=== PATIENT | male | born 1950 | race Caucasian/White ===

== ENCOUNTER 2022-11-29 20:35 | Emergency (ER) | payer MEDICARE, SELFPAY ==
[2022-11-29] VITALS (9 sets, daily range): BP systolic 151–175; BP diastolic 72–89; PULSE 63–88; RESP 13–27; TEMP 36.5; O2SAT 96–99
--- NOTE | ~2022-11-29 | XR_ITS ---
XR chest 2V DATE: 11/29/2022 21:15 INDICATION: Shortness of breath TECHNIQUE: PA and lateral views COMPARISON: 10/17/2010 PA and lateral chest FINDINGS: Left pacemaker device with right atrial, right ventricular and coronary sinus leads. Normal heart size. Aortic arch calcification. There is pulmonary vascular congestion and redistribution. There is pulmonary interstitial prominence including bilateral Herb B-lines. There are small pleural effusions. IMPRESSION: Pulmonary vascular congestion, pulmonary edema, small pleural effusions Reviewed, dictated and finalized at location A. IMPRESSION: Pulmonary vascular congestion, pulmonary edema, small pleural effus ions
--- NOTE | ~2022-11-29 | CT_ITS ---
EXAMINATION: CTA chest PE protocol DATE: 11/30/2022 01:10 INDICATION: Shortness of breath TECHNIQUE: Computed tomography angiography (CTA) of the chest was performed with 100 mL Omnipaque-350 intravenous contrast timed to evaluate the pulmonary arteries. Coronal maximum intensity projection 3D-reconstructions were created by the technologist. The dose-length product (DLP) was 392.62 mGy-cm. Automated exposure control and iterative reconstruction technique were employed. COMPARISON: None. FINDINGS: The pulmonary arteries are well-opacified. No pulmonary embolism is identified. There are e xtensive collateral vessels throughout the left thorax, likely related to left subclavian vein occlus ion. There are small to moderate-sized pleural effusions. Cardiomegaly is noted. There are patchy opa cities throughout all lung zones which may be partially due to expiratory phase examination. There is mild right hilar lymphadenopathy, likely reactive. There is mild thoracic spondylosis. IMPRESSION: 1. No pulmonary embolus identified. 2. Small to moderate-sized pleural effusions. 3. Cardiomegaly. 4. Patchy opacities throughout all lung zones which may relate to pulmonary edema as well as expirato ry phase imaging. 5. Extensive venous collaterals throughout the left hemithorax, likely related to left subclavian vei n occlusion. Reviewed, dictated and finalized at location A. IMPRESSION: 1. No pulmonary embolus identified. 2. Small to moderate-sized pleural effusions. 3. Cardiomegaly. 4. Patchy opacities throughout all lung zones which may relate to pulmonary dimitry ma as well as expiratory phase imaging. 5. 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
--- NOTE | 2022-11-29 20:36 | ECG_ITS ---
Measurements Intervals [place] Rate: 85 P: 66 OK: 176 QRS: 125 QRSD: 152 T: -7 QT: 398 QTc: 476 Interpretive Statements ELECTRONIC VENTRICULAR PACEMAKER WITH ATRIAL SENSING APPROPRIATE SENSING AND CAPTURE ARE DEMONSTRATED ABNORMAL RHYTHM ECG NO PREVIOUS ECG AVAILABLE FOR COMPARISON Electronically Signed On 11-30-2022 11:23:01 CDT by Panda Reis M.D.
[2022-11-29 22:41] LABS: Basophils Percent Auto 0.5 % (0.2-1.2); Eosinophils Absolute Auto 0.2 K/mm3 (0-0.3); Eosinophils Percent Auto 2.2 % (0-4.4); Hemoglobin 13.3 g/dL (14.0-18.0); Immature Granulocyte Absolute 0.03 K/mm3 (0.00-0.031); Immature Granulocyte Percent A 0.4 % (0-0.5); Lymphocytes Absolute Auto 1.26 K/mm3 (0.9-3.2); Lymphocytes Percent Auto 15.4 % (18.3-44.2); Mean Corpuscular HGB Conc 34.1 g/dl (32-36); Mean Corpuscular Hemoglobin 30.3 pg (26-34); Mean Corpuscular Volume 88.8 fl (80-100); Mean Platelet Volume 9.9 fl (7.4-10.4); Monocytes Absolute Auto 0.6 K/mm3 (0.1-0.6); Monocytes Percent Auto 7.4 % (2.6-8.5); Neutrophils Absolute Auto 6.1 K/mm3 (1.3-6.7); Neutrophils Percent Auto 74.1 % (45.5-73.1); Platelet Count Result 208 k/mm3 (150-375); Red Blood Count 4.39 M/mm3 (4.6-6.20); Red Cell Distribution Width 12.4 % (11.5-14.5); White Blood Count 8.2 K/mm3 (4.5-10.0)
[2022-11-29 23:11] LABS: Alanine Aminotransferase 28 U/L (6-50); Alkaline Phosphatase 92 U/L (38-126); Anion Gap 7 mmol/L (8-16); Aspartate Amino Transferase 29 U/L (17-59); Bilirubin,Total 1.3 mg/dL (0.2-1.3); Blood Urea Nitrogen 13 mg/dL (9-20); Calcium 8.8 mg/dL (8.4-10.2); Carbon Dioxide 23 mmol/L (22-30); Chloride 105 mmol/L (98-107); Estimated CRCL calculation 70 ml/min; Estimated Glomerular Filt Rate > 60; Glucose 263 mg/dL (65-110); Potassium 4.3 mmol/L (3.4-5.0); Sodium 135 mmol/L (137-145)
[2022-11-29 23:13] LABS: Magnesium 1.9 mg/dL (1.6-2.3)
[2022-11-29 23:23] LABS: NT Pro B Type Natriuretic Pept 879 pg/mL (19.9-100); Troponin I < 0.012 ng/mL (0.000-0.034)
[2022-11-30] VITALS: PULSE 70; RESP 15; O2SAT 99
[2022-11-30 00:01] VITALS: BP 165/80; PULSE 70; RESP 14; O2SAT 99
--- NOTE | 2022-11-30 00:29 | ED.GENADULT ---
HPI - General Adult General Chief complaint: Shortness of Breath/Dyspnea Stated complaint: SOB Time Seen by Provider: 11/29/22 22:02 History of Present Illness HPI narrative: Patient 72-year-old gentleman who presents the emergency department with chief complaint of shortness of breath. Patient reports that he does have prior history of congestive heart failure and has a biventricular pacemaker patient reports that he is currently not on any diuretics and reports that for the last several days he has been having increasing shortness of breath patient was seen at urgent care and given an inhaler the patient states he has been using the inhaler quite frequently and is noticed whenever he ambulates he gets short of breath. Patient reports no wheezing the patient states that he had no weight gain and reports that the symptoms are not improved by anything. Related Data Home Medications Medication Instructions Recorded Confirmed amlodipine 5 mg-atorvastatin 10 mg 1 tablet PO DAILY 10/31/19 tablet insulin glargine 100 unit/mL (3 15 unit subcut DAILY 10/31/19 mL) subcutaneous pen (Lantus Solostar U-100 Insulin) insulin lispro 100 unit/mL 10.5 unit subcut QACBREAK 10/31/19 subcutaneous half-unit pen (Humalog Steven KwikPen (U-100)) liraglutide 0.6 mg/0.1 mL (18 mg/3 0.6 mg subcut DAILY 10/31/19 mL) subcutaneous pen injector (Victoza 2-Naun) metformin 500 mg tablet 500 mg PO DAILY 10/31/19 omeprazole 20 mg capsule,delayed 20 mg PO DAILY 10/31/19 release pen needle, diabetic 32 gauge x #10 ea 10/31/19 (BD Ultra-Fine Gianna Pen Needle) tadalafil 5 mg tablet (Cialis) 5 mg PO DAILY 10/31/19 tamsulosin 0.4 mg capsule (Flomax) 0.4 mg PO DAILY 10/31/19 Allergies Allergy/AdvReac Type Severity Reaction Status Date / Time No Known Allergies Allergy Mild Verified 11/09/19 09:20 Review of Systems Review of Systems: A 10 system review of systems was completed on the patient and is negative except for what is stated in the HPI. Nursing and ancillary documentation was reviewed. FORMERLY [facility], [facility] Past Medical History Medical History CHF (congestive heart failure) Clavicle fracture Diabetes Heart disease High blood cholesterol HTN (hypertension) Surgical History Surgical History History of elbow surgery Knee arthropathy Pacemaker 2009 S/P tendon repair Family History Family History Father Cancer Grandparent Diabetes mellitus Social History Social History Smoking status: Never smoker Alcohol intake: current Substance use: never Living arrangements: alone Occupation/Education: retired Gender identity (if verbalized by the patient): Male Exam Narrative: GENERAL: Well-appearing, well-nourished, and in no acute distress. HEAD: Normocephalic, atraumatic. EYES: PERRLA and EOMI. ENT: Nares clear, no rhinorrhea or epistaxis. Mucous membranes moist. NECK: Supple. CHEST: Clear to auscultation. No respiratory distress. HEART: Regular rate and rhythm. No murmur heard. Normal peripheral pulses. ABDOMEN: Soft, nontender, nondistended, normal active bowel sounds. EXTREMITIES: Normal range of motion. No edema. SKIN: Warm, dry, no rash. NEURO: No focal deficits. Alert and oriented x3. PSYCH: Normal mood and affect. Course Vital Signs Vital signs: Vital Signs Temperature 36.5 C 11/29/22 20:41 Pulse Rate 88 11/29/22 20:41 Respiratory Rate 24 H 11/29/22 20:41 Blood Pressure 175/89 H 11/29/22 20:41 Pulse Oximetry 98 11/29/22 20:41 Oxygen Delivery Room Air 11/29/22 20:41 Temperature 36.5 C 11/29/22 20:41 Pulse Rate 71 11/30/22 02:18 Respiratory Rate 15 11/30/22 02:18 Blood Pressure 154/92 H 11/19
[2022-11-30 02:18] VITALS: BP 154/92; PULSE 71; RESP 15; O2SAT 97
[2022-11-30 02:49] LABS: Troponin I < 0.012 ng/mL (0.000-0.034)
[2022-11-30] MEDS: FUROSEMIDE INJ 40 MG/4 ML VIAL 20 MG IV PUSH (03:17)
[2022-11-30 03:29] VITALS: BP 154/92; PULSE 75; RESP 17; O2SAT 98
== END 2022-11-30 03:31 | disposition home or self-care (01) ==
PROVIDERS: Emergency Provider Emergency Medicine; PCP Family Medicine
DX: R06.00 Dyspnea, unspecified (principal); I50.9 Heart failure, unspecified; I11.0 Hypertensive heart disease with heart failure; E11.9 Type 2 diabetes mellitus without complications; E78.00 Pure hypercholesterolemia, unspecified; Z95.0 Presence of cardiac pacemaker; Z79.4 Long term (current) use of insulin; Z79.84 Long term (current) use of oral hypoglycemic drugs; J90 Pleural effusion, not elsewhere classified; R91.8 Other nonspecific abnormal finding of lung field
CPT/HCPCS: 36415; 71046; 71275; 80053; 83735; 83880; 84145; 84484; 85025; 93005; 96374; 99284; J1940; Q9967

== ENCOUNTER 2024-04-12 15:29 | Observation (INO) | payer MEDICARE, SELFPAY ==
[2024-04-12] VITALS (8 sets, daily range): BP systolic 146–169; BP diastolic 62–90; PULSE 61–98; RESP 15–20; TEMP 36.5–36.8; O2SAT 96–98; BMI 27.7
--- NOTE | ~2024-04-12 | XR_ITS ---
XR chest 2V 04/12/2024 15:53 Indication: Shortness of breath and chest pain. Low heart rate. Procedure: 2 view chest Comparison: 11/29/2022 Findings: Heart size normal. Pacemaker leads are stable. There is pulmonary edema. No significant ple ural effusion or pneumothorax. No acute osseous abnormality. Impression: 1: Moderate edema. Reviewed, dictated and finalized at location B. Impression: 1: Moderate edema.
--- NOTE | ~2024-04-12 | US_ITS ---
EXAMINATION: US pelvic limited DATE: 04/16/2024 11:47 INDICATION: Bladder spasms. Hematuria. TECHNIQUE: Multiple grayscale and Doppler ultrasound images of the pelvis were obtained. COMPARISON: CT abdomen and pelvis 09/29/2018 FINDINGS: The bladder is decompressed by a Rodriguez catheter. There is diffuse bladder wall thickening. IMPRESSION: 1. Diffuse bladder wall thickening, which may be seen with chronic outlet obstruction, neurogenic maria d dder, or cystitis. Reviewed, dictated and finalized at location A. IMPRESSION: 1. Diffuse bladder wall thickening, which may be seen with chronic outlet obstr uction, neurogenic bladder, or cystitis.
--- NOTE | ~2024-04-12 | CT_ITS ---
EXAMINATION: CTA chest PE protocol DATE: 04/12/2024 17:14 CDT INDICATION: Shortness of breath TECHNIQUE: Computed tomographic angiography (CTA) of the chest was performed with 100 mL Omnipaque-35 0 intravenous contrast. The dose-length product was 507.48 mGy-cm. Maximum intensity projection 3D-re constructions of the aorta and other arteries were constructed by the technologist on a separate work station. COMPARISON: 04/12/2024 FINDINGS: Near complete resolution of the bilateral pleural effusions, seen on previous examination dated 2022. No filling defects within the main or proximal pulmonary arteries. The main pulmonary artery is not enlarged. Heart is enlarged, without pericardial effusion. The great vessels are intact. AICD overlies the left anterior upper chest with leads extending into the right atrium, right ventric le and coronary sinus. Within the upper abdomen: Mild left-sided hydroureteronephrosis, incompletely evaluated on the curren t examination however, this is an interval change examination performed 11/30/2022. The bilateral adrenal glands are unremarkable. IMPRESSION: 1. No filling defects within the main or proximal ulnar arteries. Mild left-sided hydroureteronephrosis incompletely evaluated on the current examination for which non contrast enhanced CT examination of the abdomen and pelvis is recommended. Reviewed, dictated and finalized at location A. IMPRESSION: 1. No filling defects within the main or proximal ulnar arteries. Mild left-sided hydroureteronephrosis incompletely evaluated on the current exa mination for which noncontrast enhanced CT examination of the abdomen and pelvi s is recommended.
--- NOTE | ~2024-04-12 | US_ITS ---
EXAMINATION: US renal BI DATE: 04/13/2024 10:02 INDICATION: Hydronephrosis. TECHNIQUE: Multiple ultrasound grayscale images of the kidneys were obtained. COMPARISON: CT abdomen and pelvis 09/29/2018, chest CT 04/12/2024 FINDINGS: The right kidney measures 9.9 x 6.2 x 5.4 cm. The left kidney measures 11.5 x 5.8 x 5.2 cm. The kidne ys demonstrate normal parenchymal echogenicity. There is mild left hydronephrosis. The bladder demons trates diffuse wall thickening, likely secondary to chronic outlet obstruction. IMPRESSION: 1. Mild left hydronephrosis. Reviewed, dictated and finalized at location A.
--- NOTE | 2024-04-12 15:31 | ECG_ITS ---
Test Date: 2024-04-12 15:36:49 Measurements Intervals [place] Rate: 64 P: 75 SD: 165 QRS: 141 QRSD: 146 T: 26 QT: 440 QTc: 456 Interpretive Statements ELECTRONIC ATRIAL PACEMAKER ELECTRONIC VENTRICULAR PACEMAKER No previous ECG available for comparison Electronically Signed On 04-13-2024 09:38:10 CDT by Kevin Chirinos M.D.
[2024-04-12 15:52] LABS: Basophils Percent Auto 0.6 % (0.2-1.2); Eosinophils Absolute Auto 0.1 K/mm3 (0-0.3); Eosinophils Percent Auto 1.6 % (0-4.4); Hematocrit 38.6 % (42.0-52.0); Hemoglobin 12.7 g/dL (14.0-18.0); Immature Granulocyte Absolute 0.02 K/mm3 (0.00-0.031); Immature Granulocyte Percent A 0.3 % (0-0.5); Lymphocytes Absolute Auto 1.08 K/mm3 (0.9-3.2); Lymphocytes Percent Auto 15.4 % (18.3-44.2); Mean Corpuscular HGB Conc 32.9 g/dl (32-36); Mean Corpuscular Hemoglobin 30.1 pg (26-34); Mean Corpuscular Volume 91.5 fl (80-100); Monocytes Absolute Auto 0.5 K/mm3 (0.1-0.6); Monocytes Percent Auto 6.4 % (2.6-8.5); Neutrophils Absolute Auto 5.3 K/mm3 (1.3-6.7); Neutrophils Percent Auto 75.7 % (45.5-73.1); Platelet Count Result 200 k/mm3 (150-375); Red Blood Count 4.22 M/mm3 (4.6-6.20); Red Cell Distribution Width 12.9 % (11.5-14.5)
[2024-04-12 16:03] LABS: Prothrombin Time 13.7 Seconds (11.1-14.7)
[2024-04-12 16:04] LABS: Partial Thromboplastin Time 24.4 Seconds (22.3-36.8)
[2024-04-12 16:13] LABS: Alanine Aminotransferase 25 U/L (6-50); Albumin Level 4.2 g/dL (3.5-5.1); Alkaline Phosphatase 82 U/L (38-126); Anion Gap 10 mmol/L (4-12); Aspartate Amino Transferase 29 U/L (17-59); Bilirubin,Total 0.8 mg/dL (0.2-1.3); Blood Urea Nitrogen 21 mg/dL (9-20); Carbon Dioxide 21 mmol/L (22-30); Chloride 107 mmol/L (98-107); Estimated CRCL calculation 51 ml/min; Estimated Glomerular Filt Rate > 60; Glucose 175 mg/dL (65-110); Lipase 89 U/L (23-300); Sodium 138 mmol/L (137-145)
[2024-04-12 16:19] LABS: Troponin I < 0.012 ng/mL (0.000-0.034)
[2024-04-12] MEDS: ASPIRIN 81 MG CHEWABLE TABLET 324 MG PO (16:24)
--- NOTE | 2024-04-12 16:37 | ED_ITS ---
HPI - SOB/Dyspnea General Chief Complaint: Chest Pain Stated Complaint: sob,cp Time Seen by Provider: 04/12/24 16:27 History of Present Illness HPI Narrative: Pt presents with SOB for the last couple of weeks getting progressively worse especially with any type of exertion. Pt says his oxygen sats remain at 98% even with exertion but his HR drops into 40's despite his pacemaker. Pt saw Geno Kevin yesterday and had pacemaker interrogated. Pt has had some occasional mild CP but none now and not with exertion. Pt does have a histoy of chf but has no edema. Related Data Home Medications Medication Instructions Recorded Confirmed amlodipine 5 mg-atorvastatin 10 mg 1 tablet PO DAILY 10/31/19 tablet insulin glargine 100 unit/mL (3 15 unit subcut DAILY 10/31/19 mL) subcutaneous pen (Lantus Solostar U-100 Insulin) insulin lispro 100 unit/mL 10.5 unit subcut QACBREAK 10/31/19 subcutaneous half-unit pen (Humalog Steven KwikPen (U-100)) metformin 500 mg tablet 500 mg PO DAILY 10/31/19 omeprazole 20 mg capsule,delayed 20 mg PO DAILY 10/31/19 release pen needle, diabetic 32 gauge x #10 ea 10/31/19 (BD Ultra-Fine Gianna Pen Needle) tadalafil 5 mg tablet (Cialis) 5 mg PO DAILY 10/31/19 tamsulosin 0.4 mg capsule (Flomax) 0.4 mg PO DAILY 10/31/19 Allergies Allergy/AdvReac Type Severity Reaction Status Date / Time No Known Allergies Allergy Mild Verified 04/12/24 16:21 Review of Systems Review of Systems: All systems reviewed & are unremarkable except as noted in HPI and below [facility] Past Medical History Medical History (Updated 04/12/24 @ 21:39 by Arturo Grey III, DO) Benign prostatic hyperplasia Clavicle fracture Hypercholesterolemia Hypertension 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 Code status: Full code. Smoking status: Never smoker Alcohol intake: never Substance use: never Do You Feel Safe in your Home?: Yes Lack of Transportation: No Lack of Food: Never True Current Housing: I Have Housing Concerned About Future Housing: No Difficulty Paying Gas/Electric Bills: No Difficulty Paying for Meds: No Currently Unemployed: No Education: High School Diploma/GED Difficulty w/ Childcare or Family Care: No Living arrangements: alone Occupation/Education: retired Spiritual care concerns: No Exam Const: General: healthy appearing and no acute distress Nutritional Appearance: well nourished Orientation/consciousness: patient oriented x3 Limitations: no limitations Chest: Chest palpation & inspection: normal inspection of the chest Resp: Effort & Inspection: normal respiratory effort Auscultation: clear to auscultation bilaterally Cardio: Rate: regular rate Rhythm: regular rhythm GI: GI Palp: Yes Soft to palpation and No Tenderness to palpation present (GI) Auscultation: normal bowel sounds Skin: General skin exam: normal color Rashes: no rashes Neuro: General: patient oriented x3, moves all extremities, no meningeal signs, no focal motor deficits and CN's II-XI intact bilaterally Cranial nerves: Yes Nystagmus not present Speech: normal speech Extrem: General: normal to inspection and no clubbing, cyanosis or edema Psych: Mental Status: mental status grossly normal Affect: normal affect Attitude: cooperative Course Vital Signs Vital signs: Vital Signs Temperature 98.2 F 04/12/24 15:32 Pulse Rate 65 04/12/24 15:32 Respiratory Rate 18 04/12/24 15:32 Blood Pressure 146/62 H 04/12/24 15:32 Pulse Oximetry 98 04/12/24 15:32 Oxygen Delivery Room Air 04/12/24 15:32 Temperature 97.7 F 04/12/24 19:10 Pulse Rate 88 04/12/24 19:10 Respiratory Rate 16 04/12/24 19:10 Blood Pressure 159/85 H 04/12/24 19:10 Pulse Oximetry 98 04/12/24 19:10 Oxygen Delivery Room Air 04/12/24 16:06 MDM - SOB/Dyspnea MDM Narrative Medical decision making narrative: pt is sob for weeks with HR dropping despite pacer. Will do cardiac work up and labs with cxr and ekg and likely CTA chest. cta neg for PE, bnp 775 with cxr showing moderate edema. firt trop neg. gave dose of IV lasix. discussed with pt and would rather be admitted. discussed with Ericka Adam and agrees to admit IMU obs Differential Diagnosis Differential diagnosis: Likely congestive heart failure, community acquired pneumonia and pulmonary embolism Lab Data 04/12/24 15:40 04/12/24 15:40 Labs: Lab Results 04/12/24 Range/Units 15:40 WBC 7.0 (4.5-10.0) K/mm3 RBC 4.22 L (4.6-6.20) M/mm3 Hgb 12.7 L (14.0-18.0) g/dL Hct 38.6 L (42.0-52.0) % MCV 91.5 (80-100) fl MCH 30.1 (26-34) pg MCHC 32.9 (32-36) g/dl RDW 12.9 (11.5-14.5) % Plt Count 200 (150-375) k/mm3 MPV 10.0 (7.4-10.4) fl Immature Gran % (Auto) 0.3 (0-0.5) % Neut % (Auto) 75.7 H (45.5-73.1) % Lymph % (Auto) 15.4 L (18.3-44.2) % [place] % (Auto) 6.4 (2.6-8.5) % Eos % (Auto) 1.6 (0-4.4) % Baso % (Auto) 0.6 (0.2-1.2) % Lymph # (Auto) 1.08 (0.9-3.2) K/mm3 [place] # (Auto) 0.5 (0.1-0.6) K/mm3 Eos # (Auto) 0.1 (0-0.3) K/mm3 Baso # (Auto) 0.0 (0.0-0.1) K/mm3 Abs Immat Gran (auto) 0.02 (0.00-0.031) K/mm3 Absolute Neuts (auto) 5.3 (1.3-6.7) K/mm3 Absolute Nucleated RBC 0.000 (0.0-0.012) K/mm3 Nucleated RBC % 0.0 (0.0-0.2) % PT 13.7 (11.1-14.7) Seconds INR 1.0 APTT 24.4 (22.3-36.8) Seconds Sodium 138 (137-145) mmol/L Potassium 4.1 (3.4-5.0) mmol/L Chloride 107 (98-107) mmol/L Carbon Dioxide 21 L (22-30) mmol/L Anion Gap 10 (4-12) mmol/L BUN 21 H (9-20) mg/dL Creatinine 1.10 (0.7-1.3) mg/dL Estim Creat Clear Calc 51 ml/min Estimated GFR > 60 (59 - ) Glucose 175 H (65-110) mg/dL Hemoglobin A1c 8.4 H (<5.7) % Calcium 9.0 (8.4-10.2) mg/dL Total Bilirubin 0.8 (0.2-1.3) mg/dL AST 29 (17-59) U/L ALT 25 (6-50) U/L Alkaline Phosphatase 82 (38-126) U/L Troponin I < 0.012 (0.000-0.034) ng/mL NT-Pro-B Natriuret Pep 775 H (19.9-100) pg/mL Total Protein 8.0 (6.3-8.2) g/dL Albumin 4.2 (3.5-5.1) g/dL Lipase 89 (23-300) U/L Discharge Plan Discharge Clinical Impression: Dyspnea on exertion, CHF (congestive heart failure) Patient Disposition: Still a Patient Condition: Stable
[2024-04-12 16:48] LABS: Potassium 4.1 mmol/L (3.4-5.0)
[2024-04-12 17:09] LABS: NT Pro B Type Natriuretic Pept 775 pg/mL (19.9-100)
--- NOTE | 2024-04-12 18:16 | PC.NURSE ---
called dietary and ordered dinner tray for pt at this time
[2024-04-12] MEDS: FUROSEMIDE INJ 40 MG/4 ML VIAL IV PUSH (18:28)
[2024-04-12 18:56] LABS: Troponin I < 0.012 ng/mL (0.000-0.034)
--- NOTE | 2024-04-12 19:00 | PM.IMHP ---
H&P: HPI History of Present Illness Date/Time: 04/12/24 19:00 Chief Complaint: Chest pain and shortness of breath. Narrative: This is a pleasant 73-year-old male with history of nonischemic cardiomyopathy, combination pacemaker/defibrillator implantation, hypertension, insulin-dependent type 2 diabetes mellitus, benign prostatic hyperplasia, and gastroesophageal reflux disease who presented to the emergency department for evaluation of chest pain and shortness of breath. The patient provides the following history. He gives a several week history of intermittent chest heaviness and shortness of breath with exertion. 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 He has not had much urine output with that however he goes on to say that he frequently has difficulty starting his stream and feels like he does not completely empty his bladder. In any event, he saw his doctor today in follow-up and they did a walking oxygen study at which time he developed significant shortness of breath, nausea, mild sweats, and bradycardia with his heart rate dropping down to 43 beats per minute. He was then sent to the ED for further evaluation. He denies syncope, near syncope, fever, sinus congestion, sore throat, cough, abdominal pain, vomiting, orthopnea, calf pain, and edema. In the ED: He was afebrile on arrival. Blood pressures have been running in the upper 140s to 160s systolic. Labs are significant for a hemoglobin of 12.7, BUN 21, glucose 175, proBNP 775, troponin less than 0.012. Chest CTA showed no filling defects within the main or proximal pulmonary arteries, cardiomegaly, and mild left-sided hydroureteronephrosis which is incompletely evaluated. He is being admitted in this setting for further treatment, evaluation, and Cardiology consultation. Review of Systems Review of Systems: 12 systems were reviewed and are negative except for as per HPI. 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 Code status: Full code. Smoking status: Never smoker Alcohol intake: never Substance use: never Do You Feel Safe in your Home?: Yes Lack of Transportation: No Lack of Food: Never True Current Housing: I Have Housing Concerned About Future Housing: No Difficulty Paying Gas/Electric Bills: No Difficulty Paying for Meds: No Currently Unemployed: No Education: High School Diploma/GED Difficulty w/ Childcare or Family Care: No Living arrangements: alone Occupation/Education: retired Spiritual care concerns: No Meds Home Medications and Allergies Home Medications Medication Instructions Recorded Confirmed Type amlodipine 5 mg-atorvastatin 10 mg 1 tablet PO DAILY 10/31/19 History tablet insulin glargine 100 unit/mL (3 15 unit subcut DAILY 10/31/19 History mL) subcutaneous pen (Lantus Solostar U-100 Insulin) insulin lispro 100 unit/mL 10.5 unit subcut QACBREAK 10/31/19 History subcutaneous half-unit pen (Humalog Steven KwikPen (U-100)) metformin 500 mg tablet 500 mg PO DAILY 10/31/19 History omeprazole 20 mg capsule,delayed 20 mg PO DAILY 10/31/19 History release pen needle, diabetic 32 gauge x #10 ea 10/31/19 History (BD Ultra-Fine Gianna Pen Needle) tadalafil 5 mg tablet (Cialis) 5 mg PO DAILY 10/31/19 History tamsulosin 0.4 mg capsule (Flomax) 0.4 mg PO DAILY 10/31/19 History Allergies Allergy/AdvReac Type Severity Reaction Status Date / Time No Known Allergies Allergy Mild Verified 04/12/24 16:21 Vital Signs Vital Signs - 24 hr 04/12/24 15:32 04/12/24 16:02 04/12/24 16:03 Temperature 98.2 F Pulse Rate 65 90 98 Respiratory Rate 18 20 Blood Pressure 146/62 H 167/90 H Pulse Oximetry 98 97 Oxygen Delivery Room Air 04/12/24 16:06 04/12/24 18:26 Temperature Pulse Rate 61 Respiratory Rate 15 Blood Pressure 169/76 H Pulse Oximetry 96 98 Oxygen Delivery Room Air Exam Narrative: General: Well-developed male sitting at the side of the bed in no distress. Weight: 82.7 kg. BMI: 27.7. HEENT: Normocephalic, atraumatic. PERRL, EOMI. Sclera anicteric. Oral mucosa moist. Oropharynx clear. Neck: Supple. No significant JVD. Respiratory: Respirations are nonlabored and he is speaking in full sentences at rest. Crackles heard at the bases. Cardiovascular: Regular rate and rhythm with S1-S2. Gastrointestinal: Abdomen is soft, nontender, and nondistended with positive bowel sounds. Skin: Warm and dry. No rash or lesions on limited exam. Extremities: No cyanosis, clubbing, or edema. Radial and pedal pulses intact. Neurological: Alert. Cranial nerves 2-12 are grossly intact. No gross focal deficits to casual conversation. Psychiatric: Pleasant and cooperative with normal mood and affect. Judgment and insight intact. H&P: Results Labs Labs: Short CBC 04/12/24 Range/Units 15:40 WBC 7.0 (4.5-10.0) K/mm3 Hgb 12.7 L (14.0-18.0) g/dL Hct 38.6 L (42.0-52.0) % Plt Count 200 (150-375) k/mm3 BMP 04/12/24 15:40 Sodium 138 Potassium 4.1 Chloride 107 Carbon Dioxide 21 L BUN 21 H Creatinine 1.10 Glucose 175 H Calcium 9.0 Cardiac Enzymes 04/12/24 04/12/24 Range/Units 15:40 18:30 Troponin I < 0.012 < 0.012 (0.000-0.034) ng/mL Liver Function 04/12/24 Range/Units 15:40 Total Bilirubin 0.8 (0.2-1.3) mg/dL AST 29 (17-59) U/L ALT 25 (6-50) U/L Alkaline Phosphatase 82 (38-126) U/L Albumin 4.2 (3.5-5.1) g/dL Impressions Chest X-Ray 04/12/24 15:57 Impression: 1: Moderate edema. Chest CTA 04/12/24 17:13 IMPRESSION: 1. No filling defects within the main or proximal ulnar arteries. 2. Mild left-sided hydroureteronephrosis incompletely evaluated on the current examination for which noncontrast enhanced CT examination of the abdomen and pelvis is recommended. Assessment and Plan Assessment and plan (1) CHF exacerbation: Code(s): I50.9 - Heart failure, unspecified Status: Acute (2) Chest pain: Code(s): R07.9 - Chest pain, unspecified Status: Acute (3) Benign prostatic hyperplasia with urinary retention: Code(s): N40.1 - Benign prostatic hyperplasia with lower urinary tract symptoms; R33.8 - Other retention of urine Status: Acute (4) Hydroureteronephrosis: Code(s): N13.30 - Unspecified hydronephrosis Status: Acute (5) Nonischemic cardiomyopathy: Code(s): I42.8 - Other cardiomyopathies Status: Acute (6) Hypertension: Code(s): I10 - Essential (primary) hypertension Status: Acute (7) Insulin dependent type 2 diabetes mellitus: Code(s): E11.9 - Type 2 diabetes mellitus without complications; Z79.4 - snf (current) use of insulin Status: Acute Plan The patient presented to the emergency department for evaluation of chest pain and shortness of breath for couple weeks as detailed in HPI. Labs, imaging, EKG, and all reports were personally reviewed. Initial troponin was normal and his EKG atrial and ventricular paced rhythm. Moderate amount of pulmonary edema was noted on chest x-ray and he will be diuresed with close monitoring of volume status, renal function, and electrolytes. Echocardiogram ordered. Cardiology has been consulted for their recommendations. Chest CTA showed incompletely evaluated mild left hydroureteronephrosis and with further questioning the patient does report trouble starting his stream and feelings of incomplete evacuation of his bladder. This is likely the cause of the hydroureteronephrosis. Renal ultrasound ordered. Bladder scan showed that he was retaining greater than 500 mL of urine postvoid and a Rodriguez catheter has been placed. Continue tamsulosin and consider the addition of finasteride. Continue basal insulin and check hemoglobin A1c. Initiate sliding scale insulin, Accu-Cheks, and hypoglycemic protocol. Vital signs were reviewed and they are stable. His home medications will be reviewed and resumed as appropriate. Findings and treatment plan were discussed with the patient. Questions were solicited and answered to satisfaction. The patient's medical management will be taken over by the hospitalist team in a.m. Quality VTE Prophylaxis VTE prophylaxis: pharmacologic ordered The patient has been admitted under observation status. Hospitalist MIPS Advance Care Plan I have confirmed that the patient's Advanced Care Plan is present, code status is documented, or surrogate decision maker is listed in patient medical record.: Yes Medication Reconciliation I have utilized all available resources to obtain, update and review the patients current medications (includes all prescriptions, OTC, herbals, cannabis, and nutritional supplements).: Yes
--- NOTE | 2024-04-12 19:18 | ADMGEN ---
This patient, Alan Burgos, was admitted to IMU Room 206-02 at 1909. Patient/family oriented to hospital policies and general routines including ID bracelet, bed and alarms, visiting hours, pain management, procedures, bathroom and other care routines, personal items, smoking policy, room service/diet, and visiting hours. Information on how to activate the Rapid Response Team has been discussed. Patient/Family are encouraged to report perceived risks to care and to ask questions if they do not understand what they are told or what they should do.
[2024-04-12 19:55] LABS: Glucose Point of Care 256 mg/dl (65-105)
[2024-04-12] MEDS: INSULIN ASPART (*BKC) 100 UNITS/ML SUB-Q (21:00)
[2024-04-12 21:15] LABS: Hemoglobin A1C 8.4 % (<5.7)
[2024-04-12 22:05] LABS: Troponin I < 0.012 ng/mL (0.000-0.034)
[2024-04-13] VITALS (20 sets, daily range): BP systolic 113–175; BP diastolic 58–86; PULSE 64–92; RESP 16–20; TEMP 36.6–36.9; O2SAT 95–100
[2024-04-13 01:12] LABS: Anion Gap 9 mmol/L (4-12); Blood Urea Nitrogen 23 mg/dL (9-20); Calcium 9.6 mg/dL (8.4-10.2); Carbon Dioxide 25 mmol/L (22-30); Chloride 103 mmol/L (98-107); Estimated CRCL calculation 47 ml/min; Estimated Glomerular Filt Rate 59; Glucose 198 mg/dL (65-110); Magnesium 1.9 mg/dL (1.6-2.3); Potassium 3.9 mmol/L (3.4-5.0); Sodium 137 mmol/L (137-145)
[2024-04-13 01:16] LABS: Hematocrit 39.9 % (42.0-52.0); Hemoglobin 13.4 g/dL (14.0-18.0); Mean Corpuscular HGB Conc 33.6 g/dl (32-36); Mean Corpuscular Hemoglobin 30.2 pg (26-34); Mean Corpuscular Volume 90.1 fl (80-100); Mean Platelet Volume 10.4 fl (7.4-10.4); Platelet Count Result 222 k/mm3 (150-375); Red Blood Count 4.43 M/mm3 (4.6-6.20); Red Cell Distribution Width 13.1 % (11.5-14.5); White Blood Count 6.5 K/mm3 (4.5-10.0)
[2024-04-13 01:23] LABS: Troponin I < 0.012 ng/mL (0.000-0.034)
--- NOTE | 2024-04-13 06:00 | ECHO_ITS ---
Patient Info Name: Alan Burgos Age: 73 years : 1950 Gender: Male Ht: 62 in Wt: 182 lbs BSA: 1.94 m2 HR: 73 bpm BP: 175 / 86 mmHg Heart Rhythm: Sinus Rhythm Technical Quality: Good Exam Date: 04/13/2024 8:55 AM Exam Location: Echo Lab Patient Status: Outpatient Admit Date: 04/12/2024 Staff Ordering Physician: Arturo Grey DO Chief Telephone Operator: Janis Thomas RDCS Attending Provider: Yoni Walker MD Referring Physician: Matilda PEACOCK; Exam Type: CA echo doppler color flow Study Info Indications - chf Complete two-dimensional, color flow and Doppler transthoracic echocardiogram is performed. Summary 1. Left ventricular chamber dimension is moderately enlarged. 2. Left ventricular systolic function is moderately reduced, estimated at 30-35%. 3. There is mildly increased left ventricular wall thickness. 4. Right ventricular chamber dimension is normal. 5. Right ventricular systolic function is normal. 6. Left atrial chamber dimension is moderately enlarged. 7. Right atrial chamber dimension is mildly enlarged. 8. There is mild mitral valve regurgitation. 9. There is moderate tricuspid valve regurgitation. Left Ventricle Left ventricular chamber dimension is moderately enlarged. Left ventricular systolic function is moderately reduced, estimated at 30-35%. There is mildly increased left ventricular wall thickness. The left ventricular diastolic function is abnormal. Right Ventricle Linear artifact in right ventricle suggestive of catheter(s), pacemaker lead(s), or ICD lead(s). Right ventricular chamber dimension is normal. Right ventricular systolic function is normal. Left Atria Left atrial chamber dimension is moderately enlarged. Right Atria Linear artifact in the right atrium suggestive of catheter(s), pacemaker lead(s), or ICD lead(s). Right atrial chamber dimension is mildly enlarged. Atrial Septum Intact interatrial septum visualized by color flow imaging. Aortic Valve The aortic valve is probable trileaflet. There is no aortic valve stenosis. There is no aortic valve regurgitation. Pulmonic Valve The pulmonic valve is not well visualized. Mitral Valve There is mild mitral valve regurgitation. Tricuspid Valve There is moderate tricuspid valve regurgitation. Pericardium/Pleural The pericardium appears epicardial fat pad. There is no pericardial effusion. Inferior Vena Cava Normal inferior vena cava with >50% collapse upon inspiration consistent with normal right atrial pressure, 3 mmHg. Aorta The aortic root size at the sinus of Valsalva is normal. Left Ventricular Outflow Tract Name Value Normal LVOT 2D LVOT Diameter 1.8 cm LVOT Doppler LVOT Peak Gradient 3 mmHg LVOT Mean Gradient 1 mmHg LVOT VTI 17 cm LVOT VTI/AV VTI Ratio 0.7 LVOT Stroke Volume 45 ml LVOT CO 3.6 l/min LVOT CI 1.9 l/min/m2 Mitral Valve Name Value Normal MV Doppler MV Decel [place] 649 cm/s2 MV PHT 43 ms MV Area (PHT) 5.2 cm2 4.0-5.0 MV Regurgitation Doppler MR Peak Gradient 83 mmHg MV Diastolic Function MV E Peak Velocity 96 cm/s MV A Peak Velocity 39 cm/s MV E/A 2.4 MV Decel Time 147 ms MV Annular TDI MV E/e' (Septal) 27.0 <=8.0 MV E/e' (Lateral) 16.2 <=8.0 MV E/e' (Average) 21.6 Tricuspid Valve Name Value Normal TV Regurgitation Doppler TR Peak Velocity 342 cm/s TR Peak Gradient 42 mmHg Estimated PAP/RSVP RA Pressure 3 mmHg <=5 PA Systolic Pressure 50 mmHg <36 RV Systolic Pressure 50 mmHg <36 Aortic Valve Name Value Normal AV Doppler AV Peak Velocity 137 cm/s AV Peak Gradient 7 mmHg AV Mean Gradient 4 mmHg AV VTI 26 cm AV Area (Cont Eq VTI) 1.7 cm2 >=3.0 AV Area (Cont Eq Shar) 1.5 cm2 AV Regurgitation 2D LVOT Area 2.6 cm2 Ventricles Name Value Normal LV Dimensions 2D/MM IVS Diastolic Thickness (2D) 1.0 cm 0.6-1.0 LVID Diastole (2D) 6.0 cm 4.2-5.8 LVIW Diastolic Thickness (2D) 1.0 cm 0.6-1.0 LVID Systole (2D) 4.5 cm 2.5-4.0 LVOT Diameter 1.8 cm LV Mass (2D Cubed) 258.43 g 88.00-224.00 LV Mass Index (2D Cubed) 134 g/m2 49-115 Relative Wall Thickness (2D) 0.34 LV Fractional Shortening/Ejection Fraction 2D/MM LV Fractional Shortening (2D) 26 % 25-43 LV EF (2D Teicholz) 50 % 52-72 LV Diastolic Volume (4C MOD) 152 ml LV EF (4C MOD) 43 % LV Diastolic Volume (2C MOD) 141 ml LV EF (2C MOD) 58 % LV Diastolic Volume (BP MOD) 151 ml 62-150 LV Diastolic Volume Index (BP MOD) 78 ml/m2 34-74 LV Systolic Volume (BP MOD) 72 ml 21-61 LV Systolic Volume Index (BP MOD) 37 ml/m2 11-31 LV EF (BP MOD) 52 % 52-72 LV Diastolic Length (4C) 8.1 cm LV Systolic Length (4C) 7.3 cm LV Stroke Volume (4C MOD) 65 ml Atria Name Value Normal LA Dimensions LA Volume (4C A-L) 58 ml RA Dimensions RA Area (4C) 12.7 cm2 <=18.0 Report Signatures
[2024-04-13 06:40] LABS: Free T4 Free Thyroxine Reflex 1.27 ng/dL (0.78-2.19)
--- NOTE | 2024-04-13 07:49 | P.PNIM_ITS ---
Progress Note: A&P Assessment and Plan (1) CHF exacerbation: Code(s): I50.9 - Heart failure, unspecified Status: Acute (2) Chest pain: Code(s): R07.9 - Chest pain, unspecified Status: Acute (3) Benign prostatic hyperplasia with urinary retention: Code(s): N40.1 - Benign prostatic hyperplasia with lower urinary tract symptoms; R33.8 - Other retention of urine Status: Acute (4) Hydroureteronephrosis: Code(s): N13.30 - Unspecified hydronephrosis Status: Acute (5) Nonischemic cardiomyopathy: Code(s): I42.8 - Other cardiomyopathies Status: Acute (6) Hypertension: Code(s): I10 - Essential (primary) hypertension Status: Acute (7) Insulin dependent type 2 diabetes mellitus: Code(s): E11.9 - Type 2 diabetes mellitus without complications; Z79.4 - correction (current) use of insulin Status: Acute Plan #SOB 2/2 Prostatomegaly vs CHF exacerbation #Bradycardia s/p Pacemaker -ECHO : LV EF 30-35% -As per cardiology some PVCs could result in false bradycardia on pulse ox -Pacemaker/Defib interrogation 04/11 shows well functioning device -Troponin N - Chest CTA shows no filling defects within the main or proximal lobar artery. -Chest x-ray shows moderate edema - BNP 775 -TSH 7.4, Free T4 N: Subclinical Hypothyroidism #Urinary obstruction/BPH -Renal US: Mild Left Hydronephrosis -Placed Mclaughlin -PSA in 3-4 weeks -CT abdomen pelvis w/wo contrast -Add finasteride and cont Tamsulosin. -Following Urology recs #DM Type 2 -Home regimen Lispro 25 U TID -SS initiated Subjective Date/time seen: 04/13/24 07:49 Interval history: Patient admitted due to shortness of breath and bradycardia. Patient has combination pacemaker/defibrillator. He was seen by the corporate compliance director yesterday and evaluated for possible pacemaker interrogation.Patient TSH is high with Free T4 normal indicating subclinical hypothyroidism. Patient also has difficulty urination, so Mclaughlin is placed. Patient does have history of prostatomegaly and he was drained 3L after placing mclaughlin. Placed Urology consult and PSA is ordered. Chest CTA shows no filling defects within the main or proximal lobar artery. Chest x-ray shows moderate edema.Troponin is negative. Record review indicates no echocardiogram in file. ECHO pending. Possible SOB due to fluid retention from Prostatomegaly vs CHF exacerbation. Exam Narrative: General: Well-developed male sitting at the side of the bed in no distress. Weight: 82.7 kg. BMI: 27.7. HEENT: Normocephalic, atraumatic. PERRL, EOMI. Sclera anicteric. Oral mucosa moist. Oropharynx clear. Neck: Supple. No significant JVD. Respiratory: Respirations are nonlabored and he is speaking in full sentences at rest. Crackles heard at the bases. Cardiovascular: Regular rate and rhythm with S1-S2. Gastrointestinal: Abdomen is soft, nontender, and nondistended with positive bowel sounds. Skin: Warm and dry. No rash or lesions on limited exam. Extremities: No cyanosis, clubbing, or edema. Radial and pedal pulses intact. Neurological: Alert. Cranial nerves 2-12 are grossly intact. No gross focal deficits to casual conversation. Psychiatric: Pleasant and cooperative with normal mood and affect. Judgment and insight intact. Objective Data Vital Signs Vital Signs: Vital Signs - 24 hr 04/12/24 15:32 04/12/24 16:02 04/12/24 16:03 Temperature 98.2 F Pulse Rate 65 90 98 Respiratory Rate 18 20 Blood Pressure 146/62 H 167/90 H Pulse Oximetry 98 97 Oxygen Delivery Room Air 04/12/24 16:06 04/12/24 18:26 04/12/24 19:10 Temperature 97.7 F Pulse Rate 61 88 Respiratory Rate 15 16 Blood Pressure 169/76 H 159/85 H Pulse Oximetry 96 98 98 Oxygen Delivery Room Air 04/12/24 20:00 04/12/24 20:00 04/12/24 22:00 Temperature Pulse Rate 82 72 Respiratory Rate Blood Pressure Pulse Oximetry Oxygen Delivery Room Air 04/13/24 00:00 04/13/24 00:15 04/13/24 00:00 Temperature 98.4 F Pulse Rate 80 92 Respiratory Rate 16 Blood Pressure 141/64 H Pulse Oximetry 100 Oxygen Delivery Room Air 04/13/24 01:49 04/13/24 04:00 04/13/24 04:00 Temperature Pulse Rate 68 64 Respiratory Rate Blood Pressure Pulse Oximetry Oxygen Delivery Room Air 04/13/24 05:00 04/13/24 06:00 04/13/24 07:35 Temperature 97.9 F Pulse Rate 87 73 Respiratory Rate 16 Blood Pressure 175/86 H Pulse Oximetry 98 95 Oxygen Delivery Room Air Intake/Output Intake/Output: Intake & Output 04/10/24 04/11/24 04/12/24 04/13/24 23:59 23:59 23:59 23:59 Intake Total 240 Output Total 1400 2200 -1400 -1959 Meds/Results Medications: Active Medications Generic Name Dose Route Start Last Admin Trade Name Freq PRN Reason Stop Dose Admin Acetaminophen 650 mg 04/12/24 19:22 Acetaminophen 325 Mg Tablet PO Q6H PRN Mild Pain (1-3) or Fever Amlodipine Besylate 10 mg 04/13/24 09:00 Amlodipine Besylate 10 Mg Tablet PO 05/13/24 08:59 DAILY [facility] Dextrose 12.5 gm 04/12/24 19:22 Dextrose 50% 25 Gm/50 Ml Syringe IV PUSH PRN PRN Hypoglycemia Protocol Enoxaparin Sodium 40 mg 04/13/24 09:00 Enoxaparin 40 Mg/0.4 Ml Syringe SUB-Q DAILY [facility] Furosemide 40 mg 04/13/24 09:00 Furosemide Inj 40 Mg/4 Ml Vial IV PUSH BID [facility] Glucagon 1 mg 04/12/24 19:22 Glucagon For Inj 1 Mg Vial IM PRN PRN Hypoglycemia Protocol Glucose 15 gm 04/12/24 19:22 Glucose Oral Gel 15 Gm Of Glucse In 37.5 Gm Tube PO PRN PRN Hypoglycemia Protocol Dextrose 1,000 mls @ 100 mls/hr 04/12/24 19:22 Dextrose 5% 1,000 Ml IVPB PRN PRN Hypoglycemia Protocol Insulin Aspart 3 - 6 units 04/13/24 08:00 Insulin Aspart (*Bkc) 100 Units/Ml SUB-Q TIDWM [facility] Protocol Insulin Aspart 1 - 3 units 04/12/24 21:00 04/12/24 21:00 Insulin Aspart (*Bkc) 100 Units/Ml SUB-Q 2 units HS [facility] Administration Protocol Insulin Aspart 25 units 04/13/24 09:00 Insulin Aspart (*Bkc) 100 Units/Ml SUB-Q 05/13/24 08:59 TID [facility] Lisinopril 20 mg 04/13/24 09:00 Lisinopril 20 Mg Tablet PO 05/13/24 08:59 DAILY [facility] Perflutren Lipid Microsphere 0 ml 04/12/24 18:03 Perflutren Lipid Microspheres 1.5 Ml Vial Diluted To 10 Ml Total Volume IV PUSH 04/15/24 18:04 ONCE PRN adequate visualization Protocol Tamsulosin HCl 0.8 mg 04/13/24 09:00 Tamsulosin Hcl 0.4 Mg Capsule PO DAILY [facility] Radiology Results: ITS Impressions Chest X-Ray 04/12/24 15:57 Impression: 1: Moderate edema. Chest CTA 04/12/24 17:13 IMPRESSION: 1. No filling defects within the main or proximal ulnar arteries. Mild left-sided hydroureteronephrosis incompletely evaluated on the current examination for which noncontrast enhanced CT examination of the abdomen and pelvis is recommended. Labs Labs: Laboratory Results - last 24 hr 04/12/24 04/12/24 04/12/24 15:40 18:30 19:52 WBC 7.0 RBC 4.22 L Hgb 12.7 L Hct 38.6 L MCV 91.5 MCH 30.1 MCHC 32.9 RDW 12.9 Plt Count 200 MPV 10.0 Immature Gran % (Auto) 0.3 Neut % (Auto) 75.7 H Lymph % (Auto) 15.4 L [place] % (Auto) 6.4 Eos % (Auto) 1.6 Baso % (Auto) 0.6 Lymph # (Auto) 1.08 [place] # (Auto) 0.5 Eos # (Auto) 0.1 Baso # (Auto) 0.0 Abs Immat Gran (auto) 0.02 Absolute Neuts (auto) 5.3 Absolute Nucleated RBC 0.000 Nucleated RBC % 0.0 PT 13.7 INR 1.0 APTT 24.4 Sodium 138 Potassium 4.1 Chloride 107 Carbon Dioxide 21 L Anion Gap 10 BUN 21 H Creatinine 1.10 Estim Creat Clear Calc 51 Estimated GFR > 60 Glucose 175 H POC Capillary Glucose 256 H Hemoglobin A1c 8.4 H Calcium 9.0 Magnesium Total Bilirubin 0.8 AST 29 ALT 25 Alkaline Phosphatase 82 Troponin I < 0.012 < 0.012 NT-Pro-B Natriuret Pep 775 H Total Protein 8.0 Albumin 4.2 Lipase 89 TSH (Reflex) Free T4 04/12/24 04/13/24 04/13/24 21:37 00:25 00:25 WBC 6.5 RBC 4.43 L Hgb 13.4 L Hct 39.9 L MCV 90.1 MCH 30.2 MCHC 33.6 RDW 13.1 Plt Count 222 MPV 10.4 Immature Gran % (Auto) Neut % (Auto) Lymph % (Auto) [place] % (Auto) Eos % (Auto) Baso % (Auto) Lymph # (Auto) [place] # (Auto) Eos # (Auto) Baso # (Auto) Abs Immat Gran (auto) Absolute Neuts (auto) Absolute Nucleated RBC Nucleated RBC % PT INR APTT Sodium 137 Potassium 3.9 Chloride 103 Carbon Dioxide 25 Anion Gap 9 BUN 23 H Creatinine 1.20 Estim Creat Clear Calc 47 Estimated GFR 59 Glucose 198 H POC Capillary Glucose Hemoglobin A1c Calcium 9.6 Magnesium 1.9 Total Bilirubin AST ALT Alkaline Phosphatase Troponin I < 0.012 < 0.012 NT-Pro-B Natriuret Pep Total Protein Albumin Lipase TSH (Reflex) 7.480 H Free T4 Cancelled 1.27 Hospitalist MIPS Advance Care Plan I have confirmed that the patient's Advanced Care Plan is present, code status is documented, or surrogate decision maker is listed in patient medical record.: Yes Medication Reconciliation I have utilized all available resources to obtain, update and review the patients current medications (includes all prescriptions, OTC, herbals, cannabis, and nutritional supplements).: Yes
[2024-04-13 07:50] LABS: Glucose Point of Care 198 mg/dl (65-105)
[2024-04-13 09:04] LABS: Prostate Specific Antigen 10.2 ng/mL (< OR = 4.0)
[2024-04-13] MEDS: TAMSULOSIN HCL 0.4 MG CAPSULE 0.8 MG PO (09:58)
[2024-04-13] MEDS: amLODIPine BESYLATE 10 MG TABLET PO (09:58)
[2024-04-13] MEDS: lisinopriL 20 MG TABLET PO (09:58)
[2024-04-13] MEDS: ENOXAPARIN 40 MG/0.4 ML SYRINGE SUB-Q (09:58)
[2024-04-13] MEDS: FUROSEMIDE INJ 40 MG/4 ML VIAL IV PUSH ×2 (09:59→17:42)
[2024-04-13 10:08] LABS: Total Triiodothyronine (T3) 1.39 NG/ML (0.97-1.69)
[2024-04-13] MEDS: INSULIN ASPART (*BKC) 100 UNITS/ML 10 UNITS SUB-Q (10:08)
--- NOTE | 2024-04-13 10:19 | P.CONCA_ITS ---
Assessment and Plan Assessment and plan (1) Acute on chronic heart failure with mildly reduced ejection fraction (HFmrEF, 41-49%): Code(s): I50.23 - Acute on chronic systolic (congestive) heart failure Status: Acute Assessment and Plan: Last echo was in 2014, which showed LVEF of 45% at that time. He had refused repeat echocardiograms since then, but he is now agreeable. Echo ordered and pending. Continue IV Lasix for now, please monitor strict I/Os. On Benazpril at home (Lisinopril here at hospital), continue for now. Will add Toprol. Further optimization of heart failure regimen pending echo results. (2) Biventricular ICD (implantable cardioverter-defibrillator) in place: Code(s): Z95.810 - Presence of automatic (implantable) cardiac defibrillator Status: Acute Assessment and Plan: Device interrogation 04/11 shows well functioning device. Thought to be bradycardia at his doctor's office yesterday. He does have some PVCs which could result in a false bradycardia on pulse ox machines. His device is functioning well, and his lower rate limit is set at 60 beats per minute. (3) Hypertension: Code(s): I10 - Essential (primary) hypertension Status: Acute Assessment and Plan: Continue Benazepril-Amlodipine at home (Currently receiving Lisinopril here). Will start Toprol for CHF. (4) Insulin dependent type 2 diabetes mellitus: Code(s): E11.9 - Type 2 diabetes mellitus without complications; Z79.4 - detention (current) use of insulin Status: Acute Assessment and Plan: Uncontrolled. Management as per primary team. (5) Hydroureteronephrosis: Code(s): N13.30 - Unspecified hydronephrosis Status: Acute Assessment and Plan: Urology has been consulted. Plan Recommendations and plan discussed with Hospitalist. History of Present Illness History of Present Illness Consult date/time: 04/13/24 10:19 Requesting physician: Arturo Grey III, DO Consult reason: congestive heart failure Reason For Visit: WHITLOCK Narrative: We are consulted for CHF. This is a 73 year old male with chronic heart failure with improved LVEF up to 45% per echo 2014, s/p biventricular ICD, hypertension, hyperlipidemia, diabetes mellitus, anxiety, issues with noncompliance. He was a patient of Dr. Edge, but will be transitioning to Dr. Bond. Patient was recently seen in our office on 04/11 by Ines Bingham. He had a recent lung infection after cleaning out a house, had to take multiple courses of antibiotics, had cough that improved, but had shortness of breath. Gets short of breath easily with activity. No chest pain. Device interrogation 04/11 shows well functioning device. Patient was at his doctor's office yesterday and they did a walking oxygen study, during which he developed shortness of breath. His heart rate noted to be dropping down to the 40s. He was sent to the ED for further evaluation. Workup shows: Negative troponins x 3 NT pro BNP of 775 CXR with moderate edema Chest CTA: No PE. EKG with paced rhythm. 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 Code status: Full code. Smoking status: Never smoker Alcohol intake: never Substance use: never Do You Feel Safe in your Home?: Yes Lack of Transportation: No Lack of Food: Never True Current Housing: I Have Housing Concerned About Future Housing: No Difficulty Paying Gas/Electric Bills: No Difficulty Paying for Meds: No Currently Unemployed: No Education: High School Diploma/GED Difficulty w/ Childcare or Family Care: No Living arrangements: alone Occupation/Education: retired Spiritual care concerns: No Meds Home Medications and Allergies Home Medications Medication Instructions Recorded Confirmed Type metformin 500 mg tablet 500 mg PO BID 10/31/19 04/12/24 History pen needle, diabetic 32 gauge x #10 ea 10/31/19 04/12/24 History / (BD Ultra-Fine Gianna Pen Needle) tamsulosin 0.4 mg capsule (Flomax) 0.8 mg PO DAILY 10/31/19 04/12/24 History amlodipine 10 mg-benazepril 20 mg 1 cap PO DAILY 04/12/24 04/12/24 History capsule insulin lispro 100 unit/mL 25 unit subcut TID 04/12/24 04/12/24 History subcutaneous pen (Admelog SoloStar U-100 Insulin lispro) Allergies Allergy/AdvReac Type Severity Reaction Status Date / Time No Known Allergies Allergy Mild Verified 04/12/24 16:21 Vital Signs Vital Signs - 24 hr 04/12/24 15:32 04/12/24 16:02 04/12/24 16:03 Temperature 36.8 C Pulse Rate 65 90 98 Respiratory Rate 18 20 Blood Pressure 146/62 H 167/90 H Pulse Oximetry 98 97 Oxygen Delivery Room Air 04/12/24 16:06 04/12/24 18:26 04/12/24 19:10 Temperature 36.5 C Pulse Rate 61 88 Respiratory Rate 15 16 Blood Pressure 169/76 H 159/85 H Pulse Oximetry 96 98 98 Oxygen Delivery Room Air 04/12/24 20:00 04/12/24 20:00 04/12/24 22:00 Temperature Pulse Rate 82 72 Respiratory Rate Blood Pressure Pulse Oximetry Oxygen Delivery Room Air 04/13/24 00:00 04/13/24 00:15 04/13/24 00:00 Temperature 36.9 C Pulse Rate 80 92 Respiratory Rate 16 Blood Pressure 141/64 H Pulse Oximetry 100 Oxygen Delivery Room Air 04/13/24 01:49 04/13/24 04:00 04/13/24 04:00 Temperature Pulse Rate 68 64 Respiratory Rate Blood Pressure Pulse Oximetry Oxygen Delivery Room Air 04/13/24 05:00 04/13/24 06:00 04/13/24 07:35 Temperature 36.6 C Pulse Rate 87 73 Respiratory Rate 16 Blood Pressure 175/86 H Pulse Oximetry 98 95 Oxygen Delivery Room Air 04/13/24 08:00 Temperature 36.6 C Pulse Rate 75 Respiratory Rate 18 Blood Pressure 170/85 H Pulse Oximetry 98 Oxygen Delivery Exam Const: General: comfortable and no acute distress HENMT: Mouth: Yes moist mucous membranes Eyes: General: appearance normal, both eyes and all related structures Sclera: sclerae normal Neck: Neck: supple Resp: Effort & Inspection: normal respiratory effort Auscultation: dimi nished lung sounds Cardio: Rate: regular rate Rhythm: regular rhythm Heart sounds: no murmurs Skin: General skin exam: normal color Neuro: Speech: normal speech Psych: Mental Status: mental status grossly normal Affect: normal affect Results Labs and Meds 04/13/24 00:25 04/13/24 00:25 Lab results: Cardiac Enzymes 04/12/24 04/12/24 04/12/24 Range/Units 15:40 18:30 21:37 AST 29 (17-59) U/L Troponin I < 0.012 < 0.012 < 0.012 (0.000-0.034) ng/mL 04/13/24 Range/Units 00:25 AST (17-59) U/L Troponin I < 0.012 (0.000-0.034) ng/mL Coagulation 04/12/24 Range/Units 15:40 PT 13.7 (11.1-14.7) Seconds APTT 24.4 (22.3-36.8) Seconds CBC 04/12/24 04/13/24 Range/Units 15:40 00:25 WBC 7.0 6.5 (4.5-10.0) K/mm3 RBC 4.22 L 4.43 L (4.6-6.20) M/mm3 Hgb 12.7 L 13.4 L (14.0-18.0) g/dL Hct 38.6 L 39.9 L (42.0-52.0) % Plt Count 200 222 (150-375) k/mm3 Lymph # (Auto) 1.08 (0.9-3.2) K/mm3 Dickenson # (Auto) 0.5 (0.1-0.6) K/mm3 Eos # (Auto) 0.1 (0-0.3) K/mm3 Baso # (Auto) 0.0 (0.0-0.1) K/mm3 Comprehensive Metabolic Panel 04/12/24 04/13/24 Range/Units 15:40 00:25 Sodium 138 137 (137-145) mmol/L Potassium 4.1 3.9 (3.4-5.0) mmol/L Chloride 107 103 (98-107) mmol/L Carbon Dioxide 21 L 25 (22-30) mmol/L BUN 21 H 23 H (9-20) mg/dL Creatinine 1.10 1.20 (0.7-1.3) mg/dL Glucose 175 H 198 H (65-110) mg/dL Calcium 9.0 9.6 (8.4-10.2) mg/dL AST 29 (17-59) U/L ALT 25 (6-50) U/L Alkaline Phosphatase 82 (38-126) U/L Total Protein 8.0 (6.3-8.2) g/dL Albumin 4.2 (3.5-5.1) g/dL Intake and Output 04/12/24 04/13/24 04/13/24 23:59 07:59 15:59 Intake Total 240 240 Output Total 1400 2200 Balance -1399 -1959 240 Intake: Oral 240 240 Output: Catheter Urine 1400 2200 Urethral Catheter 1400 2200 Patient Weight 04/13/24 23:59 Weight 82.7 kg
[2024-04-13 10:43] LABS: Glucose Point of Care 400 mg/dl (65-105)
[2024-04-13 11:37] LABS: Glucose Point of Care 396 mg/dl (65-105)
[2024-04-13] MEDS: INSULIN ASPART (*BKC) 100 UNITS/ML 25 UNITS SUB-Q (11:44)
[2024-04-13] MEDS: METOPROLOL SUCCINATE EXT REL 25 MG TABCR PO (11:45)
--- NOTE | 2024-04-13 12:26 | P.CONUR_ITS ---
Assessment and Plan Assessment and plan (1) Hydroureteronephrosis: Code(s): N13.30 - Unspecified hydronephrosis Status: Acute (2) Benign prostatic hyperplasia with urinary retention: Code(s): N40.1 - Benign prostatic hyperplasia with lower urinary tract symptoms; R33.8 - Other retention of urine Status: Acute (3) Abnormal PSA: Code(s): R97.20 - Elevated prostate specific antigen [PSA] Status: Acute Assessment and Plan: * Mild left hydronephrosis identified on chest CT and renal ultrasonography. Patient is asymptomatic. The etiology for this hydronephrosis is unclear but may be related to bladder outlet obstruction with incomplete emptying. * Once he is medically improved will get a CT scan of the abdomen pelvis with and without contrast to further evaluate the cause for hydronephrosis. * For progressive prostatism I will add finasteride to tamsulosin * Elevated PSA is unreliable given the fact he had a recent Rodriguez catheter plac ed. Will need to repeat PSA in 3-4 weeks Urology Consult Note HPI Date Seen: 04/13/24 Requesting Physician: Arpit Walker MD Primary Care Provider: Smooth Cristina, MD Consult Narrative Narrative: Alan Burgos is a 73 year old male previously unknown to our practice but with a longstanding history of obstructive voiding symptoms secondary to BPH. For several years that had responded nicely to tamsulosin but he is now noticing intermittent hesitancy markedly diminished stream without sensation of incomplete emptying. He is admitted with congestive heart failure. On CT chest he was noted to have mild the left hydronephrosis that was confirmed by renal ultrasonography. He denies a history of upper tract obstruction, urolithiasis or hematuria. During the course of this admission a PSA was drawn which came back it slightly greater than 14. A Rodriguez catheter had recently been placed prior to that blood draw. 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 Code status: Full code. Smoking status: Never smoker Alcohol intake: never Substance use: never Do You Feel Safe in your Home?: Yes Lack of Transportation: No Lack of Food: Never True Current Housing: I Have Housing Concerned About Future Housing: No Difficulty Paying Gas/Electric Bills: No Difficulty Paying for Meds: No Currently Unemployed: No Education: High School Diploma/GED Difficulty w/ Childcare or Family Care: No Living arrangements: alone Occupation/Education: retired Spiritual care concerns: No Meds Home Medications and Allergies Home Medications Medication Instructions Recorded Confirmed Type metformin 500 mg tablet 500 mg PO BID 10/31/19 04/12/24 History pen needle, diabetic 32 gauge x #10 ea 10/31/19 04/12/24 History (BD Ultra-Fine Gianna Pen Needle) tamsulosin 0.4 mg capsule (Flomax) 0.8 mg PO DAILY 10/31/19 04/12/24 History amlodipine 10 mg-benazepril 20 mg 1 cap PO DAILY 04/12/24 04/12/24 History capsule insulin lispro 100 unit/mL 25 unit subcut TID 04/12/24 04/12/24 History subcutaneous pen (Admelog SoloStar U-100 Insulin lispro) Allergies Allergy/AdvReac Type Severity Reaction Status Date / Time No Known Allergies Allergy Mild Verified 04/12/24 16:21 Vital Signs Vital Signs - 24 hr 04/12/24 15:32 04/12/24 16:02 04/12/24 16:03 Temperature 98.2 F Pulse Rate 65 90 98 Respiratory Rate 18 20 Blood Pressure 146/62 H 167/90 H Pulse Oximetry 98 97 Oxygen Delivery Room Air 04/12/24 16:06 04/12/24 18:26 04/12/24 19:10 Temperature 97.7 F Pulse Rate 61 88 Respiratory Rate 15 16 Blood Pressure 169/76 H 159/85 H Pulse Oximetry 96 98 98 Oxygen Delivery Room Air 04/12/24 20:00 04/12/24 20:00 04/12/24 22:00 Temperature Pulse Rate 82 72 Respiratory Rate Blood Pressure Pulse Oximetry Oxygen Delivery Room Air 04/13/24 00:00 04/13/24 00:15 04/13/24 00:00 Temperature 98.4 F Pulse Rate 80 92 Respiratory Rate 16 Blood Pressure 141/64 H Pulse Oximetry 100 Oxygen Delivery Room Air 04/13/24 01:49 04/13/24 04:00 04/13/24 04:00 Temperature Pulse Rate 68 64 Respiratory Rate Blood Pressure Pulse Oximetry Oxygen Delivery Room Air 04/13/24 05:00 04/13/24 06:00 04/13/24 07:35 Temperature 97.9 F Pulse Rate 87 73 Respiratory Rate 16 Blood Pressure 175/86 H Pulse Oximetry 98 95 Oxygen Delivery Room Air 04/13/24 08:00 04/13/24 08:00 04/13/24 10:00 Temperature 97.8 F Pulse Rate 75 72 78 Respiratory Rate 18 Blood Pressure 170/85 H Pulse Oximetry 98 Oxygen Delivery 04/13/24 11:19 04/13/24 11:45 Temperature 98.2 F Pulse Rate 77 81 Respiratory Rate 18 Blood Pressure 155/78 H Pulse Oximetry 97 Oxygen Delivery Exam Const: General: no acute distress Resp: Effort & Inspection: normal respiratory effort GI: Inspection: non-distended GI Palp: No abdominal tenderness and No Guarding due to palpation present (GI) Auscultation: normal bowel sounds Results Labs 04/13/24 00:25 04/13/24 00:25 Labs: Short CBC 04/12/24 04/13/24 Range/Units 15:40 00:25 WBC 7.0 6.5 (4.5-10.0) K/mm3 Hgb 12.7 L 13.4 L (14.0-18.0) g/dL Hct 38.6 L 39.9 L (42.0-52.0) % Plt Count 200 222 (150-375) k/mm3 BMP 04/12/24 04/13/24 15:40 00:25 Sodium 138 137 Potassium 4.1 3.9 Chloride 107 103 Carbon Dioxide 21 L 25 BUN 21 H 23 H Creatinine 1.10 1.20 Glucose 175 H 198 H Calcium 9.0 9.6 Cardiac Enzymes 04/12/24 04/12/24 04/12/24 Range/Units 15:40 18:30 21:37 Troponin I < 0.012 < 0.012 < 0.012 (0.000-0.034) ng/mL 04/13/24 Range/Units 00:25 Troponin I < 0.012 (0.000-0.034) ng/mL Liver Function 04/12/24 Range/Units 15:40 Total Bilirubin 0.8 (0.2-1.3) mg/dL AST 29 (17-59) U/L ALT 25 (6-50) U/L Alkaline Phosphatase 82 (38-126) U/L Albumin 4.2 (3.5-5.1) g/dL
[2024-04-13] MEDS: EMPAGLIFLOZIN 10 MG TABLET PO (12:38)
[2024-04-13] MEDS: SPIRONOLACTONE 25 MG TABLET PO (12:38)
[2024-04-13 14:42] LABS: Glucose Point of Care 158 mg/dl (65-105)
[2024-04-13 16:29] LABS: Glucose Point of Care 109 mg/dl (65-105)
[2024-04-13 17:19] LABS: Glucose Point of Care 186 mg/dl (65-105)
[2024-04-13 18:44] LABS: Anion Gap 9 mmol/L (4-12); Blood Urea Nitrogen 25 mg/dL (9-20); Calcium 10.1 mg/dL (8.4-10.2); Carbon Dioxide 30 mmol/L (22-30); Chloride 96 mmol/L (98-107); Estimated CRCL calculation 41 ml/min; Estimated Glomerular Filt Rate 50; Glucose 176 mg/dL (65-110); Magnesium 1.8 mg/dL (1.6-2.3); Potassium 3.8 mmol/L (3.4-5.0); Sodium 135 mmol/L (137-145)
[2024-04-13 19:51] LABS: Glucose Point of Care 174 mg/dl (65-105)
[2024-04-14] VITALS (17 sets, daily range): BP systolic 108–144; BP diastolic 44–69; PULSE 70–91; RESP 16–20; TEMP 36.5–37; O2SAT 96–99; BMI 26.7
[2024-04-14 05:05] LABS: Hematocrit 39.2 % (42.0-52.0); Mean Corpuscular HGB Conc 33.2 g/dl (32-36); Mean Corpuscular Hemoglobin 29.8 pg (26-34); Mean Corpuscular Volume 89.9 fl (80-100); Mean Platelet Volume 9.7 fl (7.4-10.4); Platelet Count Result 233 k/mm3 (150-375); Red Blood Count 4.36 M/mm3 (4.6-6.20); Red Cell Distribution Width 12.5 % (11.5-14.5)
[2024-04-14 05:15] LABS: Alanine Aminotransferase 20 U/L (6-50); Albumin Level 4.3 g/dL (3.5-5.1); Alkaline Phosphatase 65 U/L (38-126); Anion Gap 10 mmol/L (4-12); Aspartate Amino Transferase 24 U/L (17-59); Bilirubin,Total 1.4 mg/dL (0.2-1.3); Blood Urea Nitrogen 28 mg/dL (9-20); Calcium 9.4 mg/dL (8.4-10.2); Carbon Dioxide 28 mmol/L (22-30); Chloride 95 mmol/L (98-107); Estimated CRCL calculation 36 ml/min; Estimated Glomerular Filt Rate 43; Glucose 206 mg/dL (65-110); Potassium 4.2 mmol/L (3.4-5.0); Sodium 133 mmol/L (137-145)
--- NOTE | 2024-04-14 06:21 | P.PNUR_ITS ---
Progress Note: A&P Assessment and Plan (1) Abnormal PSA: Code(s): R97.20 - Elevated prostate specific antigen [PSA] Status: Acute (2) Benign prostatic hyperplasia with urinary retention: Code(s): N40.1 - Benign prostatic hyperplasia with lower urinary tract symptoms; R33.8 - Other retention of urine Status: Acute (3) Hydroureteronephrosis: Code(s): N13.30 - Unspecified hydronephrosis Status: Acute Assessment and Plan: * Catheter can be removed anytime, from my standpoint. Plan to continue both Tamsulosin and Finasteride at discharge. * Will need CT abd/pelvis w/wo contrast to further evaluate mild left hydronpehorosis -> can be done either inpatient or outpatient. * Will need repeat PSA in 3-4 weeks. Subjective Subjective Date/Time Seen: 04/14/24 06:21 Interval history: Comfortable, tolerating catheter, urine pink Review of Systems Review of Systems: All systems reviewed & are unremarkable except as noted in HPI and below Exam Const: General: no acute distress Resp: Effort & Inspection: normal respiratory effort GI: Inspection: non-distended GI Palp: No abdominal tenderness and No Guarding due to palpation present (GI) Auscultation: normal bowel sounds Urinary Catheter: Urinary Catheter: patent and draining and urine pink Objective Data Vital Signs Vital Signs: Vital Signs - 24 hr 04/13/24 07:35 04/13/24 08:00 04/13/24 08:00 Temperature 97.8 F Pulse Rate 75 72 Respiratory Rate 18 Blood Pressure 170/85 H Pulse Oximetry 95 98 Oxygen Delivery Room Air 04/13/24 10:00 04/13/24 11:19 04/13/24 11:45 Temperature 98.2 F Pulse Rate 78 77 81 Respiratory Rate 18 Blood Pressure 155/78 H Pulse Oximetry 97 Oxygen Delivery 04/13/24 12:00 04/13/24 14:00 04/13/24 15:38 Temperature 98.3 F Pulse Rate 86 75 74 Respiratory Rate 20 Blood Pressure 135/61 Pulse Oximetry 97 Oxygen Delivery 04/13/24 16:00 04/13/24 18:00 04/13/24 19:33 Temperature 98.5 F Pulse Rate 75 84 81 Respiratory Rate 20 Blood Pressure 113/58 L Pulse Oximetry 97 Oxygen Delivery 04/13/24 20:00 04/13/24 20:00 04/13/24 21:50 Temperature Pulse Rate 82 78 Respiratory Rate Blood Pressure Pulse Oximetry Oxygen Delivery Room Air 04/14/24 00:07 04/13/24 21:04 04/14/24 00:00 Temperature 98.6 F Pulse Rate 91 Respiratory Rate 20 Blood Pressure 114/65 Pulse Oximetry 97 97 Oxygen Delivery Room Air Room Air 04/14/24 00:00 04/14/24 04:20 04/14/24 04:00 Temperature 97.8 F Pulse Rate 77 77 Respiratory Rate 20 Blood Pressure 144/49 H Pulse Oximetry 97 Oxygen Delivery Room Air 04/14/24 04:00 04/14/24 05:55 Temperature Pulse Rate 71 71 Respiratory Rate Blood Pressure Pulse Oximetry Oxygen Delivery Intake/Output Intake/Output: Intake & Output 04/11/24 04/12/24 04/13/24 04/14/24 23:59 23:59 23:59 23:59 Intake Total 1140 550 Output Total 0282 3164 1350 Balance -1400 -3213 -800 Meds/Results Medications: Active Medications Generic Name Dose Route Start Last Admin Trade Name Freq PRN Reason Stop Dose Admin Acetaminophen 650 mg 04/12/24 19:22 Acetaminophen 325 Mg Tablet PO Q6H PRN Mild Pain (1-3) or Fever Dextrose 12.5 gm 04/12/24 19:22 Dextrose 50% 25 Gm/50 Ml Syringe IV PUSH PRN PRN Hypoglycemia Protocol Empagliflozin 10 mg 04/13/24 12:00 04/13/24 12:38 Empagliflozin 10 Mg Tablet PO 10 mg DAILY TOOTIE Administration Enoxaparin Sodium 40 mg 04/13/24 09:00 04/13/24 09:58 Enoxaparin 40 Mg/0.4 Ml Syringe SUB-Q 40 mg DAILY TOOTIE Administration Furosemide 40 mg 04/13/24 09:00 04/13/24 17:42 Furosemide Inj 40 Mg/4 Ml Vial IV PUSH 40 mg BID TOOTIE Administration Glucagon 1 mg 04/12/24 19:22 Glucagon For Inj 1 Mg Vial IM PRN PRN Hypoglycemia Protocol Glucose 15 gm 04/12/24 19:22 Glucose Oral Gel 15 Gm Of Glucse In 37.5 Gm Tube PO PRN PRN Hypoglycemia Protocol Dextrose 1,000 mls @ 100 mls/hr 04/12/24 19:22 Dextrose 5% 1,000 Ml IVPB PRN PRN Hypoglycemia Protocol Insulin Aspart 3 - 6 units 04/13/24 08:00 04/13/24 17:10 Insulin Aspart (*Bkc) 100 Units/Ml SUB-Q Not Given TIDWM TOOTIE Protocol Insulin Aspart 1 - 3 units 04/12/24 21:00 04/13/24 21:44 Insulin Aspart (*Bkc) 100 Units/Ml SUB-Q Not Given HS TOOTIE Protocol Insulin Aspart 25 units 04/13/24 09:00 04/13/24 17:48 Insulin Aspart (*Bkc) 100 Units/Ml SUB-Q 05/13/24 08:59 Not Given TID TOOTIE Lisinopril 20 mg 04/13/24 09:00 04/13/24 09:58 Lisinopril 20 Mg Tablet PO 05/13/24 08:59 20 mg DAILY TOOTIE Administration Metoprolol Succinate 50 mg 04/14/24 09:00 Metoprolol Succinate Ext Rel 50 Mg Tabcr PO QAM TOOTIE Perflutren Lipid Microsphere 0 ml 04/12/24 18:03 Perflutren Lipid Microspheres 1.5 Ml Vial Diluted To 10 Ml Total Volume IV PUSH 04/15/24 18:04 ONCE PRN adequate visualization Protocol Spironolactone 25 mg 04/13/24 12:00 04/13/24 12:38 Spironolactone 25 Mg Tablet PO 25 mg QAM TOOTIE Administration Tamsulosin HCl 0.8 mg 04/13/24 09:00 04/13/24 09:58 Tamsulosin Hcl 0.4 Mg Capsule PO 0.8 mg DAILY TOOTIE Administration Radiology Results: ITS Impressions Chest X-Ray 04/12/24 15:57 Impression: 1: Moderate edema. Chest CTA 04/12/24 17:13 IMPRESSION: 1. No filling defects within the main or proximal ulnar arteries. Mild left-sided hydroureteronephrosis incompletely evaluated on the current examination for which noncontrast enhanced CT examination of the abdomen and pelvis is recommended. Renal Ultrasound 04/13/24 10:16 IMPRESSION: 1. Mild left hydronephrosis. Labs Labs: Laboratory Results - last 24 hr 04/13/24 04/13/24 04/13/24 00:25 07:44 08:15 WBC RBC Hgb Hct MCV MCH MCHC RDW Plt Count MPV Sodium Potassium Chloride Carbon Dioxide Anion Gap BUN Creatinine Estim Creat Clear Calc Estimated GFR Glucose POC Capillary Glucose 198 H Calcium Magnesium Total Bilirubin AST ALT Alkaline Phosphatase Total Protein Albumin Prostate Specific Ag 10.2 H Free T4 1.27 Total T3 1.39 04/13/24 04/13/24 04/13/24 09:50 11:01 14:38 WBC RBC Hgb Hct MCV MCH MCHC RDW Plt Count MPV Sodium Potassium Chloride Carbon Dioxide Anion Gap BUN Creatinine Estim Creat Clear Calc Estimated GFR Glucose POC Capillary Glucose 400 H 396 H 158 H Calcium Magnesium Total Bilirubin AST ALT Alkaline Phosphatase Total Protein Albumin Prostate Specific Ag Free T4 Total T3 04/13/24 04/13/24 04/13/24 15:44 17:16 18:10 WBC RBC Hgb Hct MCV MCH MCHC RDW Plt Count MPV Sodium 135 L Potassium 3.8 Chloride 96 L Carbon Dioxide 30 Anion Gap 9 BUN 25 H Creatinine 1.40 H Estim Creat Clear Calc 41 Estimated GFR 50 L Glucose 176 H POC Capillary Glucose 109 H 186 H Calcium 10.1 Magnesium 1.8 Total Bilirubin AST ALT Alkaline Phosphatase Total Protein Albumin Prostate Specific Ag Free T4 Total T3 04/13/24 04/14/24 19:40 04:35 WBC 10.0 RBC 4.36 L Hgb 13.0 L Hct 39.2 L MCV 89.9 MCH 29.8 MCHC 33.2 RDW 12.5 Plt Count 233 MPV 9.7 Sodium 133 L Potassium 4.2 Chloride 95 L Carbon Dioxide 28 Anion Gap 10 BUN 28 H Creatinine 1.60 H Estim Creat Clear Calc 36 Estimated GFR 43 L Glucose 206 H POC Capillary Glucose 174 H Calcium 9.4 Magnesium Total Bilirubin 1.4 H AST 24 ALT 20 Alkaline Phosphatase 65 Total Protein 8.0 Albumin 4.3 Prostate Specific Ag Free T4 Total T3
[2024-04-14 09:07] LABS: Glucose Point of Care 224 mg/dl (65-105)
[2024-04-14] MEDS: INSULIN ASPART (*BKC) 100 UNITS/ML SUB-Q ×3 (09:10→17:05)
[2024-04-14] MEDS: TAMSULOSIN HCL 0.4 MG CAPSULE 0.8 MG PO (09:12)
[2024-04-14] MEDS: FUROSEMIDE INJ 40 MG/4 ML VIAL IV PUSH (09:12)
[2024-04-14] MEDS: SPIRONOLACTONE 25 MG TABLET PO (09:13)
[2024-04-14] MEDS: EMPAGLIFLOZIN 10 MG TABLET PO (09:13)
[2024-04-14] MEDS: ENOXAPARIN 40 MG/0.4 ML SYRINGE SUB-Q (09:13)
[2024-04-14] MEDS: METOPROLOL SUCCINATE EXT REL 50 MG TABCR PO (09:13)
[2024-04-14] MEDS: lisinopriL 20 MG TABLET PO (10:23)
[2024-04-14] MEDS: INSULIN ASPART (*BKC) 100 UNITS/ML 15 UNITS SUB-Q (10:59)
[2024-04-14 11:28] LABS: Glucose Point of Care 429 mg/dl (65-105)
[2024-04-14 12:51] LABS: Glucose Point of Care 315 mg/dl (65-105)
--- NOTE | 2024-04-14 15:55 | PC.NURSE ---
This patient, Alan Burgos, was transferred to [facility] on 04/14/24 at 1601. Personal belongings sent with patient. Report given to MARIA EUGENIA Macias. Appropriate documentation sent with patient.
--- NOTE | 2024-04-14 16:19 | PM.PNCARD ---
Progress Note: A&P Assessment and Plan (1) Acute on chronic heart failure with reduced ejection fraction (HFrEF, <= 40%): Code(s): I50.23 - Acute on chronic systolic (congestive) heart failure Status: Acute Assessment and Plan: Echocardiogram shows LVEF 30-35%. Stop his home medication of Amlodipine-Benazepril completely, will do Lisinopril instead. Continue Lisinopril 20mg once daily, uptitrate as tolerated. Continue Toprol 50mg once daily, uptitrate as tolerated. Started Spironolactone 25mg once daily. Started Jardiance 10mg once daily. He has diuresed well on IV Lasix. Will start PO Lasix starting tomorrow. (2) Biventricular ICD (implantable cardioverter-defibrillator) in place: Code(s): Z95.810 - Presence of automatic (implantable) cardiac defibrillator Status: Acute Assessment and Plan: Device interrogation 04/11 shows well functioning device. Thought to be bradycardia at his doctor's office. He does have some PVCs which could result in a false bradycardia on pulse ox machines. His device is functioning well, and his lower rate limit is set at 60 beats per minute. Will obtain repeat device interrogation to make sure he did not have any significant bradyarrhythmias. (3) Hypertension: Code(s): I10 - Essential (primary) hypertension Status: Acute Assessment and Plan: Stable, continue Lisinopril, Toprol, Spironolactone. (4) Insulin dependent type 2 diabetes mellitus: Code(s): E11.9 - Type 2 diabetes mellitus without complications; Z79.4 - nursing home (current) use of insulin Status: Acute Assessment and Plan: Uncontrolled. Management as per primary team. (5) Hydroureteronephrosis: Code(s): N13.30 - Unspecified hydronephrosis Status: Acute Assessment and Plan: Urology has been consulted. Subjective Date/time seen: 04/14/24 16:19 Interval history: Reason for visit: Acute on chronic HFrEF HPI: We are consulted for CHF. This is a 73 year old male with chronic heart failure with improved LVEF up to 45% per echo 2014, s/p biventricular ICD, hypertension, hyperlipidemia, diabetes mellitus, anxiety, issues with noncompliance. He was a patient of Dr. Nice's, but will be transitioning to Dr. Bond. Patient was recently seen in our office on 04/11 by Ines Bingham. He had a recent lung infection after cleaning out a house, had to take multiple courses of antibiotics, had cough that improved, but had shortness of breath. Gets short of breath easily with activity. No chest pain. Device interrogation 04/11 shows well functioning device. Patient was at his doctor's office yesterday and they did a walking oxygen study, during which he developed shortness of breath. His heart rate noted to be dropping down to the 40s. He was sent to the ED for further evaluation. Workup shows: Negative troponins x 3 NT pro BNP of 775 CXR with moderate edema Chest CTA: No PE. EKG with paced rhythm. Date of service 04/14: Feeling better. Review of Systems Review of Systems: All systems reviewed & are unremarkable except as noted in HPI and below (HPI) Exam Const: General: comfortable and no acute distress HENMT: Mouth: Yes moist mucous membranes Eyes: General: appearance normal, both eyes and all related structures Sclera: sclerae normal Resp: Effort & Inspection: normal respiratory effort Cardio: Rate: regular rate Rhythm: regular rhythm Skin: General skin exam: normal color Neuro: Speech: normal speech Psych: Mental Status: mental status grossly normal Affect: normal affect Objective Data Vital Signs Vital Signs: Vital Signs - 24 hr 04/13/24 18:00 04/13/24 19:33 04/13/24 20:00 Temperature 36.9 C Pulse Rate 84 81 Respiratory Rate 20 Blood Pressure 113/58 L Pulse Oximetry 97 Oxygen Delivery Room Air 04/13/24 20:00 04/13/24 21:50 04/14/24 00:07 Temperature 37.0 C Pulse Rate 82 78 91 Respiratory Rate 20 Blood Pressure 114/65 Pulse Oximetry 97 Oxygen Delivery 04/13/24 21:04 04/14/24 00:00 04/14/24 00:00 Temperature Pulse Rate 77 Respiratory Rate Blood Pressure Pulse Oximetry 97 Oxygen Delivery Room Air Room Air 04/14/24 04:20 04/14/24 04:00 04/14/24 04:00 Temperature 36.6 C Pulse Rate 77 71 Respiratory Rate 20 Blood Pressure 144/49 H Pulse Oximetry 97 Oxygen Delivery Room Air 04/14/24 05:55 04/14/24 08:00 04/14/24 08:03 Temperature 36.8 C Pulse Rate 71 87 Respiratory Rate Blood Pressure 108/44 L 119/55 L Pulse Oximetry 96 Oxygen Delivery 04/14/24 08:00 04/14/24 09:13 04/14/24 08:00 Temperature Pulse Rate 87 89 Respiratory Rate Blood Pressure Pulse Oximetry Oxygen Delivery Room Air 04/14/24 10:22 04/14/24 10:00 04/14/24 11:57 Temperature 36.8 C Pulse Rate 70 76 Respiratory Rate 16 Blood Pressure 118/64 128/55 L Pulse Oximetry 97 Oxygen Delivery 04/14/24 12:00 04/14/24 14:00 Temperature Pulse Rate 73 80 Respiratory Rate Blood Pressure Pulse Oximetry Oxygen Delivery Intake/Output Intake/Output: Intake & Output 04/11/24 04/12/24 04/13/24 04/14/24 23:59 23:59 23:59 23:59 Intake Total 1140 910 Output Total 8737 9644 0052 Balance -6187 -4254 -1040 Meds/Results Medications: Active Medications Generic Name Dose Route Start Last Admin Trade Name Freq PRN Reason Stop Dose Admin Acetaminophen 650 mg 04/12/24 19:22 Acetaminophen 325 Mg Tablet PO Q6H PRN Mild Pain (1-3) or Fever Dextrose 12.5 gm 04/12/24 19:22 Dextrose 50% 25 Gm/50 Ml Syringe IV PUSH PRN PRN Hypoglycemia Protocol Empagliflozin 10 mg 04/13/24 12:00 04/14/24 09:13 Empagliflozin 10 Mg Tablet PO 10 mg DAILY TOOTIE Administration Enoxaparin Sodium 40 mg 04/13/24 09:00 04/14/24 09:13 Enoxaparin 40 Mg/0.4 Ml Syringe SUB-Q 40 mg DAILY TOOTIE Administration Furosemide 40 mg 04/15/24 09:00 Furosemide 40 Mg Tablet PO DAILY TOOTIE Glucagon 1 mg 04/12/24 19:22 Glucagon For Inj 1 Mg Vial IM PRN PRN Hypoglycemia Protocol Glucose 15 gm 04/12/24 19:22 Glucose Oral Gel 15 Gm Of Glucse In 37.5 Gm Tube PO PRN PRN Hypoglycemia Protocol Dextrose 1,000 mls @ 100 mls/hr 04/12/24 19:22 Dextrose 5% 1,000 Ml IVPB PRN PRN Hypoglycemia Protocol Insulin Aspart 3 - 6 units 04/13/24 08:00 04/14/24 12:16 Insulin Aspart (*Bkc) 100 Units/Ml SUB-Q 5 units TIDWM TOOTIE Administration Protocol Insulin Aspart 1 - 3 units 04/12/24 21:00 04/13/24 21:44 Insulin Aspart (*Bkc) 100 Units/Ml SUB-Q Not Given HS TOOTIE Protocol Insulin Aspart 25 units 04/13/24 09:00 04/14/24 09:14 Insulin Aspart (*Bkc) 100 Units/Ml SUB-Q 05/13/24 08:59 Not Given TID TOOTIE Lisinopril 20 mg 04/13/24 09:00 04/14/24 10:23 Lisinopril 20 Mg Tablet PO 05/13/24 08:59 20 mg DAILY TOOTIE Administration Metoprolol Succinate 50 mg 04/14/24 09:00 04/14/24 09:13 Metoprolol Succinate Ext Rel 50 Mg Tabcr PO 50 mg QAM TOOTIE Administration Perflutren Lipid Microsphere 0 ml 04/12/24 18:03 Perflutren Lipid Microspheres 1.5 Ml Vial Diluted To 10 Ml Total Volume IV PUSH 04/15/24 18:04 ONCE PRN adequate visualization Protocol Spironolactone 25 mg 04/13/24 12:00 04/14/24 09:13 Spironolactone 25 Mg Tablet PO 25 mg QAM TOOTIE Administration Tamsulosin HCl 0.8 mg 04/13/24 09:00 04/14/24 09:12 Tamsulosin Hcl 0.4 Mg Capsule PO 0.8 mg DAILY TOOTIE Administration Radiology Results: ITS Impressions Chest X-Ray 04/12/24 15:57 Impression: 1: Moderate edema. Chest CTA 04/12/24 17:13 IMPRESSION: 1. No filling defects within the main or proximal ulnar arteries. Mild left-sided hydroureteronephrosis incompletely evaluated on the current examination for which noncontrast enhanced CT examination of the abdomen and pelvis is recommended. Renal Ultrasound 04/13/24 10:16 IMPRESSION: 1. Mild left hydronephrosis. Labs Labs: Laboratory Results - last 24 hr 04/13/24 04/13/24 04/13/24 15:44 17:16 18:10 WBC RBC Hgb Hct MCV MCH MCHC RDW Plt Count MPV Sodium 135 L Potassium 3.8 Chloride 96 L Carbon Dioxide 30 Anion Gap 9 BUN 25 H Creatinine 1.40 H Estim Creat Clear Calc 41 Estimated GFR 50 L Glucose 176 H POC Capillary Glucose 109 H 186 H Calcium 10.1 Magnesium 1.8 Total Bilirubin AST ALT Alkaline Phosphatase Total Protein Albumin 04/13/24 04/14/24 04/14/24 19:40 04:35 07:28 WBC 10.0 RBC 4.36 L Hgb 13.0 L Hct 39.2 L MCV 89.9 MCH 29.8 MCHC 33.2 RDW 12.5 Plt Count 233 MPV 9.7 Sodium 133 L Potassium 4.2 Chloride 95 L Carbon Dioxide 28 Anion Gap 10 BUN 28 H Creatinine 1.60 H Estim Creat Clear Calc 36 Estimated GFR 43 L Glucose 206 H POC Capillary Glucose 174 H 224 H Calcium 9.4 Magnesium Total Bilirubin 1.4 H AST 24 ALT 20 Alkaline Phosphatase 65 Total Protein 8.0 Albumin 4.3 04/14/24 04/14/24 10:27 12:08 WBC RBC Hgb Hct MCV MCH MCHC RDW Plt Count MPV Sodium Potassium Chloride Carbon Dioxide Anion Gap BUN Creatinine Estim Creat Clear Calc Estimated GFR Glucose POC Capillary Glucose 429 H 315 H Calcium Magnesium Total Bilirubin AST ALT Alkaline Phosphatase Total Protein Albumin
[2024-04-14 16:54] LABS: Glucose Point of Care 218 mg/dl (65-105)
[2024-04-14] MEDS: INSULIN ASPART (*BKC) 100 UNITS/ML 6 UNITS SUB-Q (17:05)
--- NOTE | 2024-04-14 18:12 | P.PNIM_ITS ---
Progress Note: A&P Assessment and Plan (1) CHF exacerbation: Code(s): I50.9 - Heart failure, unspecified Status: Acute (2) Chest pain: Code(s): R07.9 - Chest pain, unspecified Status: Acute (3) Benign prostatic hyperplasia with urinary retention: Code(s): N40.1 - Benign prostatic hyperplasia with lower urinary tract symptoms; R33.8 - Other retention of urine Status: Acute (4) Hydroureteronephrosis: Code(s): N13.30 - Unspecified hydronephrosis Status: Acute (5) Nonischemic cardiomyopathy: Code(s): I42.8 - Other cardiomyopathies Status: Acute (6) Hypertension: Code(s): I10 - Essential (primary) hypertension Status: Acute (7) Insulin dependent type 2 diabetes mellitus: Code(s): E11.9 - Type 2 diabetes mellitus without complications; Z79.4 - retirement (current) use of insulin Status: Acute Plan #SOB 2/2 Prostatomegaly vs CHF exacerbation #Bradycardia s/p Pacemaker -ECHO : LV EF 30-35% -As per cardiology some PVCs could result in false bradycardia on pulse ox -Pacemaker/Defib interrogation 04/11 shows well functioning device -Troponin N - Chest CTA shows no filling defects within the main or proximal lobar artery. -Chest x-ray shows moderate edema - BNP 775 -TSH 7.4, Free T4 N: Subclinical Hypothyroidism #Urinary obstruction/BPH -Renal US: Mild Left Hydronephrosis -Placed Mclaughlin -PSA in 3-4 weeks -CT abdomen pelvis w/wo contrast -Add finasteride and cont Tamsulosin. -Following Urology recs #DM Type 2 -Home regimen Lispro 25 U TID -SS initiated Subjective Date/time seen: 04/14/24 18:12 Interval history: Patient admitted due to shortness of breath and bradycardia. Patient has combination pacemaker/defibrillator. He was seen by the coffee grinder yesterday and evaluated for possible pacemaker interrogation.Patient TSH is high with Free T4 normal indicating subclinical hypothyroidism. Patient also has difficulty urination, so Mclaughlin is placed. Patient does have history of prostatomegaly and he was drained 3L after placing mclaughlin. Placed Urology consult and PSA is ordered. Chest CTA shows no filling defects within the main or proximal lobar artery. Chest x-ray shows moderate edema.Troponin is negative. Record review indicates no echocardiogram in file. ECHO pending. Possible SOB due to fluid retention from Prostatomegaly vs CHF exacerbation. 04/14: No acute event overnight. Started p.o. Lasix from tomorrow by Cardiology. Patient was evaluated by Urology for urinary retention. Continue tamsulosin and finasteride. Review of Systems Review of Systems: 12 systems were reviewed and are negativ e except for as per HPI. Exam Narrative: General: Well-developed male sitting at the side of the bed in no distress. Weight: 82.7 kg. BMI: 27.7. HEENT: Normocephalic, atraumatic. PERRL, EOMI. Sclera anicteric. Oral mucosa moist. Oropharynx clear. Neck: Supple. No significant JVD. Respiratory: Respirations are nonlabored and he is speaking in full sentences at rest. Crackles heard at the bases. Cardiovascular: Regular rate and rhythm with S1-S2. Gastrointestinal: Abdomen is soft, nontender, and nondistended with positive bowel sounds. Skin: Warm and dry. No rash or lesions on limited exam. Extremities: No cyanosis, clubbing, or edema. Radial and pedal pulses intact. Neurological: Alert. Cranial nerves 2-12 are grossly intact. No gross focal deficits to casual conversation. Psychiatric: Pleasant and cooperative with normal mood and affect. Judgment and insight intact. Objective Data Vital Signs Vital Signs: Vital Signs - 24 hr 04/13/24 19:33 04/13/24 20:00 04/13/24 20:00 Temperature 98.5 F Pulse Rate 81 82 Respiratory Rate 20 Blood Pressure 113/58 L Pulse Oximetry 97 Oxygen Delivery Room Air 04/13/24 21:50 04/14/24 00:07 04/13/24 21:04 Temperature 98.6 F Pulse Rate 78 91 Respiratory Rate 20 Blood Pressure 114/65 Pulse Oximetry 97 97 Oxygen Delivery Room Air 04/14/24 00:00 04/14/24 00:00 04/14/24 04:20 Temperature 97.8 F Pulse Rate 77 77 Respiratory Rate 20 Blood Pressure 144/49 H Pulse Oximetry 97 Oxygen Delivery Room Air 04/14/24 04:00 04/14/24 04:00 04/14/24 05:55 Temperature Pulse Rate 71 71 Respiratory Rate Blood Pressure Pulse Oximetry Oxygen Delivery Room Air 04/14/24 08:00 04/14/24 08:03 04/14/24 08:00 Temperature 98.3 F Pulse Rate 87 87 Respiratory Rate Blood Pressure 108/44 L 119/55 L Pulse Oximetry 96 Oxygen Delivery 04/14/24 09:13 04/14/24 08:00 04/14/24 10:22 Temperature Pulse Rate 89 Respiratory Rate Blood Pressure 118/64 Pulse Oximetry Oxygen Delivery Room Air 04/14/24 10:00 04/14/24 11:57 04/14/24 12:00 Temperature 98.3 F Pulse Rate 70 76 73 Respiratory Rate 16 Blood Pressure 128/55 L Pulse Oximetry 97 Oxygen Delivery 04/14/24 14:00 04/14/24 16:25 04/14/24 16:27 Temperature 97.7 F Pulse Rate 80 81 79 Respiratory Rate 17 Blood Pressure 132/69 Pulse Oximetry 97 Oxygen Delivery 04/14/24 16:35 Temperature Pulse Rate Respiratory Rate Blood Pressure Pulse Oximetry Oxygen Delivery Room Air Intake/Output Intake/Output: Intake & Output 04/11/24 04/12/24 04/13/24 04/14/24 23:59 23:59 23:59 23:59 Intake Total 1140 1132 Output Total 5104 5991 2953 Balance -6254 -5533 -849 Meds/Results Medications: Active Medications Generic Name Dose Route Start Last Admin Trade Name Freq PRN Reason Stop Dose Admin Acetaminophen 650 mg 04/12/24 19:22 Acetaminophen 325 Mg Tablet PO Q6H PRN Mild Pain (1-3) or Fever Dextrose 12.5 gm 04/12/24 19:22 Dextrose 50% 25 Gm/50 Ml Syringe IV PUSH PRN PRN Hypoglycemia Protocol Empagliflozin 10 mg 04/13/24 12:00 04/14/24 09:13 Empagliflozin 10 Mg Tablet PO 10 mg DAILY TOOTIE Administration Enoxaparin Sodium 40 mg 04/13/24 09:00 04/14/24 09:13 Enoxaparin 40 Mg/0.4 Ml Syringe SUB-Q 40 mg DAILY TOOTIE Administration Furosemide 40 mg 04/15/24 09:00 Furosemide 40 Mg Tablet PO DAILY TOOTIE Glucagon 1 mg 04/12/24 19:22 Glucagon For Inj 1 Mg Vial IM PRN PRN Hypoglycemia Protocol Glucose 15 gm 04/12/24 19:22 Glucose Oral Gel 15 Gm Of Glucse In 37.5 Gm Tube PO PRN PRN Hypoglycemia Protocol Dextrose 1,000 mls @ 100 mls/hr 04/12/24 19:22 Dextrose 5% 1,000 Ml IVPB PRN PRN Hypoglycemia Protocol Insulin Aspart 3 - 6 units 04/13/24 08:00 04/14/24 17:05 Insulin Aspart (*Bkc) 100 Units/Ml SUB-Q 3 units TIDWM TOOTIE Administration Protocol Insulin Aspart 1 - 3 units 04/12/24 21:00 04/13/24 21:44 Insulin Aspart (*Bkc) 100 Units/Ml SUB-Q Not Given HS TOOTIE Protocol Insulin Aspart 6 units 04/14/24 17:00 04/14/24 17:05 Insulin Aspart (*Bkc) 100 Units/Ml SUB-Q 6 units TIDWM TOOTIE Administration Insulin Glargine 20 units 04/14/24 21:00 Insulin Glargine (*Bkc) 100 Units/Ml 0.25 units/kg (20 units) SUB-Q HS TOOTIE Lisinopril 20 mg 04/13/24 09:00 04/14/24 10:23 Lisinopril 20 Mg Tablet PO 05/13/24 08:59 20 mg DAILY TOOTIE Administration Metoprolol Succinate 50 mg 04/14/24 09:00 04/14/24 09:13 Metoprolol Succinate Ext Rel 50 Mg Tabcr PO 50 mg QAM TOOTIE Administration Perflutren Lipid Microsphere 0 ml 04/12/24 18:03 Perflutren Lipid Microspheres 1.5 Ml Vial Diluted To 10 Ml Total Volume IV PUSH 04/15/24 18:04 ONCE PRN adequate visualization Protocol Spironolactone 25 mg 04/13/24 12:00 04/14/24 09:13 Spironolactone 25 Mg Tablet PO 25 mg QAM TOOTIE Administration Tamsulosin HCl 0.8 mg 04/13/24 09:00 04/14/24 09:12 Tamsulosin Hcl 0.4 Mg Capsule PO 0.8 mg DAILY TOOTIE Administration Radiology Results: ITS Impressions Chest X-Ray 04/12/24 15:57 Impression: 1: Moderate edema. Chest CTA 04/12/24 17:13 IMPRESSION: 1. No filling defects within the main or proximal ulnar arteries. Mild left-sided hydroureteronephrosis incompletely evaluated on the current examination for which noncontrast enhanced CT examination of the abdomen and pelvis is recommended. Renal Ultrasound 04/13/24 10:16 IMPRESSION: 1. Mild left hydronephrosis. Labs Labs: Laboratory Results - last 24 hr 04/13/24 04/13/24 04/14/24 18:10 19:40 04:35 WBC 10.0 RBC 4.36 L Hgb 13.0 L Hct 39.2 L MCV 89.9 MCH 29.8 MCHC 33.2 RDW 12.5 Plt Count 233 MPV 9.7 Sodium 135 L 133 L Potassium 3.8 4.2 Chloride 96 L 95 L Carbon Dioxide 30 28 Anion Gap 9 10 BUN 25 H 28 H Creatinine 1.40 H 1.60 H Estim Creat Clear Calc 41 36 Estimated GFR 50 L 43 L Glucose 176 H 206 H POC Capillary Glucose 174 H Calcium 10.1 9.4 Magnesium 1.8 Total Bilirubin 1.4 H AST 24 ALT 20 Alkaline Phosphatase 65 Total Protein 8.0 Albumin 4.3 04/14/24 04/14/24 04/14/24 07:28 10:27 12:08 WBC RBC Hgb Hct MCV MCH MCHC RDW Plt Count MPV Sodium Potassium Chloride Carbon Dioxide Anion Gap BUN Creatinine Estim Creat Clear Calc Estimated GFR Glucose POC Capillary Glucose 224 H 429 H 315 H Calcium Magnesium Total Bilirubin AST ALT Alkaline Phosphatase Total Protein Albumin 04/14/24 16:51 WBC RBC Hgb Hct MCV MCH MCHC RDW Plt Count MPV Sodium Potassium Chloride Carbon Dioxide Anion Gap BUN Creatinine Estim Creat Clear Calc Estimated GFR Glucose POC Capillary Glucose 218 H Calcium Magnesium Total Bilirubin AST ALT Alkaline Phosphatase Total Protein Albumin Quality VTE Prophylaxis VTE prophylaxis: pharmacologic ordered Hospitalist [facility] Advance Care Plan I have confirmed that the patient's Advanced Care Plan is present, code status is documented, or surrogate decision maker is listed in patient medical record.: Yes Medication Reconciliation I have utilized all available resources to obtain, update and review the patients current medications (includes all prescriptions, OTC, herbals, cannabis, and nutritional supplements).: Yes
[2024-04-14 19:42] LABS: Glucose Point of Care 131 mg/dl (65-105)
[2024-04-14] MEDS: INSULIN GLARGINE (*BKC) 100 UNITS/ML 20 UNITS SUB-Q (20:51)
[2024-04-15] VITALS (12 sets, daily range): BP systolic 105–130; BP diastolic 47–68; PULSE 62–82; RESP 16–18; TEMP 36.7–37; O2SAT 96–99
[2024-04-15 05:30] LABS: Hematocrit 38.3 % (42.0-52.0); Hemoglobin 12.6 g/dL (14.0-18.0); Mean Corpuscular HGB Conc 32.9 g/dl (32-36); Mean Corpuscular Hemoglobin 29.6 pg (26-34); Mean Corpuscular Volume 89.9 fl (80-100); Mean Platelet Volume 10.1 fl (7.4-10.4); Platelet Count Result 234 k/mm3 (150-375); Red Blood Count 4.26 M/mm3 (4.6-6.20); Red Cell Distribution Width 12.6 % (11.5-14.5)
[2024-04-15 05:38] LABS: Alanine Aminotransferase 16 U/L (6-50); Albumin Level 4.2 g/dL (3.5-5.1); Alkaline Phosphatase 56 U/L (38-126); Anion Gap 12 mmol/L (4-12); Aspartate Amino Transferase 21 U/L (17-59); Blood Urea Nitrogen 40 mg/dL (9-20); Calcium 9.1 mg/dL (8.4-10.2); Carbon Dioxide 27 mmol/L (22-30); Chloride 96 mmol/L (98-107); Estimated CRCL calculation 36 ml/min; Estimated Glomerular Filt Rate 43; Glucose 166 mg/dL (65-110); Potassium 3.8 mmol/L (3.4-5.0); Sodium 135 mmol/L (137-145)
[2024-04-15 08:35] LABS: Glucose Point of Care 169 mg/dl (65-105)
[2024-04-15] MEDS: TAMSULOSIN HCL 0.4 MG CAPSULE 0.8 MG PO (09:17)
[2024-04-15] MEDS: ENOXAPARIN 40 MG/0.4 ML SYRINGE SUB-Q (09:17)
[2024-04-15] MEDS: SPIRONOLACTONE 25 MG TABLET PO (09:17)
[2024-04-15] MEDS: lisinopriL 20 MG TABLET PO (09:17)
[2024-04-15] MEDS: EMPAGLIFLOZIN 10 MG TABLET PO (09:17)
[2024-04-15] MEDS: METOPROLOL SUCCINATE EXT REL 50 MG TABCR PO (09:17)
[2024-04-15] MEDS: FUROSEMIDE 40 MG TABLET PO (09:17)
[2024-04-15] MEDS: INSULIN ASPART (*BKC) 100 UNITS/ML 6 UNITS SUB-Q ×3 (09:18→17:37)
--- NOTE | 2024-04-15 11:10 | PM.PNCARD ---
Progress Note: A&P Assessment and Plan (1) Acute on chronic heart failure with reduced ejection fraction (HFrEF, <= 40%): Code(s): I50.23 - Acute on chronic systolic (congestive) heart failure Status: Acute Assessment and Plan: Echocardiogram shows LVEF 30-35%. Continue Lisinopril 20mg once daily, uptitrate as tolerated. Could transition to Entresto as an outpatient. Continue Toprol 50mg once daily, uptitrate as tolerated. Continue Spironolactone 25mg once daily. Continue Jardiance 10mg once daily. P.o. Lasix started today. (2) Biventricular ICD (implantable cardioverter-defibrillator) in place: Code(s): Z95.810 - Presence of automatic (implantable) cardiac defibrillator Status: Acute Assessment and Plan: Device interrogation 04/11 shows well functioning device. Thought to be bradycardia at his doctor's office. He does have some PVCs which could result in a false bradycardia on pulse ox machines. His device is functioning well, and his lower rate limit is set at 60 beats per minute. (3) Hypertension: Code(s): I10 - Essential (primary) hypertension Status: Acute Assessment and Plan: Stable, continue Lisinopril, Toprol, Spironolactone. 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 Management as per primary team. (5) Hydroureteronephrosis: Code(s): N13.30 - Unspecified hydronephrosis Status: Acute Assessment and Plan: Urology has been consulted. Subjective Date/time seen: 04/15/24 11:10 Interval history: Reason for visit: Acute on chronic HFrEF HPI: We are consulted for CHF. This is a 73 year old male with chronic heart failure with improved LVEF up to 45% per echo 2015, s/p biventricular ICD, hypertension, hyperlipidemia, diabetes mellitus, anxiety, issues with noncompliance. He was a patient of Dr. Nice's, but will be transitioning to Dr. Bond. Patient was recently seen in our office on 04/11 by Ines Bingham. He had a recent lung infection after cleaning out a house, had to take multiple courses of antibiotics, had cough that improved, but had shortness of breath. Gets short of breath easily with activity. No chest pain. Device interrogation 04/11 shows well functioning device. Patient was at his doctor's office yesterday and they did a walking oxygen study, during which he developed shortness of breath. His heart rate noted to be dropping down to the 40s. He was sent to the ED for further evaluation. Workup shows: Negative troponins x 3 NT pro BNP of 775 CXR with moderate edema Chest CTA: No PE. EKG with paced rhythm. Date of service 04/14: Feeling better. Date of service 04/15/2024: Feeling better. No chest pain, shortness of breath. Device interrogation performed showing no alert and normal functioning device Review of Systems Review of Systems: All systems reviewed & are unremarkable except as noted in HPI and below Constitutional: Constitutional: Denies body ache(s) Eyes: Eyes: Denies blurry vision ENT: Denies Normal hearing present Cardiovascular: Cardiovascular: Denies diaphoresis Respiratory: Respiratory: Denies dyspnea Gastrointestinal: Gastrointestinal: Denies abdominal pain Genitourinary: Genitourinary: Denies hematuria Musculoskeletal: Musculoskeletal: Denies arthralgias Integumentary/Breasts: Skin/Breast: Denies erythema Neurologic: Denies Abnormal speech present Psychiatric: Psychiatric: Denies anxiety Endocrine: Endocrine: Denies change in body appearance Hematologic/Lymphatic: Hematologic/Lymphatic: Denies easy bleeding Allergic/Immunologic: Allergic/Immunologic: Denies GI upset with certain foods Exam Const: General: comfortable and no acute distress HENMT: Mouth: Yes moist mucous membranes Eyes: General: appearance normal, both eyes and all related structures Sclera: sclerae normal Neck: Neck: supple Resp: Effort & Inspection: normal respiratory effort Auscultation: diminished lung sounds Cardio: Rate: regular rate Rhythm: regular rhythm Heart sounds: no murmurs GI: Inspection: non-distended GI Palp: Yes Soft to palpation Skin: General skin exam: normal color Neuro: Speech: normal speech Extrem: General: normal to inspection Psych: Mental Status: mental status grossly normal Affect: normal affect Objective Data Vital Signs Vital Signs: Vital Signs - 24 hr 04/14/24 11:57 04/14/24 12:00 04/14/24 14:00 Temperature 36.8 C Pulse Rate 76 73 80 Respiratory Rate 16 Blood Pressure 128/55 L Pulse Oximetry 97 Oxygen Delivery 04/14/24 16:25 04/14/24 16:27 04/14/24 16:35 Temperature 36.5 C Pulse Rate 81 79 Respiratory Rate 17 Blood Pressure 132/69 Pulse Oximetry 97 Oxygen Delivery Room Air 04/14/24 21:20 04/15/24 00:00 04/14/24 20:40 Temperature 37.0 C 36.9 C Pulse Rate 74 70 Respiratory Rate 18 18 Blood Pressure 112/60 105/55 L Pulse Oximetry 99 99 Oxygen Delivery Room Air 04/14/24 20:00 04/15/24 00:00 04/15/24 04:00 Temperature Pulse Rate 82 68 62 Respiratory Rate Blood Pressure Pulse Oximetry Oxygen Delivery 04/15/24 06:04 04/15/24 06:06 04/15/24 09:16 Temperature 37.0 C 37.0 C Pulse Rate 74 74 82 Respiratory Rate 18 18 16 Blood Pressure 112/60 112/60 130/68 Pulse Oximetry 99 99 96 Oxygen Delivery 04/15/24 09:17 04/15/24 08:00 04/15/24 09:20 Temperature Pulse Rate 80 66 Respiratory Rate Blood Pressure Pulse Oximetry Oxygen Delivery Room Air Intake/Output Intake/Output: Intake & Output 04/12/24 04/13/24 04/14/24 04/15/24 23:59 23:59 23:59 23:59 Intake Total 1140 1132 300 Output Total 1400 6235 2050 750 Balance -1400 -3355 -918 -450 Meds/Results Medications: Active Medications Generic Name Dose Route Start Last Admin Trade Name Freq PRN Reason Stop Dose Admin Acetaminophen 650 mg 04/12/24 19:22 Acetaminophen 325 Mg Tablet PO Q6H PRN Mild Pain (1-3) or Fever Dextrose 12.5 gm 04/12/24 19:22 Dextrose 50% 25 Gm/50 Ml Syringe IV PUSH PRN PRN Hypoglycemia Protocol Empagliflozin 10 mg 04/13/24 12:00 04/15/24 09:17 Empagliflozin 10 Mg Tablet PO 10 mg DAILY TOOTIE Administration Enoxaparin Sodium 40 mg 04/13/24 09:00 04/15/24 09:17 Enoxaparin 40 Mg/0.4 Ml Syringe SUB-Q 40 mg DAILY TOOTIE Administration Furosemide 40 mg 04/15/24 09:00 04/15/24 09:17 Furosemide 40 Mg Tablet PO 40 mg DAILY TOOTIE Administration Glucagon 1 mg 04/12/24 19:22 Glucagon For Inj 1 Mg Vial IM PRN PRN Hypoglycemia Protocol Glucose 15 gm 04/12/24 19:22 Glucose Oral Gel 15 Gm Of Glucse In 37.5 Gm Tube PO PRN PRN Hypoglycemia Protocol Dextrose 1,000 mls @ 100 mls/hr 04/12/24 19:22 Dextrose 5% 1,000 Ml IVPB PRN PRN Hypoglycemia Protocol Insulin Aspart 3 - 6 units 04/13/24 08:00 04/15/24 09:03 Insulin Aspart (*Bkc) 100 Units/Ml SUB-Q Not Given TIDWM TOOTIE Protocol Insulin Aspart 1 - 3 units 04/12/24 21:00 04/14/24 20:37 Insulin Aspart (*Bkc) 100 Units/Ml SUB-Q Not Given HS TOOTIE Protocol Insulin Aspart 6 units 04/14/24 17:00 04/15/24 09:18 Insulin Aspart (*Bkc) 100 Units/Ml SUB-Q 6 units TIDWM TOOTIE Administration Insulin Glargine 20 units 04/14/24 21:00 04/14/24 20:51 Insulin Glargine (*Bkc) 100 Units/Ml 0.25 units/kg (20 units) 20 units SUB-Q Administration HS [facility] Lisinopril 20 mg 04/13/24 09:00 04/15/24 09:17 Lisinopril 20 Mg Tablet PO 05/13/24 08:59 20 mg DAILY TOOTIE Administration Metoprolol Succinate 50 mg 04/14/24 09:00 04/15/24 09:17 Metoprolol Succinate Ext Rel 50 Mg Tabcr PO 50 mg QAM TOOTIE Administration Perflutren Lipid Microsphere 0 ml 04/12/24 18:03 Perflutren Lipid Microspheres 1.5 Ml Vial Diluted To 10 Ml Total Volume IV PUSH 04/15/24 18:04 ONCE PRN adequate visualization Protocol Spironolactone 25 mg 04/13/24 12:00 04/15/24 09:17 Spironolactone 25 Mg Tablet PO 25 mg QAM TOOTIE Administration Tamsulosin HCl 0.8 mg 04/13/24 09:00 04/15/24 09:17 Tamsulosin Hcl 0.4 Mg Capsule PO 0.8 mg DAILY TOOTIE Administration Radiology Results: ITS Impressions Chest X-Ray 04/12/24 15:57 Impression: 1: Moderate edema. Chest CTA 04/12/24 17:13 IMPRESSION: 1. No filling defects within the main or proximal ulnar arteries. Mild left-sided hydroureteronephrosis incompletely evaluated on the current examination for which noncontrast enhanced CT examination of the abdomen and pelvis is recommended. Renal Ultrasound 04/13/24 10:16 IMPRESSION: 1. Mild left hydronephrosis. Labs Labs: Laboratory Results - last 24 hr 04/14/24 04/14/24 04/14/24 10:27 12:08 16:51 WBC RBC Hgb Hct MCV MCH MCHC RDW Plt Count MPV Sodium Potassium Chloride Carbon Dioxide Anion Gap BUN Creatinine Estim Creat Clear Calc Estimated GFR Glucose POC Capillary Glucose 429 H 315 H 218 H Calcium Total Bilirubin AST ALT Alkaline Phosphatase Total Protein Albumin 04/14/24 04/15/24 04/15/24 19:38 05:00 08:31 WBC 8.0 RBC 4.26 L Hgb 12.6 L Hct 38.3 L MCV 89.9 MCH 29.6 MCHC 32.9 RDW 12.6 Plt Count 234 MPV 10.1 Sodium 135 L Potassium 3.8 Chloride 96 L Carbon Dioxide 27 Anion Gap 12 BUN 40 H D Creatinine 1.60 H Estim Creat Clear Calc 36 Estimated GFR 43 L Glucose 166 H POC Capillary Glucose 131 H 169 H Calcium 9.1 Total Bilirubin 1.0 AST 21 ALT 16 Alkaline Phosphatase 56 Total Protein 8.0 Albumin 4.2
[2024-04-15 12:21] LABS: Glucose Point of Care 279 mg/dl (65-105)
[2024-04-15] MEDS: INSULIN ASPART (*BKC) 100 UNITS/ML SUB-Q ×2 (12:57→20:59)
--- NOTE | 2024-04-15 13:01 | PM.IMPN ---
Progress Note: A&P Assessment and Plan (1) CHF exacerbation: Code(s): I50.9 - Heart failure, unspecified Status: Acute Assessment and Plan: 04/15 I/O -6123 since admission Seems near baseline Home soon pending urology issues (2) Chest pain: Code(s): R07.9 - Chest pain, unspecified Status: Acute Assessment and Plan: Resolved (3) Benign prostatic hyperplasia with urinary retention: Code(s): N40.1 - Benign prostatic hyperplasia with lower urinary tract symptoms; R33.8 - Other retention of urine Status: Acute Assessment and Plan: 04/15 Continue finasteride and tamsulosin, not tolerating mclaughlin well, so voiding trial initiated (4) Hydroureteronephrosis: Code(s): N13.30 - Unspecified hydronephrosis Status: Acute Assessment and Plan: 04/15 Creatinine 1.6 stable (5) Nonischemic cardiomyopathy: Code(s): I42.8 - Other cardiomyopathies Status: Acute Assessment and Plan: Near baseline (6) Hypertension: Code(s): I10 - Essential (primary) hypertension Status: Acute Assessment and Plan: 04/15 controlled (7) Insulin dependent type 2 diabetes mellitus: Code(s): E11.9 - Type 2 diabetes mellitus without complications; 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 Constipation. Denied chest pain, abd pain, sob, other bleeding. No weakness. Wants to go home. Tolerating diet. Review of Systems Review of Systems: All systems reviewed & are unremarkable except as noted in HPI and below Exam Narrative: HEENT: EOMI, sclerae nonicteric, pharyngeal mucosa pink and intact NECK: No JVD CHEST: Clear to auscultation. Normal effort. HEART: NL S1/S2, regular, no murmur. ABDOMEN: BS+, soft, nontender, no mass, no bruits. EXTREMITIES: No cyanosis, edema, or clubbing. NEUROLOGIC: CN intact and symmetric to inspection. MUSCULOSKELETAL: Tone and strength symmetric. PSYCH: Alert. Oriented to person, place, and time. : Mclaughlin in place with pink urine in tubing. Objective Data Vital Signs Vital Signs: Vital Signs - 24 hr 04/14/24 14:00 04/14/24 16:25 04/14/24 16:27 Temperature 97.7 F Pulse Rate 80 81 79 Respiratory Rate 17 Blood Pressure 132/69 Pulse Oximetry 97 Oxygen Delivery 04/14/24 16:35 04/14/24 21:20 04/15/24 00:00 Temperature 98.6 F 98.4 F Pulse Rate 74 70 Respiratory Rate 18 18 Blood Pressure 112/60 105/55 L Pulse Oximetry 99 99 Oxygen Delivery Room Air 04/14/24 20:40 04/14/24 20:00 04/15/24 00:00 Temperature Pulse Rate 82 68 Respiratory Rate Blood Pressure Pulse Oximetry Oxygen Delivery Room Air 04/15/24 04:00 04/15/24 06:04 04/15/24 06:06 Temperature 98.6 F 98.6 F Pulse Rate 62 74 74 Respiratory Rate 18 18 Blood Pressure 112/60 112/60 Pulse Oximetry 99 99 Oxygen Delivery 04/15/24 09:16 04/15/24 09:17 04/15/24 08:00 Temperature Pulse Rate 82 80 66 Respiratory Rate 16 Blood Pressure 130/68 Pulse Oximetry 96 Oxygen Delivery 04/15/24 09:20 Temperature Pulse Rate Respiratory Rate Blood Pressure Pulse Oximetry Oxygen Delivery Room Air Intake/Output Intake/Output: Intake & Output 04/12/24 04/13/24 04/14/24 04/15/24 23:59 23:59 23:59 23:59 Intake Total 1140 1132 300 Output Total 1706 9355 2050 750 Balance -1400 -3355 -918 -450 Meds/Results Medications: Active Medications Generic Name Dose Route Start Last Admin Trade Name Freq PRN Reason Stop Dose Admin Acetaminophen 650 mg 04/12/24 19:22 Acetaminophen 325 Mg Tablet PO Q6H PRN Mild Pain (1-3) or Fever Dextrose 12.5 gm 04/12/24 19:22 Dextrose 50% 25 Gm/50 Ml Syringe IV PUSH PRN PRN Hypoglycemia Protocol Empagliflozin 10 mg 04/13/24 12:00 04/15/24 09:17 Empagliflozin 10 Mg Tablet PO 10 mg DAILY TOOTIE Administration Enoxaparin Sodium 40 mg 04/13/24 09:00 04/15/24 09:17 Enoxaparin 40 Mg/0.4 Ml Syringe SUB-Q 40 mg DAILY TOOTIE Administration Furosemide 40 mg 04/15/24 09:00 04/15/24 09:17 Furosemide 40 Mg Tablet PO 40 mg DAILY TOOTIE Administration Glucagon 1 mg 04/12/24 19:22 Glucagon For Inj 1 Mg Vial IM PRN PRN Hypoglycemia Protocol Glucose 15 gm 04/12/24 19:22 Glucose Oral Gel 15 Gm Of Glucse In 37.5 Gm Tube PO PRN PRN Hypoglycemia Protocol Dextrose 1,000 mls @ 100 mls/hr 04/12/24 19:22 Dextrose 5% 1,000 Ml IVPB PRN PRN Hypoglycemia Protocol Insulin Aspart 3 - 6 units 04/13/24 08:00 04/15/24 12:57 Insulin Aspart (*Bkc) 100 Units/Ml SUB-Q 4 units TIDWM TOOTIE Administration Protocol Insulin Aspart 1 - 3 units 04/12/24 21:00 04/14/24 20:37 Insulin Aspart (*Bkc) 100 Units/Ml SUB-Q Not Given HS TOOTIE Protocol Insulin Aspart 6 units 04/14/24 17:00 04/15/24 12:56 Insulin Aspart (*Bkc) 100 Units/Ml SUB-Q 6 units TIDWM TOOTIE Administration Insulin Glargine 20 units 04/14/24 21:00 04/14/24 20:51 Insulin Glargine (*Bkc) 100 Units/Ml 0.25 units/kg (20 units) 20 units SUB-Q Administration HS [facility] Lisinopril 20 mg 04/13/24 09:00 04/15/24 09:17 Lisinopril 20 Mg Tablet PO 05/13/24 08:59 20 mg DAILY TOOTIE Administration Metoprolol Succinate 50 mg 04/14/24 09:00 04/15/24 09:17 Metoprolol Succinate Ext Rel 50 Mg Tabcr PO 50 mg QAM TOOTIE Administration Perflutren Lipid Microsphere 0 ml 04/12/24 18:03 Perflutren Lipid Microspheres 1.5 Ml Vial Diluted To 10 Ml Total Volume IV PUSH 04/15/24 18:04 ONCE PRN adequate visualization Protocol Senna 8.6 mg 04/15/24 13:00 Sennosides 8.6 Mg Tablet PO DAILY TOOTIE Spironolactone 25 mg 04/13/24 12:00 04/15/24 09:17 Spironolactone 25 Mg Tablet PO 25 mg QAM TOOTIE Administration Tamsulosin HCl 0.8 mg 04/13/24 09:00 04/15/24 09:17 Tamsulosin Hcl 0.4 Mg Capsule PO 0.8 mg DAILY TOOTIE Administration Radiology Results: ITS Impressions Chest X-Ray 04/12/24 15:57 Impression: 1: Moderate edema. Chest CTA 04/12/24 17:13 IMPRESSION: 1. No filling defects within the main or proximal ulnar arteries. Mild left-sided hydroureteronephrosis incompletely evaluated on the current examination for which noncontrast enhanced CT examination of the abdomen and pelvis is recommended. Renal Ultrasound 04/13/24 10:16 IMPRESSION: 1. Mild left hydronephrosis. Labs Labs: Laboratory Results - last 24 hr 04/14/24 04/14/24 04/15/24 16:51 19:38 05:00 WBC 8.0 RBC 4.26 L Hgb 12.6 L Hct 38.3 L MCV 89.9 MCH 29.6 MCHC 32.9 RDW 12.6 Plt Count 234 MPV 10.1 Sodium 135 L Potassium 3.8 Chloride 96 L Carbon Dioxide 27 Anion Gap 12 BUN 40 H D Creatinine 1.60 H Estim Creat Clear Calc 36 Estimated GFR 43 L Glucose 166 H POC Capillary Glucose 218 H 131 H Calcium 9.1 Total Bilirubin 1.0 AST 21 ALT 16 Alkaline Phosphatase 56 Total Protein 8.0 Albumin 4.2 04/15/24 04/15/24 08:31 12:18 WBC RBC Hgb Hct MCV MCH MCHC RDW Plt Count MPV Sodium Potassium Chloride Carbon Dioxide Anion Gap BUN Creatinine Estim Creat Clear Calc Estimated GFR Glucose POC Capillary Glucose 169 H 279 H Calcium Total Bilirubin AST ALT Alkaline Phosphatase Total Protein Albumin
[2024-04-15] MEDS: SENNOSIDES 8.6 MG TABLET PO (13:38)
[2024-04-15 17:09] LABS: Glucose Point of Care 180 mg/dl (65-105)
[2024-04-15] MEDS: PHENAZOPYRIDINE HCL 100 MG TABLET PO (17:48)
[2024-04-15] MEDS: HYOSCYAMINE SULFATE 0.125 MG TABLET PO ×2 (17:48→21:03)
[2024-04-15 20:51] LABS: Glucose Point of Care 210 mg/dl (65-105)
[2024-04-15] MEDS: INSULIN GLARGINE (*BKC) 100 UNITS/ML 20 UNITS SUB-Q (20:57)
[2024-04-16] VITALS (8 sets, daily range): BP systolic 102–120; BP diastolic 52–80; PULSE 60–82; RESP 16; TEMP 36.4–36.6; O2SAT 96–98
[2024-04-16] MEDS: HYOSCYAMINE SULFATE 0.125 MG TABLET PO ×2 (04:39→09:20)
[2024-04-16] MEDS: PHENAZOPYRIDINE HCL 100 MG TABLET PO (04:39)
[2024-04-16 08:04] LABS: Anion Gap 11 mmol/L (4-12); Blood Urea Nitrogen 41 mg/dL (9-20); Calcium 9.5 mg/dL (8.4-10.2); Carbon Dioxide 29 mmol/L (22-30); Chloride 98 mmol/L (98-107); Estimated CRCL calculation 36 ml/min; Estimated Glomerular Filt Rate 43; Glucose 140 mg/dL (65-110); Potassium 3.8 mmol/L (3.4-5.0); Sodium 138 mmol/L (137-145)
[2024-04-16 08:21] LABS: Glucose Point of Care 166 mg/dl (65-105)
[2024-04-16] MEDS: EMPAGLIFLOZIN 10 MG TABLET PO (09:11)
[2024-04-16] MEDS: TAMSULOSIN HCL 0.4 MG CAPSULE 0.8 MG PO (09:11)
[2024-04-16] MEDS: oxyBUTYnin CHLORIDE 5 MG TABLET PO (09:11)
[2024-04-16] MEDS: INSULIN ASPART (*BKC) 100 UNITS/ML 6 UNITS SUB-Q ×2 (09:12→12:29)
[2024-04-16] MEDS: SENNOSIDES 8.6 MG TABLET PO (09:12)
[2024-04-16] MEDS: ENOXAPARIN 40 MG/0.4 ML SYRINGE SUB-Q (09:12)
[2024-04-16] MEDS: SPIRONOLACTONE 25 MG TABLET PO (09:20)
[2024-04-16] MEDS: FUROSEMIDE 40 MG TABLET PO (09:20)
[2024-04-16] MEDS: METOPROLOL SUCCINATE EXT REL 50 MG TABCR PO (09:20)
[2024-04-16] MEDS: lisinopriL 20 MG TABLET PO (09:20)
--- NOTE | 2024-04-16 09:37 | P.PNCA_ITS ---
Progress Note: A&P Assessment and Plan (1) Acute on chronic heart failure with reduced ejection fraction (HFrEF, <= 40%): Code(s): I50.23 - Acute on chronic systolic (congestive) heart failure Status: Acute Assessment and Plan: Echocardiogram shows LVEF 30-35%. Continue Lisinopril 20mg once daily, uptitrate as tolerated. Could transition to Entresto as an outpatient. Continue Toprol 50mg once daily, uptitrate as tolerated. Continue Spironolactone 25mg once daily. Continue Jardiance 10mg once daily. Continue p.o. Lasix. Creatinine stable 1.6. Potassium is modestly low at 3.8 today. Will replace with 20 mEq potassium chloride p.o. x1 (2) Biventricular ICD (implantable cardioverter-defibrillator) in place: Code(s): Z95.810 - Presence of automatic (implantable) cardiac defibrillator Status: Acute Assessment and Plan: Device interrogation 04/11 shows well functioning device. Thought to be bradycardia at his doctor's office. He does have some PVCs which could result in a false bradycardia on pulse ox machines. His device is functioning well, and his lower rate limit is set at 60 beats per minute. (3) Hypertension: Code(s): I10 - Essential (primary) hypertension Status: Acute Assessment and Plan: Stable, continue Lisinopril, Toprol, Spironolactone. (4) Insulin dependent type 2 diabetes mellitus: Code(s): E11.9 - Type 2 diabetes mellitus without complications; Z79.4 - [facility] (current) use of insulin Status: Acute Assessment and Plan: Uncontrolled. Management as per primary team. (5) Hydroureteronephrosis: Code(s): N13.30 - Unspecified hydronephrosis Status: Acute Assessment and Plan: Urology has been consulted. Subjective Date/time seen: 04/16/24 09:37 Interval history: Reason for visit: Acute on chronic HFrEF HPI: We are consulted for CHF. This is a 73 year old male with chronic heart failure with improved LVEF up to 45% per echo 2015, s/p biventricular ICD, hypertension, hyperlipidemia, diabetes mellitus, anxiety, issues with noncompliance. He was a patient of Dr. Nice's, but will be transitioning to Dr. Bond. Patient was recently seen in our office on 04/11 by Ines Bingham. He had a recent lung infection after cleaning out a house, had to take multiple courses of antibiotics, had cough that improved, but had shortness of breath. Gets short of breath easily with activity. No chest pain. Device interrogation 04/11 shows well functioning device. Patient was at his doctor's office yesterday and they did a walking oxygen study, during which he developed shortness of breath. His heart rate noted to be dropping down to the 40s. He was sent to the ED for further evaluation. Workup shows: Negative troponins x 3 NT pro BNP of 775 CXR with moderate edema Chest CTA: No PE. EKG with paced rhythm. Date of service 04/14: Feeling better. Date of service 04/15/2024: Feeling better. No chest pain, shortness of breath. Device interrogation performed showing no alert and normal functioning device Date of service 04/16/2024: He feels fine from a cardiac perspective. Active this morning walking around and not having any symptoms chest pain shortness of breath Review of Systems Review of Systems: All systems reviewed & are unremarkable except as noted in HPI and below Constitutional: Constitutional: Denies body ache(s) Eyes: Eyes: Denies blurry vision ENT: Denies Normal hearing present Cardiovascular: Cardiovascular: Denies diaphoresis and Denies dyspnea Respiratory: Respiratory: Denies dyspnea Gastrointestinal: Gastrointestinal: Denies abdominal pain Genitourinary: Genitourinary: Denies hematuria Musculoskeletal: Musculoskeletal: Denies arthralgias Integumentary/Breasts: Skin/Breast: Denies erythema Neurologic: Denies Normal hearing present and Denies Abnormal speech present Psychiatric: Psychiatric: Denies anxiety Endocrine: Endocrine: Denies change in body appearance Hematologic/Lymphatic: Hematologic/Lymphatic: Denies easy bleeding Allergic/Immunologic: Allergic/Immunologic: Denies GI upset with certain foods Exam Const: General: comfortable and no acute distress HENMT: Mouth: Yes moist mucous membranes Eyes: General: appearance normal, both eyes and all related structures Sclera: sclerae normal Neck: Neck: supple Resp: Effort & Inspection: normal respiratory effort Auscultation: diminished lung sounds Cardio: Rate: regular rate Rhythm: regular rhythm Heart sounds: no murmurs GI: Inspection: non-distended Skin: General skin exam: normal color Neuro: Cranial nerves: No Normal hearing present Speech: normal speech and No Abnormal speech present Extrem: General: normal to inspection Psych: Mental Status: mental status grossly normal Affect: normal affect Objective Data Vital Signs Vital Signs: Vital Signs - 24 hr 04/15/24 12:00 04/15/24 13:45 04/15/24 16:00 Temperature 36.7 C Pulse Rate 69 69 78 Respiratory Rate 16 Blood Pressure 109/47 L Pulse Oximetry 98 Oxygen Delivery 04/15/24 20:25 04/15/24 20:00 04/15/24 20:00 Temperature 36.8 C Pulse Rate 69 68 Respiratory Rate 16 Blood Pressure 114/66 Pulse Oximetry 99 Oxygen Delivery Room Air 04/16/24 00:00 04/16/24 04:00 04/16/24 05:09 Temperature 36.4 C L Pulse Rate 78 60 68 Respiratory Rate 16 Blood Pressure 120/70 Pulse Oximetry 98 Oxygen Delivery 04/16/24 09:15 04/16/24 09:20 Temperature Pulse Rate 74 74 Respiratory Rate 16 Blood Pressure 104/80 Pulse Oximetry 96 Oxygen Delivery Intake/Output Intake/Output: Intake & Output 04/13/24 04/14/24 04/15/24 04/16/24 23:59 23:59 23:59 23:59 Intake Total 1140 1132 1290 500 Output Total 4496 2054 1651 750 [id number] [phone] [phone] Meds/Results Medications: Active Medications Generic Name Dose Route Start Last Admin Trade Name Freq PRN Reason Stop Dose Admin Acetaminophen 650 mg 04/12/24 19:22 Acetaminophen 325 Mg Tablet PO Q6H PRN Mild Pain (1-3) or Fever Dextrose 12.5 gm 04/12/24 19:22 Dextrose 50% 25 Gm/50 Ml Syringe IV PUSH PRN PRN Hypoglycemia Protocol Empagliflozin 10 mg 04/13/24 12:00 04/16/24 09:11 Empagliflozin 10 Mg Tablet PO 10 mg DAILY TOOTIE Administration Enoxaparin Sodium 40 mg 04/13/24 09:00 04/16/24 09:12 Enoxaparin 40 Mg/0.4 Ml Syringe SUB-Q 40 mg DAILY TOOTIE Administration Furosemide 40 mg 04/15/24 09:00 04/16/24 09:20 Furosemide 40 Mg Tablet PO 40 mg DAILY TOOTIE Administration Glucagon 1 mg 04/12/24 19:22 Glucagon For Inj 1 Mg Vial IM PRN PRN Hypoglycemia Protocol Glucose 15 gm 04/12/24 19:22 Glucose Oral Gel 15 Gm Of Glucse In 37.5 Gm Tube PO PRN PRN Hypoglycemia Protocol Hyoscyamine 0.125 mg 04/15/24 17:13 04/16/24 09:20 Hyoscyamine Sulfate 0.125 Mg Tablet PO 0.125 mg Q4H PRN Administration discomfort from mclaughlin Dextrose 1,000 mls @ 100 mls/hr 04/12/24 19:22 Dextrose 5% 1,000 Ml IVPB PRN PRN Hypoglycemia Protocol Insulin Aspart 3 - 6 units 04/13/24 08:00 04/16/24 09:08 Insulin Aspart (*Bkc) 100 Units/Ml SUB-Q Not Given TIDWM [facility] Protocol Insulin Aspart 1 - 3 units 04/12/24 21:00 04/15/24 20:59 Insulin Aspart (*Bkc) 100 Units/Ml SUB-Q 1 units HS TOOTIE Administration Protocol Insulin Aspart 6 units 04/14/24 17:00 04/16/24 09:12 Insulin Aspart (*Bkc) 100 Units/Ml SUB-Q 6 units TIDWM [place] Administration Insulin Glargine 20 units 04/14/24 21:00 04/15/24 20:57 Insulin Glargine (*Bkc) 100 Units/Ml 0.25 units/kg (20 units) 20 units SUB-Q Administration [facility] Lisinopril 20 mg 04/13/24 09:00 04/16/24 09:20 Lisinopril 20 Mg Tablet PO 05/13/24 08:59 20 mg DAILY TOOTIE Administration Metoprolol Succinate 50 mg 04/14/24 09:00 04/16/24 09:20 Metoprolol Succinate Ext Rel 50 Mg Tabcr PO 50 mg QAM TOOTIE Administration Oxybutynin Chloride 5 mg 04/16/24 07:34 04/16/24 09:11 Oxybutynin Chloride 5 Mg Tablet PO 5 mg DAILY PRN Administration Bladder Spasm Phenazopyridine HCl 100 mg 04/15/24 17:12 04/16/24 04:39 Phenazopyridine Hcl 100 Mg Tablet PO 100 mg Q8HR PRN Administration Bladder Spasm Senna 8.6 mg 04/15/24 13:00 04/16/24 09:12 Sennosides 8.6 Mg Tablet PO 8.6 mg DAILY TOOTIE Administration Spironolactone 25 mg 04/13/24 12:00 04/16/24 09:20 Spironolactone 25 Mg Tablet PO 25 mg QAM TOOTIE Administration Tamsulosin HCl 0.8 mg 04/13/24 09:00 04/16/24 09:11 Tamsulosin Hcl 0.4 Mg Capsule PO 0.8 mg DAILY TOOTIE Administration Radiology Results: ITS Impressions Chest X-Ray 04/12/24 15:57 Impression: 1: Moderate edema. Chest CTA 04/12/24 17:13 IMPRESSION: 1. No filling defects within the main or proximal ulnar arteries. Mild left-sided hydroureteronephrosis incompletely evaluated on the current examination for which noncontrast enhanced CT examination of the abdomen and pelvis is recommended. Renal Ultrasound 04/13/24 10:16 IMPRESSION: 1. Mild left hydronephrosis. Labs Labs: Laboratory Results - last 24 hr 04/15/24 04/15/24 04/15/24 12:18 17:04 20:19 Sodium Potassium Chloride Carbon Dioxide Anion Gap BUN Creatinine Estim Creat Clear Calc Estimated GFR Glucose POC Capillary Glucose 279 H 180 H 210 H Calcium 04/16/24 04/16/24 07:41 08:18 Sodium 138 Potassium 3.8 Chloride 98 Carbon Dioxide 29 Anion Gap 11 BUN 41 H Creatinine 1.60 H Estim Creat Clear Calc 36 Estimated GFR 43 L Glucose 140 H POC Capillary Glucose 166 H Calcium 9.5
--- NOTE | 2024-04-16 11:03 | WPDUROPN2 ---
Progress Note: A&P Assessment and Plan (1) Abnormal PSA: Code(s): R97.20 - Elevated prostate specific antigen [PSA] Status: Acute (2) Benign prostatic hyperplasia with urinary retention: Code(s): N40.1 - Benign prostatic hyperplasia with lower urinary tract symptoms; R33.8 - Other retention of urine Status: Acute (3) Hydroureteronephrosis: Code(s): N13.30 - Unspecified hydronephrosis Status: Acute Assessment and Plan: Catheter irrigated at bedside with return of clear urine and a couple tiny old clots. No need for 3-way mclaughlin or continuous bladder irrigation. Will send for UA/UCx to rule out infection Maintain Mclaughlin in place given patient failed void trial over the weekend Continue both Tamsulosin and Finasteride at discharge. Will need CT abd/pelvis w/wo contrast to further evaluate mild left hydronephorosis -> can be done either inpatient or outpatient. Will need repeat PSA in 3-4 weeks. Subjective Subjective Date/Time Seen: 04/16/24 11:03 Interval history: Urology notified yesterday of patient having difficulty urinating with some small clots. Bladder scan showed >300 mL and Mclaughlin was replaced. Patient reports tolerating Mclaughlin overall fairly well with the occasional spasms which are improved with the addition of antispasmodics and pyridium. He reports a remote history of UTI but denies frequent or recurrent UTI. Review of Systems Review of Systems: All systems reviewed & are unremarkable except as noted in HPI and below Exam Const: Other: NAD HENMT: Other: Normocephalic, atraumatic Eyes: Other: EOMI Neck: Other: Supple Resp: Other: Symmetric chest rise with no signs of respiratory distress Cardio: Other: Adequate peripheral perfusion GI: Other: Soft, nontender, nondistended. Bladder nonpalpable : Other: 18-I[place]ic Mclaughlin in place draining clear yellow urine without clots. Urinary Catheter: Urinary Catheter: patent and draining and urine clear Neuro: Other: No focal deficits Extrem: Other: Moves all 4 Psych: Other: Answers questions appropriately Objective Data Vital Signs Vital Signs: Vital Signs - 24 hr 04/15/24 12:00 04/15/24 13:45 04/15/24 16:00 Temperature 36.7 C Pulse Rate 69 69 78 Respiratory Rate 16 Blood Pressure 109/47 L Pulse Oximetry 98 Oxygen Delivery 04/15/24 20:25 04/15/24 20:00 04/15/24 20:00 Temperature 36.8 C Pulse Rate 69 68 Respiratory Rate 16 Blood Pressure 114/66 Pulse Oximetry 99 Oxygen Delivery Room Air 04/16/24 00:00 04/16/24 04:00 04/16/24 05:09 Temperature 36.4 C L Pulse Rate 78 60 68 Respiratory Rate 16 Blood Pressure 120/70 Pulse Oximetry 98 Oxygen Delivery 04/16/24 09:15 04/16/24 09:20 Temperature Pulse Rate 74 74 Respiratory Rate 16 Blood Pressure 104/80 Pulse Oximetry 96 Oxygen Delivery Intake/Output Intake/Output: Intake & Output 04/13/24 04/14/24 04/15/24 04/16/24 23:59 23:59 23:59 23:59 Intake Total 1140 1132 1290 500 Output Total 4499 2050 1656 750 [facility] -[phone] -250 Meds/Results Medications: Active Medications Generic Name Dose Route Start Last Admin Trade Name Freq PRN Reason Stop Dose Admin Acetaminophen 650 mg 04/12/24 19:22 Acetaminophen 325 Mg Tablet PO Q6H PRN Mild Pain (1-3) or Fever Dextrose 12.5 gm 04/12/24 19:22 Dextrose 50% 25 Gm/50 Ml Syringe IV PUSH PRN PRN Hypoglycemia Protocol Empagliflozin 10 mg 04/13/24 12:00 04/16/24 09:11 Empagliflozin 10 Mg Tablet PO 10 mg DAILY TOOTIE Administration Enoxaparin Sodium 40 mg 04/13/24 09:00 04/16/24 09:12 Enoxaparin 40 Mg/0.4 Ml Syringe SUB-Q 40 mg DAILY TOOTIE Administration Furosemide 40 mg 04/15/24 09:00 04/16/24 09:20 Furosemide 40 Mg Tablet PO 40 mg DAILY TOOTIE Administration Glucagon 1 mg 04/12/24 19:22 Glucagon For Inj 1 Mg Vial IM PRN PRN Hypoglycemia Protocol Glucose 15 gm 04/12/24 19:22 Glucose Oral Gel 15 Gm Of Glucse In 37.5 Gm Tube PO PRN PRN Hypoglycemia Protocol Hyoscyamine 0.125 mg 04/15/24 17:13 04/16/24 09:20 Hyoscyamine Sulfate 0.125 Mg Tablet PO 0.125 mg Q4H PRN Administration discomfort from mclaughlin Dextrose 1,000 mls @ 100 mls/hr 04/12/24 19:22 Dextrose 5% 1,000 Ml IVPB PRN PRN Hypoglycemia Protocol Insulin Aspart 3 - 6 units 04/13/24 08:00 04/16/24 09:08 Insulin Aspart (*Bkc) 100 Units/Ml SUB-Q Not Given TIDWM [facility] Protocol Insulin Aspart 1 - 3 units 04/12/24 21:00 04/15/24 20:59 Insulin Aspart (*Bkc) 100 Units/Ml SUB-Q 1 units HS [facility] Administration Protocol Insulin Aspart 6 units 04/14/24 17:00 04/16/24 09:12 Insulin Aspart (*Bkc) 100 Units/Ml SUB-Q 6 units TIDWM [facility] Administration Insulin Glargine 20 units 04/14/24 21:00 04/15/24 20:57 Insulin Glargine (*Bkc) 100 Units/Ml 0.25 units/kg (20 units) 20 units SUB-Q Administration [facility] Lisinopril 20 mg 04/13/24 09:00 04/16/24 09:20 Lisinopril 20 Mg Tablet PO 05/13/24 08:59 20 mg DAILY [facility] Administration Metoprolol Succinate 50 mg 04/14/24 09:00 04/16/24 09:20 Metoprolol Succinate Ext Rel 50 Mg Tabcr PO 50 mg QAM [facility] Administration Oxybutynin Chloride 5 mg 04/16/24 07:34 04/16/24 09:11 Oxybutynin Chloride 5 Mg Tablet PO 5 mg DAILY PRN Administration Bladder Spasm Phenazopyridine HCl 100 mg 04/15/24 17:12 04/16/24 04:39 Phenazopyridine Hcl 100 Mg Tablet PO 100 mg Q8HR PRN Administration Bladder Spasm Senna 8.6 mg 04/15/24 13:00 04/16/24 09:12 Sennosides 8.6 Mg Tablet PO 8.6 mg DAILY [facility] Administration Spironolactone 25 mg 04/13/24 12:00 04/16/24 09:20 Spironolactone 25 Mg Tablet PO 25 mg QAM [facility] Administration Tamsulosin HCl 0.8 mg 04/13/24 09:00 04/16/24 09:11 Tamsulosin Hcl 0.4 Mg Capsule PO 0.8 mg DAILY TOOTIE Administration Radiology Results: ITS Impressions Chest X-Ray 04/12/24 15:57 Impression: 1: Moderate edema. Chest CTA 04/12/24 17:13 IMPRESSION: 1. No filling defects within the main or proximal ulnar arteries. Mild left-sided hydroureteronephrosis incompletely evaluated on the current examination for which noncontrast enhanced CT examination of the abdomen and pelvis is recommended. Renal Ultrasound 04/13/24 10:16 IMPRESSION: 1. Mild left hydronephrosis. Labs Labs: Laboratory Results - last 24 hr 04/15/24 04/15/24 04/15/24 12:18 17:04 20:19 Sodium Potassium Chloride Carbon Dioxide Anion Gap BUN Creatinine Estim Creat Clear Calc Estimated GFR Glucose POC Capillary Glucose 279 H 180 H 210 H Calcium 04/16/24 04/16/24 07:41 08:18 Sodium 138 Potassium 3.8 Chloride 98 Carbon Dioxide 29 Anion Gap 11 BUN 41 H Creatinine 1.60 H Estim Creat Clear Calc 36 Estimated GFR 43 L Glucose 140 H POC Capillary Glucose 166 H Calcium 9.5
[2024-04-16 12:03] LABS: Glucose Point of Care 175 mg/dl (65-105)
[2024-04-16] MEDS: POTASSIUM CHLORIDE 20 MEQ ER TABLET PO (12:29)
[2024-04-16 13:22] LABS: Add Urine Microscopic? YES; Appearance Urine Cloudy (Clear); Bacteria Urine None Seen /hpf; Bilirubin Urine 1+ (Negative); Blood Urine 3+ (Negative); Color Urine Dark Yellow (Yellow); Glucose Urine UA 3+ mg/dL (Negative); Ketones Urine Negative (Negative); Leukocyte Esterase Ur Trace LEU/UL (Negative); Need Manual Microscopic Reviewed; Nitrate Urine Positive (Negative); Protein Urine 3+ mg/dL (Negative); RBC Urine >100 /hpf (0-2); Specific Grav Ur 1.017 (1.001-1.035); Squamous Epithelial Cell Urine Occasional /hpf (Few); pH Urine 5.5 (5.0-9.0)
--- NOTE | 2024-04-16 14:33 | PM.DS ---
DS: Admitting Diagnosis Discharge Date 04/16/2024 Admitting Diagnosis Acute exacerbation of chronic systolic CHF DS: Discharge Diagnosis Discharge Diagnosis (1) CHF exacerbation: Code(s): I50.9 - Heart failure, unspecified Status: Acute Assessment and Plan: 04/15 I/O -6123 since admission Seems near baseline Home today with Mclaughlin (2) Chest pain: Code(s): R07.9 - Chest pain, unspecified Status: Acute Assessment and Plan: Resolved (3) Benign prostatic hyperplasia with urinary retention: Code(s): N40.1 - Benign prostatic hyperplasia with lower urinary tract symptoms; R33.8 - Other retention of urine Status: Acute Assessment and Plan: 04/15 Continue finasteride and tamsulosin, not tolerating mclaughlin well, so voiding trial initiated and did poorly 04/16 Continue finasteride and tamsulosin with added anticholinergic and pyridium (4) Hydroureteronephrosis: Code(s): N13.30 - Unspecified hydronephrosis Status: Acute Assessment and Plan: 04/15 Creatinine 1.6 stable, 04/16 1.6 (5) Nonischemic cardiomyopathy: Code(s): I42.8 - Other cardiomyopathies Status: Acute Assessment and Plan: Near baseline (6) Hypertension: Code(s): I10 - Essential (primary) hypertension Status: Acute Assessment and Plan: 04/16 controlled (7) Insulin dependent type 2 diabetes mellitus: Code(s): E11.9 - Type 2 diabetes mellitus without complications; Z79.4 - long-term (current) use of insulin Status: Acute Assessment and Plan: 04/16 FBS 140 Continue current regimen DS: Summary Hospital Course Hospital Course: Admitted April 12 due to chest pressure and shortness of breath. Was found to be and acute on chronic congestive heart failure. Responded well to furosemide IV. Creatinine was elevated at 1.4 and increased a tad to at 1.6 and remained stable throughout hospitalization. Echocardiogram showed ejection fraction of 30-35%. Cardiology consulted as well as Urology. His cardiac regimen was optimized and a diuretic was added. Basal insulin was added to his home regimen and metformin was discontinued due to chronic kidney disease. He failed a voiding trial and had bladder spasm walk Mclaughlin catheter was and therefore antispasmodics were added to his regimen and his finasteride and tamsulosin were continued. At discharge his hemoglobin was 12.6 creatinine 1.6 sodium 138 potassium 3.8 chloride 98 carbon dioxide 29 BUN 41 and fasting blood sugar 140. Of note EKG showed sinus rhythm without ischemic changes and troponins were unremarkable. Urinalysis revealed only blood with a few white cells in the Mclaughlin catheter without evidence for yeast or bacterial infection. At discharge he declined home health services due to having a friend who would provide that service. Time Spent with Patient Time attestation: Total time spent providing and/or coordinating discharge services: Exam Narrative: HEENT: EOMI, sclerae nonicteric, pharyngeal mucosa pink and intact NECK: No JVD CHEST: Clear to auscultation. Normal effort. HEART: NL S1/S2, regular, no murmur. ABDOMEN: BS+, soft, nontender, no mass, no bruits. EXTREMITIES: No cyanosis, edema, or clubbing. NEUROLOGIC: CN intact and symmetric to inspection. MUSCULOSKELETAL: Tone and strength symmetric. PSYCH: Alert. Oriented to person, place, and time. : Mclaughlin in place with orange urine in tubing. DS: Data Data Completed and Pending Labs on day of discharge: Labs from last 24 hours 04/16/24 04/16/24 04/16/24 12:42 11:53 08:18 Sodium Potassium Chloride Carbon Dioxide Anion Gap BUN Creatinine Estim Creat Clear Calc Estimated GFR Glucose POC Capillary Glucose 175 H 166 H Calcium Urine Color Dark yellow Urine Appearance Cloudy H Urine pH 5.[address] 1.017 Urine Protein 3+ H Urine Glucose (UA) 3+ H Urine Ketones Negative Ur Blood (Man) 3+ H Urine Nitrate Positive Urine Bilirubin 1+ H Urine Urobilinogen 1.0 Ur Leukocyte Esterase Trace H Add Ur Microanalysis Reviewed Urine RBC >100 H Urine WBC 11-20 H Ur Squamous Epith Cells Occasional Urine Bacteria None seen Urine Casts 3-5 04/16/24 04/15/24 04/15/24 07:41 20:19 17:04 Sodium 138 Potassium 3.8 Chloride 98 Carbon Dioxide 29 Anion Gap 11 BUN 41 H Creatinine 1.60 H Estim Creat Clear Calc 36 Estimated GFR 43 L Glucose 140 H POC Capillary Glucose 210 H 180 H Calcium 9.5 Urine Color Urine Appearance Urine pH Ur Specific [address] Urine Protein Urine Glucose (UA) Urine Ketones Ur Blood (Man) Urine Nitrate Urine Bilirubin Urine Urobilinogen Ur Leukocyte Esterase Add Ur Microanalysis Urine RBC Urine WBC Ur Squamous Epith Cells Urine Bacteria Urine Casts Discharge Plan Discharge Consulting providers: Michael Bond; Isaias Walker Discharging Clinician: Frantz Peralta Patient Disposition: Home, Self-Care Activity: no straining Diet: heart healthy and diabetic Discharge Instructions: Continue with Mclaughlin catheter until seen in office by urologist. Patient Instructions: Heart Failure (DC), Dyspnea (GEN) Stand Alone Forms: General Discharge Information Follow-up/Referrals: Michael Bond MD [Physician] - Call for Appointment Isaias Walker MD [Physician] - Call for Appointment Cristina,MD Somoth [Primary Care Provider] - Call for Appointment Discharge Medications: New metoprolol succinate 50 mg Tablet Extended Release 24 Hr 50 mg PO QAM Qty: 30 0RF phenazopyridine 100 mg Tablet 100 mg PO Q8HR Qty: 9 0RF insulin glargine [Lantus Solostar U-100 Insulin] 100 unit/mL (3 mL) insulin pen 20 unit subcut DAILY Qty: 15 0RF Jardiance 10 mg Tablet 10 mg PO DAILY Qty: 30 0RF spironolactone 25 mg Tablet 25 mg PO QAM Qty: 30 0RF furosemide 40 mg Tablet 40 mg PO DAILY Qty: 30 0RF sennosides [Senokot] 8.6 mg Tablet 17.2 mg PO DAILY Qty: 60 0RF hyoscyamine sulfate [Anaspaz] 0.125 mg Tablet,Disintegrating 0.125 mg PO Q4H PRN (Reason: discomfort from mclaughlin) Qty: 30 0RF oxybutynin chloride 10 mg tablet extended release 24hr 10 mg PO DAILY Qty: 10 0RF finasteride 5 mg tablet 5 mg PO DAILY Qty: 30 0RF Continued (DME) pen needle, diabetic [BD Ultra-Fine Gianna Pen Needle] 32 gauge x /32 needle See Rx Instructions .ROUTE .MEDSUPPLY Qty: 10 Rx Instructions: As directed amlodipine-benazepril 10-20 mg capsule 1 cap PO DAILY tamsulosin [Flomax] 0.4 mg capsule 0.8 mg PO DAILY Qty: 60 0RF Changed insulin lispro [Admelog SoloStar U-100 Insulin] 100 unit/mL insulin pen 6 unit SUBCUT TID Qty: 15 0RF Discontinued metformin 500 mg tablet 500 mg PO BID Date of admission: 04/12/24 18:03 Primary Care Provider: Jonnie,Smooth Admitting Provider: Yoni Walker Attending physician on admission: Yoni Walker Condition: Stable
== END 2024-04-16 16:45 | disposition home or self-care (01) ==
LOC: ANHED 18:03 → ANHIMU 22:36 → ANH2MED 04-14 16:05 → ANHIMU 04-17 09:38
PROVIDERS: Emergency Medicine; General Practice; Physician Assistant; Urology; Admitting Provider Internal Medicine; Emergency Provider Emergency Medicine; PCP Family Medicine; Visit Provider Internal Medicine
DX: I11.0 Hypertensive heart disease with heart failure (principal); I50.23 Acute on chronic systolic (congestive) heart failure; R07.9 Chest pain, unspecified; R06.09 Other forms of dyspnea; I42.8 Other cardiomyopathies; N40.1 Benign prostatic hyperplasia with lower urinary tract symptoms; R33.8 Other retention of urine; R97.20 Elevated prostate specific antigen [PSA]; N13.30 Unspecified hydronephrosis; E78.00 Pure hypercholesterolemia, unspecified; E11.9 Type 2 diabetes mellitus without complications; K21.9 Gastro-esophageal reflux disease without esophagitis; Z95.810 Presence of automatic (implantable) cardiac defibrillator; Z79.4 Long term (current) use of insulin; Z79.84 Long term (current) use of oral hypoglycemic drugs
CPT/HCPCS: 36415; 71046; 71275; 76775; 76857; 80048; 80053; 81001; 82948; 83036; 83690; 83735; 83880; 84153; 84439; 84443; 84480; 84484; 85025; 85027; 85610; 85730; 87086; 93005; 93306; 96372; 96374; 99285; A9270; G0378; J1650; J1815; J1940; Q9967

== ENCOUNTER 2024-05-21 09:29 | Emergency (ER) | payer MEDICARE, SELFPAY ==
--- NOTE | ~2024-05-21 | CT_ITS ---
EXAMINATION: CT abdomen pelvis wo con DATE: 05/21/2024 11:21 INDICATION: Hematuria. TECHNIQUE: Computed tomography (CT) of the abdomen and pelvis was performed without intravenous contr ast. Automated exposure control and iterative reconstruction technique were employed. The dose-length product was 271.18 mGy-cm. COMPARISON: CT abdomen and pelvis 09/29/2018 FINDINGS: The visualized portions of the lung bases are clear without pneumonia or pleural effusion. There is left atrial enlargement of the heart. There are pacer wires in right atrium, right ventricle , and coronary sinus. No pericardial effusion. The liver, gallbladder, spleen, pancreas, adrenal glan ds, and right kidney are normal. There is mild left hydronephrosis and hydroureter. There is no uroli thiasis. The bladder is distended. There is a bladder diverticulum on the left. The prostate is mildl y enlarged. There are no dilated loops of bowel. The appendix is normal. There are no pathologically enlarged lymph nodes. There is no free intraperitoneal fluid. There is severe lower lumbar spondylosi s. There are chronic bilateral L5 pars defects with 6 mm anterolisthesis of L5 on S1. IMPRESSION: 1. No urolithiasis. 2. Mild left hydronephrosis and hydroureter. Reviewed, dictated and finalized at location A. 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
[2024-05-21 09:29] VITALS: BP 154/69; PULSE 75; RESP 18; TEMP 36.3; O2SAT 100
[2024-05-21 10:09] LABS: Add Urine Microscopic? YES; Appearance Urine Clear (Clear); Bacteria Urine None Seen /hpf; Bilirubin Urine Negative (Negative); Blood Urine 3+ (Negative); Color Urine Yellow (Yellow); Glucose Urine UA 3+ mg/dL (Negative); Ketones Urine Negative (Negative); Leukocyte Esterase Ur Negative LEU/UL (Negative); Nitrate Urine Negative (Negative); Non Pathogenic Casts 0-2; Protein Urine Negative (Negative); RBC Urine >100 /hpf (0-2); Specific Grav Ur 1.013 (1.001-1.035); Squamous Epithelial Cell Urine None Seen /hpf (Few); Urobilinogen Urine 0.2 mg/dL (<2.0); WBC Urine 0-5 /hpf (0-3)
[2024-05-21 10:35] LABS: Basophils Percent Auto 0.5 % (0.2-1.2); Eosinophils Absolute Auto 0.1 K/mm3 (0-0.3); Eosinophils Percent Auto 2.1 % (0-4.4); Hematocrit 42.7 % (42.0-52.0); Hemoglobin 14.6 g/dL (14.0-18.0); Immature Granulocyte Absolute 0.01 K/mm3 (0.00-0.031); Immature Granulocyte Percent A 0.2 % (0-0.5); Lymphocytes Percent Auto 15.2 % (18.3-44.2); Mean Corpuscular HGB Conc 34.2 g/dl (32-36); Mean Corpuscular Hemoglobin 29.7 pg (26-34); Mean Platelet Volume 9.5 fl (7.4-10.4); Monocytes Absolute Auto 0.5 K/mm3 (0.1-0.6); Monocytes Percent Auto 7.3 % (2.6-8.5); Neutrophils Absolute Auto 4.9 K/mm3 (1.3-6.7); Neutrophils Percent Auto 74.7 % (45.5-73.1); Platelet Count Result 185 k/mm3 (150-375); Red Blood Count 4.91 M/mm3 (4.6-6.20); Red Cell Distribution Width 12.1 % (11.5-14.5); White Blood Count 6.6 K/mm3 (4.5-10.0)
[2024-05-21 10:48] LABS: Alanine Aminotransferase 18 U/L (6-50); Albumin Level 4.5 g/dL (3.5-5.1); Alkaline Phosphatase 82 U/L (38-126); Anion Gap 7 mmol/L (4-12); Aspartate Amino Transferase 25 U/L (17-59); Bilirubin,Total 0.6 mg/dL (0.2-1.3); Blood Urea Nitrogen 32 mg/dL (9-20); Calcium 9.4 mg/dL (8.4-10.2); Carbon Dioxide 19 mmol/L (22-30); Chloride 112 mmol/L (98-107); Estimated CRCL calculation 42 ml/min; Estimated Glomerular Filt Rate 50; Glucose 166 mg/dL (65-110); Potassium 4.5 mmol/L (3.4-5.0); Sodium 138 mmol/L (137-145)
--- NOTE | 2024-05-21 11:37 | ED.GENADULT ---
HPI - General Adult General Chief complaint: Urogenital-Male Stated complaint: hematuria Time Seen by Provider: 05/21/24 10:12 History of Present Illness HPI narrative: This is a 74-year-old male presenting with painless hematuria. Symptoms started 3 days ago. Patient had similar problems on his last admission and required a 3 way catheter. At this time the patient is not having any abdominal pain or difficulty with his stream. He does note slight pain on urination but no increased urgency or frequency. He has not been able to follow-up with urology due to appointment scheduled in November of next year. Patient had hydronephrosis of the left ureter kidney on his last admission and was evaluated by Urology. 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 Code status: Full code. Smoking status: Never smoker Alcohol intake: never Substance use: never Do You Feel Safe in your Home?: Yes Lack of Transportation: No Lack of Food: Never True Current Housing: I Have Housing Concerned About Future Housing: No Difficulty Paying Gas/Electric Bills: No Difficulty Paying for Meds: No Currently Unemployed: No Education: High School Diploma/GED Difficulty w/ Childcare or Family Care: No Living arrangements: alone Occupation/Education: retired Spiritual care concerns: No Exam Narrative: APPEARANCE: No apparent distress. Head: atraumatic. EYES: EOMI, NOSE: Atraumatic NECK: Trachea midline RESPIRATORY: No increased rate of breathing CTAB CARDIOVASCULAR: RRR, ABDOMINAL: Non-distended, no suprapubic mass or tenderness no CVA tenderness MUSCULOSKELETAl: No obvious deformities NEURO: Alert. Moving 4/4 extremities SKIN:: Warm, dry. Normal color PSYCHIATRIC: Normal affect Course Vital Signs Vital signs: Vital Signs Temperature 97.4 F L 05/21/24 09:29 Pulse Rate 75 05/21/24 09:29 Respiratory Rate 18 05/21/24 09:29 Blood Pressure 154/69 H 05/21/24 09:29 Pulse Oximetry 100 05/21/24 09:29 Oxygen Delivery Room Air 05/21/24 09:29 Temperature 97.4 F L 05/21/24 09:29 Pulse Rate 75 05/21/24 09:29 Respiratory Rate 18 05/21/24 09:29 Blood Pressure 154/69 H 05/21/24 09:29 Pulse Oximetry 100 05/21/24 09:29 Oxygen Delivery Room Air 05/21/24 09:29 Medical Decision Making MDM Narrative Medical decision making narrative: -Course: 74-year-old male presenting with painless hematuria. Urine with RBCs but no evidence of infection. CT redemonstrated left hydronephrosis and a bladder diverticulum but no other acute findings. Postvoid residual was 220. Discussed return precautions for urinary retention and infection. Patient will be discharged follow-up with urology. -DDX includes but is not limited to: Bladder cancer, urinary retention, UTI -Co-morbidities complicating care: CHF -External Chart Review: Review of urology notes from last admission -Independent interpretation of studies: Labs and imaging reviewed Urine not indicative of infection. -Shared decision making / Disposition:discharged. Vital Signs Vital Signs: Vital Signs Temperature 97.4 F L 05/21/24 09:29 Pulse Rate 75 05/21/24 09:29 Respiratory Rate 18 05/21/24 09:29 Blood Pressure 154/69 H 05/21/24 09:29 Pulse Oximetry 100 05/21/24 09:29 Oxygen Delivery Room Air 05/21/24 09:29 Temperature 97.4 F L 05/21/24 09:29 Pulse Rate 75 05/21/24 09:29 Respiratory Rate 18 05/21/24 09:29 Blood Pressure 154/69 H 05/21/24 09:29 Pulse Oximetry 100 05/21/24 09:29 Oxygen Delivery Room Air 05/21/24 09:29 Lab Data 05/21/24 10:30 05/21/24 10:30 Labs: Lab Results 05/21/24 05/21/24 Range/Units 09:53 10:30 WBC 6.6 (4.5-10.0) K/mm3 RBC 4.91 (4.6-6.20) M/mm3 Hgb 14.6 (14.0-18.0) g/dL Hct 42.7 (42.0-52.0) % MCV 87.0 (80-100) fl MCH 29.7 (26-34) pg MCHC 34.2 (32-36) g/dl RDW 12.1 (11.5-14.5) % Plt Count 185 (150-375) k/mm3 MPV 9.5 (7.4-10.4) fl Immature Gran % (Auto) 0.2 (0-0.5) % Neut % (Auto) 74.7 H (45.5-73.1) % Lymph % (Auto) 15.2 L (18.3-44.2) % [place] % (Auto) 7.3 (2.6-8.5) % Eos % (Auto) 2.1 (0-4.4) % Baso % (Auto) 0.5 (0.2-1.2) % Lymph # (Auto) 1.00 (0.9-3.2) K/mm3 [place] # (Auto) 0.5 (0.1-0.6) K/mm3 Eos # (Auto) 0.1 (0-0.3) K/mm3 Baso # (Auto) 0.0 (0.0-0.1) K/mm3 Abs Immat Gran (auto) 0.01 (0.00-0.031) K/mm3 Absolute Neuts (auto) 4.9 (1.3-6.7) K/mm3 Absolute Nucleated RBC 0.000 (0.0-0.012) K/mm3 Nucleated RBC % 0.0 (0.0-0.2) % Sodium 138 (137-145) mmol/L Potassium 4.5 (3.4-5.0) mmol/L Chloride 112 H (98-107) mmol/L Carbon Dioxide 19 L (22-30) mmol/L Anion Gap 7 (4-12) mmol/L BUN 32 H (9-20) mg/dL Creatinine 1.40 H (0.7-1.3) mg/dL Estim Creat Clear Calc 42 ml/min Estimated GFR 50 L (59 - ) Glucose 166 H (65-110) mg/dL Calcium 9.4 (8.4-10.2) mg/dL Total Bilirubin 0.6 (0.2-1.3) mg/dL AST 25 (17-59) U/L ALT 18 (6-50) U/L Alkaline Phosphatase 82 (38-126) U/L Total Protein 8.0 (6.3-8.2) g/dL Albumin 4.5 (3.5-5.1) g/dL Urine Color Yellow (Yellow) Urine Appearance Clear (Clear) Urine pH 5.0 (5.0-9.0) Ur Specific [place] 1.013 (1.001-1.035) Urine Protein Negative (Negative) mg/dL Urine Glucose (UA) 3+ H (Negative) mg/dL Urine Ketones Negative (Negative) mg/dL Ur Blood (Man) 3+ H (Negative) Urine Nitrate Negative (Negative) Urine Bilirubin Negative (Negative) Urine Urobilinogen 0.2 (<2.0) mg/dL Leukocyte Esterase Rfl Negative (Negative) ROSIE/UL Urine RBC >100 H (0-2) /hpf Urine WBC 0-5 (0-3) /hpf Ur Squamous Epith Cells None seen (Few) /hpf Urine Bacteria None seen /hpf Urine Casts 0-2 Discharge Plan Discharge Clinical Impression: Hematuria Patient Disposition: Home, Self-Care Condition: Stable Instructions: Antibiotic Form, Hematuria (ED) Additional Instructions: Please follow-up with the urologist listed below. If you develop severe abdominal pain inability to urinate or fevers please return emergency department for evaluation Prescriptions: No Action (DME) pen needle, diabetic [BD Ultra-Fine Gianna Pen Needle] 32 gauge x 5/32 needle See Rx Instructions .ROUTE .MEDSUPPLY Qty: 10 Rx Instructions: As directed amlodipine-benazepril 10-20 mg capsule 1 cap PO DAILY Jardiance 10 mg Tablet 10 mg PO DAILY Qty: 30 0RF furosemide 40 mg Tablet 40 mg PO DAILY Qty: 30 0RF hyoscyamine sulfate [Anaspaz] 0.125 mg Tablet,Disintegrating 0.125 mg PO Q4H PRN (Reason: discomfort from mclaughlin) Qty: 30 0RF metoprolol succinate 50 mg Tablet Extended Release 24 Hr 50 mg PO QAM Qty: 30 0RF phenazopyridine 100 mg Tablet 100 mg PO Q8HR Qty: 9 0RF sennosides [Senokot] 8.6 mg Tablet 17.2 mg PO DAILY Qty: 60 0RF spironolactone 25 mg Tablet 25 mg PO QAM Qty: 30 0RF insulin glargine [Lantus Solostar U-100 Insulin] 100 unit/mL (3 mL) insulin pen 20 unit subcut DAILY Qty: 15 0RF oxybutynin chloride 10 mg tablet extended release 24hr 10 mg PO DAILY Qty: 10 0RF tamsulosin [Flomax] 0.4 mg capsule 0.8 mg PO DAILY Qty: 60 0RF insulin lispro [Admelog SoloStar U-100 Insulin] 100 unit/mL insulin pen 6 unit SUBCUT TID Qty: 15 0RF finasteride 5 mg tablet 5 mg PO DAILY Qty: 30 0RF Follow-up/Referrals: Isaias Walker MD [Physician] - 1 Week (Hematuria) Jovi Valderrama MD [Physician] - 1 Week (Hematuria) Jonnie,MD Smooth [Primary Care Provider] -
== END 2024-05-21 12:02 | disposition home or self-care (01) ==
PROVIDERS: Student in an Organized Health Care Education/Training Program; Emergency Provider Emergency Medicine; PCP Family Medicine
DX: R31.9 Hematuria, unspecified (principal); E78.00 Pure hypercholesterolemia, unspecified; I10 Essential (primary) hypertension; E11.9 Type 2 diabetes mellitus without complications; Z79.4 Long term (current) use of insulin
CPT/HCPCS: 36415; 74176; 80053; 81001; 85025; 99284

== ENCOUNTER 2024-06-15 00:31 | Day surgery (SDC) | payer MEDICARE, SELFPAY ==
[2024-06-02 12:56] VITALS: BMI 26.4
--- NOTE | 2024-06-02 13:12 | PC.NURSE ---
Report to the Outpatient Waiting Room, entrance under the green pavilion located off [facility], at time ___06:00am____ on date __06/15/24 . Planned Procedure Time: _07:30am .? Time changes happen often and if your time is changed the preop area will call you the afternoon before. - You and your visitor will be asked to self-screen and do not enter if you have any COVID symptoms. Please call surgeon if you need to reschedule. - A mask is optional within the hospital at this time. Patients may have clear liquids (water, carbonated beverages, clear teas, apple juice) until 3 hours prior to surgery with a maximum of 20 ounces. - No food from midnight until time of surgery and no smoking. This includes no chewing gum, candy or mints. - Take only the following medications with a SIP of water on the morning of surgery: _Toprol DO NOT STOP ANY OF YOUR OTHER PRESCRIPTION MEDICATIONS PRIOR TO SURGERY EXCEPT THE FOLLOWING Medications to discontinue per physician None Date to take last dose None Please no make-up, nail argentine, hairspray, perfume, deodorant, or body powder the day of surgery.? No jewelry (including any body piercings) or valuables the day of surgery, leave them at home.? Please take a shower or bath the night before, or the morning of, surgery with an antibacterial soap.? Wear comfortable, loose fitting clothing.? - Jewelry must be removed prior to entering the operating room.? Rings and piercings that are not removed may be cut off. - The hospital will not accept responsibility for valuables.? - Please leave all valuables, including medications, at home the day of surgery. If you are going home after surgery, a licensed dumpster driver must drive you home.? - NO public transportation without another adult if you receive anesthesia. - We recommend that an adult stay with you for 24 hours following discharge. - We also recommend that you do not drive, make important decision, drink alcoholic beverages, or take any drugs that were not prescribed by your health care provider for at least 24 hours after your discharge time. Follow any additional instructions given to you from your surgeon. Telephone instructions given to ___Patient and asked if any additional questions and then verbalized understanding. Patient advised to call surgeon office or pre surgery nurse liaison [phone] if any additional questions.
[2024-06-15] VITALS (7 sets, daily range): BP systolic 130–144; BP diastolic 58–73; PULSE 60–68; RESP 12–18; TEMP 36.1–36.3; O2SAT 95–99
--- NOTE | ~2024-06-15 | XR_ITS ---
EXAMINATION: XR retrograde pyelogram BI DATE: 06/15/2024 08:22 INDICATION: Hematuria. TECHNIQUE: 179 intraoperative fluoroscopic views of the abdomen and pelvis were obtained. I was not p resent. Fluoroscopy exposure time was 147 seconds. COMPARISON: CT abdomen and pelvis 05/21/2024. FINDINGS: The right-sided retrograde pyelogram is unremarkable. The left-sided retrograde pyelogram d emonstrates moderate hydronephrosis and hydroureter. IMPRESSION: 1. Moderate left hydronephrosis and hydroureter. Reviewed, dictated and finalized at location A. TO GRADER
[2024-06-15 06:16] LABS: Glucose Point of Care 181 mg/dl (65-105)
[2024-06-15] MEDS: LACTATED RINGERS 1,000 ML 30 ML IV CONT (06:30)
--- NOTE | 2024-06-15 07:12 | P.PNAN_ITS ---
Anes - Initial Pre Proc Eval Procedure: Operation Date: 06/15/24 07:30 Proposed Procedures p Cystoscopy, Bilateral Retrograde Pyelography, Left Ureteroscopy - Isaias Walker MD Date/Time: 06/15/24 07:12 Surgeon: Isaias Walker MD Pre Op Diagnosis: hydronephrosis, BPH with obstruction Patient Data Age: 74 Gender: M Height: 1.75 m Weight: 81 kg Allergies Allergy/AdvReac Type Severity Reaction Status Date / Time No Known Allergies Allergy Mild Verified 06/15/24 06:18 Home Medications ?Medication ?Instructions ?Recorded ?Confirmed ?Type pen needle, diabetic 32 gauge x #10 ea 10/31/19 06/02/24 History (BD Ultra-Fine Gianna Pen Needle) empagliflozin 10 mg tablet 10 mg PO DAILY #30 tabs 04/16/24 06/02/24 Rx (Jardiance) metoprolol succinate 50 mg 50 mg PO QAM #30 tabs 04/16/24 06/02/24 Rx tablet,extended release 24 hr spironolactone 25 mg tablet 25 mg PO QAM #30 tabs 04/16/24 06/02/24 Rx albuterol sulfate 90 mcg/actuation 1 puff inhalation Q8H PRN 06/02/24 06/02/24 History aerosol inhaler shortness of breath or wheezing dutasteride 0.5 mg capsule 0.5 mg PO DAILY 06/02/24 06/02/24 History esomeprazole magnesium 20 mg 20 mg PO DAILY 06/02/24 06/02/24 History capsule,delayed release (Nexium) furosemide 40 mg tablet 20 mg PO DAILY 06/02/24 06/02/24 History insulin glargine 100 unit/mL (3 30 unit subcut DAILY 06/02/24 06/02/24 History mL) subcutaneous pen (Lantus Solostar U-100 Insulin) insulin lispro 100 unit/mL 30 unit subcut TID 06/02/24 06/02/24 History subcutaneous pen (Admelog SoloStar U-100 Insulin lispro) lisinopril 20 mg tablet 20 mg PO DAILY 06/02/24 06/02/24 History tamsulosin 0.4 mg capsule (Flomax) 0.4 mg PO DAILY 06/02/24 06/02/24 History Laboratory Tests 06/15/24 06:12 POC Capillary Glucose 181 H mg/dl (65-105) Patient hx anesthesia problems: none Family hx anesthesia problems: none Results Review: All pre-operative results and documents have been reviewed as part of the pre- operative evaluation. COUNTS INCLUDE 234 BEDS AT THE [facility] Past Medical History Medical History Benign prostatic hyperplasia Nonischemic cardiomyopathy viral cardiomyopathy per patient report Hypercholesterolemia Hypertension Insulin dependent type 2 diabetes mellitus Clavicle fracture Surgical History Surgical History History of arthroscopy of left knee Presence of combination internal cardiac defibrillator (ICD) and pacemaker (2001) History of elbow surgery Family History Family History Father Cancer Grandparent Diabetes mellitus Social History Social History Social History: Surrogate medical decision maker: Dudley Burgos, son. Code status: Full code. Smoking status: Never smoker Alcohol intake: never Substance use: never Do You Feel Safe in your Home?: Yes Lack of Transportation: No Lack of Food: Never True Current Housing: I Have Housing Concerned About Future Housing: No Difficulty Paying Gas/Electric Bills: No Difficulty Paying for Meds: No Currently Unemployed: No Education: High School Diploma/GED Difficulty w/ Childcare or Family Care: No Living arrangements: alone Occupation/Education: retired Spiritual care concerns: No Anes - Eval Final PreProcedure Day of Procedure 06/15/24 07:12 Patient weight: overweight Heart: regular rate and rhythm Lungs: clear to auscultation Airway: Mallampati scale class II Neurological: alert and oriented Last oral intake: >/= 8 hours ASA classification: IV Emergent: no Anesthetic plan: proceed Anesthesia type and monitoring: general LMA and standard monitoring Results Review: All pre-operative results and documents have been reviewed as part of the pre- operative evaluation. Informed Consent: The patient's anesthetic plan and its attendant risks and benefits were discussed with the patient/family/POA. Questions were solicited and answers provided to the satisfaction of the patient/family/POA.
--- NOTE | 2024-06-15 07:28 | WPDHPUPDATE1 ---
History and Physical Update Update Date/Time: 06/15/24 07:28 History and Physical has been reviewed, including an updated exam of the patient. There are NO changes in the patient's condition. Risks, benefits, and alternatives have been discussed and questions answered. Patient agrees to proceed with procedure.
[2024-06-15] MEDS: ceFAZolin 2 GM/D5W 50 ML 2 GM/50 ML BAG IVPB (07:30)
[2024-06-15] MEDS: LIDOCAINE 2% GEL UROJET 10 ML PKG MUCOUS MEM (07:42)
--- NOTE | 2024-06-15 08:14 | P.OP_ITS ---
Procedure Note - Detailed Date of Procedure 06/15/24 Pre-op Diagnosis Hydronephrosis, BPH with obstruction, Hematuria Post-op Diagnosis Same Procedure Performed cystoscopy, bilateral retrograde pyelography, left ureteroscopy, biopsy pros verdugo and biopsy of bladder Surgeon Isaias Walker MD Anesthesia General Findings 1. Discrete area of bleeding from mid-left lateral lobe prostate 2. Discrete area of hyperemia in left bladder trigone (not involving left ureteral oriface_ 3. Normal right RPG 4. Left ureter obstructed at UVJ / left ureteroscopy without apparent mucosal pathology Description of Procedure patient is brought to the operative suite was prepped draped in routine sterile fashion while in dorsal lithotomy position after the uneventful induction of a general LMA anesthetic. 2% xylocaine jelly was introduced intraurethrally systemic sedation is administered per the anesthesia department. Cystoscopy was undertaken with a 21 F rigid cystoscope. He has no urethral stricture. His bladder has a notable discrete area in the left mid lateral lobe that is oozing blood. The remainder of the prostate appears normal in this site is clearly a source for ongoing hematuria. Has no significant median lobe enlargement in his prostatic urethra is estimated at 2.5 cm. Inspection of the bladder also shows an unusual finding of velvety hyperemia in the left filiberto trigone that is not involving the left ureteral orifice. The remainder of the bladder mucosa is normal. This area probably measures 2 cm in diameter. Urine is collected for cytology. Right retrograde pyelography is unremarkable. Left retrograde pyelography shows obstruction at the intramural portion of the left ureter. I placed a 0.035 in glidewire in left renal pelvis and dilated the distal ureter with an 8 F 10 F dilator. Left ureteroscopy was undertaken with both a semi-rigid ureteral scope in the distal ureter and a digital flexible scope the collecting system and proximal ureter. Careful attention was paid to areas of apparent mucosal abnormality and there was absolutely known. There is no hyperemia or mallorie neoplasm. There were no stones. In light of the proximity of the left ureteral orifice I opted not to place a left ureteral stent. Using a loop electrode through a 24 F resectoscope I obtained biopsies of the abnormal area both in his prostate and left trigone. I was careful not to injure the left ureteral orifice. The base and periphery t he sites were cauterized both with a of loop and rollerball. Drains No Packing No Pathology Yes Complications No immediate complications Condition Stable Disposition PACU
[2024-06-15 08:23] LABS: Glucose Point of Care 179 mg/dl (65-105)
--- OUTSIDE RECORDS SUMMARY | 2024-06-22 00:34 | XMS_ITS | Clinical Summary ---
Author Organization [facility] Address [address] [place] [address]. [place], [place] [id number] [place] [id number] Care Team Providers Care Formulator Compounder Name Role Phone Smooth Cristina MD Primary Care Provider Allergies Active Allergy Reactions Criticality Noted Date Comments Iodine Unknown 10/05/2018 Medications HUMALOG KWIKPEN 100 UNIT/ML injection (PEN) Inject 20-25 Units into the skin see administration instructions. 9 Active metFORMIN 500 MG tablet Take 1 tablet (500 mg total) by mouth 2 (two) times daily with meals. 9 Active omeprazole 20 MG capsule Take 1 capsule (20 mg total) by mouth daily as needed. 6 Active tamsulosin 0.4 MG Cap Take 1 tablet by mouth daily. 4 Active LANTUS SOLOSTAR 100 UNIT/ML injection (PEN) Inject 45 Units into the skin nightly at bedtime. 4 Active Active Problems Problem Noted Date Diagnosed Date Quadriceps muscle rupture, right, subsequent enc ounter 12/06/2018 Family History Relation Status Comments Father Mother Social History Tobacco Use Types Packs/Day Years Used Date Smoking Tobacco: Never Smokeless Tobacco: Never Alcohol Use Standard Drinks/Week Comments No 0 (1 standard drink = 0.6 oz pur e alcohol) AUDIT-C Answer Date Recorded Frequency of Alcohol Consumption Never 12/06/2018 Average Number of Drinks Not on file 019 Frequency of Binge Drinking Not on file 11/19 Sex and Gender Information Value Date Recorded Sex Assigned at Not on file Legal Sex Male 7:08 PM CDT Gender Identity Not on file Sexual Orientation Not on file Last Filed Vital Signs Vital Sign Reading Time Taken Comments Blood Pressure 155/87 02/27/2024 11:20 AM CDT Pulse 68 02/27/2024 11:20 AM CDT Temperature 36.6 ??C (97.8 ??F) 02/27/2024 8:43 AM CD T Respiratory Rate 18 02/27/2024 11:20 AM CDT Oxygen Saturation 100% 02/27/2024 11:20 AM CDT Inhaled Oxygen Concentration - - Weight 83.9 kg (185 lb) 02/27/2024 8:43 AM CDT Height 172.7 cm (5' 8 ) 02/27/2024 8:43 AM CDT Body Mass Index 28.13 02/27/2024 8:43 AM CDT Plan of Treatment Health Maintenance Due Date Last Done Comments Colorectal Cancer Screening Colonoscopy (10 Years) 1950 Pneumococcal Vaccine: 65+ Ye ars (1 of 2 - PCV) 1956 Hepatitis C 1968 DTaP, Tdap and Td Vaccines ( 1 - Tdap) 1969 Zoster Vaccines (1 of 2) 2000 RSV Immunization or 60+ Years (1 - Risk 60-74 years 1-dose series) 2010 Annual Medicare Wellness Visit 2015 COVID-19 Vaccine ( - 2023-2 5 season) 2024 Influenza Adult (#1) 2024 Meningococcal Vaccine Aged Out No nereyda russell eligible based on patient's age to complete this topic RSV Immunizations Under 20 Months Aged Out No longer eligible based on patient's age to complete this topic Insurance MEDICARE [employer]ET[employer] Care Teams Formulator Compounder Relationship Specialty Start Date End Date Smooth Cristina MD [address] [place] [phone] PCP - General FAMILY PRACTICE 12/05/18
--- OUTSIDE RECORDS SUMMARY | 2024-06-22 00:34 | XMS_ITS | Encounter Summary ---
Author Organization [facility] Address [address] [place] [address]. [place], [place] [id number] [place] [id number] Care Team Providers Care Produce Inspector Name Role Phone Smooth Cristina MD Primary Care Provider [phone] Encounter Details Date Type Department Care Team (Latest Contact Info) Description 02/27/2024 Travel Social History Tobacco Use Types Packs/Day Years [...] on file Sexual Orientation Not on file documented as of this encounter Plan of Treatment Not on file documented as of this encounter Visit Diagnoses Not on filedocumented in this encounter Additional Health Concerns Infection Onset Date Last Indicated Resolved Time COVID-19 Rule Out 02/27/2024 02/27/2024 02/27/2024 10:24 AM CDT documented as of this encounter Care Teams Produce Inspector Relationship Specialty Start Date End Date Smooth Cristina MD [address] [place] [phone] PCP - General FAMILY PRACTICE 12/05/18 documented as of this encounter
--- OUTSIDE RECORDS SUMMARY | 2024-06-22 00:35 | XMS_ITS | Encounter Summary ---
Author Organization [facility] Address [address] [place] [address]. [place] [address] [place] [address] Care Team Providers Care Cosmetics And Toiletries Salesperson Name Role Phone Unavailable Primary Care Provider Unavailabl e Encounter Details Date Type Department Care Team (Late st Contact Info) Description 11/01/2012 Abstract [facility] [address] [place] [address] , Elliot Warner MD Social History Tobacco Use Types Packs/Day Years Used Date Smoking Tobacco: Never Sex and Gender Information Value Date Recorded Sex Assigned at Not on file Legal Sex Male 7:08 PM CDT Gender Identity Not on file Sexual Orientation Not on file documented as of this encounter Plan of Treatment Not on file documented as of this encounter Visit Diagnoses Not on filedocumented in this encounter
--- OUTSIDE RECORDS SUMMARY | 2024-06-22 00:35 | XMS_ITS | Encounter Summary ---
Author Organization [facility] Address [address] [place] [address]. [place] [address] [place] [address] Care Team Providers Care Computer Systems Engineer Name Role Phone Unavailable Primary Care Provider Unavailabl e Encounter Details Date Type Department Care Team (Late st Contact Info) Description 10/31/2012 Abstract [facility] [address] [place] [address] , Elliot Warner MD Social History Tobacco [...]
--- OUTSIDE RECORDS SUMMARY | 2024-06-22 00:35 | XMS_ITS | Encounter Summary ---
Author Organization [facility] Address [address] [place] [address]. [place], [place] [address] [place] [address] Care Team Providers Care Photo Lab Specialist Name Role Phone Unavailable Primary Care Provider Unavailabl e Encounter Details Date Type Department Care Team (Late st Contact Info) Description 09/09/2016 Abstract [facility] [address] [place], [place] [id number] Sarah Tanner, HOOF AND SHOE INSPECTOR- [address] [facility] [place] [address] Social History Tobacco Use Types Packs/Day Years Used Date Smoking Tobacco: Never Sex and Gender Information Value Date Recorded Sex Assigned at Not on file Legal Sex Male 7:08 PM CDT Gender Identity Not on file Sexual Orientation Not on file documented as of this encounter Plan of Treatment Not on file documented as of this encounter Visit Diagnoses Diagnosis Primary osteoarthritis of left knee Primary localized osteoarthrosis, lower leg documented in this encounter
--- OUTSIDE RECORDS SUMMARY | 2024-06-22 00:35 | XMS_ITS | Encounter Summary ---
Author Organization [facility] Address [address] [place] [address]. [place] [address] [place] [address] Care Team Providers Care Emts Name Role Phone Unavailable Primary Care Provider Unavailabl e Encounter Details Date Type Department Care Team (Late st Contact Info) Description 02/03/[address] [facility] [place] [address] Smooth Cristina MD [address] [place] [phone] Social History Tobacco Use Types Packs/Day Years Used Date Smoking Tobacco: Never Sex and Gender Information Value Date Recorded Sex Assigned at Not on file Legal Sex Male 7:08 PM CDT Gender Identity Not on file Sexual Orientation Not on file documented as of this encounter Plan of Treatment Not on file documented as of this encounter Visit Diagnoses Diagnosis Esophagitis Esophagitis, unspecified documented in this encounter
--- OUTSIDE RECORDS SUMMARY | 2024-06-22 00:35 | XMS_ITS | Encounter Summary ---
Author Organization [facility] Address [address] [place] [address]. [place], [place] [address] [place] [address] Care Team Providers Care Podiatric Medicine Doctor Name Role Phone Smooth Cristina MD Primary Care Provider Reason for Visit * Reason Comments Right Upper Quadrant Pain Encounter Details Date Type Department Care Team (Latest Contact Info) Description 12/06/2018 3:45 PM CDT Office Visit [facility] [place] [id number] Endy Livingston MD [address] [place] [phone] Right Upper Quadrant Pain Social History Tobacco Use Types Packs/Day Years [...] on file documented as of this encounter Progress Notes * Endy Livingston MD - 12/06/2018 3:45 PM CDT Post op Note Patient: Alan Burgos is a 68-year-old male Surgery date: 10/07/18 Procedure: Right Quadriceps repair HPI: Patient presented to the clinic today wearing a hinged brace. He states he has a burning sensation on his quad but not much pain. He denies numbness, tingling, and night pain. He is not taking anything for pain. PE: Clean, dry, and intact motion is 0 to 115 degrees. No erythema is appreciated. Typical quadriceps atrophy is present with mild swelling about the knee Assessment: Post-op, Patient is doing well Encounter Diagnose(s) ICD-10-CM ICD-9-CM SNOMED CT(R) 1. Quadriceps muscle rupture, right, subsequent encounter S76.111D V58.89 RUPTURE OF SKELETAL MUSCLE 844.8 Plan: Return to therapy for increased strengthening and he can wean himself out of his hinged knee brace. Follow-up in 4 weeks Orders: Continue with treatment plan Follow up: Return in about 4 weeks (around 01/03/2019). ENDY LIVINGSTON MD documented in this encounter Plan of Treatment Not on file documented as of this encounter Visit Diagnoses Diagnosis Quadriceps muscle rupture, right, subsequent encounter- Primary documented in this encounter Care Teams Podiatric Medicine Doctor Relationship Specialty Start Date End Date Smooth Cristina MD [address] [place] [phone] PCP - General FAMILY PRACTICE 12/05/18 documented as of this encounter
--- OUTSIDE RECORDS SUMMARY | 2024-06-22 00:35 | XMS_ITS | Encounter Summary ---
Author Organization [facility] Address [address] [place] [address]. [place] [address] [place] [address] Care Team Providers Care Print Controller Name Role Phone Unavailable Primary Care Provider Unavailabl e Encounter Details Date Type Department Care Team (Late st Contact Info) Description 10/06/[address] [facility] [place] [place] [address] Endy Livingston MD [address] [place] [address] Social History Tobacco Use Types Packs/Day Years Used Date Smoking Tobacco: Never Sex and Gender Information Value Date Recorded Sex Assigned at Not on file Legal Sex Male 7:08 PM CDT Gender Identity Not on file Sexual Orientation Not on file documented as of this encounter Plan of Treatment Not on file documented as of this encounter Procedures Procedure Name Priority Date/Time Associated Diagnosis Comments GLUCOSE BLOOD, QNT Routine 10/07/2018 3: 57 PM CDT documented in this encounter Results * (ABNORMAL) GLUCOSE BLOOD, QNT (10/07/2018 3:57 PM CDT) GLUCOSE POC 264(H) 70 - 140 MG/DL 10/07/2018 4:04 PM CDT [facility] INTERFACE 10/07/2018 3:57 PM CDT 10/07/2018 4:04 PM CDT us Generic Conversion Md [facility] Final R esult [facility] INTERFACE US documented in this encounter Visit Diagnoses Diagnosis Strain of right quadriceps muscle, fascia and tendon, initial encounter documented in this encounter
--- OUTSIDE RECORDS SUMMARY | 2024-06-22 00:35 | XMS_ITS | Encounter Summary ---
Author Organization [facility] Address [address] [place] [address]. [place] [address] [place] [address] Care Team Providers Care Telephone Maintainer Name Role Phone Unavailable Primary Care Provider Unavailabl e Encounter Details Date Type Department Care Team (Late st Contact Info) Description 12/30/1997 Abstract [facility] [address] [place] [address] , Generic Conversion, Social History Tobacco Use Types Packs/Day Years Used Date Smoking Tobacco: Never Assessed Sex and Gender Information Value Date Recorded Sex Assigned at Not on file Legal Sex Male 7:08 PM CDT Gender Identity Not on file Sexual Orientation Not on file documented as of this encounter Plan of Treatment Not on file documented as of this encounter Visit Diagnoses Not on filedocumented in this encounter
--- OUTSIDE RECORDS SUMMARY | 2024-06-22 00:35 | XMS_ITS | Encounter Summary ---
Author Organization [facility] Address [address] [place] [address]. [place], [place] [address] [place] [address] Care Team Providers Care Rail Bender Name Role Phone Unavailable Primary Care Provider Unavailabl e Encounter Details Date Type Department Care Team (Late st Contact Info) Description 10/24/2018 Abstract [facility] [address] [place] [address] Sarah Tanner, ASSISTANT PRINCIPAL- [address] [place] [place] [address] Social History Tobacco Use Types Packs/Day Years Used Date Smoking Tobacco: Never Sex and Gender Information Value Date Recorded Sex Assigned at Not on file Legal Sex Male 7:08 PM CDT Gender Identity Not on file Sexual Orientation Not on file documented as of this encounter Plan of Treatment Not on file documented as of this encounter Visit Diagnoses Diagnosis Encounter for other specified surgical aftercare Other specified soft tissue disorders documented in this encounter
--- OUTSIDE RECORDS SUMMARY | 2024-06-22 00:35 | XMS_ITS | Encounter Summary ---
Author Organization [facility] Address [address] [place] [address]. [place] [address] [place] [address] Care Team Providers Care Cook Syrup Maker Name Role Phone Smooth Cristina MD Primary Care Provider [phone] Reason for Visit * Reason Comments URI Encounter Details Date Type Department Care Team ([facility] st Contact Info) Description 02/27/2024 8:38 AM CDT - 02/27/2024 11:20 AM CDT [facility] [address] [facility] [place] [address] Haile Turcios, DO [address] [place], [place] [id number] URI Discharge Disposition: Home or Self Care (Routine Discharge) Social History Tobacco Use Types Packs/Day Years [...] on file documented as of this encounter Last Filed Vital Signs Vital Sign Reading [...] Mass Index 28.13 02/27/2024 8:43 AM CDT documented in this encounter Discharge Instructions * Discharge Instructions* Haile Turcios DO - 02/27/2024 11:05 AM CDT Take antibiotic as prescribed. Make sure that you are taking your lisinopril for your blood pressure and heart failure. Patients are usually recommended to take several medications to help strengthenthe heart and heart failure including spironolactone. You should discuss this with your material yard clerk. * Attachments The following attachments cannot be sent through Care Everywhere. * Medicines for heart failure with reduced ejection fraction (Palauan) * Strep Throat Discharge Instructions ([place]) documented in this encounter Medications at Time of Discharge HUMALOG KWIKPEN 100 UNIT/ML injection (PEN) Inject 20-25 Units into the skin see administration instructions. 09/14/2018 LANTUS SOLOSTAR 100 UNIT/ML injection (PEN) Inject 45 Units into the skin nightly at bedtime. 01/08/2024 metFORMIN 500 MG tablet Take 1 tablet (500 mg total) by mouth 2 (two) times daily with meals. 11/16/2018 omeprazole 20 MG capsule Take 1 capsule (20 mg total) by mouth daily as needed. 03/23/2016 tamsulosin 0.4 MG Cap Take 1 tablet by mouth daily. 07/03/2013 amoxicillin-cla vulanate (AUGMENTIN) 875-125 MG tablet Take 1 tablet (875 mg total) by mouth 2 (two) times daily for 10 days. 20 tablet 02/27/2024 documented as of this encounter ED Notes * Abraham Fry RN - 02/27/2024 8:42 AM CDT Arrives per pov with c/o cough and feels like lungs are filling up with fluid. States lasix helped with the fluid. States he has been feeling bad since Wednesday, after he cleaned out the house of a hoarder. * Haile Turcios, - 02/27/2024 8:28 AM CDT Chief Complaint Chief Complaint Patient presents with URI History of Present Illness 73-year-old male presents emergency department complaining of cough starting 4 days ago. Patient states that he was cleaning out a hoarder's house when symptoms developed. He also reports asore throat which she thinks is related to the cough. He reports some sinus congestion. He denies fever, nausea, diarrhea. He states that he gets short of breath in the evening when he lies down to sleep and feels gurgling in his chest, so he takes a as needed dose of furosemide at that time which seems to help. He does not take furosemide on a daily basis. He reports a history of congestive heart failure that he states is stable. He does not monitor his weight. He states that he has had posttussive emesis. 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 Authorizing Provider HUMALOG KWIKPEN 100 UNIT/ML injection (PEN) Inject 20-25 Units into the skin see administration instructions. 09/14/18 Yes Doc [facility] LANTUS SOLOSTAR 100 UNIT/ML injection (PEN) Inject 45 Units into the skin nightly at bedtime. 01/08/24 Yes Default History Genericprovider metFORMIN 500 MG tablet Take 1 tablet (500 mg total) by mouth 2 (two) times daily with meals. 11/16/18 Yes Doc [facility] omeprazole 20 MG capsule Take 1 capsule (20 mg total) by mouth daily as needed. 03/23/16 Yes Doc [facility] tamsulosin 0.4 MG Cap Take 1 tablet by mouth daily. 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 SOCIAL HISTORY: Social History Tobacco Use Smoking status: Never Smokeless tobacco: Never Vaping Use Vaping status: Never Used Substance Use Topics Alcohol use: No Drug use: No Review of Systems Review of Systems All other systems reviewed and are negative. Physical Exam Filed Vitals: 02/27/24 0843 02/27/24 1120 BP: (!) 163/84 (!) 155/87 Pulse: 83 68 Resp: 17 18 Temp: 97.8 ??F (36.6 ??C) TempSrc: Temporal SpO2: 100% 100% Weight: 83.9 kg (185 lb) Height: 1.727 m (5' 8 ) Physical Exam Vitals and nursing note reviewed. Constitutional: General: He is not in acute distress. Appearance: He is well-developed. He is not diaphoretic. HENT: Head: Normocephalic and atraumatic. Eyes: Conjunctiva/sclera: Conjunctivae normal. Cardiovascular: Rate and Rhythm: Normal rate and regular rhythm. Heart sounds: Normal heart sounds. No murmur heard. Pulmonary: Effort: Pulmonary effort is normal. No respiratory distress. Breath sounds: Normal breath sounds. No wheezing or rales. Abdominal: General: Bowel sounds are normal. There is no distension. Palpations: Abdomen is soft. Tenderness: There is no abdominal tenderness. Neurological: Mental Status: He is alert and oriented to person, place, and time. Psychiatric: Behavior: Behavior normal. Thought Content: Thought content normal. Judgment: Judgment normal. Diagnostic Studies / Procedures ELECTROCARDIOGRAMS: No results found for this visit on 02/27/24. LABORATORY STUDIES: Results for orders placed or performed during the hospital encounter of 02/27/24 CBC W/DIFF AUTOMATED Result Value Ref Range WBC 5.52 4.00 - 10.80 x10'3/uL RBC 4.16 (L) 4.50 - 6.10 x10'6/uL HGB 12.3 (L) 13.0 - 18.0 G/DL HCT 36.4 (L) 37.0 - 52.0 % MCV 87.5 78.0 - 100.0 FL MCH 29.6 27.0 - 31.0 PG MCHC 33.8 33.0 - 36.0 G/DL RDW 12.2 11.5 - 14.5 % PLT 204 150 - 350 x10'3/uL MPV 9.4 7.4 - 10.4 FL CBC COMMENT NORMAL REFERENCE RANGE NOT ESTABLISHED FOR THE PROPORTIONAL LEUKOCYTE DIFFERENTIAL. NEUTROPHILS % 73.6 % LYMPHOCYTES % 13.8 % MONOCYTES % 8.2 % EOSINOPHILS % 3.3 % BASOPHILS % 0.7 % IMMATURE GRANS % 0.4 % NRBC % 0.0 % ABS. NEUTROPHILS 4.07 1.60 - 8.30 x10'3/uL ABS. LYMPHOCYTES 0.76 (L) 0.80 - 4.70 x10'3/uL ABS. MONOCYTES 0.45 0.00 - 1.50 x10'3/uL ABS. EOSINOPHILS 0.18 0.00 - 0.40 x10'3/uL ABS. BASOPHILS 0.04 0.00 - 0.20 x10'3/uL ABS. IMMATURE GRANULOCYTES 0.02 0.00 - 0.03 x10'3/uL ABS. NUCLEATED RBC'S 0.00 0.00 - 0.01 x10'3/uL COMPREHENSIVE METABOLIC PANEL Result Value Ref Range SODIUM S/P/B 141 136 - 145 MMOL/L POTASSIUM S/P/B 3.5 3.5 - 5.1 MMOL/L CHLORIDE S/P/B 106 98 - 107 MMOL/L CO2 24.9 21.0 - 32.0 MMOL/L GLUCOSE 118 (H) 70 - 99 MG/DL BUN 15 6 - 24 MG/DL CREATININE S/P/B 1.30 0.70 - 1.30 MG/DL CALCIUM S/P/B 8.4 8.4 - 10.5 MG/DL BILIRUBIN TOTAL S/P/B 1.1 (H) 0.2 - 1.0 MG/DL ALKALINE PHOSPHATASE S/P/B 75 45 - 115 U/L AST 16 15 - 37 U/L ALT 20 16 - 63 U/L TOTAL PROTEIN S/P/B 7.2 6.4 - 8.2 G/DL ALBUMIN S/P/B 3.4 3.4 - 5.0 G/DL ANION GAP 10.1 5.0 - 15.0 MMOL/L OSMOLALITY (CALC) 294 MOSM/KG GFR ESTIMATE 58 (L) >89 ML/MIN/1.73 M2 GFR NOTES GFR REFERENCES: LACTIC ACID W REFLEX (SEPSIS) Result Value Ref Range LACTIC ACID VENOUS 1.1 0.4 - 2.0 MMOL/L PRO-BRAIN NATRIURETIC PEPTIDE Result Value Ref Range PRO-B TYPE NATRIURETIC PEPTIDE 870 (H) <125 PG/ML CORONAVIRUS (COVID-19) ANTIGEN Specimen: NASAL Result Value Ref Range CORONAVIRUS ANTIGEN IA NEGATIVE NEGATIVE Specimen Type NASAL RAPID STREP A Specimen: THROAT Result Value Ref Range SPECIMEN SOURCE THROAT RAPID STREP TEST POSITIVE (A) NEGATIVE IMAGING STUDIES XR CHEST PA+LAT Final Result by User, [email or web address] (02/26 1000) [place] [address] [place] [address] XR CHEST PA+LAT INDICATION: Cough TECHNIQUE: PA and lateral views of the chest. COMPARISON: Chest radiograph 11/01/2012. FINDINGS: Left subclavian approach AICD with lead tips project over the right atrium, right ventricle, coronary sinus, with additional set of retained leads. Cardiomediastinal silhouette is within normal limits. No focal pulmonary consolidation, pleural effusion, or pneumothorax. Nipple shadow projects over the bilateral lung bases. Thoracic spondylosis. IMPRESSION: No acute cardiopulmonary findings. Referred By: Interpreted By: Steven Wilcox MD, 02/27/2024 9:56 AM ED Course / Medical Decision Making Medical Decision Making Patient complains of cough. Laboratory evaluation shows positive strep test. Other workup at patient's baseline. Patient started on course of Augmentin. The importance of patient continuing his medications prescribed for heart failure reinforced. Patient will follow-up with primary care. Amount and/or Complexity of Data Reviewed Labs: ordered. Decision-making details documented in ED Course. Radiology: ordered and independent interpretation performed. Decision-making details documented in ED Course. Risk Prescription drug management. Diagnosis or treatment significantly limited by social determinants of health. Risk Details: _ Education and literacy: _ Employment and unemployment: _ Occupational exposures: _ Physical environment: _ Housing and economic circumstances: _ Social environment: _ Upbringing: _ Primary support group, including family circumstances: X psychosocial circumstances: Medication noncompliance ED Course as of 03/20/24 0621 Sun Feb 27, 2024 0910 HGB(!): 12.3 [JW] 0933 PRO-B TYPE NATRIURETIC PEPTIDE(!): 870 Review of medical record shows that patient's last echocardiogram showed an LVEF of 45% in 2014. Patient has refused follow-up echocardiograms. [JW] 0945 XR CHEST PA+LAT Independent interpretation of this 2 view chest x-ray is increased pulmonary vascular congestion, no pulmonary effusion, mild cardiomegaly, biventricular pacemaker, no large infiltrates or consolidations [JW] 1013 RAPID STREP TEST(!): POSITIVE [JW] ED Course User Index [JW] Haile Turcios DO Clinical Impression Chronic combined systolic and diastolic CHF (congestive heart failure) ([facility]) (Primary) Strep pharyngitis Disposition: Discharge I, Haile Turcios D.O., dictated portions of this note using [employer]ure speech recognition software. Occasional wrong word or sound-alike substitutions may have occurred due to the inherent limitationsof voice recognition software. Please read the chart carefully and recognize, using context, where s ubstitutions may have occurred. Haile Turcios DO 03/20/24 0622 documented in this encounter Plan of Treatment Not on file documented as of this encounter Procedures Procedure Name Priority Date/Time Associated Diagnosis Comments XR CHEST PA+LAT STAT 02/27/2024 9:42 AM CDT CORONAVIRUS (COVID-19) ANTIGEN STAT 02/27/2024 9:40 AM CDT RAPID STREP A STAT 02/27/2024 9:40 AM CDT LACTIC ACID W REFLEX (SEPSIS) STAT 02/27/2024 8:53 AM CDT PRO-BRAIN NATRIURETIC PEPTIDE STAT 02/27/2024 8:53 AM CDT COMPREHENSIVE METABOLIC PANEL STAT 02/27/2024 8:53 AM CDT CBC W/DIFF AUTOMATED STAT 02/27/2024 8:53 AM CDT documented in this encounter Results * XR CHEST PA+LAT (02/27/2024 9:42 AM CDT) Anatomical Region Laterality Modality Chest Radiographic Dinorah ging 02/27/2024 9:56 AM CDT Impressions 02/27/2024 9:59 AM CDT IMPRESSION: No acute cardiopulmonary findings. Referred By: ?? Interpreted By: Steven Wilcox MD, 02/27/2024 9:56 AM Narrative 02/27/2024 9:59 AM CDT [address] [place] [address] XR CHEST PA+LAT INDICATION: Cough TECHNIQUE: PA and lateral views of the chest. COMPARISON: Chest radiograph 11/01/2012. FINDINGS: Left subclavian approach AICD with lead tips project over the right atrium, right ventricle, coronary sinus, with additional set of retained leads. ??Cardiomediastinal silhouette is within normal limits. ??No focal pulmonary consolidation, pleural effusion, or pneumothorax. ??Nipple shadow projects over the bilateral lung bases. ??Thoracic spondylosis. Procedure Note Steven Wilcox MD - 02/27/[address] [place] [address] XR CHEST PA+LAT INDICATION: Cough TECHNIQUE: PA and lateral views of the chest. COMPARISON: Chest radiograph 11/01/2012. FINDINGS: Left subclavian approach AICD with lead tips project over the rightatrium, right ventricle, coronary sinus, with additional set of retainedleads. Cardiomediastinal silhouette is within normal limits. No focalpulmonary consolidation, pleural effusion, or pneumothorax. Nipple shadowprojects over the bilateral lung bases. Thoracic spondylosis. IMPRESSION: No acute cardiopulmonary findings. Referred By: Interpreted By: Steven Wilcox MD, 02/27/2024 9:56 AM Haile Turcios DO GENERAL IMAGING Final Result * (ABNORMAL) RAPID STREP A (02/27/2024 9:40 AM CDT) SPECIMEN SOURCE THROAT 02/27/2024 9:40 AM CDT [facility] RAPID STREP TEST POSITIVE(A) NEGATIVE 02/27/2024 10:10 AM CDT [facility] Comment: CALLED TO ABRAHAM FRY [facility] [phone] READ BACK AND VERIFIED STRUCTURE OF ANTERIOR PORTION OF NECK / Unknown 02/27/2024 9:40 AM CDT us Haile Turcios DO MICROBIOLOGY - GENERAL ORDERABLE S Final Result Performing Organization Address [facility]/ZIP Co de Phone Number [facility] [address] [place] [address], * CORONAVIRUS (COVID-19) ANTIGEN (02/27/2024 9:40 AM CDT) Pathologist [facility] CORONAVIRUS ANTIGEN IA NEGATIVE NEGATIVE 02/27/2024 10:23 AM CDT [facility] Comment: NEGATIVE RESULTS DO NOT RULE OUT SARS-COV-2 INFECTION AND SHOULD NOT BE USED THE SOLE BASIS FOR TREATMENT OR PATIENT MANAGEMENT DECISIONS, INCLUDING INFECTION CONTROL DECISIONS. NEGATIVE RESULTS SHOULD BE CONSIDERED IN THE CONTEXT OF A PATIENT'S RECENT EXPOSURES, HISTORY AND THE PRESENCE OF CLINICAL SIGNS AND SYMPTOMS CONSISTENT WITH COVID 19. THIS TEST HAS BEEN AUTHORIZED BY THE FDA UNDER AN EMERGENCY USE AUTHORIZATION (EUA) FOR USE BY AUTHORIZED LABORATORIES. SPECIMEN TYPE NASAL 02/27/2024 9:40 AM CDT [facility] NASAL NASAL STRUCTURE / Unknown 02/27/2024 9:40 AM CDT us Haile Turcios DO MICROBIOLOGY - GENERAL ORDERABLE S Final Result Performing Organization Address City/[facility]/ZIP Co de Phone Number [facility] [address] [place] [address], * (ABNORMAL) PRO-BRAIN NATRIURETIC PEPTIDE (02/27/2024 8:53 AM CDT) PRO-B TYPE NATRIURETIC PEPTIDE 870(H) <125 PG/ML 02/27/2024 9:24 AM CDT [facility] Comment: CUT POINTS ESTABLISHED BY INTERNATIONAL COLLABORATIVE ON NT PROBNP (ICON) STUDY (2006). AGE INDEPENDENT: <300 PG/ML HAS A 99% NEGATIVE PREDICTIVE VALUE FOR EXCLUDING ACUTE CHF <50 YEARS: >450 PG/ML IS CONSISTENT WITH ACUTE CHF 50-75 YEARS: >900 PG/ML IS CONSISTENT WITH ACUTE CHF >75 YEARS: >1800 PG/ML IS CONSISTENT WITH ACUTE CHF IN PATIENTS WITH RENAL INSUFFICIENCY (GFR <60), >1200 PG/ML YIELDS A DIAGNOSTIC SENSITIVITY AND SPECIFICITY OF 89% AND 72% FOR ACUTE CHF. 02/27/2024 8:53 AM CDT us Haile Turcios DO LABORATORY Final Result Performing Organization Address [facility] Co de Phone Number [facility] [address] [place] [address], * LACTIC ACID W REFLEX (SEPSIS) (02/27/2024 8:53 AM CDT) LACTIC ACID VENOUS 1.1 0.4 - 2.0 MMOL/L 02/27/2024 9:23 AM CDT [facility] 02/27/2024 8:53 AM CDT us Haile Turcios DO LABORATORY Final Result Performing Organization Address City/[facility]/ZIP Co de Phone Number [facility] [address] [place] [address], * (ABNORMAL) COMPREHENSIVE METABOLIC PANEL (02/27/2024 8:53 AM CDT) SODIUM S/P/B 141 136 - 145 MMOL/L 02/27/2024 9:24 AM CDT [facility] POTASSIUM S/P/B 3.5 3.5 - 5.1 MMOL/L 02/27/2024 9:24 AM CDT [facility] CHLORIDE S/P/B 106 98 - 107 MMOL/L 02/27/2024 9:24 AM CDT [facility] CO2 24.9 21.0 - 32.0 MMOL/L 02/27/2024 9:24 AM CDT [facility] GLUCOSE 118(H) 70 - 99 MG/DL 02/27/2024 9:24 AM T [facility] Comment: FASTING GLUCOSE 100 TO 125 MG/DL IS CONSISTENT WITH IMPAIRED FASTING GLUCOSE. FASTING GLUCOSE >125 MG/DL IS CONSISTENT WITH DIABETES. RANDOM GLUCOSE >200 MG/DL WITH HYPERGLYCEMIC SYMPTOMS IS CONSISTENT WITH DIABETES. PER ADA GUIDELINES BUN 15 6 - 24 MG/DL 02/27/2024 9:24 AM CDT [facility] CREATININE S/P/B 1.30 0.70 - 1.30 MG/DL 02/27/2024 9:24 AM CDT [facility] CALCIUM S/P/B 8.4 8.4 - 10.5 MG/DL 02/27/2024 9:24 AM CDT [facility] BILIRUBIN TOTAL S/P/B 1.1(H) 0.2 - 1.0 MG/DL 02/27/2024 9:24 AM CDT [facility] Comment: THIS ASSAY IS NOT RECOMMENDED FOR PATIENTS UNDERGOING TREATMENT WITH ELTROMBOPAG DUE TO THE POTENTIAL FOR FALSELY ELEVATED RESULTS. ALKALINE PHOSPHATASE S/P/B 75 45 - 115 U/L 02/27/2024 9:24 AM CDT [facility] AST 16 15 - 37 U/L 02/27/2024 9:24 AM CDT [facility] ALT 20 16 - 63 U/L 02/27/2024 9:24 AM CDT [facility] TOTAL PROTEIN S/P/B 7.2 6.4 - 8.2 G/DL 02/27/2024 9:24 AM CDT [facility] ALBUMIN S/P/B 3.4 3.4 - 5.0 G/DL 02/27/2024 9:24 AM CDT [facility] ANION GAP 10.1 5.0 - 15.0 MMOL/L 02/27/2024 9:24 AM CDT [facility] OSMOLALITY (CALC) 294 MOSM/KG 024 9:24 AM CDT [facility] Comment:REFERENCE RANGE NOT ESTABLISHED GFR ESTIMATE 58(L) >89 ML/MIN/1. 73 M2 02/27/2024 9:24 AM CDT [facility] GFR NOTES GFR REFERENCE S: 02/27/2024 9:24 AM CDT [facility] Comment: THE ESTIMATED GFR IS CALCULATED USING THE 2020 CKD-EPI EQUATION. THE FOLLOWING CATEGORIES FOR GRADING RENAL FUNCTION ARE RECOMMENDED BY THE INTERNATIONAL SOCIETY OF NEPHROLOGY (KDIGO 2012 CLINICAL PRACTICE GUIDELINE). G1,NORMAL OR HIGH: >89 ml/min/1.73 m2 G2,MILDLY DECREASED: 60-89 ml/min/1.73 m2 G3A,MILDLY TO MODERATELY DECREASED: 45-59 ml/min/1.73 m2 G3B,MODERATELY TO SEVERELY DECREASED: 30-44 ml/min/1.73 m2 G4,SEVERELY DECREASED: 15-29 ml/min/1.73 m2 G5,KIDNEY FAILURE: <15 ml/min/1.73 m2 02/27/2024 8:53 AM CDT us Haile Turcios DO LABORATORY Final Result [facility] [address] [place] [id number], * (ABNORMAL) CBC W/DIFF AUTOMATED (02/27/2024 8:53 AM CDT) WBC 5.52 4.00 - 10.80 x10'3/uL 02/27/2024 9:06 AM CDT [facility] RBC 4.16(L) 4.50 - 6.10 x10'6/uL 02/27/2024 9:06 AM CDT [facility] HGB 12.3(L) 13.0 - 18.0 G/DL 02/27/2024 9:06 AM CDT [facility] HCT 36.4(L) 37.0 - 52.0 % 02/27/2024 9:06 AM CDT [facility] MCV 87.5 78.0 - 100.0 FL 02/27/2024 9:06 AM CDT [facility] MCH 29.6 27.0 - 31.0 PG 02/27/2024 9:06 AM CDT [facility] MCHC 33.8 33.0 - 36.0 G/DL 02/27/2024 9:06 AM CDT [facility] RDW 12.2 11.5 - 14.5 % 02/27/2024 9:06 AM CDT [facility] PLT 204 150 - 350 x10'3/uL 02/27/2024 9:06 AM CDT [facility] MPV 9.4 7.4 - 10.4 FL 02/27/2024 9:06 AM CDT [facility] CBC COMMENT NORMAL REFERENCE RANGE NOT ESTABLISHED FOR THE PROPORTIONAL LEUKOCYTE DIFFERENTIAL. 02/27/2024 9:06 AM CDT [facility] NEUTROPHILS % 73.6 % 02/27/2024 9:06 AM CDT [facility] LYMPHOCYTES % 13.8 % 02/27/2024 9:06 AM CDT [facility] MONOCYTES % 8.2 % 02/27/2024 9:06 AM CDT [facility] EOSINOPHILS % 3.3 % 02/27/2024 9:06 AM CDT [facility] BASOPHILS % 0.7 % 02/27/2024 9:06 AM CDT [facility] IMMATURE GRANS % 0.4 % 02/27/20 9:06 AM CDT [facility] NRBC % 0.0 % 02/27/2024 9:06 AM CDT [facility] ABS. NEUTROPHILS 4.07 1.60 - 8.30 x10'3/uL 02/27/2024 9:06 AM CDT [facility] ABS. LYMPHOCYTES 0.76(L) 0.80 - 4.70 x10'3/uL 02/27/2024 9:06 AM CDT [facility] ABS. MONOCYTES 0.45 0.00 - 1.50 x10'3/uL 02/27/2024 9:06 AM CDT [facility] ABS. EOSINOPHILS 0.18 0.00 - 0.40 x10'3/uL 02/27/2024 9:06 AM CDT [facility] ABS. BASOPHILS 0.04 0.00 - 0.20 x10'3/uL 02/27/2024 9:06 AM CDT [facility] ABS. IMMATURE GRANULOCYTES 0.02 0.00 - 0.03 x10'3/uL 02/27/2024 9:06 AM CDT [facility] ABS. NUCLEATED RBC'S 0.00 0.00 - 0.01 x10'3/uL 02/27/2024 9:06 AM CDT [facility] 02/27/2024 8:53 AM CDT Haile Turcios DO LABORATORY Final Result [facility] [address] [place] [address], documented in this encounter Visit Diagnoses Diagnosis Chronic combined systolic and diastolic CHF (congestive heart failure) ([facility])- Primary Chronic combined systolic and diastolic heart failure Strep pharyngitis Streptococcal sore throat documented in this encounter Additional Health Concerns Infection Onset Date Last Indicated Resolved Time COVID-19 Rule Out 02/27/2024 02/27/2024 02/27/2024 10:24 AM CDT documented as of this encounter Care Teams Cook Syrup Maker Relationship Specialty Start Date End Date Smooth Cristina MD [address] [place] [phone] PCP - General FAMILY PRACTICE 12/05/18 documented as of this encounter
--- OUTSIDE RECORDS SUMMARY | 2024-06-22 00:35 | XMS_ITS | Encounter Summary ---
Author Organization [facility] Address [address] [place] [address]. [place], [place] [address] [place] [address] Care Team Providers Care Resident Care Technician Name Role Phone Unavailable Primary Care Provider Unavailabl e Encounter Details Date Type Department Care Team (Late st Contact Info) Description 04/09/2016 Abstract [facility] [address] [place] [address] Endy Livingston MD [address] [place] [phone] Social History Tobacco Use Types Packs/Day Years Used Date Smoking Tobacco: Never Sex and Gender Information Value Date Recorded Sex Assigned at Not on file Legal Sex Male 7:08 PM CDT Gender Identity Not on file Sexual Orientation Not on file documented as of this encounter Plan of Treatment Not on file documented as of this encounter Visit Diagnoses Diagnosis Primary osteoarthritis of both knees Primary localized osteoarthrosis, lower leg documented in this encounter
--- OUTSIDE RECORDS SUMMARY | 2024-06-22 00:35 | XMS_ITS | Encounter Summary ---
Author Organization [facility] Address [address] [place] [address]. [place] [address] [place] [address] Care Team Providers Care Railroad Maintenance Clerk Name Role Phone Unavailable Primary Care Provider Unavailabl e Encounter Details Date Type Department Care Team (Late st Contact Info) Description 05/04/2011 David [facility] [address] [place] [address] , Elliot Warner MD Social History Tobacco [...]
--- OUTSIDE RECORDS SUMMARY | 2024-06-22 00:35 | XMS_ITS | Encounter Summary ---
Author Organization [facility] Address [address] [place] [address]. [place], [place] [id number] [place] [address] Care Team Providers Care Ring Stamper Name Role Phone Unavailable Primary Care Provider Unavailabl e Encounter Details Date Type Department Care Team (Late st Contact Info) Description 07/22/2016 Abstract [facility] Diagnostic Imaging [address] [place] [address] Sarah Tanner, DIETETIC TECH- [address] [facility] [place] [address] Social History Tobacco Use Types [...]
--- OUTSIDE RECORDS SUMMARY | 2024-06-22 00:35 | XMS_ITS | Encounter Summary ---
Author Organization [facility] Address [address] [place] [address]. [place] [address] [place] [address] Care Team Providers Care Straightener And Aligner Name Role Phone Unavailable Primary Care Provider Unavailabl e Encounter Details Date Type Department Care Team (Late st Contact Info) Description 10/26/[address] [facility] [address] [place] [address] Ham Bland MD [address] [place] [address] Social History Tobacco Use Types Packs/Day Years Used Date Smoking Tobacco: Never Sex and Gender Information Value Date Recorded Sex Assigned at Not on file Legal Sex Male 7:08 PM CDT Gender Identity Not on file Sexual Orientation Not on file documented as of this encounter Plan of Treatment Not on file documented as of this encounter Visit Diagnoses Diagnosis Other specified pre-operative examination documented in this encounter
--- OUTSIDE RECORDS SUMMARY | 2024-06-22 00:35 | XMS_ITS | Encounter Summary ---
Author Organization [facility] Address [address] [place] [address]. [place], [place] [address] [place] [address] Care Team Providers Care Wreath Maker Name Role Phone Smooth Cristina MD Primary Care Provider [phone] Reason for Visit * Reason Comments Knee Pain Right Encounter Details Date Type Department Care Team (Late st Contact Info) Description 01/04/2019 4:00 PM CDT Office Visit [place] [phone] Endy Livingston MD [address] [place] [address] Knee Pain (Right) Social History Tobacco Use Types Packs/Day Years [...] Progress Notes * Endy Livingston MD - 01/04/2019 4:00 PM CDT Chief Complaint: Knee Pain (Right) History of Present Illness: Alan Burgos is a 68-year-old male who presents to the office for Knee Pain (Right) Patient is following up from a RIGHT quadriceps muscle rupture. He has some burning sensation wherethe quadricep was reattached anteriorly above the knee. Patient states he has a catching sensation on the upper lateral area of the knee when doing leg presses. Patient denies pain, but reports a dull ache with flexion of the knee. Patients concern is the lack of strength and inability to build muscle mass. He works out on [employer] every other day, he does home exercises and has almost completed the second prescription for 12 sessions of physical therapy. He has seen some improvement from the physical therapy as he states that he has full range of motion now. Patient also rides a bicycle daily. Patient would like to inquire about supplements to build the leg muscle, he states that he has had testosterone tested last year and had normal results. He has been riding a bicycle faithfully today ROS: See HPI for pertinent positives Problem List: Patient Active Problem List Diagnosis ??? Quadriceps muscle rupture, right, subsequent encounter History: Past Medical History: Diagnosis Date ??? Diabetes (CMS/HCC) ??? Hypertension ??? 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 No pertinent surgical history. No family history on file. No family status information on file. Social History Socioeconomic History ??? Marital status: Spouse name: Not on file ??? Number of children: Not on file ??? Years of education: Not on file ??? Highest education level: Not on file Occupational History ??? Not on file Social Needs ??? Financial resource strain: Not on file ??? Food insecurity: Worry: Not on file Inability: Not on file ??? Transportation needs: Medical: Not on file Non-medical: Not on file Tobacco Use ??? Smoking status: Never Smoker ??? Smokeless tobacco: Never Used Substance and Sexual Activity ??? Alcohol use: No Frequency: Never ??? Drug use: No ??? Sexual activity: Not on file Lifestyle ??? Physical activity: Days per week: Not on file Minutes per session: Not on file ??? Stress: Not on file Relationships ??? Social connections: Talks on phone: Not on file Gets together: Not on file Attends sabianist service: Not on file Active member of club or organization: Not on file Attends meetings of clubs or organizations: Not on file Relationship status: Not on file ??? Intimate partner violence: Fear of current or ex partner: Not on file Emotionally abused: Not on file Physically abused: Not on file Forced sexual activity: Not on file Other Topics Concern ??? Not on file Social History Narrative ??? Not on file Medications: Current Outpatient Medications: ??? amlodipine-benazepril 10-20 MG capsule, Take 1 tablet by mouth daily., Disp: , Rfl: ??? amlodipine-benazepril 10-20 MG capsule, , Disp: , Rfl: ??? BD PEN NEEDLE ISABELLE U/F 32G X 4 MM Misc, , Disp: , Rfl: ??? HUMALOG KWIKPEN 100 UNIT/ML injection (PEN), , Disp: , Rfl: ??? ibuprofen 200 MG tablet, 200 mg., Disp: , Rfl: ??? insulin degludec (TRESIBA FLEXTOUCH) 100 UNIT/ML Solution Pen-injector injection, , Disp: , Rfl: ??? Insulin Lispro (HUMALOG) 100 UNIT/ML Solution Cartridge, , Disp: , Rfl: ??? Insulin Pen Needle (BD PEN NEEDLE ISABELLE U/F) 32G X 4 MM Misc, , Disp: , Rfl: ??? metFORMIN 500 MG tablet, , Disp: , Rfl: ??? omeprazole 20 MG capsule, Take 1 capsule by mouth., Disp: , Rfl: ??? omeprazole 20 MG capsule, , Disp: , Rfl: ??? tamsulosin 0.4 MG Cap, Take 1 tablet by mouth daily., Disp: , Rfl: ??? tamsulosin 0.4 MG Cap, , Disp: , Rfl: ??? TRESIBA FLEXTOUCH 100 UNIT/ML Solution Pen-injector injection, , Disp: , Rfl: No Known Allergies Objective: There is no height or weight on file to calculate BMI. There were no vitals filed for this visit. Physical exam: Constitutional: Alert and in no acute distress. Neurological: The patient was oriented to person, place, and time. Eyes: The sclera and conjunctiva were normal ENT: Hearing was normal. Neck: The appearance of the neck was normal. Cardiovascular: Normal pulses. Pulmonary: No respiratory distress. Skin: No injuries or skin lesion. Musculoskeletal: Patient actually has pretty decent tone with mild atrophy of the right quad. Full range of motion is present he is nontender with palpation. His incision is well-healed Results: Assessment: Encounter Diagnose(s) ICD-10-CM ICD-9-CM SNOMED CT(R) 1. Quadriceps muscle rupture, right, subsequent encounter S76.111D V58.89 RUPTURE OF SKELETAL MUSCLE 844.8 Plan: Patient is doing very well in regard to recovery after right quad rupture and subsequent repair. I have reviewed for him again that it is a lengthy process to get strength back and he is having giving way symptoms. He is rather high demand as far as activity so he is going to be a little impatient.He is given a work faithfully on quad strengthening and I will see him back in 3 months for reevaluation. 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 Instructions: Continue with treatment plan Follow up: Return in about 3 months (around 04/06/2019). ENDY LIVINGSTON MD documented in this encounter Plan of Treatment Not on file documented as of this encounter Visit Diagnoses Diagnosis Quadriceps muscle rupture, right, subsequent encounter- Primary documented in this encounter Care Teams Wreath Maker Relationship Specialty Start Date End Date Smooth Cristina MD [address] [place] [phone] PCP - General FAMILY PRACTICE 12/05/18 documented as of this encounter
--- OUTSIDE RECORDS SUMMARY | 2024-06-22 00:35 | XMS_ITS | Encounter Summary ---
Author Organization [facility] Address [address] [place] [address]. [place], [place] [address] [place] [address] Care Team Providers Care Faith Healer Name Role Phone Unavailable Primary Care Provider Unavailabl e Encounter Details Date Type Department Care Team (Late st Contact Info) Description 04/09/2016 Abstract [facility] [address] [place] [phone] Endy Livingston MD [address] [place] [address] Social History Tobacco Use Types Packs/Day Years Used Date Smoking Tobacco: Never Assessed Sex and Gender Information Value Date Recorded Sex Assigned at Not on file Legal Sex Male 7:08 PM CDT Gender Identity Not on file Sexual Orientation Not on file documented as of this encounter Progress Notes * Endy Livingston MD - 04/09/2016 2:30 PM CDT Referred By / Reason Patient was referred by Primary Care Physician Name: Dr. Cristina Reason: Chief Complaint 1. Knee Pain Chief Complaint: The patient presents to the office today with BILATERAL knee pain. History of Present Illness HPI: Patient comes to clinic today with complaints of LEFT knee pain. He denies any injury. He has had previous injection in October that last about 5 - 6 months. He also uses ibuprofen for symptoms. He states he has pain with stairs and start up pain with getting out of a chair. He also has night painthat keeps him awake. He denies any tingling or numbness. He reports he has had pain for years but i t's worsening and causing a limp. Heis LEFT is worse than his RIGHT. Review of Systems See HPI for pertinent positives. Active Problems 1. Bilateral knee pain (719.46) (M25.561,M25.562) 2. Left knee pain (719.46) (M25.562) Past Medical History 1. History of Broken bones (829.0) (T14.8) 2. History of Heart problem (429.9) (I51.9) 3. History of arthritis (V13.4) (Z87.39) 4. History of diabetes mellitus (V12.29) (Z86.39) 5. History of hypertension (V12.59) (Z86.79) Surgical History 1. History of Cardiac Pacemaker Interrogation By Physician In Person 2. History of Elbow Surgery 3. History of Knee Surgery Family History Father 1. Family history of malignant neoplasm (V16.9) (Z80.9) Grandmother 2. Family history of diabetes mellitus (V18.0) (Z83.3) Grandfather 3. Family history of hypertension (V17.49) (Z82.49) Social History ?? No alcohol use ?? Non-smoker (V49.89) (Z78.9) ?? Primary language is Swedish ?? Retired Current Meds 1. Amlodipine Besy-Benazepril HCl - 10-20 MG Oral Capsule; Therapy: [id number] to Recorded 2. BD Pen Needle Gianna U/F 32G X 4 MM Miscellaneous; Therapy: 30Aug2015 to Recorded 3. Cialis 5 MG Oral Tablet; Therapy: 16Apr2015 to Recorded 4. Levemir FlexTouch 100 UNIT/ML Subcutaneous Solution Pen-injector; Therapy: 09May2015 to Recorded 5. MetFORMIN HCl - 500 MG Oral Tablet; Therapy: 12Sep2015 to Recorded 6. Omeprazole 20 MG Oral Capsule Delayed Release; Therapy: 23Mar2016 to Recorded 7. Tamsulosin HCl - 0.4 MG Oral Capsule; Therapy: [id number] to Recorded Allergies 1. No Known Allergies Physical Exam Constitutional: alert and in no acute distress. Neurological:. the patient was oriented to person, place, and time. mood and affect were appropriate. Eyes: pupils were equal in size, round, reactive to light, with normal accommodation. ENT: hearing was normal. Pulmonary: no respiratory distress. Skin: no injuries or skin lesions on the right lower extremity and no injuries or skin lesions on the left lower extremity. Right Knee: EXAM today reveals full range of motion, mild grind, no joint line tenderness, negativeMcMurrays Left Knee: EXAM today reveals 5 - full flexion, pain with deep flexion, positive Grind, no joint line tenderness, effusion moderate; No hip pain with rotation BILATERALLY Results/Data XR Knee 1 to 2 Views Bi 09Apr2016 02:40PM Endy Livingston Test Name Result Flag Reference XR Knee 1 to 2 Views Bi (Report) [address] Patient Name: ALAN VALENTIN Date of : 1950 Med Rec #: [id number] Age/Sex: 65/M Pt. Location: ORTHO Attending Provider: ENDY LIVINGSTON MD (TRACY) Ordering Provider: ENDY LIVINGSTON MD (TRACY) Study Date Order Number Procedure 04/09/16 [id number] XR Knee 1 to 2 Views Bi Signed 04/09/2016, 1428 hours. HISTORY: Chronic bilateral knee pain. EXAM: Standing lateral and patellar sunrise views both knees. Correlation to standing AP images same date. FINDINGS: No fracture or acute bony abnormality. Small dorsal spurring from the left patella. No remarkable dorsal spurring right patella. Small joint effusions both knees no calcified intra- articular bodies. No gross bone destruction. IMPRESSION: Small dorsal patellar spurring left patella. Small joint effusions both knees. Electronically Signed By: CJ MEAD MD 04/09/16 1443 Dictated On: 04/09/16 144 Interpreted By: CJ MEAD MD Transcribed On: 04/09/16 1440 - INFCE XR Knee Standing Bi 09Apr2016 02:39PM Endy Livingston Test Name Result Flag Reference XR Knee Standing Bi (Report) [address] Patient Name: ALAN VALENTIN Date of : 1950 Med Rec #: [id number] Age/Sex: 65/M Pt. Location: ORTHO Attending Provider: ENDY LIVINGSTON MD (TRACY) Ordering Provider: ENDY LIVINGSTON MD (TRACY) Study Date Order Number Procedure 04/09/16 [id number] XR Knee Standing Bi Signed 04/09/2016, 1422 hours. HISTORY: Chronic bilateral knee pain. EXAM: Standing AP view both knees. No comparison. FINDINGS: Narrowing of the lateral compartment left knee which suggest osteoarthritis. No narrowing of the medial compartment left knee or either compartment right knee. No fracture. No gross bone destruction. IMPRESSION: Narrowing lateral compartment left knee which may indicate osteoarthritis. Electronically Signed By: CJ MEAD MD 04/09/16 1441 Dictated On: 04/09/16 143 Interpreted By: CJ MEAD MD Transcribed On: 04/09/16 1439 - INFCE XRAYS Today of his BILATERAL knee reveals RIGHT mild degenerative changes with moderate patella femoral arthritis; LEFT mild lateral narrowing with lateral patella degeneration Findings: Procedure Procedure: a 22-gauge Injection of bilateral. Indication: Osteoarthritis and patella femoral. Were discussed with the patient. Verbal consent was obtained prior to the procedure. Alcohol and Betadine was used to prep the area. ethyl chloride spray was used as a topical anesthetic. Using sterile technique, the aspiration/injection needle was then directed from a lateral aspect. 40 mL of LEFT knee; No aspiration on RIGHT fluid was aspirated with 1.5 inch needle. A 22-gauge and 1.5 inch needle was used to inject 1 mL of 1% Lidocaine and 1 mL 80mg/mL methylprednisolone. A bandage was applied. Post-Procedure: the patient tolerated the procedure well. Complications: None. Assessment 1. Osteoarthritis of left knee (715.96) (M17.9) 2. Osteoarthritis of right knee (715.96) (M17.9) Plan Bilateral knee pain 1. XR Knee 1 to 2 Views Bi; Status:Complete; Done: 09Apr2016 02:40PM Left knee pain 2. XR Knee Standing Bi; Status:Complete; Done: 09Apr2016 02:39PM Osteoarthritis of right knee 3. Continue with our present treatment plan.; Status:Complete; Done: 09Apr2016 03:10PM 4. You may continue or resume your normal level of activity.; Status:Complete; Done: 09Apr2016 03:10PM 5. Your joint was injected today.; Status:Complete; Done: 09Apr2016 03:10PM He'll return PRN. Continue NSAIDS. Signatures Electronically signed by : Endy Livingston M.D.; Apr 09 2016 3:10PM SALES REPRESENTATIVE (Author) Electronically signed by : Sarah Tanenr APN [employer] PT-BC; Jul 22 2016 3:14PM SALES REPRESENTATIVE (Author) documented in this encounter Plan of Treatment Not on file documented as of this encounter Procedures Procedure Name Priority Date/Time Associated Diagnosis Comments IMAGE GENERIC Routine 04/09/2016 2:40 PM CDT XR KNEE STAND AP MAICOL ONLY Routine 04/09/2016 2:39 PM CDT documented in this encounter Results * IMAGE GENERIC (04/09/2016 2:40 PM CDT) Anatomical Region Laterality Modality Other 04/09/2016 2:40 PM CDT 04/09/2016 2:40 PM CDT Narrative 04/09/2016 2:44 PM CDT [facility] ?? [facility] ?? [place], [place] ? Patient Name: ALAN VALENTIN Date of : 1950 ?? Med Rec #: [id number] ??Age/Sex: 65/M ?Pt. Location: ORTHO ?? Attending Provider: ENDY LIVINGSTON MD (TRACY) ?? Ordering Provider: ENDY LIVINGSTON MD (TRACY) ? Study Date Order Number Procedure ?? 04/09/16 [id number] XR Knee 1 to 2 Views Bi ? Signed ? 04/09/2016, 1428 hours. ? HISTORY: Chronic bilateral knee pain. ? EXAM: Standing lateral and patellar sunrise views both knees. Correlation to standing AP images same date. ? FINDINGS: No fracture or acute bony abnormality. Small dorsal spurring from the left patella. No remarkable dorsal spurring right patella. Small joint effusions both knees no calcified intra- articular bodies. No gross bone destruction. ? IMPRESSION: ?? Small dorsal patellar spurring left patella. Small joint effusions both knees. ? Electronically Signed By: CJ MEAD MD 04/09/161442 ? Dictated On: 04/09/161439 ?? Interpreted By: CJ MEAD MD ?? Transcribed On: 04/09/161439 - INFCE ?? Procedure Note Elliot Becerra MD - 09/08/[address] Patient Name: ALAN VALENTIN Date of : 1950 Med Rec #: [id number] Age/Sex: 65/M Pt. Location: ORTHO Attending Provider: ENDY LIVINGSTON MD (TRACY) Ordering Provider: ENDY LIVINGSTON MD (TRACY) Study Date Order Number Procedure 04/09/16 [id number] XR Knee 1 to 2 Views Bi Signed 04/09/2016, 1428 hours. HISTORY: Chronic bilateral knee pain. EXAM: Standing lateral and patellar sunrise views both knees. Correlationto standing AP images same date. FINDINGS: No fracture or acute bony abnormality. Small dorsal spurringfrom the left patella. No remarkable dorsal spurring right patella. Small joint effusions both kneesno calcified intra- articular bodies. No gross bone destruction. IMPRESSION: Small dorsal patellar spurring left patella. Small joint effusions bothknees. Electronically Signed By: CJ MEAD MD 04/09/161442 Dictated On: 04/09/161439 Interpreted By: CJ MEAD MD Transcribed On: 04/09/161439 - INFCE us Endy Livingston MD SCANNING Final Result * XR KNEE STAND AP MAICOL ONLY (04/09/2016 2:39 PM CDT) Anatomical Region Laterality Modality Knee Radiographic Dinorah ging 04/09/2016 2:39 PM CDT 04/09/2016 2:39 PM CDT Narrative 04/09/2016 2:43 PM CDT [facility] ?? [address] [facility] ?? [place], [place] ? Patient Name: ALAN VALENTIN Date of : 1950 ?? Med Rec #: [id number] ??Age/Sex: 65/M ?Pt. Location: ORTHO ?? Attending Provider: ENDY LIVINGSTON MD (TRACY) ?? Ordering Provider: ENDY LIVINGSTON MD (TRACY) ? Study Date Order Number Procedure ?? 04/09/16 [id number] XR Knee Standing Bi ? Signed ? 04/09/2016, 1422 hours. ? HISTORY: Chronic bilateral knee pain. ? EXAM: Standing AP view both knees. No comparison. ? FINDINGS: Narrowing of the lateral compartment left knee which suggest osteoarthritis. No narrowing of the medial compartment left knee or either compartment right knee. No fracture. No gross bone destruction. ? IMPRESSION: ?? Narrowing lateral compartment left knee which may indicate osteoarthritis. ? Electronically Signed By: CJ MEAD MD 04/09/16 1441 ? Dictated On: 04/09/16 1439 ?? Interpreted By: CJ MEAD MD ?? Transcribed On: 04/09/16 1439 - INFCE ?? Procedure Note Elliot Becerra MD - 09/08/[address] [place] Patient Name: ALAN VALENTIN Date of : 1950 Med Rec #: [id number] Age/Sex: 65/M Pt. Location: ORTHO Attending Provider: ENDY LIVINGSTON MD (TRACY) Ordering Provider: ENDY LIVINGSTON MD (TRACY) Study Date Order Number Procedure 04/09/16 [id number] XR Knee Standing Bi Signed 04/09/2016, 1422 hours. HISTORY: Chronic bilateral knee pain. EXAM: Standing AP view both knees. No comparison. FINDINGS: Narrowing of the lateral compartment left knee which suggestosteoarthritis. No narrowing of the medial compartment left knee or either compartment rightknee. No fracture. No gross bone destruction. IMPRESSION: Narrowing lateral compartment left knee which may indicateosteoarthritis. Electronically Signed By: CJ MEAD MD 04/09/16 1441 Dictated On: 04/09/16 1439 Interpreted By: CJ MEAD MD Transcribed On: 04/09/16 1439 - INFCE us Endy Livingston MD GENERAL IMAGING Final Result documented in this encounter Visit Diagnoses Not on filedocumented in this encounter
--- OUTSIDE RECORDS SUMMARY | 2024-06-22 00:35 | XMS_ITS | Encounter Summary ---
Author Organization [facility] Address [address] [place] [address]. [place], [place] [address] [place] [address] Care Team Providers Care Director Of Restaurant Operations Name Role Phone Unavailable Primary Care Provider Unavailabl e Encounter Details Date Type Department Care Team (Late st Contact Info) Description 10/05/2018 Abstract [facility] Diagnostic Imaging [address] [place] [address] Sarah Tanner, LOADING DOCK HAND- [address] [place] [address] Social History Tobacco Use Types Packs/Day Years Used Date Smoking Tobacco: Never Sex and Gender Information Value Date Recorded Sex Assigned at Not on file Legal Sex Male 7:08 PM CDT Gender Identity Not on file Sexual Orientation Not on file documented as of this encounter Plan of Treatment Not on file documented as of this encounter Visit Diagnoses Diagnosis Pain in right knee Pain in joint, lower leg documented in this encounter
--- OUTSIDE RECORDS SUMMARY | 2024-06-22 00:35 | XMS_ITS | Encounter Summary ---
Author Organization [facility] Address [address] [place] [address]. [place], [place] [address] [place] [address] Care Team Providers Care Apparel Patternmaker Name Role Phone Unavailable Primary Care Provider Unavailabl e Encounter Details Date Type Department Care Team (Late st Contact Info) Description 11/22/2018 Abstract [facility] Imaging [address] [place] [address] Endy Livingston MD [address] [place] [id number] Social History Tobacco Use Types Packs/Day Years [...] Diagnosis Encounter for other specified surgical aftercare documented in this encounter
--- OUTSIDE RECORDS SUMMARY | 2024-06-22 00:35 | XMS_ITS | Encounter Summary ---
Author Organization [facility] Address [address] [place] [address]. [place], [place] [address] [place] [address] Care Team Providers Care Bottle Cleaner Name Role Phone Unavailable Primary Care Provider Unavailabl e Encounter Details Date Type Department Care Team (Late st Contact Info) Description 11/09/2018 Abstract [facility] [address] [phone] Endy Livingston MD [address] [place] [address] Social History Tobacco Use Types Packs/Day Years Used Date Smoking Tobacco: Never Sex and Gender Information Value Date Recorded Sex Assigned at Not on file Legal Sex Male 7:08 PM CDT Gender Identity Not on file Sexual Orientation Not on file documented as of this encounter Progress Notes * Edny Livingston MD - 11/09/2018 4:00 PM CDT Post-Op Alan Burgos is status post on 10/07/2018. Quadriceps repair RIGHT. HPI: Patient reports a dull ache to RIGHT leg. He is wearing immobilizer. He is not using pain medication. PE: EXAM today reveals no defect, incision healed, active extension present, no swelling, quad atrophic Assessment: Plan: I have placed him in a post op hinged knee brace. set at 0 - 30 and full extension. He'll work on gentle range of motion 0 - 30. She'll return in 2 weeks. Assessment 1. Aftercare following surgery (V58.89) (Z48.89) Signatures Electronically signed by : Endy Livingston M.D.; Nov 10 2018 11:19AM MEDIA RELATIONS MANAGER (Author) documented in this encounter Plan of Treatment Not on file documented as of this encounter Visit Diagnoses Not on filedocumented in this encounter
--- OUTSIDE RECORDS SUMMARY | 2024-06-22 00:35 | XMS_ITS | Encounter Summary ---
Author Organization [facility] Address [address] [place] [address]. [place] [address] [place] [address] Care Team Providers Care Nurse Consultant Name Role Phone Unavailable Primary Care Provider Unavailabl e Encounter Details Date Type Department Care Team (Late st Contact Info) Description 10/24/2018 Abstract [facility] [address] [place] [id number] Roberta Tanner FNP-BC [address] [place], [place] [id number] Social History Tobacco Use Types Packs/Day Years Used Date Smoking Tobacco: Never Sex and Gender Information Value Date Recorded Sex Assigned at Not on file Legal Sex Male 7:08 PM CDT Gender Identity Not on file Sexual Orientation Not on file documented as of this encounter Progress Notes * LALIT Ordaz - 10/24/2018 9:00 AM CDT Post-Op Aaln Valentin is status post quadriceps repair of the right knee on 10-07-18. HPI: The patient reports no excessive pain, no swelling, no calf swelling, no leg pain and no shortness of breath. The patient also reports weight-bearing as tolerated, but not using an assistive device for ambulation. Patient presented to the clinic today for his RIGHT knee. He is walking and in an immobilizer which he takes off to sleep. He states he is doing good and having no pain. He denies numbness, tingling, and night pain. He reports some stiffness. He is not taking anything for pain. PE: The surgical incision site was clean, dry and intact . incision healed.. (the incision site wasintact and had no drainage ). The surrounding skin findings included normal appearance and normal skin turgor.. The knee demonstrates no warmth, no erythema, no ecchymosis, no swelling and no tenderne ss . No defect appreciated, no warmth, no drainage, no effusion, NVI, mild weak quad.. Tests for DVT and compartment syndrome are both negative with soft, non tender calves and no palpable cords. Peripheral neurovascular exam reveals intact sensation to light touch and intact gross motor function. Assessment: Post-op, the patient is doing well, has excellent pain control and is showing no signs of infection. Plan: Activity Restrictions: none and advance as tolerated. Done this visit: xray . XRAY today reveals Post operative changes.. Follow up: 2 weeks, Patient asked about going into a hinged brace versus a knee immobilizer. We will continue knee immobilizer weight bearing as tolerated in knee immobilizer at all times when ambulating. Follow up in 2 weeks. Orders 1. Continue with our present treatment plan.; Status:Complete; Done: 24Oct2018 08:56PM 2. XR Knee 1 to 2 View Rt; Status:Resulted - Requires Verification; Done: 24Oct2018 11:19AM 3. XR Knee Standing Bi; Status:Active; Requested for:24Oct2018; Assessment 1. Aftercare following surgery (V58.89) (Z48.89) Results/Data XR Knee 1 to 2 View Rt XR Knee 1 to 2 View Rt: [address] Patient Name: ALAN VALENTIN Date of : 1950 Med Rec #: [id number] Age/Sex: 68/M Pt. Location: ORTHO Attending Provider: ROBERTA TANNER NP Ordering Provider: ROBERTA TANNER NP Study Date Order Number Procedure 10/24/18 [id number] XR Knee 1 to 2 Views Rt Signed 10/24/2018, 8:57 AM. HISTORY: Follow-up right quadriceps tendon repair. EXAM: AP and lateral views of the right knee. Correlation to prior imaging 10/05/2018. FINDINGS: No fracture or acute bony abnormality. No remarkable arthritic change. No gross bone destruction. Probable small joint effusion. No definite calcified intra- articular bodies. Minimal ossification in the quadriceps and patellar tendons attachment to the patella. Soft tissue swelling superficial to the patella, decreased in thickness since study 10/05/2018. IMPRESSION: Decreased thickness of the prepatellar soft tissue swelling since prior study. Possible tiny joint effusion. Electronically Signed By: CJ MEAD MD 10/24/18 1121 Dictated On: 10/24/18 1119 Interpreted By: CJ MEAD MD Transcribed On: 10/24/18 1119 - INFCE Signatures Electronically signed by : CRISELDA Alva; Oct 24 2018 8:57PM FLORAL ARTIST (Author) documented in this encounter Plan of Treatment Not on file documented as of this encounter Procedures Procedure Name Priority Date/Time Associated Diagnosis Comments SURG XR KNEE RT 1-2V Routine 10/24/2018 11:19 AM CDT documented in this encounter Results * SURG XR KNEE RT 1-2V (10/24/2018 11:19 AM CDT) Anatomical Region Laterality Modality Knee IMAGES ONLY 10/24/2018 11:1 9 AM CDT 10/24/2018 11:19 AM CDT Narrative 10/24/2018 11:23 AM CDT [facility] ?? [address] [place] [address] ?? [place], [place] ? Patient Name: ALAN VALENTIN Date of : 1950 ?? Med Rec #: [id number] ??Age/Sex: 68/M ?Pt. Location: ORTHO ?? Attending Provider: ROBERTA TANNER NP ?? Ordering Provider: ROBERTA TANNER NP ? Study Date Order Number Procedure ?? 10/24/18 [id number] XR Knee 1 to 2 Views Rt ? Signed ? 10/24/2018, 8:57 AM. ? HISTORY: Follow-up right quadriceps tendon repair. ? EXAM: AP and lateral views of the right knee. Correlation to prior imaging 10/05/2018. ? FINDINGS: No fracture or acute bony abnormality. No remarkable arthritic change. No gross bone destruction. Probable small joint effusion. No definite calcified intra- articular bodies. Minimal ossification in the quadriceps and patellar tendons attachment to the patella. Soft tissue swelling superficial to the patella, decreased in thickness since study 10/05/2018. ? IMPRESSION: ?? Decreased thickness of the prepatellar soft tissue swelling since prior study. Possible tiny joint effusion. ? Electronically Signed By: CJ MEAD MD 10/24/18 1121 ? Dictated On: 10/24/181118 ?? Interpreted By: CJ MEAD MD ?? Transcribed On: 10/24/18 1119 - INFCE ?? Procedure Note Elliot Becerra MD - 11/24/[address] Patient Name: ALAN VALENTIN Date of : 1950 Med Rec #: [id number] Age/Sex: 68/M Pt. Location: ORTHO Attending Provider: ROBERTA TANNER NP Ordering Provider: ROBERTA TANNER NP Study Date Order Number Procedure 10/24/18 [id number] XR Knee 1 to 2 Views Rt Signed 10/24/2018, 8:57 AM. HISTORY: Follow-up right quadriceps tendon repair. EXAM: AP and lateral views of the right knee. Correlation to priorimaging 10/05/2018. FINDINGS: No fracture or acute bony abnormality. No remarkable arthriticchange. No gross bone destruction. Probable small joint effusion. No definite calcifiedintra-articular bodies. Minimal ossification in the quadriceps and patellar tendons attachment to thepatella. Soft tissue swelling superficial to the patella, decreased in thickness since study 10/05/2018. IMPRESSION: Decreased thickness of the prepatellar soft tissue swelling since priorstudy. Possible tiny joint effusion. Electronically Signed By: CJ MEAD MD 10/24/18 1121 Dictated On: 10/24/18 1119 Interpreted By: CJ MEAD MD Transcribed On: 10/24/18 1119 - INFCE us Roberta Tanner [facility]C [employer] ARC-BC IMAGES ONLY Final Resu lt documented in this encounter Visit Diagnoses Not on filedocumented in this encounter
--- OUTSIDE RECORDS SUMMARY | 2024-06-22 00:35 | XMS_ITS | Encounter Summary ---
Author Organization [facility] Address [address] [place] [address]. [place] [address] [place] [address] Care Team Providers Care Dietitian Research Name Role Phone Smooth Cristina MD Primary Care Provider [phone] Encounter Details Date Type Department Care Team (Late st Contact Info) Description 11/26/2018 Abstract [facility] [address] [place] [address] , Generic Conversion, Social History Tobacco Use [...] documented as of this encounter Care Teams Dietitian Research Relationship Specialty Start Date End Date Smooth Cristina MD [address] [place] [address] PCP - General FAMILY PRACTICE 12/05/18 documented as of this encounter
--- OUTSIDE RECORDS SUMMARY | 2024-06-22 00:35 | XMS_ITS | Encounter Summary ---
Author Organization [facility] Address [address] [place] [address]. [place], [place] [address] [place] [address] Care Team Providers Care Last Dipper Name Role Phone Smooth Cristina MD Primary Care Provider [phone] Reason for Referral * Imaging (Routine) - Closed Specialty Diagnoses / Procedures Referred By Contac t Referred To Contact RADIOLOGY Diagnoses Neck mass Procedures CT CHEST WO CON CT CHEST W CON Smooth Cristina MD [address] [place] [phone] Phone: tel: fax: Referral ID Status Reason Start Date Expiration Date Visits Re quested Visits Authorized [id number] Closed 10/19/2019 11/17/2020 1 1 * Imaging (Routine) - Closed Specialty Diagnoses / Procedures Referred By Contac t Referred To Contact RADIOLOGY Diagnoses Neck mass Procedures CT SOFT TISSUE NECK WO CON CT SOFT TISSUE NECK W CON Smooth Cristina MD [address] [place] [phone] Phone: tel: fax: Referral ID Status Reason Start Date Expiration Date Visits Re quested Visits Authorized [id number] Closed 10/19/2019 11/17/2020 1 1 Reason for Visit * Imaging (Routine) - Closed Specialty Diagnoses / Procedures Referred By Contac t Referred To Contact RADIOLOGY Diagnoses Neck mass Procedures CT SOFT TISSUE NECK WO CON CT SOFT TISSUE NECK W CON Smooth Cristina MD [address] [place] [address] Phone: tel: fax: Referral ID Status Reason Start Date Expiration Date Visits Re quested Visits Authorized [id number] Closed 10/19/2019 11/17/2020 1 1 Encounter Details Date Type Department Care Team (Latest Contact Info) Description 10/20/2019 1:00 PM CDT - 10/20/2019 11:59 PM CDT Hospital Encounter [facility] [address] [facility] [place] [address] Smooth Cristina MD [address] [place] [address] Discharge Disposition: Home or Self Care (Routine [...] on file Sexual Orientation Not on file COVID-19 Exposure Response Date Recorded In the last month, have you been in contact with someone who was confirmed or suspected to have Coronavirus / COVID-19? No / Unsure 10/20/2019 1:03 PM CDT documented as of this encounter Medications at Time of Discharge HUMALOG KWIKPEN 100 UNIT/ML injection (PEN) Inject 20-25 Units into the skin see administration instructions. 09/14/2018 metFORMIN 500 MG tablet Take 1 tablet (500 mg total) by mouth 2 (two) times daily with meals. 11/16/2018 omeprazole 20 MG capsule Take 1 capsule (20 mg total) by mouth daily as needed. 03/23/2016 tamsulosin 0.4 MG Cap Take 1 tablet by mouth daily. 07/03/2013 amlodipine-eduardo zepril 10-20 MG capsule Take 1 tablet by mouth daily. 05/26/2015 4 insulin degludec (TRESIBA FLEXTOUCH) 100 UNIT/ML Solution Pen-injector injection Inject 45 Units into the skin nightly at bedtime. 02/27/20 2 4 documented as of this encounter Plan of Treatment Not on file documented as of this encounter Procedures Procedure Name Priority Date/Time Associated Diagnosis Comments CT CHEST WO CON Routine 10/20/2019 1:31 PM CDT Neck mass CT SOFT TISSUE NECK WO CON Routine 10/20/2019 1:31 PM CDT Neck mass documented in this encounter Results * CT CHEST WO CON (10/20/2019 1:31 PM CDT) Anatomical Region Laterality Modality Chest Computed Tomogra phy 10/20/2019 3:20 PM CDT Impressions 10/20/2019 3:43 PM CDT IMPRESSION: 1. ??Possible nonspecific inflammation within fat at the site of palpable concern. ??There is no discrete mass or fluid collection. ??Clinical correlation is required with further management as deemed appropriate. 2. ??Coronary artery disease. 3. ??Bilateral carotid atherosclerosis. 4. ??Minimal frontal sinusitis. Interpreted By: Robert Chawla MD, 10/20/2019 3:20 PM Narrative 10/20/2019 3:43 PM CDT Examination: CT of the neck and chest without contrast. Exam time: 1320 hours. Clinical history: Right-sided lump identified two days ago with tenderness to palpation. Comparison: None. Technique: Spiral scanning was performed through the neck and chest without contrast. ??Sagittal and coronal reconstructions were performed from the data sets. ??Intravenous contrast was not administered due to the stated allergy history. ??A dose lowering technique was used for this procedure, which may include, but is not limited to, dose reduction techniques, automated exposure control, the use of iterative reconstruction and ALARA/Image Gently techniques. Findings: CT NECK: The salivary glands and the thyroid gland appear unremarkable. ??There is no lymphadenopathy. ??A marker was placed at the indicated site of concern on the right lying near the lateral margin of the sternocleidomastoid at the C5 level. ??There is no discrete mass or fluid collection. ??There is some mild asymmetric stranding in the subjacent fat which may reflect nonspecific inflammation. ??Clinical correlation is required with further management as deemed appropriate. ??The visualized intracranial contents are unremarkable. ??The orbits and orbital contents appear unremarkable. ??The mastoid air cells and middle ear cavities are aerated. ??There is minimal mucosal thickening in the right frontal sinus. ??The paranasal sinuses are otherwise clear. ??There is streak artifact from dental amalgam. ??The structures of the nasopharynx, oropharynx, hypopharynx and larynx, as visualized, appear unremarkable. ??There is atherosclerotic calcification in the carotid distribution bilaterally. CT CHEST: There is calcific coronary artery disease. ??There is minimal atherosclerotic calcification of the aorta. ??Transvenous pacemaker is in place via a left subclavian approach with leads terminating in the right atrium, right ventricle and coronary sinus. ??The heart and great vessels are otherwise unremarkable for the noncontrast technique. ??No hilar or mediastinal adenopathy is identified. ??No endobronchial abnormality is identified. ??The lungs are clear. ??No pleural abnormalities are seen. ??The chest wall structures appear intact. ??The included sections through the upper abdomen are unremarkable. Procedure Note Robert Chawla MD - 10/20/2019 Examination: CT of the neck and chest without contrast. Exam time: 1320 hours. Clinical history: Right-sided lump identified two days ago with tendernessto palpation. Comparison: None. Technique: Spiral scanning was performed through the neck and chestwithout contrast. Sagittal and coronal reconstructions were performedfrom the data sets. Intravenous contrast was not administered due to thestated allergy history. A dose lowering technique was used for thisprocedure, which may include, but is not limited to, dose reductiontechniques, automated exposure control, the use of iterativereconstruction and ALARA/Image Gently techniques. Findings: CT NECK: The salivary glands and the thyroid gland appear unremarkable.There is no lymphadenopathy. A marker was placed at the indicated site ofconcern on the right lying near the lateral margin of thesternocleidomastoid at the C5 level. There is no discrete mass or fluidcollection. There is some mild asymmetric stranding in the subjacent fatwhich may reflect nonspecific inflammation. Clinical correlation isrequired with further management as deemed appropriate. The visualizedintracranial contents are unremarkable. The orbits and orbital contentsappear unremarkable. The mastoid air cells and middle ear cavities areaerated. There is minimal mucosal thickening in the right frontal sinus.The paranasal sinuses are otherwise clear. There is streak artifact fromdental amalgam. The structures of the nasopharynx, oropharynx,hypopharynx and larynx, as visualized, appear unremarkable. There isatherosclerotic calcification in the carotid distribution bilaterally. CT CHEST: There is calcific coronary artery disease. There is minimalatherosclerotic calcification of the aorta. Transvenous pacemaker is inplace via a left subclavian approach with leads terminating in the rightatrium, right ventricle and coronary sinus. The heart and great vesselsare otherwise unremarkable for the noncontrast technique. No hilar ormediastinal adenopathy is identified. No endobronchial abnormality isidentified. The lungs are clear. No pleural abnormalities are seen. Thechest wall structures appear intact. The included sections through theupper abdomen are unremarkable. IMPRESSION: 1. Possible nonspecific inflammation within fat at the site of palpableconcern. There is no discrete mass or fluid collection. Clinicalcorrelation is required with further management as deemed appropriate. 2. Coronary artery disease. 3. Bilateral carotid atherosclerosis. 4. Minimal frontal sinusitis. Interpreted By: Robert Chawla MD, 10/20/2019 3:20 PM Smooth Cristina MD CT Final Resul t * CT SOFT TISSUE NECK WO CON (10/20/2019 1:31 PM CDT) Anatomical Region Laterality Modality Neck Computed Tomogra phy 10/20/2019 3:20 PM CDT Impressions 10/20/2019 3:43 PM CDT IMPRESSION: 1. ??Possible nonspecific inflammation within fat at the site of palpable concern. ??There is no discrete mass or fluid collection. ??Clinical correlation is required with further management as deemed appropriate. 2. ??Coronary artery disease. 3. ??Bilateral carotid atherosclerosis. 4. ??Minimal frontal sinusitis. Interpreted By: Robert Chawla MD, 10/20/2019 3:20 PM Narrative 10/20/2019 3:43 PM CDT Examination: CT of the neck and chest without contrast. Exam time: 1320 hours. Clinical history: Right-sided lump identified two days ago with tenderness to palpation. Comparison: None. Technique: Spiral scanning was performed through the neck and chest without contrast. ??Sagittal and coronal reconstructions were performed from the data sets. ??Intravenous contrast was not administered due to the stated allergy history. ??A dose lowering technique was used for this procedure, which may include, but is not limited to, dose reduction techniques, automated exposure control, the use of iterative reconstruction and ALARA/Image Gently techniques. Findings: CT NECK: The salivary glands and the thyroid gland appear unremarkable. ??There is no lymphadenopathy. ??A marker was placed at the indicated site of concern on the right lying near the lateral margin of the sternocleidomastoid at the C5 level. ??There is no discrete mass or fluid collection. ??There is some mild asymmetric stranding in the subjacent fat which may reflect nonspecific inflammation. ??Clinical correlation is required with further management as deemed appropriate. ??The visualized intracranial contents are unremarkable. ??The orbits and orbital contents appear unremarkable. ??The mastoid air cells and middle ear cavities are aerated. ??There is minimal mucosal thickening in the right frontal sinus. ??The paranasal sinuses are otherwise clear. ??There is streak artifact from dental amalgam. ??The structures of the nasopharynx, oropharynx, hypopharynx and larynx, as visualized, appear unremarkable. ??There is atherosclerotic calcification in the carotid distribution bilaterally. CT CHEST: There is calcific coronary artery disease. ??There is minimal atherosclerotic calcification of the aorta. ??Transvenous pacemaker is in place via a left subclavian approach with leads terminating in the right atrium, right ventricle and coronary sinus. ??The heart and great vessels are otherwise unremarkable for the noncontrast technique. ??No hilar or mediastinal adenopathy is identified. ??No endobronchial abnormality is identified. ??The lungs are clear. ??No pleural abnormalities are seen. ??The chest wall structures appear intact. ??The included sections through the upper abdomen are unremarkable. Procedure Note Robert Chawla MD - 10/20/2019 Examination: CT of the neck and chest without contrast. Exam time: 1320 hours. Clinical history: Right-sided lump identified two days ago with tendernessto palpation. Comparison: None. Technique: Spiral scanning was performed through the neck and chestwithout contrast. Sagittal and coronal reconstructions were performedfrom the data sets. Intravenous contrast was not administered due to thestated allergy history. A dose lowering technique was used for thisprocedure, which may include, but is not limited to, dose reductiontechniques, automated exposure control, the use of iterativereconstruction and ALARA/Image Gently techniques. Findings: CT NECK: The salivary glands and the thyroid gland appear unremarkable.There is no lymphadenopathy. A marker was placed at the indicated site ofconcern on the right lying near the lateral margin of thesternocleidomastoid at the C5 level. There is no discrete mass or fluidcollection. There is some mild asymmetric stranding in the subjacent fatwhich may reflect nonspecific inflammation. Clinical correlation isrequired with further management as deemed appropriate. The visualizedintracranial contents are unremarkable. The orbits and orbital contentsappear unremarkable. The mastoid air cells and middle ear cavities areaerated. There is minimal mucosal thickening in the right frontal sinus.The paranasal sinuses are otherwise clear. There is streak artifact fromdental amalgam. The structures of the nasopharynx, oropharynx,hypopharynx and larynx, as visualized, appear unremarkable. There isatherosclerotic calcification in the carotid distribution bilaterally. CT CHEST: There is calcific coronary artery disease. There is minimalatherosclerotic calcification of the aorta. Transvenous pacemaker is inplace via a left subclavian approach with leads terminating in the rightatrium, right ventricle and coronary sinus. The heart and great vesselsare otherwise unremarkable for the noncontrast technique. No hilar ormediastinal adenopathy is identified. No endobronchial abnormality isidentified. The lungs are clear. No pleural abnormalities are seen. Thechest wall structures appear intact. The included sections through theupper abdomen are unremarkable. IMPRESSION: 1. Possible nonspecific inflammation within fat at the site of palpableconcern. There is no discrete mass or fluid collection. Clinicalcorrelation is required with further management as deemed appropriate. 2. Coronary artery disease. 3. Bilateral carotid atherosclerosis. 4. Minimal frontal sinusitis. Interpreted By: Robert Chawla MD, 10/20/2019 3:20 PM us Smooth Cristina MD CT Final Resul t documented in this encounter Visit Diagnoses Diagnosis Neck mass Swelling, mass, or lump in head and neck documented in this encounter Care Teams Last Dipper Relationship Specialty Start Date End Date Smooth Cristina MD [address] [place] [phone] PCP - General FAMILY PRACTICE 12/05/18 documented as of this encounter
--- OUTSIDE RECORDS SUMMARY | 2024-06-22 00:35 | XMS_ITS | Encounter Summary ---
Author Organization [facility] Address [address] [place] [address]. [place], [place] [address] [place] [address] Care Team Providers Care Animal Damage Control Agent Name Role Phone Unavailable Primary Care Provider Unavailabl e Encounter Details Date Type Department Care Team (Late st Contact Info) Description 10/31/2012 Abstract [facility] Corporate Travel Coordinator [address] [place], [place] [address] Ham Bland MD [address] [place] [address] Social History Tobacco Use Types Packs/Day Years Used Date Smoking Tobacco: Never Sex and Gender Information Value Date Recorded Sex Assigned at Not on file Legal Sex Male 7:08 PM CDT Gender Identity Not on file Sexual Orientation Not on file documented as of this encounter Plan of Treatment Not on file documented as of this encounter Visit Diagnoses Diagnosis 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
--- OUTSIDE RECORDS SUMMARY | 2024-06-22 00:35 | XMS_ITS | Encounter Summary ---
Author Organization [facility] Address [address] [place] [address]. [place] [address] [place] [address] Care Team Providers Care Computer Engineering Technician Name Role Phone Unavailable Primary Care Provider Unavailabl e Encounter Details Date Type Department Care Team (Late st Contact Info) Description 05/04/2011 Abstract [facility] [address] [place] [phone] , Elliot Warner MD Social History Tobacco [...] Procedure Name Priority Date/Time Associated Diagnosis Comments EXTERNAL EJECTION FRACTION Routine 05/04/2011 12:00 AM IMMIGRATION ATTORNEY documented in this encounter Results * EXTERNAL EJECTION FRACTION (05/04/2011 12:00 AM IMMIGRATION ATTORNEY) EJECTION FRACTION [facility] Comment: There is mild enlargement of left atrium.Normal left ventricular size with boderline LVH. ??Definity contrast agent used to visually enhance endocardial wallmotion and contractillity. ??Mild global left ventricular systolic dysfunction. ??Impaired diastolic relaxation Grade I. ??Ejection fractio is measured at 54%.Trace to mild mitral valve regurgitaiton and tricuspid regurgitation.Mild pulmonary hypertension. ??Estimated peak RVSP is 40 mmHg.Compared to 03/2009, the mitral and tricuspid regurgitation is new. ??The LV funciton is stable. Anatomical Region Laterality Modality Other 05/04/2011 05/04/2011 Narrative 05/04/2011 12:00 AM IMMIGRATION ATTORNEY transthoracic echo, Georgina Nice M.D. us Generic Conversion Md ERNANDEZ OTHER Final R esult documented in this encounter Visit Diagnoses Not on filedocumented in this encounter
--- OUTSIDE RECORDS SUMMARY | 2024-06-22 00:35 | XMS_ITS | Encounter Summary ---
Author Organization [facility] Address [address] [place] [address]. [place] [address] [place] [address] Care Team Providers Care Medical Officer Psychiatry Name Role Phone Unavailable Primary Care Provider Unavailabl e Encounter Details Date Type Department Care Team (Late st Contact Info) Description 02/09/1970 Abstract [facility] [address] [place] [address] , Generic Conversion, Social History Tobacco Use [...]
--- OUTSIDE RECORDS SUMMARY | 2024-06-22 00:35 | XMS_ITS | Encounter Summary ---
Author Organization [facility] Address [address] [place] [address]. [place], [place] [address] [place] [address] Care Team Providers Care Assistant Construction Superintendent Name Role Phone Unavailable Primary Care Provider Unavailabl e Encounter Details Date Type Department Care Team (Late st Contact Info) Description 11/09/2018 Abstract [facility] [address] [place] [address] Endy Livingston MD [address] [place] [id number] Social History Tobacco Use Types Packs/Day Years Used Date Smoking Tobacco: Never Sex and Gender Information Value Date Recorded Sex Assigned at Not on file Legal Sex Male 7:08 PM CDT Gender Identity Not on file Sexual Orientation Not on file documented as of this encounter Plan of Treatment Not on file documented as of this encounter Visit Diagnoses Diagnosis Strain of right quadriceps muscle, fascia and tendon, subsequent encounter documented in this encounter
--- OUTSIDE RECORDS SUMMARY | 2024-06-22 00:35 | XMS_ITS | Encounter Summary ---
Author Organization [facility] Address [address] [place] [address]. [place] [address] [place] [address] Care Team Providers Care Inbound Customer Service Agent Name Role Phone Unavailable Primary Care Provider Unavailabl e Encounter Details Date Type Department Care Team (Late st Contact Info) Description 10/31/2012 [facility] [place] [phone] , Elliot Warner MD Social History Tobacco [...]
--- OUTSIDE RECORDS SUMMARY | 2024-06-22 00:35 | XMS_ITS | Encounter Summary ---
Author Organization [facility] Address [address] [place] [address]. [place] [address] [place] [address] Care Team Providers Care Sales Representative Cash Registers Name Role Phone Unavailable Primary Care Provider Unavailabl e Encounter Details Date Type Department Care Team (Late st Contact Info) Description 04/20/[address] [place] [address] Smooth Cristina MD [address] [place] [phone] Social History Tobacco Use Types Packs/Day [...]
--- OUTSIDE RECORDS SUMMARY | 2024-06-22 00:35 | XMS_ITS | Encounter Summary ---
Author Organization [facility] Address [address] [place] [address]. [place], [place] [address] [place] [address] Care Team Providers Care Leather Grader Name Role Phone Unavailable Primary Care Provider Unavailabl e Encounter Details Date Type Department Care Team (Late st Contact Info) Description 10/07/2018 Abstract [facility] [address] [place] [phone] Endy Livingston MD [address] [place] [address] Social History Tobacco Use Types Packs/Day Years Used Date Smoking Tobacco: Never Sex and Gender Information Value Date Recorded Sex Assigned at Not on file Legal Sex Male 7:08 PM CDT Gender Identity Not on file Sexual Orientation Not on file documented as of this encounter Procedure Notes * Endy Livingston MD - 10/07/2018 10:30 AM CDT [address] [address] Patient: ALAN VALENTIN Med Rec#: [id number] Birthdate: 1950 Admit/Svce Date: 10/07/2018 Disch Date: Attending Md: ENDY LIVINGSTON MD (TRACY) OPERATIVE REPORT PATIENT: Alan Valentin : 1950 MR #: [id number] Surgery Date: 10/07/2018 Chart Document PREOPERATIVE DIAGNOSIS: Right quadriceps rupture. POSTOPERATIVE DIAGNOSIS: Right quadriceps rupture. PROCEDURE PERFORMED: Right quadriceps repair. SURGEON: Endy Livingston MD (Tracy). ANESTHESIA: General. INDICATIONS FOR PROCEDURE: Alan Valentin is a 68-year-old male who fell down a ladder causing a rupture of his right quad. He presents for the above procedure after reviewing risks and benefits. DESCRIPTION OF PROCEDURE: After positioning the patient in a supine fashion, general anesthesia was administered. Antibiotics were given intravenously and a tourniquet applied to the right proximal thigh. The right lower extremity was prepped and draped in the usual sterile fashion. An Esmarch wrap was used to exsanguinate the right lower extremity. Tourniquet inflated to 300 mmHg. A midline incision was made and we immediately dropped down into the quad defect. This was copiously irrigated. A 15 blade was used to freshen up the tendon edges with sharp debridement and it was noted to have tears extending down both in the medial and lateral retinacula. Rongeurs were used to create a bony trough in the patella and both the medial and lateral retinaculum was repaired using #2 FiberWire while Krackow stitch was used to stabilize the end of the quad tendon. Three drill holes were made in the patella from superior to distal and the sutures passed through the drill holes and then tied over the bone bridge. We then reinforced the repair using #2 FiberWire to oversew the repair. The tourniquet was released at 35 minutes and hemostasis was good. The wound was again irrigated and 2-0 Vicryl used to close the subcutaneous tissue while skin letitia completed the skin closure. Sterile dressings were applied and overwrapped with Webril. The drapes then withdrawn and an Chris wrap used to overwrap the dressings. General anesthesia was discontinued. The patient was transferred to a stretcher and then to the PACU in good condition. CP/nts [id number] CP/nts [id number] E-Signed By P Endy Livingston MD 10/20/2018 11:37 A P [id number] cc: MD Endy Joy MD Bruce F. Weber, MD documented in this encounter Plan of Treatment Not on file documented as of this encounter Visit Diagnoses Not on filedocumented in this encounter
--- OUTSIDE RECORDS SUMMARY | 2024-06-22 00:35 | XMS_ITS | Encounter Summary ---
Author Organization [facility] Address [address] [place] [address]. [place], [place] [address] [place] [address] Care Team Providers Care Procedure Tech Name Role Phone Smooth Cristina MD Primary Care Provider [phone] Encounter Details Date Type Department Care Team (Late st Contact Info) Description 11/22/[address] [phone] Endy Livingston MD [address] [place] [phone] Social History Tobacco Use Types Packs/Day Years Used Date Smoking Tobacco: Never AUDIT-C Answer Date Recorded Frequency of Alcohol [...] Progress Notes * Endy Livingston MD - 11/22/2018 4:00 PM CDT Post-Op Alan Burgos is status post on 10/07/2018 RIGHT quadriceps repair. HPI: Patient is doing well. He is wearing as hinged knee brace. He reports achy pain on occasion. He denies night pain. He is not taking any pain medication. PE: EXAM Today reveals 0 - 70, weak quad Assessment: Plan: I have provided him a script for PT. He'll wear his brace and I've set it on 0 - 70. He'll return in 2 weeks. Assessment 1. Aftercare following surgery (V58.89) (Z48.89) Signatures Electronically signed by : Endy Livingston M.D.; Nov 23 2018 9:23AM ELECTRONICS LEAD (Author) documented in this encounter Plan of Treatment Not on file documented as of this encounter Visit Diagnoses Not on filedocumented in this encounter Care Teams Procedure Tech Relationship Specialty Start Date End Date Smooth Cristina MD [address] [place] [phone] PCP - General FAMILY PRACTICE 12/05/18 documented as of this encounter
--- OUTSIDE RECORDS SUMMARY | 2024-06-22 00:35 | XMS_ITS | Encounter Summary ---
Author Organization [facility] Address [address] [place] [address]. [place] [address] [place] [address] Care Team Providers Care Assembler Wire Group Name Role Phone Unavailable Primary Care Provider Unavailabl e Encounter Details Date Type Department Care Team (Late st Contact Info) Description 10/05/2018 Abstract [facility] [place] [address] [place] [phone] Roberta Tanner FNP-ELIZABETH [address] [place] [address] Social History Tobacco Use Types Packs/Day Years Used Date Smoking Tobacco: Never Assessed Sex and Gender Information Value Date Recorded Sex Assigned at Not on file Legal Sex Male 7:08 PM CDT Gender Identity Not on file Sexual Orientation Not on file documented as of this encounter Progress Notes * LALIT Ordaz - 10/05/2018 3:00 PM CDT Chief Complaint Chief Complaint: The patient presents to the office today with RIGHT knee pain. History of Present Illness HPI: Patient presented to the clinic today for RIGHT knee pain. He reports an injury on 09/29/18 where he fell off of a ladder injuring his RIGHT knee. He was seen in [facility] on 09/29/18 where they put him in a knee immobilizer, using crutches, and referred to our office. He reports no pain unless he is bending his knee. He states that he is unable to lift his lower part of his knee and has toactively lift his leg up when moving around. He reports numbness and tingling and night pain. He isnot taking anything for pain. Review of Systems See HPI for pertinent positives. Active Problems 1. Bilateral knee pain (719.46) (M25.561,M25.562) 2. Effusion of left knee (719.06) (M25.462) 3. Left knee pain (719.46) (M25.562) 4. Osteoarthritis of left knee (715.96) (M17.12) 5. Osteoarthritis of right knee (715.96) (M17.11) 6. Right knee pain (719.46) (M25.561) Past Medical History 1. History of Broken bones (829.0) (T14.8XXA) 2. History of Heart problem (429.9) (I51.9) [...] Non-smoker (V49.89) (Z78.9) ?? Primary language is Polish ?? Retired Current Meds 1. amLODIPine Besy-Benazepril HCl - 10-20 MG Oral Capsule; TAKE 1 TABLET BY MOUTH DAILY; Therapy: [id number] to Recorded 2. metFORMIN HCl - 500 MG Oral Tablet; TAKE 1 TABLET DAILY; Therapy: 12Sep2015 to Recorded 3. Omeprazole 20 MG Oral Capsule Delayed Release; TAKE 1 CAPSULE DAILY EVERY MORNING BEFORE BREAKFAST; Therapy: 23Mar2016 to Recorded 4. Tamsulosin HCl - 0.4 MG Oral Capsule; TAKE 1 TABLET BY MOUTH DAILY; Therapy: [id number] to Recorded Allergies 1. iodine Physical Exam Constitutional: alert and in no acute distress. Neurological:. the patient was oriented to person, place, and time. . mood and affect were appropriate.. Eyes: pupils were equal in size, round, reactive to light, with normal accommodation. ENT: hearing was normal. Neck: the appearance of the neck was normal. Cardiovascular: heart rate and rhythm were normal, normal S1 and S2 and the arterial pulses were normal. Pulmonary: no respiratory distress, normal respiratory rhythm and effort and clear bilateral breathsounds. Abdomen: non-tender. Right Knee: EXAM today reveals tenderness with palpation over distal quadriceps with large palpable defect at the superior patella pole, severe pain with flexion, moderate effusion, mild ecchymosis, mild swelling, no groin pain with hip rotation, NVI Results/Data XR Knee Standing Bi [id number] 09:52PM Roberta Tanner Test Name Result Flag Reference XR Knee Standing Bi (Report) [address] Patient Name: ALAN VALENTIN Date of : 1950 Med Rec #: [id number] Age/Sex: 68/M Pt. Location: ORTHO Attending Provider: ROBERTA TANNER NP Ordering Provider: ROBERTA TANNER NP Study Date Order Number Procedure 10/05/18 [id number] XR Knee Standing Bi Signed Examination: XR Knee Standing Bi Exam time: 10/05/2018 12:00 AM Clinical history: Right knee pain. History of trauma. Comparison: Remote studies are from March 2016 Technique: Bilateral weightbearing radiographs. Findings: Degenerative changes are seen in the left knee which appear worse. Less pronounced degenerative changes in the right knee. No acute bony abnormalities. IMPRESSION: 1) No acute bony abnormalities. Bilateral degenerative changes worse in the left knee. Electronically Signed By: ZOE COLLIER MD 10/05/182152 Dictated On: 10/05/182151 Interpreted By: ZOE COLLIER MD Transcribed On: 10/05/182151 - INFCE XR Knee 1 to 2 View Rt [id number] 08:18PM Roberta Tanner Test Name Result Flag Reference XR Knee 1 to 2 View Rt (Report) [address] Patient Name: ALAN VALENTIN Date of : 1950 Med Rec #: [id number] Age/Sex: 68/M Pt. Location: ORTHO Attending Provider: ROBERTA TANNER NP Ordering Provider: ROBERTA TANNER NP Study Date Order Number Procedure 10/05/18 [id number] XR Knee 1 to 2 Views Rt Signed Examination: XR Knee 1 to 2 Views Rt Exam time: 10/05/2018 12:00 AM Clinical history: Trauma. Knee pain. Comparison: Comparison made to prior studies from March 2016 Technique: 2 views of the right knee and standing views of both knees. Findings: In the right knee there are no definite acute bony abnormalities. Mild degenerative changes. There is no malalignment. There is soft tissue swelling anterior to the patella and perhaps effusion in the joint. Mild irregularity and small calcifications medial to the right distal femur at the attachment of the medial collateral ligament. IMPRESSION: 1) No definite acute bony abnormalities or malalignment. 2. Soft tissue swelling anterior to the patella and around the patella with effusion suggested in the knee joint. Electronically Signed By: ZOE COLLIER MD 10/05/182019 Dictated On: 10/05/182017 Interpreted By: ZOE COLLIER MD Transcribed On: 10/05/182017 - INFCE Views: of the right knee. XRAY today reveals Mild degenerative, no acute bony injury, moderate effusion. Findings: Assessment 1. Traumatic rupture of quadriceps tendon, right, initial encounter (843.8) (S76.111A) Plan Bilateral knee pain 1. XR Knee Standing Bi; Status:Resulted - Requires Verification; Done: [id number] 09:52PM Right knee pain 2. XR Knee 1 to 2 View Rt; Status:Resulted - Requires Verification; Done: [id number] 08:18PM Traumatic rupture of quadriceps tendon, right, initial encounter 3. Continue with our present treatment plan.; Status:Complete; Done: [id number] With his history of a pacemaker and inability to have a MRI I have recommended proceeding with surgery for repair of his quadriceps tendon given his examination. He may weight bear as tolerated in the knee immobilizer and stressed the need to wear the immobilizer at all times but may remove to shower. Explained the need to refrain from flexion. He voiced understanding. He will follow up in 10-14 days post op. The planned procedure/s, the expected benefits,the associated risks,possible complications, and alternatives to the procedure/s have been discussed in detail with the patient or family. They state that they understand, have no further questions and agree to proceed with the procedure/s as outlined. Procedures/Surgery: 10-07-18 RIGHT Quadriceps repair Signatures Electronically signed by : CRISELDA Alva; Oct 06 2018 12:42PM COFFEE ATTENDANT (Author) documented in this encounter Plan of Treatment Not on file documented as of this encounter Procedures Procedure Name Priority Date/Time Associated Diagnosis Comments XR KNEE STAND AP MAICOL ONLY Routine 10/05/2018 9:52 PM CDT SURG XR KNEE RT 1-2V Routine 10/05/2018 8:18 PM CDT documented in this encounter Results * XR KNEE STAND AP MAICOL ONLY (10/05/2018 9:52 PM CDT) Anatomical Region Laterality Modality Knee Radiographic Dinorah ging 10/05/2018 9:52 PM CDT 10/05/2018 9:52 PM CDT Narrative 10/05/2018 9:55 PM CDT [facility] ?? [facility] ?? [place], [place] ? Patient Name: ALAN VALENTIN Date of : 1950 ?? Med Rec #: [id number] ??Age/Sex: 68/M ?Pt. Location: ORTHO ?? Attending Provider: ROBERTA TANNER INFORMATICS CONSULTANT ?? Ordering Provider: ROBERTA TANNER INFORMATICS CONSULTANT ? Study Date Order Number Procedure ?? 10/05/18 [id number] XR Knee Standing Bi ? Signed ? Examination: XR Knee Standing Bi ? Exam time: 10/05/2018 12:00 AM ? Clinical history: Right knee pain. History of trauma. ? Comparison: Remote studies are from March 2016 ? Technique: Bilateral weightbearing radiographs. ? Findings: Degenerative changes are seen in the left knee which appear worse. Less pronounced degenerative changes in the right knee. No acute bony abnormalities. ? IMPRESSION: ?? 1) No acute bony abnormalities. Bilateral degenerative changes worse in the left knee. ? Electronically Signed By: ZOE COLLIER MD 10/05/182152 ? Dictated On: 10/05/182151 ?? Interpreted By: ZOE COLLIER MD ?? Transcribed On: 10/05/182151 - INFCE ?? Procedure Note Elliot Becerra MD - 10/07/[address] Patient Name: ALAN VALENTIN Date of : 1950 Med Rec #: [id number] Age/Sex: 68/M Pt. Location: ORTHO Attending Provider: ROBERTA TANNER NP Ordering Provider: ROBERTA TANNER NP Study Date Order Number Procedure 10/05/18 [id number] XR Knee Standing Bi Signed Examination: XR Knee Standing Bi Exam time: 10/05/2018 12:00 AM Clinical history: Right knee pain. History of trauma. Comparison: Remote studies are from March 2016 Technique: Bilateral weightbearing radiographs. Findings: Degenerative changes are seen in the left knee which appearworse. Less pronounced degenerative changes in the right knee. No acute bony abnormalities. IMPRESSION: 1) No acute bony abnormalities. Bilateral degenerative changes worse inthe left knee. Electronically Signed By: ZOE COLLIER MD 10/05/182152 Dictated On: 10/05/182151 Interpreted By: ZOE COLLIER MD Transcribed On: 10/05/182151 - INFCE us Roberta Tanner SURVEILLANCE SYSTEM MONITOR-BC GENERAL IMAGING Final Resu lt * SURG XR KNEE RT 1-2V (10/05/2018 8:18 PM CDT) Anatomical Region Laterality Modality Knee IMAGES ONLY 10/05/2018 8:18 PM CDT 10/05/2018 8:18 PM CDT Narrative 10/05/2018 8:22 PM CDT [facility] ?? [address] [facility] ?? [place], [place] ? Patient Name: ALAN VALENTIN Date of : 1950 ?? Med Rec #: [id number] ??Age/Sex: 68/M ?Pt. Location: ORTHO ?? Attending Provider: ROBERTA TANNER NP ?? Ordering Provider: ROBERTA TANNER INFORMATICS CONSULTANT ? Study Date Order Number Procedure ?? 10/05/18 [id number] XR Knee 1 to 2 Views Rt ? Signed ? Examination: XR Knee 1 to 2 Views Rt ? Exam time: 10/05/2018 12:00 AM ? Clinical history: Trauma. Knee pain. ? Comparison: Comparison made to prior studies from March 2016 ? Technique: 2 views of the right knee and standing views of both knees. ? Findings: In the right knee there are no definite acute bony abnormalities. Mild degenerative changes. There is no malalignment. There is soft tissue swelling anterior to the patella and perhaps effusion in the joint. Mild irregularity and small calcifications medial to the right distal femur at the attachment of the medial collateral ligament. ? IMPRESSION: ?? 1) No definite acute bony abnormalities or malalignment. ?? 2. Soft tissue swelling anterior to the patella and around the patella with effusion suggested in the knee joint. ? Electronically Signed By: ZOE COLLIER MD 10/05/182019 ? Dictated On: 10/05/182017 ?? Interpreted By: ZOE COLLIER MD ?? Transcribed On: 10/05/182017 - INFCE ?? Procedure Note Elliot Becerra MD - 04/19/[address] Patient Name: ALAN VALENTIN Date of : 1950 Med Rec #: [id number] Age/Sex: 68/M Pt. Location: ORTHO Attending Provider: ROBERTA TANNER NP Ordering Provider: ROBERTA TANNER NP Study Date Order Number Procedure 10/05/18 [id number] XR Knee 1 to 2 Views Rt Signed Examination: XR Knee 1 to 2 Views Rt Exam time: 10/05/2018 12:00 AM Clinical history: Trauma. Knee pain. Comparison: Comparison made to prior studies from March 2016 Technique: 2 views of the right knee and standing views of both knees. Findings: In the right knee there are no definite acute bonyabnormalities. Mild degenerative changes. There is no malalignment. There is soft tissue swelling anteriorto the patella and perhaps effusion in the joint. Mild irregularity and small calcificationsmedial to the right distal femur at the attachment of the medial collateral ligament. IMPRESSION: 1) No definite acute bony abnormalities or malalignment. 2. Soft tissue swelling anterior to the patella and around the patellawith effusion suggested in the knee joint. Electronically Signed By: ZOE COLLIER MD 10/05/182019 Dictated On: 10/05/182017 Interpreted By: ZOE COLLIER MD Transcribed On: 10/05/182017 - INFCE us Roberta Tanner SURVEILLANCE SYSTEM MONITOR-BC IMAGES ONLY Final Resu lt documented in this encounter Visit Diagnoses Not on filedocumented in this encounter
--- OUTSIDE RECORDS SUMMARY | 2024-06-22 00:35 | XMS_ITS | Encounter Summary ---
Author Organization [facility] Address [address] [place] [address]. [place] [address] [place] [address] Care Team Providers Care Granulating Blender Name Role Phone Unavailable Primary Care Provider Unavailabl e Encounter Details Date Type Department Care Team (Late st Contact Info) Description 07/22/2016 Abstract [facility] [address] [place] [id number] Sarah Tanner FNP-BC [address] [place], [place] [id number] Social History Tobacco Use Types Packs/Day Years Used Date Smoking Tobacco: Never Assessed Sex and Gender Information Value Date Recorded Sex Assigned at Not on file Legal Sex Male 7:08 PM CDT Gender Identity Not on file Sexual Orientation Not on file documented as of this encounter Progress Notes * LALIT Ordaz - 07/22/2016 2:45 PM CST Chief Complaint Chief Complaint: The patient presents to the office today with LEFT knee pain. History of Present Illness HPI: Patient returns to clinic today with complaints of LEFT knee pain. He denies any injury. The previous injection provided good relief. HE reports the last injection lasted 10 weeks. He states hispain is returning. He has pain with ambulation. Review of Systems See HPI for pertinent positives. Active Problems 1. Bilateral knee pain (719.46) (M25.561,M25.562) 2. Left knee pain (719.46) (M25.562) 3. Osteoarthritis of left knee (715.96) (M17.12) 4. Osteoarthritis of right knee (715.96) (M17.11) Past Medical History 1. History of Broken [...] Non-smoker (V49.89) (Z78.9) ?? Primary language is Hong Konger ?? Retired Current Meds 1. Amlodipine Besy-Benazepril HCl - 10-20 MG Oral Capsule; Therapy: [id number] to Recorded 2. BD Pen Needle Gianna U/F 32G X 4 MM Miscellaneous; Therapy: 30Aug2015 to Recorded 3. Cialis 5 MG Oral Tablet; Therapy: 16Apr2015 to Recorded 4. Levemir FlexTouch 100 UNIT/ML Subcutaneous Solution Pen-injector; Therapy: [id number] to Recorded 5. MetFORMIN HCl - 500 MG Oral Tablet; Therapy: [id number] to Recorded 6. Omeprazole 20 MG Oral Capsule Delayed Release; Therapy: 23Mar2016 to Recorded 7. Tamsulosin HCl - 0.4 MG Oral Capsule; Therapy: [id number] to Recorded Allergies 1. No Known Allergies Physical Exam Constitutional: alert and in no acute distress. Neurological:. the patient was oriented to person, place, and time. mood and affect were appropriate. Eyes: pupils were equal in size, round, reactive to light, with normal accommodation. ENT: hearing was normal. Pulmonary: no respiratory distress. Skin: no injuries or skin lesions on the left lower extremity. Left Knee: EXAM today reveals NVI, lateral joint line tenderness, 5 - full range of motion, negative pain with rotation, fullness, minimal effusion Procedure Procedure: Injection of the left knee joint. Indication: Osteoarthritis. Were discussed with the patient. Verbal consent was obtained prior to the procedure. Alcohol and Betadine was used to prep the area. ethyl chloride spray was used as a topical anesthetic. Using sterile technique, the aspiration/injection needle was then directed from a lateral aspect. A 22-gauge and 1.5 inch needle was used to inject 8 mL of 1% Lidocaine and 1 mL 80mg/mL methylprednisolone. A bandage was applied. Post-Procedure: the patient tolerated the procedure well. Complications: None. Assessment 1. Osteoarthritis of left knee (715.96) (M17.12) Plan Osteoarthritis of left knee 1. Continue with our present treatment plan.; Status:Complete; Done: 22Jul2016 04:04PM 2. Your joint was injected today.; Status:Complete; Done: 22Jul2016 04:04PM AAT PRN Signatures Electronically signed by : CRISELDA Alva; Jul 22 2016 4:04PM NUCLEAR MEDICINE OFFICER (Author) documented in this encounter Plan of Treatment Not on file documented as of this encounter Visit Diagnoses Not on filedocumented in this encounter
--- OUTSIDE RECORDS SUMMARY | 2024-06-22 00:35 | XMS_ITS | Encounter Summary ---
Author Organization [facility] Address [address] [place] [address]. [place] [address] [place] [address] Care Team Providers Care Telephoto Installer Name Role Phone Unavailable Primary Care Provider Unavailabl e Encounter Details Date Type Department Care Team (Late st Contact Info) Description 10/25/2012 Abstract [facility] [address] [place] [address] , Elliot Warner MD Social History Tobacco [...]
--- OUTSIDE RECORDS SUMMARY | 2024-06-22 00:35 | XMS_ITS | Encounter Summary ---
Author Organization [facility] Address [address] [place] [address]. [place], [place] [address] [place] [address] Care Team Providers Care Warp Dresser Name Role Phone Unavailable Primary Care Provider Unavailabl e Encounter Details Date Type Department Care Team (Late st Contact Info) Description 01/06/2017 Abstract [facility] [address] [place] [address] Sarah Tanner, UNIVERSITY LIBRARIAN- [address] [place] [address] Social History Tobacco Use Types Packs/Day Years Used Date Smoking Tobacco: Never Sex and Gender Information Value Date Recorded Sex Assigned at Not on file Legal Sex Male 7:08 PM CDT Gender Identity Not on file Sexual Orientation Not on file documented as of this encounter Plan of Treatment Not on file documented as of this encounter Visit Diagnoses Diagnosis Procedure not carried out because of patient's decision documented in this encounter
--- OUTSIDE RECORDS SUMMARY | 2024-06-22 00:35 | XMS_ITS | Encounter Summary ---
Author Organization [facility] Address [address] [place] [address]. [place], [place] [address] [place] [address] Care Team Providers Care Nutritional Services Director Name Role Phone Smooth Cristina MD Primary Care Provider [phone] Encounter Details Date Type Department Care Team (Latest Contact Info) Description 10/20/2019 Travel Social History Tobacco Use Types Packs/Day [...] PM CDT documented as of this encounter Plan of Treatment Not on file documented as of this encounter Visit Diagnoses Not on filedocumented in this encounter Care Teams Nutritional Services Director Relationship Specialty Start Date End Date Smooth Cristina MD [address] [place] [phone] PCP - General FAMILY PRACTICE 12/05/18 documented as of this encounter
--- OUTSIDE RECORDS SUMMARY | 2024-06-22 00:35 | XMS_ITS | Encounter Summary ---
Author Organization [facility] Address [address] [place] [address]. [place], [place] [address] [place] [address] Care Team Providers Care Shift Supervisor Melting Name Role Phone Smooth Cristina MD Primary Care Provider [phone] Reason for Visit * Reason Comments Postop Followup Quadriceps muscle ru pture, right DOS: 10/07/18 Encounter Details Date Type Department Care Team (Latest Contact Info) Description 04/06/2019 4:00 PM CDT Office Visit [facility] [place] [address] Endy Livingston MD [address] [place] [address] Postop Followup (Quadriceps muscle rupture, right DOS: 10/07/18) Social History Tobacco Use Types Packs/Day Years [...] Progress Notes * Endy Livingston MD - 04/06/2019 4:00 PM CDT Chief Complaint: Postop Followup (Quadriceps muscle rupture, right DOS: 10/07/18) History of Present Illness: Alan Burgos is a 68-year-old male who presents to the office for Postop Followup (Quadriceps muscle rupture, right DOS: 10/07/18) Patient returns for 6 month follow up. He states that he is doing okay but he continues to have weakness to RIGHT quadriceps. Patient reports doing a home exercise program every other day with increased range of motion. He states it has been a slow process but he is getting better. ROS: See HPI for pertinent positives Problem List: Patient Active Problem List Diagnosis ??? Quadriceps muscle rupture, right, subsequent encounter History: Past Medical History: Diagnosis Date ??? Diabetes (CMS/HCC) ??? Hypertension ??? 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 Pacemaker Past Surgical History: Procedure Laterality Date ??? REPAIR QUADRICEPS / HAMSTRING MUSCLE 10/07/2018 No family history on file. Social History Tobacco Use ??? Smoking status: Never Smoker ??? Smokeless tobacco: Never Used Substance Use Topics ??? Alcohol use: No Frequency: Never ??? Drug use: No Medications: Current Outpatient Medications: ??? amlodipine-benazepril 10-20 MG capsule, Take 1 tablet by mouth daily., Disp: , Rfl: ??? HUMALOG KWIKPEN 100 UNIT/ML injection (PEN), Inject 20-25 Units into the skin see administration instructions. , Disp: , Rfl: ??? insulin degludec (TRESIBA FLEXTOUCH) 100 UNIT/ML Solution Pen-injector injection, Inject 45 Units into the skin nightly at bedtime. , Disp: , Rfl: ??? metFORMIN 500 MG tablet, Take 500 mg by mouth 2 (two) times daily with meals. , Disp: , Rfl: ??? omeprazole 20 MG capsule, Take 20 mg by mouth daily. , Disp: , Rfl: ??? tamsulosin 0.4 MG Cap, Take 1 tablet by mouth daily., Disp: , Rfl: Allergies Allergen Reactions ??? Iodine Unknown Objective: There were no vitals filed for this visit. There is no height or weight on file to calculate BMI. Physical Exam: Constitutional: Alert and in no acute distress. Neurological: The patient was oriented to person, place, and time. Eyes: The sclera and conjunctiva were normal ENT: Hearing was normal. Neck: The appearance of the neck was normal. Cardiovascular: Normal pulses. Pulmonary: No respiratory distress. Skin: No injuries or skin lesions. Musculoskeletal: Examination demonstrates no defect in the patellar tendon and he demonstrates excellent range of motion. His quad strength is reduced and he has mild atrophy. Mild gait disturbance is appreciated secondary to weakness and is otherwise neurovascularly intact Results: Assessment: Encounter Diagnose(s) ICD-10-CM ICD-9-CM SNOMED CT(R) 1. Quadriceps muscle rupture, right, subsequent encounter S76.111D V58.89 RUPTURE OF SKELETAL MUSCLE 844.8 Plan: Patient is doing very well status post right quad repair. He is going to continue working on home exercise on his own and I will have any activity restrictions. He will return as needed Follow up: Return if symptoms worsen or fail to improve. ENDY LIVINGSTON MD ITUTIONAL ASSET MANAGER documented in this encounter Plan of Treatment Not on file documented as of this encounter Visit Diagnoses Diagnosis Quadriceps muscle rupture, right, subsequent encounter- Primary documented in this encounter Care Teams Shift Supervisor Melting Relationship Specialty Start Date End Date Smooth Cristina MD [address] [place] [phone] PCP - General FAMILY PRACTICE 12/05/18 documented as of this encounter
--- OUTSIDE RECORDS SUMMARY | 2024-06-22 00:35 | XMS_ITS | Encounter Summary ---
Author Organization [facility] Address [address] [place] [address]. [place] [address] [place] [address] Care Team Providers Care Assistant Store Manager Trainee Name Role Phone Unavailable Primary Care Provider Unavailabl e Encounter Details Date Type Department Care Team (Late st Contact Info) Description 09/09/2016 Abstract [facility] [address] [phone] Endy Livingston MD [address] [place] [address] Social History Tobacco Use Types Packs/Day Years Used Date Smoking Tobacco: Never Assessed Sex and Gender Information Value Date Recorded Sex Assigned at Not on file Legal Sex Male 7:08 PM CDT Gender Identity Not on file Sexual Orientation Not on file documented as of this encounter Progress Notes * Endy Livingston MD - 09/09/2016 4:00 PM CDT Chief Complaint Chief Complaint: The patient presents to the office today with LEFT knee pain. History of Present Illness HPI: Patient returns to clinic today in follow up for her LEFT knee pain. He has pain lateral aspect of knee with swelling. He had previous injection that he states did not provide any longterm relief. He denies any new injury. PREVIOUS HISTORY 07-22-2016 Patient returns to clinic today with complaints of LEFT knee pain. He denies any injury. The previous injection provided good relief. HE reports the last injection lasted 10 weeks. He states his pain is returning. He has pain with ambulation. [...] Non-smoker (V49.89) (Z78.9) ?? Primary language is Venezuelan ?? Retired Current Meds 1. Amlodipine Besy-Benazepril HCl - 10-20 MG Oral Capsule; Therapy: [id number] to Recorded 2. BD Pen Needle Gianna U/F 32G X 4 MM Miscellaneous; Therapy: 30Aug2015 to Recorded 3. Cialis 5 MG Oral Tablet; Therapy: 16Apr2015 to Recorded 4. Levemir FlexTouch 100 UNIT/ML Subcutaneous Solution Pen-injector; Therapy: [id number] to Recorded 5. MetFORMIN HCl - 500 MG Oral Tablet; Therapy: [id number] to Recorded 6. Omeprazole 20 MG Oral Capsule Delayed Release; Therapy: 23Mar2016 to Recorded 7. Tamsulosin HCl - 0.4 MG Oral Capsule; Therapy: [id number] to Recorded Allergies 1. No Known Allergies [...] lower extremity. Left Knee: EXAM today reveals large effusion, lateral tenderness with palpation, negative McMurrays, very sensitive to palpation Results/Data XRAYS today of her LEFT knee reveals moderate lateral compartment narrowing. Findings: Procedure Procedure: a 22-gauge Aspiration and Injection of the left knee joint. Indication: Effusion and Osteoarthritis. Were discussed with the patient. Verbal consent was obtained prior to the procedure. Alcohol and Betadine was used to prep the area. ethyl chloride spray was used as a topical anesthetic. Using sterile technique, the aspiration/injection needle was then directed from a lateral aspect. 45 mL of straw colored fluid was aspirated with 1.5 inch needle. The syringe was changed and the same needle was left in place and was used to inject 8 mL of 1% Lidocaine and 1 mL 80mg/mL methylprednisolone. A bandage was applied. Post-Procedure: the patient tolerated the procedure well. Complications: None. Assessment 1. Osteoarthritis of left knee (715.96) (M17.12) 2. Effusion of left knee (719.06) (M25.462) Plan Effusion of left knee 1. Continue with our present treatment plan.; Status:Complete; Done: 10Sep2016 09:06AM 2. We have injected a steroid medicine into your knee to help reduce swelling.; Status:Complete; Done: 10Sep2016 09:06AM 3. You may continue or resume your normal level of activity.; Status:Complete; Done: 10Sep2016 09:06AM I infiltrated with lidocaine and then injected. He'll return depending on his symptoms. If this doesn't provide any oysterman relief we will discuss arthroscopy. AAT PRN Signatures Electronically signed by : Endy Livingston M.D.; Sep 10 2016 9:06AM OUTSOLE TACKER (Author) documented in this encounter Plan of Treatment Not on file documented as of this encounter Visit Diagnoses Not on filedocumented in this encounter
--- OUTSIDE RECORDS SUMMARY | 2024-06-22 00:35 | XMS_ITS | Encounter Summary ---
Author Organization [facility] Address [address] [place] [address]. [place], [place] [address] [place] [address] Care Team Providers Care Alcohol Law Enforcement Agent Name Role Phone Smooth Cristina MD Primary Care Provider [phone] Reason for Visit * Reason Onset Date Comments Referral 07/20/2023 Encounter Details Date Type Department Care Team (Late st Contact Info) Description 07/20/2023 Telephone [facility] DEFAULT None, Provider, MD Referral Social History Tobacco Use Types Packs/Day Years [...] as of this encounter Progress Notes * Fabienne Logan - 07/20/2023 9:59 AM CST Will watch for it to come through. INAL JUSTICE SOCIAL WORKER * Francoise Lee - 07/20/2023 9:51 AM CST Jesika with [facility] Checking to see if referral was received for patient Sent on 07/15 Verified fax number and she is sending again. INAL JUSTICE SOCIAL WORKER documented in this encounter Plan of Treatment Not on file documented as of this encounter Visit Diagnoses Not on filedocumented in this encounter Care Teams Alcohol Law Enforcement Agent Relationship Specialty Start Date End Date Smooth Cristina MD [address] [place] [phone] PCP - General FAMILY PRACTICE 12/05/18 documented as of this encounter
--- OUTSIDE RECORDS SUMMARY | 2024-06-22 00:35 | XMS_ITS | Encounter Summary ---
Author Organization [facility] Address [address] [place] [address]. [place], [place] [address] [place] [address] Care Team Providers Care Tanning Wheel Operator Name Role Phone Unavailable Primary Care Provider Unavailabl e Encounter Details Date Type Department Care Team (Latest Contact Info) Description 10/07/2018 Abstract [facility] Endy Livingston MD [address] [place] [address] Social History Tobacco Use Types [...] Priority Date/Time Associated Diagnosis Comments GLUCOSE BLOOD, MONITOR DEVICE Routine 10/07/2018 3:57 PM CDT documented in this encounter Results * (ABNORMAL) GLUCOSE BLOOD, MONITOR DEVICE (10/07/2018 3:57 PM CDT) GLUCOSE POC 264(H) 70 - 140 MG/DL TOUCHWORKS TO EPIC CONVERSION 10/07/2018 3:57 PM CDT 10/07/2018 3:57 PM CDT Narrative TOUCHWORKS TO EPIC CONVERSION - 10/07/2018 4:04 PM CDT Result Communication: No patient communication needed at this time us Endy Livingston MD LABORATORY Final Result TOUCHWORKS TO EPIC CONVERSION documented in this encounter Visit Diagnoses Not on filedocumented in this encounter
--- OUTSIDE RECORDS SUMMARY | 2024-06-22 00:35 | XMS_ITS | Encounter Summary ---
Author Organization [facility] Address [address] [place] [address]. [place] [address] [place] [address] Care Team Providers Care Tool Designer Name Role Phone Unavailable Primary Care Provider Unavailabl e Encounter Details Date Type Department Care Team (Late st Contact Info) Description 10/26/2012 Abstract [facility] [address] [place] [address] , Elliot Warner MD Social History Tobacco Use Types Packs/Day Years Used Date Smoking Tobacco: Never Sex and Gender Information Value Date Recorded Sex Assigned at Not on file Legal Sex Male 7:08 PM CDT Gender Identity Not on file Sexual Orientation Not on file documented as of this encounter Last Filed Vital Signs Vital Sign Reading Time Taken Comments Blood Pressure 120/72 10/26/2012 11:31 AM CDT Pulse 80 10/26/2012 11:31 AM CDT Temperature - - Respiratory Rate 16 10/26/2012 11:31 AM CDT Oxygen Saturation - - Inhaled Oxygen Concentration - - Weight 87.1 kg (192 lb) 10/26/2012 11:31 AM CDT Height 172.7 cm (5' 8 ) 10/26/2012 11:31 AM CDT Body Mass Index 29.19 10/26/2012 11:31 AM CDT documented in this encounter Plan of Treatment Not on file documented as of this encounter Procedures Procedure Name Priority Date/Time Associated Diagnosis Comments CBC,CONVERSION Routine 10/26/2012 12:50 PM CDT PARTIAL THROMBOPLASTIN TIME,PTT Routine 10/26/2012 12:50 PM CDT PROTIME / PROTHROMBIN TIME Routine 10/26/2012 12:50 PM CDT BASIC METABOLIC PANEL Routine 10/26/2012 12:50 PM CDT documented in this encounter Results * CBC,CONVERSION (10/26/2012 12:50 PM CDT) [facility] WBC 6.65 4.50 - 10.80 K/cumm MEDINFORMATIX TO EPIC CONVERSION RBC 4.86 4.50 - 6.10 M/cumm MEDINFORMATIX TO EPIC CONVERSION HGB 14.6 13.0 - 18.0 gm/dL MEDINFORMATIX TO EPIC CONVERSION HCT 41.4 37.0 - 52.0 % MEDINFORMATIX TO EPIC CONVERSION MCV 85.2 78.0 - 100.0 fL MEDINFORMATIX TO EPIC CONVERSION MCH 30.0 27.0 - 31.0 pg MEDINFORMATIX TO EPIC CONVERSION MCHC 35.3 33.0 - 36.0 gm/dL MEDINFORMATIX TO EPIC CONVERSION RDW 12.1 11.5 - 14.5 % MEDINFORMATIX TO EPIC CONVERSION PLATELET COUNT 198 150 - 350 K/cumm MEDINFORMATIX TO EPIC CONVERSION MPV 9.3 7.4 - 10.4 fL MEDINFORMATIX TO EPIC CONVERSION ABS. NEUTROPHILS 4.47 1.60 - 8.30 K/cumm MEDINFORMATIX TO EPIC CONVERSION ABS. LYMPHOCYTES 1.38 0.80 - 4.70 K/cumm MEDINFORMATIX TO EPIC CONVERSION ABS. MONOCYTES 0.60 0.00 - 1.50 K/cumm MEDINFORMATIX TO EPIC CONVERSION ABS. EOSINOPHILS 0.15 0.00 - 0.40 K/cumm MEDINFORMATIX TO EPIC CONVERSION ABS. BASOPHILS 0.05 0.00 - 0.20 K/cumm MEDINFORMATIX TO EPIC CONVERSION 10/26/2012 12:5 0 PM CDT 10/26/2012 12:50 PM CDT Narrative MEDINFORMATIX TO EPIC CONVERSION - 10/26/2012 1:11 PM CDT Reviewed by SALUD Fung ??8 2012 ??2:16:00:000PM us Generic Conversion Md [facility] Final R esult MEDINFORMATIX TO EPIC CONVERSION * (ABNORMAL) BASIC METABOLIC PANEL (10/26/2012 12:50 PM CDT) SODIUM S/P/B 137 135 - 147 mmol/L MEDINFORMATIX TO EPIC CONVERSION POTASSIUM S/P/B 3.9 3.5 - 5.0 mmol/L MEDINFORMATIX TO EPIC CONVERSION CHLORIDE S/P/B 104 98 - 107 mmol/L MEDINFORMATIX TO EPIC CONVERSION CO2 21(L) 22 - 29 mmol/L MEDINFORMATIX TO EPIC CONVERSION GLUCOSE 167(H) 70 - 109 mg/dL MEDINFORMATIX TO EPIC CONVERSION BUN 20 8.4 - 25.7 mg/dL MEDINFORMATIX TO EPIC CONVERSION CREATININE S/P/B 1.2 0.7 - 1.3 mg/dL MEDINFORMATIX TO EPIC CONVERSION CALCIUM S/P/B 9.5 8.8 - 10.0 mg/dL MEDINFORMATIX TO EPIC CONVERSION ANION GAP 12 MEDINFORMA TIX TO EPIC CONVERSION OSMOLALITY (S/P/B) 280 mOsm/kg MEDINFORMATIX T O EPIC CONVERSION EGFR NON-AFR. AMER. 61 >60 mL/min/1. 73sq.m MEDINFORMATIX TO EPIC CONVERSION EGFR AFR. AMER. 74 >60 mL/min/1. 73sq.m MEDINFORMATIX TO EPIC CONVERSION 10/26/2012 12:5 0 PM CDT 10/26/2012 12:50 PM CDT Narrative MEDINFORMATIX TO EPIC CONVERSION - 10/26/2012 1:34 PM CDT Reviewed by SALUD Fung ??8 2012 ??2:16:00:000PM us Generic Conversion Md [facility] Final R esult MEDINFORMATIX TO EPIC CONVERSION * PROTIME / PROTHROMBIN TIME (10/26/2012 12:50 PM CDT) PROTIME 13.0 11.6 - 14.3 sec MEDINFORMATIX TO EPIC CONVERSION INR 1.0 0.9 - 1.1 MEDINFORMA TIX TO EPIC CONVERSION 10/26/2012 12:5 0 PM CDT 10/26/2012 12:50 PM CDT Narrative MEDINFORMATIX TO EPIC CONVERSION - 10/26/2012 1:18 PM CDT Reviewed by SALUD Fung ??8 2012 ??2:16:00:000PM us Generic Conversion Md [facility] Final Sandip jaramillo MEDINFORMATIX TO EPIC CONVERSION * PARTIAL THROMBOPLASTIN TIME,PTT (10/26/2012 12:50 PM CDT) PTT 24 22 - 35 sec MEDINFOR MATIX TO EPIC CONVERSION 10/26/2012 12:5 0 PM CDT 10/26/2012 12:50 PM CDT Narrative MEDINFORMATIX TO EPIC CONVERSION - 10/26/2012 1:19 PM CDT Reviewed by SALUD Fung ??8 2012 ??2:16:00:000PM us Generic Conversion Md [facility] Remy jaramillo MEDINFORMATIX TO EPIC CONVERSION documented in this encounter Visit Diagnoses Not on filedocumented in this encounter
--- OUTSIDE RECORDS SUMMARY | 2024-06-22 00:50 | XMS_ITS | Encounter Summary ---
Author Organization [facility] Healthcare Address [address] [place] [address] Care Team Providers Care Record Label Intern Name Role Phone Smooth Cristina MD Primary Care Provider Reason for Visit * Reason Onset Date Comments Shortness of Breath 04/10/2024 Encounter Details Date Type Department Care Team (Late st Contact Info) Description 04/10/2024 Telephone [facility] Medical Group Cardiology [address] [place] [address] Michael Bond MD [facility] [address] Shortness of Breath Social History Tobacco Use Types Packs/Day Years Used Date Smoking Tobacco: Never Smokeless Tobacco: Never Alcohol Use Standard Drinks/Week Comments No 0 (1 standard drink = 0.6 oz pur e alcohol) Sex and Gender Information Value Date Recorded Sex Assigned at Not on file Legal Sex Male 7:08 PM SCIENTIFIC ARTIST Gender Identity Not on file Sexual Orientation Not on file documented as of this encounter Miscellaneous Notes * Telephone Encounter - Evelina Perez RN - 04/10/2024 1:04 PM CDT Noted. * Telephone Encounter - Evelina Perez RN - 04/10/2024 12:47 PM CDT Spoke with pt, pt reports WHITLOCK, feeling like he is suffocating with any activity, no chest pain, no swelling. Concerned it may be his heart. He thought it was his lungs because he was in contact with some mold and was treated with antibiotics. Pt reports symptoms are worse, and has sob even when getting out of his chair. Scheduled pt an appt with CT tomorrow morning, advised pt to go to ER for any new or worsening symptoms. Will forward to [place], could we do a remote download on pts device? Or see if we couldget him scheduled for a device check in office? * Telephone Encounter - Carole Betancourt - 04/10/2024 11:50 AM CDT Patient reports experiencing SOB on exertion and chest discomfort for the past month. States that about a month ago he was cleaning a home and was exposed to mold. States that he took 20 day antibiotics for that. States that he has been to the doctor and it not his lungs and believes it is his heart. Requesting a call back. Please advise. Thank you. Contact [phone] documented in this encounter Plan of Treatment Not on file documented as of this encounter Visit Diagnoses Not on filedocumented in this encounter Care Teams Record Label Intern Relationship Specialty Start Date End Date Smooth Cristina MD PCP - General 09/18/16 documented as of this encounter
--- OUTSIDE RECORDS SUMMARY | 2024-06-22 00:50 | XMS_ITS | Encounter Summary ---
Author Organization [facility] Healthcare Address [address] [place] [address] Care Team Providers Care Senior Applications Developer Name Role Phone Smooth Cristina MD Primary Care Provider Encounter Details Date Type Department Care Team (Late st Contact Info) Description 11/26/2023 Telephone [facility] Medical Group Cardiology [address] [address] Michael Bond MD [address] [place] [address] Social History Tobacco Use Types Packs/Day Years Used Date Smoking Tobacco: Never Smokeless Tobacco: Never Alcohol Use Standard Drinks/Week Comments No 0 (1 standard drink = 0.6 oz pur e alcohol) Sex and Gender Information Value Date Recorded Sex Assigned at Not on file 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 States he does not have a monitor at home that he turned it in and he does yearly in office checks only. I confirmed that he doesn't do in office checks at 3 or 6mos, he states no just yearly. Anna, I just wanted to confirm with pt * Telephone Encounter - Umm Sanchez MA - 11/26/2023 9:14 AM CDT Pt's monitor showing Dc'd. Called pt to inform and to confirm that he will be doing remote monitoring vs in office checks q 3 mos. Had to LMOR requesting a return call documented in this encounter Plan of Treatment Not on file documented as of this encounter Visit Diagnoses Not on filedocumented in this encounter Care Teams Senior Applications Developer Relationship Specialty Start Date End Date Smooth Cristina MD PCP - General 09/18/16 documented as of this encounter
--- OUTSIDE RECORDS SUMMARY | 2024-06-22 00:50 | XMS_ITS | Encounter Summary ---
Author Organization [facility] Medical [facility] Address [address] [place] [address] Care Team Providers Care Tie In Machine Operator Name Role Phone Smooth Cristina MD Primary Care Provider Encounter Details Date Type Department Care Team (Late st Contact Info) Description 12/24/2022 Telephone [facility] Medical Group Cardiology [address] [facility] [address] [place] [address] Georgina Nice MD [address] [facility] [address] [place] [address] Social History Tobacco Use Types Packs/Day Years Used Date Smoking Tobacco: Never Smokeless Tobacco: Never Alcohol Use Standard Drinks/Week Comments No 0 (1 standard drink = 0.6 oz pur e alcohol) Sex and Gender Information Value Date Recorded Sex Assigned at Not on file 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 [employer] for company rep to check the device. * Telephone Encounter - Andreina Asher RN - 12/24/2022 9:27 AM CDT Anna- can you please assist with devise check set up if appropriate? * Telephone Encounter - Nickie Estrella - 12/24/2022 8:56 AM CDT Pt calling in states that he is experiencing some sob and congestion. He went to [facility] yesterday and they stated that he had fluid. Pt wants to get this device checked the same day as hisf/u with CT. Requesting call back to discuss. Contact: documented in this encounter Plan of Treatment Not on file documented as of this encounter Visit Diagnoses Not on filedocumented in this encounter Care Teams Tie In Machine Operator Relationship Specialty Start Date End Date Smooth Cristina MD PCP - General 09/18/16 documented as of this encounter
--- OUTSIDE RECORDS SUMMARY | 2024-06-22 00:50 | XMS_ITS | Encounter Summary ---
Author Organization [facility] Healthcare Address [address] [place] [address] Care Team Providers Care Grinder And Plater Name Role Phone Smooth Cristina MD Primary Care Provider Encounter Details Date Type Department Care Team (Late st Contact Info) Description 04/18/2024 Orders Only [facility] Medical Group Cardiology [address] [place] [address] Kevin Chirinos MD [address] [address] Social History Tobacco Use Types Packs/Day Years Used Date Smoking Tobacco: Never Smokeless Tobacco: Never Alcohol Use Standard Drinks/Week Comments No 0 (1 standard drink = 0.6 oz pur e alcohol) Sex and Gender Information Value Date Recorded Sex Assigned at Not on file 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 Gender Identity Not on file Sexual Orientation Not on file documented as of this encounter Plan of Treatment Not on file documented as of this encounter Procedures Procedure Name Priority Date/Time Associated Diagnosis Comments CARDIOLOGY DOCUMENT SCAN Routine 04/16/2024 2:10 PM CDT CARDIOLOGY DOCUMENT SCAN Routine 04/15/2024 1:58 PM CDT CARDIOLOGY DOCUMENT SCAN Routine 04/14/2024 1:55 PM CDT CARDIOLOGY DOCUMENT SCAN Routine 04/13/2024 1:51 PM CDT documented in this encounter Results * Cardiology Document Scan (04/16/2024 2:10 PM CDT) Anatomical Region Laterality Modality Other us Michael Bond MD [facility] CARDIAC SERVICES PROCE DURES Final Result * Cardiology Document Scan (04/15/2024 1:58 PM CDT) Anatomical Region Laterality Modality Other us Michael Bond MD CV CARDIAC SERVICES PROCE DURES Final Result * Cardiology Document Scan (04/14/2024 1:55 PM CDT) Anatomical Region Laterality Modality Other us Kevin Chirinos MD [facility] CARDIAC SERVICES PRO CEDURES Final Result * Cardiology Document Scan (04/13/2024 1:51 PM CDT) Anatomical Region Laterality Modality Other us Kevin Chirinos MD [facility] CARDIAC SERVICES PRO CEDURES Final Result documented in this encounter Visit Diagnoses Not on filedocumented in this encounter Care Teams Grinder And Plater Relationship Specialty Start Date End Date Smooth Cristina MD PCP - General 09/18/16 documented as of this encounter
--- OUTSIDE RECORDS SUMMARY | 2024-06-22 00:50 | XMS_ITS | Encounter Summary ---
Author Organization [facility] Address [address] [place] [id number] Care Team Providers Care Director Surgical Name Role Phone Smooth Cristina MD Primary Care Provider [phone] Reason for Referral * Diagnostic Imaging (Routine) - Closed Specialty Diagnoses / Procedures Referred By Contac t Referred To Contact Diagnoses Dyspnea on exertion Chest tightness Procedures NM MPI SPECT (Rest and/or Stress) Multiple Studies WV TC99M SESTAMIBI WV REGADENOSON INJECTION WV THERAPEUTIC PROPHYLACTIC/DX INJECTION SUBQ/IM Ines Acharya NP [address] [place] [address] Phone: tel: fax: [facility] Referral ID Status Reason Start Date Expiration Date Visits Re quested Visits Authorized [id number] Closed 04/25/2024 10/22/2024 1 1 * Cardiology (Routine) - Closed Specialty Diagnoses / Procedures Referred By Contac t Referred To Contact Diagnoses Primary cardiomyopathy (HCC) Dyspnea on exertion Procedures Transthoracic Echo (TTE) Complete W Doppler/CF Ines Acharya NP [address] [address] Phone: tel: fax: [facility] Referral ID Status Reason Start Date Expiration Date Visits Re quested Visits Authorized [id number] Closed 04/11/2024 05/11/2025 1 1 Reason for Visit * Reason Comments Shortness of Breath Encounter Details Date Type Department Care Team (Late st Contact Info) Description 04/11/2024 9:30 AM CDT Office Visit [facility] Cardiology [address] [place] [phone] Ines Acharya NP [address] [place] [address] Primary cardiomyopathy (HCC); Dyspnea on exertion; Chest tightness; Essential hypertension; Lipid screening Social History Tobacco Use Types Packs/Day Years Used Date Smoking Tobacco: Never Smokeless Tobacco: Never Tobacco Cessation:Counseling Given: Not Answered Alcohol Use Standard Drinks/Week Comments No 0 (1 standard drink = 0.6 oz pur e alcohol) Sex and Gender Information Value Date Recorded Sex Assigned at Not on file 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 Gender Identity Not on file Sexual Orientation Not on file documented as of this encounter Last Filed Vital Signs Vital Sign Reading Time Taken Comments Blood Pressure 130/62 04/11/2024 9:28 AM CDT Pulse 84 04/11/2024 9:28 AM CDT Temperature - - Respiratory Rate - - Oxygen Saturation 98% 04/11/2024 9:28 AM CDT Inhaled Oxygen Concentration - - Weight 83.5 kg (184 lb) 04/11/2024 9:28 AM CDT Height 172.7 cm (5' 8 ) 04/11/2024 9:28 AM CDT Body Mass Index 27.98 04/11/2024 9:28 AM CDT documented in this encounter Ordered Prescriptions Prescription Sig Dispense Quantity Refills Last Filled Start Date End Date amLODIPine-benazep riL (LOTREL) 10-20 mg per capsuleIndications :Essential hypertension Take 1 capsule by mouth daily 90 capsule 3 04/11/2024 4 documented in this encounter Progress Notes * Ines Acharya NP - 04/11/2024 9:30 AM CDT Images from the original note were not included. [facility] Cardiology [address] [place] [address] Date of Visit: 04/11/2024 Patient ID: Alan Valentin 1950 Chief Complaint Patient presents with Shortness of Breath Alan Valentin is a 73 y.o. male who is an established patient of Dr. Nice with a history of cardiomyopathy coming to the office for complaint of dyspnea on exertion. History of Present Illness: Alan Valentin is a 73 y.o. male with NIDCM since 1987, with EF improved from 20% now up to 45% by echo 2014., BiV ICD in 2001, new pulse generator 2008 and again in 2012 (with lead revision), and in 02/2018. Has had some sustained V-tach treated with anti tachy pacing. Also HTN, HLD, DM, anxiety, noncompliance and chronic pain. Underlying second- degree AV block notedin July 2022.. October 2012: The patient had a right ventricular lead fracture and left ventricular insulation fracture. He underwent attempted but unsuccessful extraction of these 2 leads and an abandoned atrial lead by Dr. Cheek of [facility]. New LV and RV leads were placed as well as a new pulse generator.The patient reports this was difficult procedure, with a lot of pain and swelling afterwards. 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 Had his 4th generator change in February 2018. 02/2018: Fourth Generator change. Says a few days later had N&V and both hands went numb, 5th fingers still numb. Read on internet that it can be caused by antibiotic pouch. 08/12/2020 Office Visit: Doing OK from heart point of view. Heart rate tends to run high when she takes his insulin, sometimes 100 BPM at night in bed, says when he stops his insulin HR gets better. Cholesterol is better; says he's stuck inside 2nd COVID and can't eat a bunch of fast food. Trying to eat less red meat. Did not call to schedule echo as recommended. Got too close to an electric trolling motor (powerful magnet) and heard ICD ring, backed away and it stopped. No chest pain, WHITLOCK, dizziness, or edema. Occasionally a brief palpitations. BP usually 130/70 mmHg, A1C is terrible. Thinks A1c was between 9 and 10. Still resistant to statin tx. All joints hurt. Getting 2nd COVID shot tmr. Counseled or was a ???no-show?? for some ICD checks. Patient declined lab work and echo @ this time d/t COVID concerns 02/2020 ICD check: 1 VT/VF episode recorded, ATP x1 therapy delivered- unsuccessful termination, rhythm resumed for 14 beats then self terminated. See phone notes. 08/05/2021 Office Visit w/ Dr. Nice: Doing OK, no new problems. Fell and got a concussion, no LOC, in March, did not go to the hospital, had nausea, wobbly afterwards. Lives alone. No chest pain, WHITLOCK, dizziness, palpitations, or edema. DM is doing terrible. Almost uncontrollable imani in winter when he is less active. Declined POC lipids. Hasn't seen Dr. Cristina for a while. Declined blood tests. In patient declined labs, echo, etcetera. BiV ICD check today: nml fxn 2.5 year longevity. 07/29/[address] Nice: We have made several attempts to contact the patient as he is overdue for ICD follow-up, with no response. Did not arrive for his appointment in January. I'm OK. I think I'm doing pretty good for my age. Still has poor equilibrium since he suffered a concussion 03/2021, unable to ride his motorcycle, has had some falls but is resistant to using a cane. Thinks he's eating better. A1C running around 7. Lost about 25#; quit eating carbs. No heart problems, CP, WHITLOCK, edema. Some palps now and then, feels a skip. No syncope or presyncope. Can walk a ways on a level surface w/o problems except for balance. I don't have much confidence in those cholesterol numbers. I have encouraged the patient to pursue primary prevention, etcetera. I'm so tired of medicines. I don't want to take any more medications. If I tmr, I'd be OK.. I've lived longerthan any man in my family. CT scan 10/2019 showed calcific coronary disease. ICD check today: Nml fx, some nonsustained VT, longevity 2.1 years, BiV pacing 97%, underlying 2:1 AV block. No recent labs avail at [facility] But had labs done by Dr. Cristina recently. 12/31/2022 hospital follow-up with RN OCCUPATIONAL HEALTH: Outside records were not available to me at the time of the visit but the patient states over a month ago he started to develop shortness of breath and congestion in his chest he could hear himself gurgling. He went to urgent care and was given an antibiotic for pneumonia. However his shortness of breath continued to get worse so he went to the [place] ER (this was 2-3 weeks ago) and he was given IV diuretics and sent home with a short course of oral diuretics. About a week after his shortness of breath resolved. Today he reports that his breathing is back to normal and he is no longer hearing himself gurgling. He wanted to have his defibrillator checked because he was recently operating an electric drill, he lost control of it and the handles of the drill hit his chest. 09/01/[address] Nice: Good. Dizzy getting out of a chair. BP sometimes 90/50's, taking amlodipine/benazepril every other day, now SP 130/70's. Still feeling dizzy a couple of times a week, legs go numb, knees weak and needs to sit. Has no energy, doesn't feel good. No WHITLOCK. A1C was around 11 last check, doesn't check BS anymore. Eats whatever he wants. Lost a lot of friends, I'm ready to give up. I've done everything I've wanted to do. No fishing buddies left. I don't feel good anymore. Does see son and disabled grandson sometimes, but otherwise isolated. ICD check today: Bi V pacing 96%, 20 month longevity some mode switch is but none stored, possible atrial tachycardia versus oversensing, underlying complete heart block, normal function, 6 episodes of nonsustained V-tach 5 beats, no defibrillations. OptiVol showed a mild increase in November and July. Reviewed ER visit and labs from December, lipids 04/11/2024 office visit with RN OCCUPATIONAL HEALTH: Early last month he got a lung infection (mold?) after cleaning out a from home, had to take multiple courses of antibiotic and his cough greatly improved but he has remained profoundly short of breath. It reminds him of the shortness of breath he had when he 1st developed his cardiomyopathy. He cannot walk very far before he has to stop due to shortness of breath, lightheadedness, presyncope and feel like his legs will buckle. He recovers in a few minutes. His chest feels tight but not painful. But he gets pain on both sides of the neck below his ears. PCP gave him a course of Lasix which got rid of the gurgle in his throat and bloating in his belly. He also feels short of breath at rest. He wants to go back to previous dose amlodipine/benazepriland stop lisinopril because he said his blood pressure was better controlled on the combo. 12-lead ECG performed in the office today was independently interpreted by me and showed sinus rhythm, presence of BiV pacemaker, rate 72 bpm Social: , lives alone. Liked to go to [employer] [facility] [employer] every summer as well as [place]. Medical History: Past Medical History: Diagnosis Date HX OTHER MEDICAL Back Pain HX OTHER MEDICAL DJD Past Surgical History: Procedure Laterality Date LEG TENDON SURGERY Social History Tobacco Use Smoking Status Never Smokeless Tobacco Never Social History Tobacco Use Smoking status: Never Smokeless tobacco: Never Substance and Sexual Activity Drug use: No Sexual activity: None Alcohol Use: Not At Risk (12/06/2018) Received from [facility] - [facility] AUDIT-C Frequency of Alcohol Consumption: Never Average Number of Drinks: Not on file Frequency of Binge Drinking: Not on file No family history on file. Review of Systems Constitutional: Negative for malaise/fatigue, weight gain and weight loss. Cardiovascular: Positive for dyspnea on exertion and near-syncope. Negative for chest pain, claudication, leg swelling, orthopnea, palpitations, paroxysmal nocturnal dyspnea and syncope. Respiratory: Negative for cough and sleep disturbances due to breathing. Hematologic/Lymphatic: Negative for bleeding problem. Does not bruise/bleed easily. Neurological: Negative for dizziness and light-headedness. Vital Signs: BP 130/62 (BP Location: Left arm, Patient Position: Sitting) Pulse 84 Ht 172.7 cm (5' 8 ) Wt 83.5 kg (184 lb) SpO2 98% BMI 27.98 kg/m?? Physical Exam Constitutional: General: He is not in acute distress. Appearance: He is well-developed. HENT: Head: Normocephalic and atraumatic. Eyes: General: No scleral icterus. Conjunctiva/sclera: Conjunctivae normal. Neck: Vascular: No JVD. Trachea: No tracheal deviation. Cardiovascular: Rate and Rhythm: Normal rate and regular rhythm. Heart sounds: Normal heart sounds. No murmur heard. Comments: Left chest defibrillator generator site skin intact, no edema or erythema Pulmonary: Effort: Pulmonary effort is normal. No respiratory distress. Breath sounds: Normal breath sounds. Musculoskeletal: Right lower leg: No edema. Left lower leg: No edema. Skin: General: Skin is warm and dry. Neurological: Mental Status: He is alert and oriented to person, place, and time. Psychiatric: Mood and Affect: Mood normal. Behavior: Behavior normal. No Known Allergies Current Outpatient Medications: albuterol HFA (PROVENTIL HFA,VENTOLIN HFA,PROAIR HFA) 90 mcg/actuation inhaler, Inhale 2 puffs every 6 (six) hours as needed for wheezing, Disp: 1 each, Rfl: 0 ibuprofen (ibuprofen) 200 mg tab/cap, Take as directed (Patient taking differently: 1 tablet/capsule (200 mg total) as needed), Disp: 0, Rfl: 0 insulin lispro (HumaLOG, ADMELOG) 100 unit/mL pen for injection, Inject 20-25 Units under the skin,Disp: , Rfl: Lantus Solostar U-100 Insulin 100 unit/mL (3 mL) insulin pen, , Disp: , Rfl: metFORMIN (GLUCOPHAGE) 500 mg tablet, Take 1 tablet (500 mg total) by mouth 2 (two) times a day, Disp: , Rfl: omeprazole (PriLOSEC) 20 mg capsule, daily , Disp: , Rfl: tamsulosin (FLOMAX) 0.4 mg capsule,extended release 24hr, take 1 by Oral route every day, Disp: 0, Rfl: 0 amLODIPine-benazepriL (LOTREL) 10-20 mg per capsule, Take 1 capsule by mouth daily, Disp: 90 capsule, Rfl: 3 tadalafil (CIALIS) 5 mg tablet, take 1 tablet by oral route every day (Patient not taking: Reportedon 12/31/2022), Disp: , Rfl: 0 No results found for: POTASSIUM , BUNSER , CREATININE , CHOL , TRIG , LDL , LDLCALC , HDL No results found for: WBC , HGB , HCT , MCV , PLT No results found for this or any previous visit (from the past 4 hour(s)). Lab Results Component Value Date POCCHOL 145 04/11/2024 POCHDL 39 04/11/2024 POCTRIG 45 04/11/2024 POCLDL 93 04/11/2024 POCNONHDL 106 04/11/2024 POCCHLPL 145 04/11/2024 Assessment: Diagnoses and all orders for this visit: Primary cardiomyopathy (HCC) - Transthoracic Echo (TTE) Complete W Doppler/CF; Future Dyspnea on exertion - Transthoracic Echo (TTE) Complete W Doppler/CF; Future - NM MPI SPECT (Rest and/or Stress) Multiple Studies; Future Chest tightness - NM MPI SPECT (Rest and/or Stress) Multiple Studies; Future Essential hypertension - amLODIPine-benazepriL (LOTREL) 10-20 mg per capsule; Take 1 capsule by mouth daily Lipid screening - POCT lipid panel Plan/Recommendations: He recently had a respiratory infection which has now been treated but he has persistent significant limiting dyspnea on exertion which is accompanied by presyncope, lightheadedness, feeling like hislegs will buckle, chest tightness. His symptoms remind him of how he fell he was 1st diagnosed withsevere cardiomyopathy. Interrogation of his biventricular pacer today did not reveal any abnormalities to explain his symptomatology. Reassess LV function with a repeat echocardiogram. He also has multiple risk factors for coronary artery disease and coronary artery calcification hasbeen seen on prior imaging of his chest but patient had never wanted to pursue this further. I recommend an ischemic evaluation with stress test and the patient agrees. Due to his degree of dyspnea and exertional presyncope he would not be able to ambulate on the treadmill so we will perform a Lexiscan nuclear stress test. Since being switched to lisinopril he states his blood pressure has not been as well controlled andwishes to go back to the amlodipine/benazepril combination pill. I will send a new prescription forthis. He is scheduled to transition his care from Dr. Nice to Dr. Bond. I will assist with managinghis care in the interim as we get his test results. 04/11/2024 Rae- Nurse Practitioner with [facility] This note is dictated and transcribed using [employer] Direct Software. Research Food Technologist variancesmay occur. Despite proofreading, typographical errors may occur. documented in this encounter Miscellaneous Notes * Addendum Note - Elizabeth Joseph MA - 04/11/2024 9:30 AM CDTAddended by: ELIZABETH JOSEPH on: 04/12/2024 08:24 AM Modules accepted: Orders documented in this encounter Plan of Treatment Not on file documented as of this encounter Procedures Procedure Name Priority Date/Time Associated Diagnosis Comments POCT LIPID PANEL Routine 04/11/2024 9:44 AM CDT Lipid screening ECG 12-LEAD Routine 04/11/2024 Dyspnea on exertion Chest tightness documented in this encounter Results * TRANSTHORACIC ECHO (TTE) COMPLETE W DOPPLER/CF WO CONTRAST (04/27/2024 12:57 PM 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 [address] [address] [address] [facility] [address], [place] [address] P:[phone] P:[phone] Echocardiographic Report Patient Name: ALAN VALENTIN R : 1950 Study Date: 04/27/2024 11:59:09 AM Gender: M Tech: Location: [facility] Provider: INES ACHARYA ?Height(Cm): 173 BSA: 2 Weight(Kg): 83.5 Heart Rate: 70 BP: 125 / 62 Quality: Good Order Provider: INES ACHARYA PROCEDURES: Echocardiographic Report: Transthoracic echocardiogram with complete 2D, M-Mode, and color Doppler examination. With Strain Analysis. INDICATIONS: I42.9 Cardiomyopathy, unspecified, and R06.09 Other forms of dyspnea. Measurements: 2D/M Mode ?Doppler Measurement ?Value ?Normal Range ?Measurement ?Value ?Normal Range LVIDd 2D ? 4.73 ? [ 4.20 - 5.80 ] cm ?FRANKLIN Vmax ? 2.00 ? [ 2.00 - 4.00 ] cm2 LVIDs 2D ? 4.19 ? [ 2.50 - 4.00 ] cm ?AV Mean PG ? 5 ?mmHg LVPWd 2D ? 1.41 ? [ 0.60 - 1.00 ] cm ?AV Peak Shar ?1.52 ? [ 1.00 - 1.70 ] m/s IVSd 2D ?1.34 ? [ 0.60 - 1.00 ] cm ?AV Peak PG ? 9 ?mmHg LA Volume Index ?37 ? [ 16 - 34 ] cc/m2 ? AV VTI ? 32.08 ?cm LVOT Diam ?1.99 ?[ 1.70 - 2.10 ] cm LVOT Peak Shar ?0.97 ?[ 0.70 - 1.10 ] m/s LVOT VTI ? 19.18 ? cm MV E Peak Shar ?0.80 ?[ 0.60 - 1.30 ] m/s MV A Peak Shar ?0.36 ?[ 1.00 - 1.20 ] m/s MV Decel Time ?230 ? [ 104 - 258 ] msec Lateral E` ? 0.10 ?[ 0.10 - 0.15 ] m/s E` ? 0.05 ?m/s E/E` ? 8 Measurement ?Value ?Normal Range ?Measurement ?Value ?Normal Range 2D/M Mode ?Doppler - FINDINGS: Interpretation Site: Exam was interpreted at [facility]. Left Ventricle: Normal left ventricular size. Moderate concentric left ventricular hypertrophy. Moderate global left ventricular systolic dysfunction. Paradoxical septal motion consistent with RV pacemaker. Normal left ventricular diastolic function. Ejection fraction is visually estimated at 40 %. Ejection fraction is measured at 43 %. Global Longitudinal Strain is -12 %. GLS is abnormal. Right Ventricle: Normal right ventricular size. Normal right ventricular systolic function. Linear artifact in right ventricle suggestive of catheter(s), pacemaker lead(s), or ICD lead(s). Left Atrium: There is mild enlargement of left atrium. Right Atrium: The right atrium is normal in size. Linear artifact in right atrium suggestive of catheter(s), pacemaker lead(s), or ICD lead(s). Atrial Septum: Normal atrial septum. Mitral Valve: Mitral valve leaflets appear mildly thickened. Mild mitral valve regurgitation. There is no hemodynamically significant mitral stenosis by Doppler. Aortic Valve: No evidence of hemodynamically significant aortic stenosis by Doppler. Aortic cusps appear mildly sclerotic. Trileaflet aortic valve. Trace aortic valve regurgitation. Tricuspid Valve: Normal appearance of the tricuspid valve. Right ventricular systolic pressure could not be estimated due to inadequate visualization of the tricuspid regurgitation jet. Trivial regurgitation in the tricuspid valve. Pulmonic Valve: Normal appearance of the pulmonic valve. No pulmonic stenosis. Trivial regurgitation in the pulmonic valve. Pericardium: Normal pericardium with no significant pericardial effusion. Aorta: Mild aortic root calcification. IVC: Normal size and normal respiratory collapse consistent with normal right atrial pressure (<5 mmHg). CONCLUSIONS: Normal left ventricular size. Moderate concentric left ventricular hypertrophy. Moderate global left ventricular systolic dysfunction. Paradoxical septal motion consistent with RV pacemaker. Normal left ventricular diastolic function. Ejection fraction is visually estimated at 40 %. Ejection fraction is measured at 43 %. Global Longitudinal Strain is -12 %. GLS is abnormal. Normal right ventricular size. Normal right ventricular systolic function. Linear artifact in right ventricle suggestive of catheter(s), pacemaker lead(s), or ICD lead(s). There is mild enlargement of left atrium. Mitral valve leaflets appear mildly thickened. Mild mitral valve regurgitation. Sinus rhythm atrial tracking ventricular paced rhythm. Electronically Signed By: Michael Bond MD 2024-04-27 16:29:36 METAL WIRE COATING OPERATOR Procedure Note Michael Bond MD - 04/27/2024 [facility] Cardiology [address], [place] [address] [address] [facility] [id number], [place] [address] P:[phone] P:[phone] Echocardiographic Report Patient Name: ALAN VALENTIN R : 1950 Study Date: 04/27/2024 11:59:09 AM Gender: M Tech: Location: [place] Ref Provider: INES ACHARYA Height(Cm): 173 BSA: 2 Weight(Kg): 83.5 Heart Rate: 70 BP: 125 / 62 Quality: Good Order Provider: INES ACHARYA PROCEDURES: Echocardiographic Report: Transthoracic echocardiogram with complete 2D, M-Mode, and color Dopplerexamination. With Strain Analysis. INDICATIONS: I42.9 Cardiomyopathy, unspecified, and R06.09 Other forms of dyspnea. Measurements: 2D/M ModeDoppler Measurement Value Normal Range MeasurementValue Normal Range LVIDd 2D 4.73 [ 4.20 - 5.80 ] cm FRANKLIN Vmax2.00 [ 2.00 - 4.00 ] cm2 LVIDs 2D 4.19 [ 2.50 - 4.00 ] cm AV Mean PG5 mmHg LVPWd 2D 1.41 [ 0.60 - 1.00 ] cm AV Peak Vel1.52 [ 1.00 - 1.70 ] m/s IVSd 2D 1.34 [ 0.60 - 1.00 ] cm AV Peak PG9 mmHg LA Volume Index 37 [ 16 - 34 ] cc/m2 AV VTI32.08 cm LVOT Diam 1.99 [ 1.70 - 2.10 ] cm LVOT Peak Shar 0.97 [ 0.70 - 1.10 ] m/s LVOT VTI 19.18 cm MV E Peak Shar 0.80 [ 0.60 - 1.30 ] m/s MV A Peak Shar 0.36 [ 1.00 - 1.20 ] m/s MV Decel Time 230 [ 104 - 258 ] msec Lateral E` 0.10 [ 0.10 - 0.15 ] m/s E` 0.05 m/s E/E` 8 Measurement Value Normal Range MeasurementValue Normal Range 2D/M ModeDoppler - FINDINGS: Interpretation Site: Exam was interpreted at [facility]. Left Ventricle: Normal left ventricular size. Moderate concentric left ventricularhypertrophy. Moderate global left ventricular systolic dysfunction. Paradoxical septal motionconsistent with RV pacemaker. Normal left ventricular diastolic function. Ejectionfraction is visually estimated at 40 %. Ejection fraction is measured at 43 %. GlobalLongitudinal Strain is -12 %. GLS is abnormal. Right Ventricle: Normal right ventricular size. Normal right ventricular systolic function.Linear artifact in right ventricle suggestive of catheter(s), pacemaker lead(s),or ICD lead(s). Left Atrium: There is mild enlargement of left atrium. Right Atrium: The right atrium is normal in size. Linear artifact in right atriumsuggestive of catheter(s), pacemaker lead(s), or ICD lead(s). Atrial Septum: Normal atrial septum. Mitral Valve: Mitral valve leaflets appear mildly thickened. Mild mitral valveregurgitation. There is no hemodynamically significant mitral stenosis by Doppler. Aortic Valve: No evidence of hemodynamically significant aortic stenosis by Doppler.Aortic cusps appear mildly sclerotic. Trileaflet aortic valve. Trace aortic valveregurgitation. Tricuspid Valve: Normal appearance of the tricuspid valve. Right ventricular systolicpressure could not be estimated due to inadequate visualization of the tricuspidregurgitation jet. Trivial regurgitation in the tricuspid valve. Pulmonic Valve: Normal appearance of the pulmonic valve. No pulmonic stenosis. Trivialregurgitation in the pulmonic valve. Pericardium: Normal pericardium with no significant pericardial effusion. Aorta: Mild aortic root calcification. IVC: Normal size and normal respiratory collapse consistent with normal rightatrial pressure (<5 mmHg). CONCLUSIONS: Normal left ventricular size. Moderate concentric left ventricularhypertrophy. Moderate global left ventricular systolic dysfunction. Paradoxical septal motionconsistent with RV pacemaker. Normal left ventricular diastolic function. Ejectionfraction is visually estimated at 40 %. Ejection fraction is measured at 43 %. GlobalLongitudinal Strain is -12 %. GLS is abnormal. Normal right ventricular size. Normal right ventricular systolic function.Linear artifact in right ventricle suggestive of catheter(s), pacemaker lead(s),or ICD lead(s). There is mild enlargement of left atrium. Mitral valve leaflets appear mildly thickened. Mild mitral valveregurgitation. Sinus rhythm atrial tracking ventricular paced rhythm. Electronically Signed By: Michael Bond MD 2024-04-27 16:29:36 METAL WIRE COATING OPERATOR Ines Acharya RN OCCUPATIONAL HEALTH CV ECHO PROCEDURES Final Result * NM MPI SPECT (Rest and/or Stress) Multiple Studies (04/27/2024 9:55 AM METAL WIRE COATING OPERATOR) Anatomical Region Laterality Modality Body N/A Nuclear Medicine 04/27/2024 7:25 AM METAL WIRE COATING OPERATOR Narrative 04/27/2024 5:34 PM METAL WIRE COATING OPERATOR [facility] Medical Group Cardiology [address] [facility] [address], [place] [address] [address], [place] [address] P:[phone] P:[phone] MPI Imaging Report Patient Name: ALAN VALENTIN R : 1950 Study Date: 04/27/2024 7:25:29 AM Gender: M Tech: [facility] Location: [facility] Provider: INES ACHARYA ?Height(Cm): 172.7 BSA: ??Weight(Kg): 83.5 BMI: 28 ?Order Provider: INES ACHARYA - PHYSICIAN: Referring Physician: Dr. Cristina. HCG Physician: Gabriel Bond M.D. Interpreting Physician: Gbariel Bond M.D. Stress Supervision: Gabriel Bond M.D. PROCEDURES: Myocardial perfusion imaging with Tc99M Sestamibi SPECT at rest and stress post regadenoson (Lexiscan) infusion. INDICATIONS: Cardiomyopathy, Hypertension, Diabetes, High Cholesterol, R06.09 Other forms of dyspnea, and R07.89 Other chest pain. FINDINGS: Procedural Findings: One day rest/stress was used. Tc99m Sestamibi injected IV at rest was 8.6 millicuries. 24.8 millicuries of Tc99M Sestamibi injected IV during Lexiscan stress. Lexiscan 0.4mg administered IV over 10 seconds. Patient had no symptoms during stress test. Baseline heart rate was 61 BPM. Maximum Heart Rate Achieved was: 81 BPM. Baseline blood pressure was 134/70 mmHg. Post Stress Blood Pressure was 128/66 mmHg. Termination: Protocol complete. Resting ECG: Normal sinus rhythm with V pacing. Post ECG: No diagnostic ST changes. Specificity of the observed ST changes is reduced in light of the abnormal resting ECG. Arrhythmia: No arrhythmias seen. Perfusion Findings: Normal perfusion imaging. No definite fixed or reversible defects. Technical quality of study is excellent. Prone imaging was not performed. Left ventricle cavity size at rest is mildly enlarged. Left ventricle cavity size with stress is unchanged. A TID of 0.99 was automatically calculated. LV Function: Left ventricular ejection fraction is 38 %. There is moderate to severe LV dysfunction. CONCLUSIONS: No diagnostic ST changes. Specificity of the observed ST changes is reduced in light of the abnormal resting ECG. Left ventricular ejection fraction is 38 %. There is moderate to severe LV dysfunction. LV enlargemnt is seen at both stress and rest imaging. Myocardial perfusion imaging is normal. Electronically Signed By: Michael Bond MD 2024-04-27 17:33:03 METAL WIRE COATING OPERATOR Electronically Signed By: Michael Bond MD 2024-04-27 17:33:03 METAL WIRE COATING OPERATOR Procedure Note Michael Bond MD - 04/27/2024 [facility] Medical [facility] Cardiology [address] [facility] [address] [id number] [address] [facility] [address], [place] [address] P:[phone] P:[phone] MPI Imaging Report Patient Name: ALAN VALENTIN R : 1950 Study Date: 04/27/2024 7:25:29 AM Gender: M Tech: [facility] Location: [facility] Provider: INES ACHARYA Height(Cm): 172.7 BSA: Weight(Kg): 83.5 BMI: 28 Order Provider: IENS ACHARYA - PHYSICIAN: Referring Physician: Dr. Cristina. HCG Physician: Gabriel Bond M.D.Interpreting Physician: Gabriel Bond M.D. Stress Supervision: Gabriel Bond M.D. PROCEDURES: Myocardial perfusion imaging with Tc99M Sestamibi SPECT at rest and stresspost regadenoson (Lexiscan) infusion. INDICATIONS: Cardiomyopathy, Hypertension, Diabetes, High Cholesterol, R06.09 Otherforms of dyspnea, and R07.89 Other chest pain. FINDINGS: Procedural Findings: One day rest/stress was used. Tc99m Sestamibi injected IV at rest was 8.6millicuries. 24.8 millicuries of Tc99M Sestamibi injected IV during Lexiscan stress.Lexiscan 0.4mg administered IV over 10 seconds. Patient had no symptoms during stresstest. Baseline heart rate was 61 BPM. Maximum Heart Rate Achieved was: 81 BPM. Baselineblood pressure was 134/70 mmHg. Post Stress Blood Pressure was 128/66 mmHg. Termination: Protocol complete. Resting ECG: Normal sinus rhythm with V pacing. Post ECG: No diagnostic ST changes. Specificity of the observed ST changes isreduced in light of the abnormal resting ECG. Arrhythmia: No arrhythmias seen. Perfusion Findings: Normal perfusion imaging. No definite fixed or reversible defects.Technical quality of study is excellent. Prone imaging was not performed. Left ventricle cavitysize at rest is mildly enlarged. Left ventricle cavity size with stress is unchanged. ATID of 0.99 was automatically calculated. LV Function: Left ventricular ejection fraction is 38 %. There is moderate to severe LVdysfunction. CONCLUSIONS: No diagnostic ST changes. Specificity of the observed ST changes isreduced in light of the abnormal resting ECG. Left ventricular ejection fraction is 38 %. There is moderate to severe LVdysfunction. LV enlargemnt is seen at both stress and rest imaging. Myocardial perfusion imaging is normal. Electronically Signed By: Michael Bond MD 2024-04-27 17:33:03 METAL WIRE COATING OPERATOR Electronically Signed By: Michael Bond MD 2024-04-27 17:33:03 METAL WIRE COATING OPERATOR Ines Acharya NP IMG NM PROCEDURES Final R esult * POCT lipid panel (04/11/2024 9:44 AM CDT) Cholesterol, POC 145 mg/dL HDL, POC 39 mg/dL Triglycerides, POC 45 mg/dL LDL Cholesterol POC 93 mg/dL Chol/HDL Ratio, POC - Non-HDL Cholesterol, POC 106 mg/dL Cholesterol Total, POC 145 mg/dL Capillary blood 04/11/2024 9 :44 AM CDT Ines Acharya NP POINT OF CARE TEST ORDERA BLES Final Result * ECG 12 lead (04/11/2024) 04/11/2024 Ines Acharya RN OCCUPATIONAL HEALTH ECG ORDERABLES Final Res ult documented in this encounter Visit Diagnoses Diagnosis Primary cardiomyopathy (HCC) Other primary cardiomyopathies Dyspnea on exertion Other dyspnea and respiratory abnormality Chest tightness Other chest pain Essential hypertension Unspecified essential hypertension Lipid screening Screening for lipoid disorders Primary cardiomyopathy (HCC) Other primary cardiomyopathies Dyspnea on exertion Other dyspnea and respiratory abnormality Dyspnea on exertion Other dyspnea and respiratory abnormality Chest tightness Other chest pain documented in this encounter Discontinued Medications Medication Sig Discontinue Reason Start Date End Da te methylPREDNISolone (Medrol, Naun,) 4 mg DosepackIndications:Bact erial URI follow package directions Therapy completed 11/28/2022 04/11/2024 lisinopriL (PRINIVIL,ZESTRIL) 20 mg tabletIndications:Primar y cardiomyopathy (HCC) Take 1 tablet (20 mg total) by mouth daily Alternate therapy 09/01/2023 04/11/2024 documented as of this encounter Care Teams Director Surgical Relationship Specialty Start Date End Date Smooth Cristina MD PCP - General 09/18/16 documented as of this encounter
--- OUTSIDE RECORDS SUMMARY | 2024-06-22 00:50 | XMS_ITS | Encounter Summary ---
Author Organization [facility] Healthcare Address [address] [place] [address] Care Team Providers Care Termite Renewal Inspector Name Role Phone Smooth Cristina MD Primary Care Provider [phone] Reason for Visit * Cardiology (Routine) - Closed Specialty Diagnoses / Procedures Referred By Yonatan t Referred To Contact Diagnoses Primary cardiomyopathy (HCC) Dyspnea on exertion Procedures Transthoracic Echo (TTE) Complete W Doppler/CF Tsering Acharya NP [address] [address] Phone: tel: fax: [facility] Medical Group Referral ID Status Reason Start Date Expiration Date Visits Re quested Visits Authorized [id number] Closed 04/11/2024 05/11/2025 1 1 Encounter Details Date Type Department Care Team (Latest Contact Info) Description 04/27/2024 11:15 AM COMMUNITY AFFAIRS DIRECTOR Ancillary Procedure [facility] Medical Group Cardiology [address] [place] [phone] Primary cardiomyopathy (HCC); Dyspnea on exertion Social History Tobacco Use Types Packs/Day Years Used Date Smoking Tobacco: Never Smokeless Tobacco: Never Alcohol Use Standard Drinks/Week Comments No 0 (1 standard drink = 0.6 oz pur e alcohol) Sex and Gender Information Value Date Recorded Sex Assigned at Not on file Legal Sex Male 7:08 PM COMMUNITY AFFAIRS DIRECTOR Gender Identity Not on file Sexual Orientation Not on file documented as of this encounter Last Filed Vital Signs Vital Sign Reading Time Taken Comments Blood Pressure 125/62 04/27/2024 12:56 PM COMMUNITY AFFAIRS DIRECTOR Pulse - - Temperature - - Respiratory Rate - - Oxygen Saturation - - Inhaled Oxygen Concentration - - Weight - - Height - - Body Mass Index - - documented in this encounter Plan of Treatment Not on file documented as of this encounter Procedures Procedure Name Priority Date/Time Associated Diagnosis Comments TRANSTHORACIC ECHO (TTE) COMPLETE W DOPPLER/CF WO CONTRAST Routine 04/27/2024 12:57 PM COMMUNITY AFFAIRS DIRECTOR Primary cardiomyopathy (HCC) Dyspnea on exertion documented in this encounter Results * TRANSTHORACIC ECHO (TTE) COMPLETE W DOPPLER/CF WO CONTRAST (04/27/2024 12:57 PM COMMUNITY AFFAIRS DIRECTOR) Anatomical Region Laterality Modality Ultrasound 04/27/2024 11:5 9 AM COMMUNITY AFFAIRS DIRECTOR Narrative 04/27/2024 4:30 PM COMMUNITY AFFAIRS DIRECTOR [facility] Medical Group Cardiology [address] [facility] [address], [place] [address] [address] [facility] [address], [place] [address] P:[phone] P:[phone] Echocardiographic Report Patient Name: ALAN VALENTIN R : 1950 Study Date: 04/27/2024 11:59:09 AM Gender: M Tech: Location: [facility] Provider: TSERING ACHARYA ?Height(Cm): 173 BSA: 2 Weight(Kg): 83.5 Heart Rate: 70 BP: 125 / 62 Quality: Good Order Provider: TSERING ACHARYA PROCEDURES: Echocardiographic Report: Transthoracic echocardiogram with [...] FINDINGS: Interpretation Site: Exam was interpreted at [facility]. Left Ventricle: Normal left ventricular size. Moderate [...] Signed By: Michael Bond MD 2024-04-27 16:29:36 COMMUNITY AFFAIRS DIRECTOR Procedure Note Michael Bond MD - 04/27/2024 [facility] Medical [facility] Cardiology [address] [facility] [address], [place] [address] [address] [facility] [address], [place] [address] P:[phone] P:[phone] Echocardiographic Report Patient Name: ALAN VALENTIN R : 1950 Study Date: 04/27/2024 11:59:09 AM Gender: M Tech: ANITA Location: [place] Ref Provider: TSERING ACHARYA Height(Cm): 173 BSA: 2 Weight(Kg): 83.5 Heart Rate: 70 BP: 125 / 62 Quality: Good Order Provider: TSERING ACHARYA PROCEDURES: Echocardiographic Report: Transthoracic echocardiogram with [...] FINDINGS: Interpretation Site: Exam was interpreted at [facility]. Left Ventricle: Normal left ventricular size. Moderate [...] Signed By: Michael Bond MD 2024-04-27 16:29:36 COMMUNITY AFFAIRS DIRECTOR Tsering Acharya NP CV ECHO PROCEDURES Final Result documented in this encounter Visit Diagnoses Diagnosis Primary cardiomyopathy (HCC) Other primary cardiomyopathies Dyspnea on exertion Other dyspnea and respiratory abnormality documented in this encounter Care Teams Termite Renewal Inspector Relationship Specialty Start Date End Date Smooth Cristina MD PCP - General 09/18/16 documented as of this encounter
--- OUTSIDE RECORDS SUMMARY | 2024-06-22 00:50 | XMS_ITS | Encounter Summary ---
Author Organization [facility] Healthcare Address [address] [place] [address] Care Team Providers Care American History Teacher Name Role Phone Smooth Cristina MD Primary Care Provider Encounter Details Date Type Department Care Team (Late st Contact Info) Description 02/15/2024 Telephone [facility] Medical Group Cardiology [address] [place] [phone] Michael Bond MD [address] [place] [id number] Social History Tobacco Use Types Packs/Day Years Used Date Smoking Tobacco: Never Smokeless Tobacco: Never Alcohol Use Standard Drinks/Week Comments No 0 (1 standard drink = 0.6 oz pur e alcohol) Sex and Gender Information Value Date Recorded Sex Assigned at Not on file Legal Sex Male 7:08 PM BEATER OUT LEVELING MACHINE Gender Identity Not on file Sexual Orientation Not on file documented as of this encounter Miscellaneous Notes * Telephone Encounter - Anna Thomas RN - 02/15/2024 4:07 PM CDT Left message on VM informing patient he has been scheduled for an office Pacemaker/ICD check on 08/30/2024 @ 12:[address] Bond at 1:00. documented in this encounter Plan of Treatment Not on file documented as of this encounter Visit Diagnoses Not on filedocumented in this encounter Care Teams American History Teacher Relationship Specialty Start Date End Date Smooth Cristina MD PCP - General 09/18/16 documented as of this encounter
--- OUTSIDE RECORDS SUMMARY | 2024-06-22 00:50 | XMS_ITS | Encounter Summary ---
Author Organization [facility] Healthcare Address [address] [place] [id number] Care Team Providers Care Food Preparation Worker Name Role Phone Smooth Cristina MD Primary Care Provider Reason for Visit * Reason Comments Hospital Follow Up Encounter Details Date Type Department Care Team ([facility] st Contact Info) Description 05/22/2024 10:00 AM TRANSLITERATOR Office Visit [facility] Medical Group Cardiology [address] [place] [id number] Ines Bingham NP [address] [place] [address] Primary cardiomyopathy (HCC) (Primary Dx); Chronic combined systolic and diastolic heart failure (CMS/HCC) (HCC); Complete heart block (CMS/HCC) (HCC); Biventricular ICD (implantable cardioverter-defibrill ator) in place Social History Tobacco Use Types Packs/Day Years Used Date Smoking Tobacco: Never Smokeless Tobacco: Never Tobacco Cessation:Counseling Given: Not Answered Alcohol Use Standard Drinks/Week Comments No 0 (1 standard drink = 0.6 oz pur e alcohol) Sex and Gender Information Value Date Recorded Sex Assigned at Not on file Legal Sex Male 7:08 PM TRANSLITERATOR Gender Identity Not on file Sexual Orientation Not on file documented as of this encounter Last Filed Vital Signs Vital Sign Reading Time Taken Comments Blood Pressure 130/62 05/22/2024 9:59 AM TRANSLITERATOR Pulse 73 05/22/2024 9:59 AM TRANSLITERATOR Temperature - - Respiratory Rate - - Oxygen Saturation 98% 05/22/2024 9:59 AM TRANSLITERATOR Inhaled Oxygen Concentration - - Weight 85.7 kg (189 lb) 05/22/2024 9:59 AM TRANSLITERATOR Height 172.7 cm (5' 8 ) 05/22/2024 9:59 AM TRANSLITERATOR Body Mass Index 28.74 05/22/2024 9:59 AM TRANSLITERATOR documented in this encounter Patient Instructions * Patient Instructions* Ines Bingham NP - 05/22/2024 10:00 AM TRANSLITERATOR Cut the furosemide in half and take half tablet once daily (20 mg once daily). Weigh yourself every morning after you urinate. Record your weights. Call us with weight gain of 3 or more pounds in 1 day, and/or 5 or more pounds in 1 week. SLITERATOR documented in this encounter Progress Notes * Ines Bingham NP - 05/22/2024 10:00 AM CST Images from the original note were not included. [facility] Medical Group Cardiology [address] [place] [address] Date of Visit: 05/22/2024 Patient ID: Alan Burgos 1950 Chief Complaint Patient presents with Hospital Follow Up Alan Burgos is a 74 y.o. male who is a former patient of Dr. Nice with a history of cardiomyopathy coming to the office for hospital follow up after being treated for CHF. History of Present Illness: Alan Burgos is a 74 y.o. male with NIDCM since 1987, with [...] abandoned atrial lead by Dr. Cheek of [facility]. New LV and RV leads were [...] AV block. No recent labs avail at [facility] But had labs done by Dr. Cristina recently. 12/31/2022 hospital follow-up with CREDIT REPORTING CLERK: Outside records were not available to me [...] get worse so he went to the [facility] (this was 2-3 weeks ago) and [...] from December, lipids 04/11/2024 office visit with CREDIT REPORTING CLERK: Early last month he got a lung [...] better controlled on the combo. 12-lead ECG showed sinus rhythm, presence of BiV pacemaker, rate 72 bpm 05/22/2024 office visit with CREDIT REPORTING CLERK: The day after I saw him in the office in March he presented to hospital for his symptoms. Troponins were negative x3, proBNP 775, chest x-ray moderate edema. Echocardiogram performed there showed moderately enlarged LV chamber with EF estimated 30-35%, normal RV size and systolic function, moderate LAE, mild MR, moderate TR. Dr. Chirinos saw him in consultation andoptimized his medical therapy with lisinopril, Toprol-XL, spironolactone, Jardiance. Consider transitioning to [facility] as an outpatient. He returned to the office for the outpatient stress test and it showed normal myocardial perfusion images. He is here today for hospital follow-up appointment. His shortness of breath resolved. However he is now dealing with hematuria and hydronephrosis, waiting to get appointment with the urologist. Social: , lives alone. Liked to go to [place] every summer as well as [place]. Medical History: Past Medical History: Diagnosis Date HX OTHER MEDICAL Back Pain HX OTHER MEDICAL DJD Past Surgical History: Procedure Laterality Date LEG TENDON SURGERY Social History Tobacco Use Smoking Status Never Smokeless Tobacco Never Social History Tobacco Use Smoking status: Never Smokeless tobacco: Never Substance and Sexual Activity Drug use: No Sexual activity: None Alcohol Use: Not At Risk (12/06/2018) [facility] Frequency of Alcohol Consumption: Never Average Number of Drinks: Not on file Frequency of Binge Drinking: Not on file No family history on file. Review of Systems Constitutional: Negative for malaise/fatigue, weight gain and weight loss. Cardiovascular: Negative for chest pain, dyspnea on exertion, leg swelling, near-syncope, orthopnea, palpitations, paroxysmal nocturnal dyspnea and syncope. Respiratory: Negative for cough, shortness of breath and sleep disturbances due to breathing. Hematologic/Lymphatic: Negative for bleeding problem. Does not bruise/bleed easily. Genitourinary: Positive for hematuria. Vital Signs: BP 130/62 (BP Location: Left arm, Patient Position: Sitting) Pulse 73 Ht 172.7 cm (5' 8 ) Wt 85.7 kg (189 lb) SpO2 98% BMI 28.74 kg/m?? Physical Exam Constitutional: General: He is [...] normal. No Known Allergies Current Outpatient Medications: Feedlooks G7 Sensor device, USE 1 SENSOR DIRECTED PER INSTRUCTIONS IN PACK, Disp: , Rfl: dutasteride (AVODART) 0.5 mg capsule, Take 1 capsule (0.5 mg total) by mouth daily, Disp: , Rfl: furosemide (LASIX) 40 mg tablet, Take 0.5 tablets (20 mg total) by mouth daily, Disp: , Rfl: insulin lispro (HumaLOG, ADMELOG) 100 unit/mL pen for injection, Inject 20-25 Units under the skin,Disp: , Rfl: Jardiance 10 mg tablet, Take 1 tablet (10 mg total) by mouth daily, Disp: , Rfl: Lantus Solostar U-100 Insulin 100 unit/mL (3 mL) insulin pen, , Disp: , Rfl: lisinopriL (PRINIVIL,ZESTRIL) 20 mg tablet, Take 1 tablet (20 mg total) by mouth daily, Disp: , Rfl: metoprolol XL (TOPROL-XL) 50 mg extended release tablet, Take 1 tablet (50 mg total) by mouth daily, Disp: , Rfl: omeprazole (PriLOSEC) 20 mg capsule, daily , Disp: , Rfl: spironolactone (ALDACTONE) 25 mg tablet, , Disp: , Rfl: tamsulosin (FLOMAX) 0.4 mg capsule,extended release 24hr, take 1 by Oral route every day, Disp: 0, Rfl: 0 albuterol HFA (PROVENTIL HFA,VENTOLIN HFA,PROAIR HFA) 90 mcg/actuation inhaler, Inhale 2 puffs every 6 (six) hours as needed for wheezing (Patient not taking: Reported on 05/22/2024), Disp: 1 each, Rfl: 0 tadalafil (CIALIS) 5 mg tablet, take 1 tablet by oral route every day (Patient not taking: Reportedon 05/22/2024), Disp: , Rfl: 0 No results found for: POTASSIUM , BUNSER , CREATININE , CHOL , TRIG , LDL , LDLCALC , HDL No results found for: WBC , HGB , HCT , MCV , PLT No results found for this or any previous visit (from the past 4 hours). Lab Results Component Value Date POCCHOL 145 04/11/2024 POCHDL 39 04/11/2024 POCTRIG 45 04/11/2024 POCLDL 93 04/11/2024 POCNONHDL 106 04/11/2024 POCCHLPL 145 04/11/2024 Assessment: Diagnoses and all orders for this visit: Primary cardiomyopathy (HCC) (Primary) Chronic combined systolic and diastolic heart failure (CMS/HCC) (HCC) Complete heart block (CMS/HCC) (HCC) Biventricular ICD (implantable cardioverter-defibrillator) in place Plan/Recommendations: He was hospitalized in late March with exacerbation CHF that occurred after respiratory infection. On exam today he appears euvolemic. Reduce furosemide to 20 mg once daily and monitor daily weights. I gave him the parameters for when to call us for weight gain continue lisinopril, Jardiance, spironolactone and metoprolol. I went on transitioning to Entresto at this time because he is dealing with hydronephrosis. He also expresses a wish to not be aggressive with his medical treatment. He also has multiple risk factors for coronary artery disease and coronary artery calcification hasbeen seen on prior imaging of his chest. Stress test done last month showed normal myocardial perfusion images. Has a history of complete heart block with a Bi V ICD. He states when his generator needs changed he wants a pacemaker only device and not a defibrillator. Generator will likely need change sometime in 2024. He is scheduled to transition his care from Dr. iNce to Dr. Bond. This appointment is scheduled for August. 05/22/2024 Rae- Nurse Practitioner with [facility] [place] This note is dictated and transcribed using [employer] Direct Software. Clerk Typist variancesmay occur. Despite proofreading, typographical errors may occur. SLITERATOR documented in this encounter Plan of Treatment Not on file documented as of this encounter Visit Diagnoses Diagnosis Primary cardiomyopathy (HCC)- Primary Other primary cardiomyopathies Chronic combined systolic and diastolic heart failure (CMS/HCC) (HCC) Chronic combined systolic and diastolic heart failure Complete heart block (CMS/HCC) (HCC) Atrioventricular block, complete Biventricular ICD (implantable cardioverter-defibrillator) in place documented in this encounter Discontinued Medications Medication Sig Discontinue Reason Start Date End Da te amLODIPine-benazepriL (LOTREL) 10-20 mg per capsuleIndications:Essen tial hypertension Take 1 capsule by mouth daily Alternate therapy 04/11/2024 05/22/2024 ibuprofen (ibuprofen) 200 mg tab/cap Take as directed Therapy completed 08/09/2007 05/22/2024 metFORMIN (GLUCOPHAGE) 500 mg tablet Take 1 tablet (500 mg total) by mouth 2 (two) times a day Alternate therapy 05/22/2024 documented as of this encounter Historical Medications * This list may reflect changes made after this encounter. Feedlooks G7 Sensor device USE 1 SENSOR DIRECTED PER INSTRUCTIONS IN PACK 05/04/2024 metoprolol XL (TOPROL-XL) 50 mg extended release tablet Take 1 tablet (50 mg total) by mouth daily 05/02/2024 spironolactone (ALDACTONE) 25 mg tablet 04/17/2024 furosemide (LASIX) 40 mg tablet Take 0.5 tablets (20 mg total) by mouth daily 05/02/2024 Jardiance 10 mg tablet Take 1 tablet (10 mg total) by mouth daily 05/02/2024 dutasteride (AVODART) 0.5 mg capsule Take 1 capsule (0.5 mg total) by mouth daily 05/06/2024 lisinopriL (PRINIVIL,ZESTRI L) 20 mg tablet Take 1 tablet (20 mg total) by mouth daily 4 added in this encounter Care Teams Food Preparation Worker Relationship Specialty Start Date End Date Smooth Cristina MD PCP - General 09/18/16 documented as of this encounter
--- OUTSIDE RECORDS SUMMARY | 2024-06-22 00:50 | XMS_ITS | Encounter Summary ---
Author Organization [facility] Medical Group Address [address] [facility] [facility] [address] [place] [address] Care Team Providers Care Dye Blender Name Role Phone Smooth Cristina MD Primary Care Provider Reason for Visit * Reason Comments Follow-up 5 mo Encounter Details Date Type Department Care Team (Late st Contact Info) Description 12/31/2022 1:00 PM CDT Office Visit [facility] Medical Group Cardiology [address] [phone] Ines Bingham NP [address] [facility] [address] [place] [address] Primary cardiomyopathy (HCC); Biventricular ICD (implantable cardioverter-defibrill ator) in place; Lipid screening Social History Tobacco Use Types Packs/Day Years Used Date Smoking Tobacco: Never Smokeless Tobacco: Never Tobacco Cessation:Counseling Given: Not Answered Alcohol Use Standard Drinks/Week Comments No 0 (1 standard drink = 0.6 oz pur e alcohol) Sex and Gender Information Value Date Recorded Sex Assigned at Not on file 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 Gender Identity Not on file Sexual Orientation Not on file documented as of this encounter Last Filed Vital Signs Vital Sign Reading Time Taken Comments Blood Pressure 134/58 12/31/2022 1:01 PM CDT Pulse 87 12/31/2022 1:01 PM CDT Temperature - - Respiratory Rate - - Oxygen Saturation 95% 12/31/2022 1:01 PM CDT Inhaled Oxygen Concentration - - Weight 81.6 kg (180 lb) 12/31/2022 1:01 PM CDT Height 172.7 cm (5' 8 ) 12/31/2022 1:01 PM CDT Body Mass Index 27.37 12/31/2022 1:01 PM CDT documented in this encounter Ordered Prescriptions Prescription Sig Dispense Quantity Refills Last Filled Start Date End Date amLODIPine-benazepri L (LOTREL) 10-20 mg per capsuleIndications:P rimary cardiomyopathy (HCC) Take 1 capsule by mouth daily 90 capsule 3 12/31/2022 4 documented in this encounter Progress Notes * Ines Bingham, BUFFY - 12/31/2022 1:00 PM CDT Images from the original note were not included. [facility] Medical Group Cardiology [address] [place] [address] Date of Visit: 12/31/2022 Patient ID: Alan Burgos 1950 Chief Complaint Patient presents with Follow-up 5 mo Alan Burgos is a 72 y.o. male who is an established patient of Dr. Nice with a history of cardiomyopathy coming to the office for follow-up after he had an ER visit for shortness of breath. History of Present Illness: Alan Burgos is a 72 y.o. male with NIDCM since 1987, with [...] abandoned atrial lead by Dr. Cheek of [facility]. New LV and RV leads were [...] AV block. No recent labs avail at [facility] But had labs done by Dr. Cristina recently. 12/31/2022 hospital follow-up with RIVET STICKER: Outside records were not available to me [...] get worse so he went to the [place] ER (this was 2-3 weeks ago) and [...] handles of the drill hit his chest. Social: , lives alone. Liked to go to [place] for fishing every summer as well as [place]. Records that I personally reviewed on the day of this visit include: (the interpretation is outlined in the HPI above) 07/29/[address] Nice I have also reviewed: allergies, current medications, past family history, past medical history, past social history, past surgical history and problem list. Medical History: Past Medical History: Diagnosis Date HX OTHER MEDICAL Back Pain HX OTHER MEDICAL DJD Past Surgical History: Procedure Laterality Date LEG TENDON SURGERY Social History Tobacco Use Smoking Status Never Smokeless Tobacco Never Social History Tobacco Use Smoking status: Never Smokeless tobacco: Never Substance and Sexual Activity Drug use: No Sexual activity: None Alcohol Use: Not on file No family history on file. Review of Systems Constitutional: Negative for malaise/fatigue, weight gain and weight loss. Cardiovascular: Negative for chest pain, claudication, dyspnea on exertion, leg swelling, near-syncope, orthopnea, palpitations, paroxysmal nocturnal dyspnea and syncope. Respiratory: Negative for cough, shortness of breath and sleep disturbances due to breathing. Hematologic/Lymphatic: Negative for bleeding problem. Does not bruise/bleed easily. Neurological: Negative for dizziness and light-headedness. Vital Signs: BP 134/58 (BP Location: Left arm, Patient Position: Sitting) Pulse 87 Ht 172.7 cm (5' 8 ) Wt 81.6 kg (180 lb) SpO2 95% BMI 27.37 kg/m?? Physical Exam Constitutional: General: He is [...] normal. No Known Allergies Current Outpatient Medications: ibuprofen (ibuprofen) 200 mg tab/cap, Take as directed (Patient taking differently: 1 tablet/capsule (200 mg total) as needed), Disp: 0, Rfl: 0 Lantus Solostar U-100 Insulin 100 unit/mL (3 [...] for wheezing (Patient not taking: Reported on 12/31/2022), Disp: 1 each, Rfl: 0 amLODIPine-benazepriL (LOTREL) 10-20 mg per capsule, Take 1 capsule by mouth daily, Disp: 90 capsule, Rfl: 3 insulin lispro (HumaLOG, ADMELOG) 100 unit/mL pen for injection, Inject 20-25 Units under the skin (Patient not taking: Reported on 07/29/2022), Disp: , Rfl: methylPREDNISolone (Medrol, Naun,) 4 mg Dosepack, follow package directions (Patient not taking: Reported on 12/31/2022), Disp: 1 packet, Rfl: 0 tadalafil (CIALIS) 5 mg tablet, take 1 tablet by oral route every day (Patient not taking: Reportedon 12/31/2022), Disp: , Rfl: 0 No results found for: POTASSIUM, BUNSER, CREATININE, CHOL, TRIG, LDL, LDLCALC, HDL No results found for: WBC, HGB, HCT, MCV, PLT Recent Results (from the past 4 hour(s)) POCT lipid panel Collection Time: 12/31/22 1:05 PM Result Value Ref Range Cholesterol, POC 168 mg/dL HDL, POC 43 mg/dL Triglycerides, POC 98 mg/dL LDL, Direct, POC 105 mg/dL Chol/HDL Ratio, POC 2.4 Non-HDL Cholesterol, POC 125 mg/dL Cholesterol Total, POC 168 mg/dL Lab Results Component Value Date POCCHOL 168 12/31/2022 POCHDL 43 12/31/2022 POCTRIG 98 12/31/2022 POCLDL 105 12/31/2022 POCNONHDL 125 12/31/2022 POCCHLPL 168 12/31/2022 Assessment: Diagnoses and all orders for this visit: Primary cardiomyopathy (HCC) - amLODIPine-benazepriL (LOTREL) 10-20 mg per capsule; Take 1 capsule by mouth daily Biventricular ICD (implantable cardioverter-defibrillator) in place Lipid screening - POCT lipid panel Plan/Recommendations: He has an ICD for history of nonischemic cardiomyopathy. It sounds like he recently had some decompensated heart failure which improved after treatment in the ER with IV diuretic and a short course of oral diuretics afterwards. Today on exam he appears euvolemic. The patient is not interested in pursuing any further testing or medication treatment. He asked for refills of his amlodipine/benazepril. Our device nurse checked a [employer] express transmission from his defibrillator which shows that all lead measurements are stable and the device appears to be functioning appropriately. The OptiVol fluid index was negative for fluid accumulation. This was explained to the patient. He continues to decline home monitoring. Keep the previously scheduled routine visit with Dr. Nice next spring. Call us sooner with questions or concerns. 12/31/2022 Rae- Nurse Practitioner with [facility] [place] This note is dictated and transcribed using [employer] Software. Hand Coper variancesmay occur. Despite proofreading, typographical errors may occur. documented in this encounter Plan of Treatment Not on file documented as of this encounter Procedures Procedure Name Priority Date/Time Associated Diagnosis Comments POCT LIPID PANEL Routine 12/31/2022 1:05 PM CDT Lipid screening documented in this encounter Results * POCT lipid panel (12/31/2022 1:05 PM CDT) Cholesterol, POC 168 mg/dL HDL, POC 43 mg/dL Triglycerides, POC 98 mg/dL LDL Cholesterol POC 105 mg/dL Chol/HDL Ratio, POC 2.4 Non-HDL Cholesterol, POC 125 mg/dL Cholesterol Total, POC 168 mg/dL Capillary blood 12/31/2022 1 :05 PM CDT Ines Bingham RIVET STICKER POINT OF CARE TEST ORDERA PARAG Edited Result - Final documented in this encounter Visit Diagnoses Diagnosis Primary cardiomyopathy (HCC) Other primary cardiomyopathies Biventricular ICD (implantable cardioverter-defibrillator) in place Lipid screening Screening for lipoid disorders documented in this encounter Discontinued Medications Medication Sig Discontinue Reason Start Date End Da te amLODIPine-benazepriL (LOTREL) 10-20 mg per capsule TAKE ONE CAPSULE BY MOUTH DAILY Reorder 09/05/2021 12/31/2022 documented as of this encounter Care Teams Dye Blender Relationship Specialty Start Date End Date Smooth Cristina MD PCP - General 09/18/16 documented as of this encounter
--- OUTSIDE RECORDS SUMMARY | 2024-06-22 00:50 | XMS_ITS | Encounter Summary ---
Author Organization [facility] Healthcare Address [address] [place] [id number] Care Team Providers Care Steel Erector Apprentice Name Role Phone Smooth Cristina MD Primary Care Provider Reason for Visit * Reason Comments Follow-up 7 mo Encounter Details Date Type Department Care Team (Latest Contact Info) Description 09/01/2023 11:00 AM CDT Office Visit [facility] Cardiology [address] [place] [phone] Georgina Nice MD [address] [place] [address] Primary cardiomyopathy (HCC) (Primary Dx); Chronic combined systolic and diastolic heart failure (CMS/HCC) (HCC); Biventricular ICD (implantable cardioverter-defibrilla tor) in place; Complete heart block (CMS/HCC) (HCC); Hyperlipidemia associated with type 2 diabetes mellitus (HCC); Supraventricular tachycardia; Nonsustained ventricular tachycardia (HCC); Essential hypertension; Abnormal CT scan; Dizziness; Noncompliance with treatment; Reactive depression; Concern about end of life Social History Tobacco Use Types Packs/Day Years Used Date Smoking Tobacco: Never Smokeless Tobacco: Never Tobacco Cessation:Counseling Given: Not Answered Alcohol Use Standard Drinks/Week Comments No 0 (1 standard drink = 0.6 oz pur e alcohol) Sex and Gender Information Value Date Recorded Sex Assigned at Not on file 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 Gender Identity Not on file Sexual Orientation Not on file documented as of this encounter Last Filed Vital Signs Vital Sign Reading Time Taken Comments Blood Pressure 138/70 09/01/2023 11:30 AM CDT Pulse 81 09/01/2023 11:06 AM CDT Temperature - - Respiratory Rate - - Oxygen Saturation 97% 09/01/2023 11:06 AM CDT Inhaled Oxygen Concentration - - Weight 82.6 kg (182 lb) 09/01/2023 11:06 AM CDT Height 172.7 cm (5' 8 ) 09/01/2023 11:06 AM CDT Body Mass Index 27.67 09/01/2023 11:06 AM CDT documented in this encounter Patient Instructions * Patient Instructions* Georgina Nice MD - 09/01/2023 11:00 AM CDT STOP THE AMLODIPINE/BENAZEPRIL START LISINOPRIL 20 MG DAILY HOPEFULLY THIS WILL HELP WITH YOUR DIZZINESS documented in this encounter Ordered Prescriptions Prescription Sig Dispense Quantity Refills Last Filled Start Date End Date lisinopriL (PRINIVIL,ZESTRIL) 20 mg tabletIndications:Pr imary cardiomyopathy (HCC) Take 1 tablet (20 mg total) by mouth daily 90 tablet 3 09/01/2023 4 documented in this encounter Progress Notes * Georgina Nice MD - 09/01/2023 11:00 AM CDT [facility] DATE OF VISIT: .09/01/2023 DATE: 1950 CHIEF COMPLAINT Chief Complaint Patient presents with Follow-up 7 mo FU cardiomyopathy and ICD HPI Alan Burgos is a 73 y.o. male with NIDCM [...] abandoned atrial lead by Dr. Cheek of [facility]. New LV and RV leads were [...] CT scan 10/2019 showed calcific coronary disease. 11/30/2022 ER Visit [facility]: For CHF. SBP 150-175. ProBNP 900, hematocrit 40, potassium 4.3, glucose 263, creatinine 0.8, chest x-ray shows CHF with small pleural effusions, CT showed no PE but extensive venous collaterals probably secondary to an occluded left subclavian vein, xedjb-fn-dyrjvjay effusions, cardiomegaly and patchy opacities. I believe he was treated with IV Lasix and given a 7 day prescription for p.o. Lasix. 12/31/2022 hospital follow-up with [facility]: Outside records were not available to me [...] get worse so he went to the [place] [facility] (this was 2-3 weeks ago) and [...] handles of the drill hit his chest. Assessment was some transient CHF which had resolved and patient was euvolemic. ICD check showed normal function. Patient declined any further evaluation. 09/01/[address] Nice: Good. [...] Reviewed ER visit and labs from December, Social: , lives alone. Liked to go to [place] [employer] [employer] every summer as well as [place]. MEDICAL HISTORY Past Medical History: Diagnosis Date HX OTHER MEDICAL Back Pain HX OTHER MEDICAL DJD Social History Tobacco Use Smoking status: Never Smokeless tobacco: Never Substance and Sexual Activity Drug use: No Sexual activity: None Alcohol Use: Not At Risk (12/06/2018) Received from [facility] Frequency of Alcohol Consumption: Never Average Number of Drinks: Not on file Frequency of Binge Drinking: Not on file No family history on file. MEDICATIONS Current Outpatient Medications: ibuprofen (ibuprofen) 200 mg [...] on 12/31/2022), Disp: 1 each, Rfl: 0 lisinopriL (PRINIVIL,ZESTRIL) 20 mg tablet, Take 1 tablet (20 mg total) by mouth daily, Disp: 90 tablet, Rfl: 3 methylPREDNISolone (Medrol, Naun,) 4 mg Dosepack, follow package directions (Patient not taking: Reported on 12/31/2022), Disp: 1 packet, Rfl: 0 tadalafil (CIALIS) 5 mg tablet, take 1 tablet by oral route every day (Patient not taking: Reportedon 12/31/2022), Disp: , Rfl: 0 ALLERGIES No Known Allergies REVIEW OF SYSTEMS Review of Systems Constitutional: Positive for malaise/fatigue. Negative for weight gain. HENT: Negative for congestion. Eyes: Negative for visual disturbance. Cardiovascular: Negative for chest pain, dyspnea on exertion and syncope. Respiratory: Negative for shortness of breath. Hematologic/Lymphatic: Negative for bleeding problem. Musculoskeletal: Positive for arthritis, back pain, falls and myalgias. Gastrointestinal: Negative for abdominal pain, constipation and nausea. Genitourinary: Negative for hematuria. Neurological: Positive for loss of balance. Negative for dizziness. Psychiatric/Behavioral: Positive for depression. PHYSICAL EXAM Blood pressure 138/70, pulse 81, height 172.7 cm (5' 8 ), weight 82.6 kg (182 lb), SpO2 97%. Body mass index is 27.67 kg/m??. Physical Exam Constitutional: Appearance: Normal appearance. He is well-developed. Comments: ICD site well healed Sitting BP 142/70 standing BP 138/70 Neck: Thyroid: No thyromegaly. Cardiovascular: Rate and Rhythm: Normal rate and regular rhythm. Pulses: Carotid pulses are 2+ on the right side and 2+ on the left side. Heart sounds: Normal heart sounds. No murmur heard. Pulmonary: Effort: Pulmonary effort is normal. No respiratory distress. Breath sounds: Normal breath sounds. Abdominal: General: There is no distension. Palpations: Abdomen is soft. Skin: General: Skin is warm and dry. Findings: No erythema. Neurological: Mental Status: He is alert and oriented to person, place, and time. Psychiatric: Behavior: Behavior normal. LABS AND OTHER DIAGNOSTIC TESTS No results found for: WBC , HGB , HCT , MCV , PLT Chemistry No results found for: SODIUM , POTASSIUM , CHLORIDE , CO2 , BUNSER , CREATININE , GLUCOSE No results found for: CALCIUM , ALKPHOS , AST , ALT , BILITOT No results found for: CHOL No results found for: GLUCOSE , CALCIUM , SODIUM , POTASSIUM , CO2 , CHLORIDE , BUNSER , CREATININE No results found for: HDL No results found for: LDL ] No results found for: LDLCALC No results found for: TRIG No results found for: CHOLHDL No results found for: INR , PROTIME Labs: 01/29/15: Hemoglobin A1c 8.4, BUN 16, creatinine 1.0, potassium 4.5, liver enzymes normal, hematocrit 44 02/2018 creat 0.8, K+ 4.5, glu 209, Hct 41. 08/10/2019 POC lipids : Total cholesterol 197, HDL 47, TG 141, LDL 122, glucose 260 07/2020 total chol 167, HDL 34, TRG 108, LDL 111, glu 273. 08/12/2021 chol 167, HDL 34, TRG 108, LDL 111 12/2022 POC lipids: Cholesterol 168, TG 98, HDL 43, LDL 105 Echos: 2012: EF 50%, and in 2008 showed mild global hypokinesis, diastolic dysfunction. 2014: EF 45%, mild LVE, mild global hypo ASSESSMENT Diagnoses and all orders for this visit: Primary cardiomyopathy (HCC) (Primary) - lisinopriL (PRINIVIL,ZESTRIL) 20 mg tablet; Take 1 tablet (20 mg total) by mouth daily Chronic combined systolic and diastolic heart failure (CMS/HCC) (HCC) Biventricular ICD (implantable cardioverter-defibrillator) in place Complete heart block (CMS/HCC) (HCC) Hyperlipidemia associated with type 2 diabetes mellitus (HCC) Supraventricular tachycardia Nonsustained ventricular tachycardia (HCC) Essential hypertension Abnormal CT scan Dizziness Noncompliance with treatment Reactive depression Concern about end of life PLAN/RECOMMENDATIONS Dilated cardiomyopathy: Longstanding cardiomyopathy, EF improved up to 45% in 2014, mostly 2nd BiV pacing. Intolerant of carvedilol (disequilibrium) but stable on minimal tmedical therapy with benazepril. --Pt again declines an Echo --continue ROBYN-inhibitor BiV ICD: Had 4th generator placed in 02/2018. Checked today, normal function, BiV pacing 98%,some nonsustained VT. Has been noncompliant with follow-up and declines remote monitoring. Longevity 20 minutes. --Cont with device clinic VT: Has had some nonsustained VT, once had anti-tachy pacing for VT in 2014, had anti tachy pacing for V-tach and 02/2020 which was unsuccessful but VT self- terminated. No defibrillations. SVT: Occ brief SVT noted in past , with some episodes it may be atrial fibrillation. Some possible brief a fib (this interrogation noted some a fib but looks like lead noise). However these episodes are few and far between, so will continue to observe. HTN: BP reasonable.. --Cont ACEI Dizziness: Not orthostatic today but does describes in his blood pressure. -discontinue amlodipine/benazepril --certain lisinopril 20 mg daily --keep a touch about dizziness and blood pressures. Hypercholesterolemia: Patient has had statins recommended by several physicians and has refused. States his cholesterol was good recently. Was 105 in 12/2022. Noncompliant w/ DM diet. --Declines statin tx or any tx for hypercholesterolemia Abnormal CT scan: Presence of coronary artery calcifications and thus a degree of coronary atherosclerosis noted incidentally on CT scan was reviewed with the patient. Counseling regarding primary prevention was performed. Want to prevent symptomatic CAD, heart attacks, etcetera. --Has previously declined further medications or risk reduction. Second-degree AV block: H/O Noncompliance: Occ pt does not follow up well or take meds as recommended. Taking care declined anyother testing or procedures. Depression: The patient has lost several friends, and lives in isolated life. He sounds depressed. Encouraged contact people. Concern about end of life: Patient expressed he may just let his ICD pulse generator run out?? regarding generator change in 2 years. l Discussed with him, can consider turning off the defibrillator function but continuing the pacing function to prevent symptomatic heart failure. Will address again in the future. FU in 1 year, sooner if needed. Encouraged the patient Dr. Cristina. Georgina Nice MD, [facility] Office: [phone] or [phone] My total encounter time on 09/01/2023 was 42 minutes which was spent in the activities documented inthe note. This includes time spent prior to the visit and after the visit in direct care of the patient. This time does not include time spent in any separately reportable services. This note is dictated and transcribed by with assistance from [employer] Direct [employer]. Behavioral Health Specialist variances may occur. Despite proofreading, typographical errors may occur. documented in this encounter Plan of Treatment Not on file documented as of this encounter Visit Diagnoses Diagnosis Primary cardiomyopathy (HCC)- Primary Other primary cardiomyopathies Chronic combined systolic and diastolic heart failure (CMS/HCC) (HCC) Chronic combined systolic and diastolic heart failure Biventricular ICD (implantable cardioverter-defibrillator) in place Complete heart block (CMS/HCC) (HCC) Atrioventricular block, complete Hyperlipidemia associated with type 2 diabetes mellitus (HCC) Supraventricular tachycardia (HCC) Other specified cardiac dysrhythmias Nonsustained ventricular tachycardia (HCC) Essential hypertension Unspecified essential hypertension Abnormal CT scan Other nonspecific (abnormal) findings on radiological and other examinations of body structure Dizziness Dizziness and giddiness Noncompliance with treatment Personal history of noncompliance with medical treatment, presenting hazards to health Reactive depression Concern about end of life documented in this encounter Discontinued Medications Medication Sig Discontinue Reason Start Date End Da te amLODIPine-benazepriL (LOTREL) 10-20 mg per capsuleIndications:Primary cardiomyopathy (HCC) Take 1 capsule by mouth daily Alternate therapy 12/31/2022 09/01/2023 documented as of this encounter Care Teams Steel Erector Apprentice Relationship Specialty Start Date End Date Smooth Cristina MD PCP - General 09/18/16 documented as of this encounter
--- OUTSIDE RECORDS SUMMARY | 2024-06-22 00:50 | XMS_ITS | Encounter Summary ---
Author Organization [facility] Address [address] [place] [address] Care Team Providers Care Electrical Tech Name Role Phone Smooth Cristina MD Primary Care Provider Reason for Visit * Cardiology (Routine) - Closed Specialty Diagnoses / Procedures Referred By Yonatan t Referred To Contact Diagnoses NICM (nonischemic cardiomyopathy) (CMS/HCC) (HCC) Nonsustained ventricular tachycardia (HCC) Biventricular ICD (implantable cardioverter-defibrillator) in place Chronic diastolic heart failure (HCC) Procedures DEVICE CHECK - IN OFFICE Georgina Nice MD Phone: tel: fax: [facility] Referral ID Status Reason Start Date Expiration Date Visits Re quested Visits Authorized [id number] Closed 08/19/2022 04/11/2024 10 10 Encounter Details Date Type Department Care Team (Latest Contact Info) Description 09/01/2023 10:30 AM CDT Ancillary Procedure [facility] Cardiology [address] [place] [address] NICM (nonischemic cardiomyopathy) (CMS/HCC) (HCC); Nonsustained ventricular tachycardia (HCC); Biventricular ICD (implantable cardioverter-defibr illator) in place; Chronic diastolic heart failure (HCC) Social History Tobacco Use Types Packs/Day Years Used Date Smoking Tobacco: Never Smokeless Tobacco: Never Alcohol Use Standard Drinks/Week Comments No 0 (1 standard drink = 0.6 oz pur e alcohol) Sex and Gender Information Value Date Recorded Sex Assigned at Not on file 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 Gender Identity Not on file Sexual Orientation Not on file documented as of this encounter Plan of Treatment Not on file documented as of this encounter Procedures Procedure Name Priority Date/Time Associated Diagnosis Comments DEVICE CHECK - IN OFFICE Routine 09/01/2023 10:27 AM CDT NICM (nonischemic cardiomyopathy) (CMS/HCC) (HCC) Nonsustained ventricular tachycardia (HCC) Biventricular ICD (implantable cardioverter-defibri llator) in place Chronic diastolic heart failure (HCC) documented in this encounter Results * DEVICE CHECK - IN OFFICE (09/01/2023 10:27 AM CDT) Anatomical Region Laterality Modality Other Narrative 09/12/2023 12:48 PM CDT Medtronic Biventricular ICD Dx; NICM, CHF, NSVT. Gen change 03/02/2018, chronic leads; atrial lead 01/23/09 RV/LV leads 10/31/12. Patient declines remote monitoring-Office Device Checks Q3 mo. Office interrogation of BIV ICD demonstrated appropriate device function. Left pectoral incision well healed without signs of infection noted. ?? Battery function-2.86V, 20 months remaining battery life to RUDOLPH. Charge time 4.1 seconds. HV/SVC impedance 49/70 ohms. Appropriate lead measurements noted-see report for results. Presenting rhythm-Asensed BIVPaced. Underlying rhythm-CHB. AP-28%, BIVP-95.7%. OptiVol fluid index negative for fluid accumulation. 390 Atrial episodes recorded, iegm's Atach and over sensing noted. 6 Ventricular tachy arrhythmias recorded, iegm's NSVT, no therapies delivered. Medications; no AC or antiarrhythmics noted. VF and FVT Rx 5&6 pathways changed from AX>B to B>AX. See scanned report. Patient declines remote monitoring. I informed him he needs office device checks Q3 months for his implanted ICD however he declines and stated he will f/u in the office once per year. Anna Thomas RN us Georgina Nice MD [facility] PROCEDU RES Final Result documented in this encounter Visit Diagnoses Diagnosis NICM (nonischemic cardiomyopathy) (CMS/HCC) (HCC) Nonsustained ventricular tachycardia (HCC) Biventricular ICD (implantable cardioverter-defibrillator) in place Chronic diastolic heart failure (HCC) Chronic diastolic heart failure documented in this encounter Care Teams Electrical Tech Relationship Specialty Start Date End Date Smooth Cristina MD PCP - General 09/18/16 documented as of this encounter
--- OUTSIDE RECORDS SUMMARY | 2024-06-22 00:50 | XMS_ITS | Encounter Summary ---
Author Organization [facility] Address [address] [place] [address] Care Team Providers Care Flooring Machine Feeder Name Role Phone Smooth Cristina MD Primary Care Provider Encounter Details Date Type Department Care Team (Late st Contact Info) Description 12/31/2022 Telephone [facility] Medical [facility] Cardiology [address] [place] [phone] Georgina Nice MD [address] [address] Social History Tobacco Use Types Packs/Day Years Used Date Smoking Tobacco: Never Smokeless Tobacco: Never Alcohol Use Standard Drinks/Week Comments No 0 (1 standard drink = 0.6 oz pur e alcohol) Sex and Gender Information Value Date Recorded Sex Assigned at Not on file 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 * Telephone Encounter - Anna Thomas RN - 12/31/2022 12:58 PM CDT Medtronic Biventricular ICD Dx; NICM, CHF, NSVT. Gen change 03/02/2018, chronic leads; atrial lead 01/23/09 RV/LV leads 10/31/12. Patient declines remote monitoring-Office Device Checks Q6 mo. Carelink express transmission received. Presenting rhythm-- BIC Paced. AP-30%, BIV Paced-99.4%. Battery function--2.92V. 1.9 years remaining battery life to RUDOLPH. Charge time--4.2 seconds. 245-Atrial high rate episodes since 07/29/2022. IEGM's suggestive of oversensing and Atach, 8 minutes longest duration. 4-Ventricular tachy arrhythmias noted, iegm's NSVT, all self terminated. Episdes occurred on 12/13/22, 12/08/22, 09/30/22, 08/03/22. All lead measurements stable and appropriate function. OptiVol fluid index negative for accumulation of fluid. See scanned report. Office device f/u and ROV with Dr Nice scheduled 09/01/2023. Forwarded to Ryann Paula NP. documented in this encounter Plan of Treatment Not on file documented as of this encounter Visit Diagnoses Not on filedocumented in this encounter Care Teams Flooring Machine Feeder Relationship Specialty Start Date End Date Smooth Cristina MD PCP - General 09/18/16 documented as of this encounter
--- OUTSIDE RECORDS SUMMARY | 2024-06-22 00:50 | XMS_ITS | Clinical Summary ---
Author Organization [facility] [address] Address [address] [place] [address] Care Team Providers Care Bindery Machine Feeder Offbearer Name Role Phone Smooth Cristina MD Primary Care Provider Allergies No known active allergies Medications tamsulosin (FLOMAX) 0.4 mg capsule,extend ed release 24hr take 1 by Oral route every day 0 0 4 Active tadalafil (CIALIS) 5 mg tablet take 1 tablet by oral route every day 0 7 Active Additional Information Patient not taking.Reported on 05/22/2024 insulin lispro (HumaLOG, ADMELOG) 100 unit/mL pen for injection Inject 20-25 Units under the skin 9 Active Lantus Solostar U-100 Insulin 100 unit/mL (3 mL) insulin pen 0 Active omeprazole (PriLOSEC) 20 mg capsule daily 1 Active albuterol HFA (PROVENTIL HFA,VENTOLIN HFA,PROAIR HFA) 90 mcg/actuation inhalerIndicat ions:Bacterial URI Inhale 2 puffs every 6 (six) hours as needed for wheezing 1 each 3 Active Additional Information Patient not taking.Reported on 05/22/2024 dutasteride (AVODART) 0.5 mg capsule Take 1 capsule (0.5 mg total) by mouth daily 4 Active Jardiance 10 mg tablet Take 1 tablet (10 mg total) by mouth daily 4 Active furosemide (LASIX) 40 mg tablet Take 0.5 tablets (20 mg total) by mouth daily 4 Active spironolactone (ALDACTONE) 25 mg tablet 4 Active metoprolol XL (TOPROL-XL) 50 mg extended release tablet Take 1 tablet (50 mg total) by mouth daily 4 Active Dexcom G7 Sensor device USE 1 SENSOR DIRECTED PER INSTRUCTIONS IN PACK 4 Active lisinopriL (PRINIVIL,ZEST RIL) 20 mg tablet Take 1 tablet (20 mg total) by mouth daily 90 tablet 3 4 Active lisinopriL (PRINIVIL,ZEST RIL) 20 mg tablet Take 1 tablet (20 mg total) by mouth daily 024 Discontin ued(Reord er) Active Problems Problem Noted Date Diagnosed Date Reactive depression 09/02/2023 Concern about end of life 09/02/2023 Complete heart block (CMS/HCC) 09/01/2023 Dizziness 09/01/2023 Hyperlipidemia associated with type 2 diabetes rashid lin 07/29/[address] scan 07/29/2022 Second degree AV block 07/29/2022 Biventricular ICD (implantab le cardioverter-defibrillator) in place 08/05/2016 Overview (10/14/2021): Medtronic Biventricular ICD Dx; NICM, CHF, NSVT. Gen change 03/02/2018. Chronic atrial lead 01/23/2009, chronic RV/LV leads 10/21/2012. Patient declines remote monitoring-Office Device Checks Q6 mo-per patient d/t cost. Essential hypertension 08/05/2016 Overview (09/24/2016): Essential hypertension Controlled type 2 diabetes rashid lin without complication, with long-term current use of insulin (CMS/HCC) 08/05/2016 Overview (09/24/2016): Type 2 diabetes mellitus without complication, with long-term current use of insulin Noncompliance with treatment 08/05/2016 Overview (09/24/2016): Noncompliance Palpitations 08/05/2016 Overview (09/24/2016): Palpitations Supraventricular tachycardia 08/05/2016 Overview (09/24/2016): SVT (supraventricular tachycardia) Nonsustained ventricular tachycardia 03/05/2015 Overview (09/24/2016): Nonsustained supraventricular tachycardia Chronic combined systolic an d diastolic heart failure (CMS/HCC) 07/03/2013 Overview (09/25/2016): Chronic diastolic heart failure Adiposity 07/03/2013 Overview (09/26/2016): Obesity (BMI 30-39.9) 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 Overview (09/26/2016): IDIOPATHIC CARDIOMYOPATHY Resolved Problems Problem Noted Date Diagnosed Date Resolved Date Pure hypercholesterolemia 08/10/2019 Ventricular tachycardia 03/05/2015 02/0 09/2018 Overview (09/24/2016): Ventricular tachycardia Diabetes mellitus 07/03/2013 07/25/2018 Overview (09/25/2016): DM (diabetes mellitus) Hypertension 07/03/2013 07/18/2018 Overview (09/26/2016): HTN (hypertension) Encounters Date Type Department Care Team Description 06/20/2024 Telephone [facility] [address] [place] [phone] Michael Bond MD Med Refill 05/22/2024 10:00 AM CLOSER ON Office Visit [facility] Cardiology [address] [place] [address] Ines Acharya NP Primary cardiomyopathy (HCC) (Primary Dx); Chronic combined systolic and diastolic heart failure (CMS/HCC) (HCC); Complete heart block (CMS/HCC) (HCC); 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 04/27/2024 11:15 AM CLOSER ON Ancillary Procedure [place] [address] [place] [phone] Primary cardiomyopathy (HCC); Dyspnea on exertion 04/27/2024 8:15 AM CLOSER ON Ancillary Procedure [place] [address] [place] [phone] Dyspnea on exertion; Chest tightness 04/18/2024 Orders Only [place] [address] [place] [phone] Kevin Chirinos MD 04/11/2024 9:30 AM CDT Office Visit [place] [address] [place] [phone] Ines Acharya NP Primary cardiomyopathy (HCC); Dyspnea on exertion; Chest tightness; Essential hypertension; Lipid screening 04/11/2024 9:00 AM CDT Ancillary Procedure [place] [address] [place] [phone] NICM (nonischemic cardiomyopathy) (CMS/HCC) (HCC); Nonsustained ventricular tachycardia (HCC); 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; Chronic diastolic heart failure (HCC) 04/10/2024 Telephone [place] [address] [place] [phone] Michael Bond MD Shortness of Breath from Last 3 Months Surgical History Surgery Date Site/Laterality Comments LEG TENDON SURGERY Medical History Medical History Date Comments Hx Other Medical Back Pain Hx Other Medical DJD Social History Tobacco Use Types Packs/Day Years Used Date Smoking Tobacco: Never Smokeless Tobacco: Never Tobacco Cessation:Counseling Given: Not Answered Alcohol Use Standard Drinks/Week Comments No 0 (1 standard drink = 0.6 oz pur e alcohol) Sex and Gender Information Value Date Recorded Sex Assigned at Not on file 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 Gender Identity Not on file Sexual Orientation Not on file Obstetrics History Last Filed Vital Signs Vital Sign Reading Time Taken Comments Blood Pressure 130/62 05/22/2024 9:59 AM CLOSER ON Pulse 73 05/22/2024 9:59 AM CLOSER ON Temperature 36.6 ??C (97.9 ??F) 11/28/2022 2:45 PM CD T Respiratory Rate 18 11/28/2022 2:45 PM CDT Oxygen Saturation 98% 05/22/2024 9:59 AM CLOSER ON Inhaled Oxygen Concentration - - Weight 85.7 kg (189 lb) 05/22/2024 9:59 AM CLOSER ON Height 172.7 cm (5' 8 ) 05/22/2024 9:59 AM CLOSER ON Body Mass Index 28.74 05/22/2024 9:59 AM CLOSER ON Plan of Treatment Health Maintenance Due Date Last Done Comments Albumin Creatinine Ratio, Urine 1950 Colon Cancer Screening-Colonoscopy 1950 Depression Screening 1950 Fall Risk Assessment 1950 Hemoglobin A1C 1950 Hepatitis C Screening 1950 eGFR 1950 Dilated Eye Exam 1950 Foot Exam 1950 Pneumococcal vaccine 65+ (1 of 2 - PCV) 1956 DTaP/Tdap/Td Vaccine (1 - Tdap) 1961 Hepatitis B Screening 1968 Zoster Vaccine (1 of 2) 2000 Well Visit 65+ 2015 Influenza Vaccine (#1) 2024 04/04/2019, 2010 Lipid Panel 04/11/2025 04/11/2024, 12/19, 08/12/2020, Additional history exists Medical Devices Implanted Type Area Special Ed Assistant Device Identifier Shelf Expiration Date Model / Serial / Lot Icd-10/31/2012 Implanted:10/31 (Quantity not on file) Explanted:03/02 by Georgina Nice MD (Quantity not on file) ICD Chest Medtronic NICM, CHF, NSVT. 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 Chronic RV/LV leads 10/31/2012. Procedures Procedure Name Priority Date/Time Associated Diagnosis Comments TRANSTHORACIC ECHO (TTE) COMPLETE W DOPPLER/CF WO CONTRAST Routine 04/27/2024 12:57 PM CLOSER ON Primary cardiomyopathy (HCC) Dyspnea on exertion NM MPI SPECT (REST AND/OR STRESS) MULTIPLE STUDIES Schedule Routine, Read Routine (OP Routine) 04/27/2024 9:55 AM CLOSER ON Dyspnea on exertion Chest tightness CARDIOLOGY DOCUMENT SCAN Routine 04/16/2024 2:10 PM CDT CARDIOLOGY DOCUMENT SCAN Routine 04/15/2024 1:58 PM CDT CARDIOLOGY DOCUMENT SCAN Routine 04/14/2024 1:55 PM CDT CARDIOLOGY DOCUMENT SCAN Routine 04/13/2024 1:51 PM CDT POCT LIPID PANEL Routine 04/11/2024 9:44 AM CDT Lipid screening DEVICE CHECK - IN OFFICE Routine 04/11/2024 8:55 AM CDT NICM (nonischemic cardiomyopathy) (CMS/HCC) (HCC) Nonsustained ventricular tachycardia (HCC) Biventricular ICD (implantable cardioverter-defibri llator) in place Chronic diastolic heart failure (HCC) ECG 12-LEAD Routine 04/11/2024 Dyspnea on exertion Chest tightness from Last 3 Months Results * TRANSTHORACIC ECHO (TTE) COMPLETE W DOPPLER/CF WO CONTRAST (04/27/2024 12:57 PM CLOSER ON) Anatomical Region Laterality Modality Ultrasound 04/27/2024 11:5 9 AM CLOSER ON Narrative 04/27/2024 4:30 PM CLOSER ON [facility] [address] [facility] [address] [address] [address] [facility] [address] [address] P:[phone] P:[phone] Echocardiographic Report Patient Name: ALAN VALENTIN R : 1950 Study Date: 04/27/2024 11:59:09 AM Gender: M Tech: ANITA Location: [place] Ref Provider: INES ACHARYA ?Height(Cm): 173 BSA: 2 [...] FINDINGS: Interpretation Site: Exam was interpreted at [facility]. Left Ventricle: Normal left ventricular size. Moderate [...] Signed By: Michael Bond MD 2024-04-27 16:29:36 CLOSER ON Procedure Note Michael Bond MD - 04/27/2024 [facility] [address], [place] [address] [address] [facility] [address], [place] [address] P:[phone] P:[phone] Echocardiographic Report Patient Name: ALAN VALENTIN R : 1950 Study Date: 04/27/2024 11:59:09 AM Gender: M Tech: Location: [place] Ref Provider: INES ACHARYA Height(Cm): 173 BSA: [...] FINDINGS: Interpretation Site: Exam was interpreted at [facility]. Left Ventricle: Normal left ventricular size. Moderate [...] Signed By: Michael Bond MD 2024-04-27 16:29:36 CLOSER ON us Ines Acharya SLEEP MEDICINE PHYSICIAN CV ECHO PROCEDURES Final Result * NM MPI SPECT (Rest and/or Stress) Multiple Studies (04/27/2024 9:55 AM CLOSER ON) Anatomical Region Laterality Modality Body N/A Nuclear Medicine 04/27/2024 7:25 AM CLOSER ON Narrative 04/27/2024 5:34 PM CLOSER ON [facility] [address] [facility] [address] [address] [address] [facility] [address], [place] [address] P:[phone] P:[phone] MPI Imaging Report Patient Name: ALAN VALENTIN R : 1950 Study Date: 04/27/2024 7:25:29 AM Gender: M Tech: [facility] Location: [facility] Provider: INES ACHARYA ?Height(Cm): 172.7 BSA: ??Weight(Kg): 83.5 BMI: 28 ?Order Provider: INES ACHARYA - PHYSICIAN: Referring Physician: Dr. Cristina. HCG Physician: Gabriel Bond M.D. Interpreting Physician: aGbriel Bond M.D. Stress Supervision: Gabriel Bond M.D. [...] Signed By: Michael Bond MD 2024-04-27 17:33:03 CLOSER ON Electronically Signed By: Michael Bond MD 2024-04-27 17:33:03 CLOSER ON Procedure Note Michael Bond MD - 04/27/2024 [facility] [address] [facility] [address] [address] [address] [facility] [address], [place] [address] P:[phone] P:[phone] MPI Imaging Report Patient Name: ALAN VALENTIN R : 1950 Study Date: 04/27/2024 7:25:29 AM Gender: M Tech: [facility] Location: [facility] Provider: INES ACHARYA Height(Cm): 172.7 BSA: Weight(Kg): 83.5 BMI: 28 Order Provider: INES ACHARYA - PHYSICIAN: Referring Physician: Dr. Cristina. HCG Physician: Gabriel Bond M.D.Interpreting Physician: Gabriel Bond M.D. Stress Supervision: Gabrile Bond M.D. PROCEDURES: Myocardial perfusion imaging with [...] Signed By: Michael Bond MD 2024-04-27 17:33:03 CLOSER ON Electronically Signed By: Michael Bond MD 2024-04-27 17:33:03 CLOSER ON us Ines Acharya SLEEP MEDICINE PHYSICIAN IMG NM PROCEDURES Final R esult * Cardiology Document Scan (04/16/2024 2:10 PM CDT) Anatomical Region Laterality Modality Other us Michael Bond MD CARDIAC SERVICES PROCE DURES Final Result * Cardiology Document Scan (04/15/2024 1:58 PM CDT) Anatomical Region Laterality Modality Other us Michael Bond MD CV CARDIAC SERVICES PROCE DURES Final Result * Cardiology Document Scan (04/14/2024 1:55 PM CDT) Anatomical Region Laterality Modality Other Kevin Chirinos MD CV CARDIAC SERVICES PRO CEDURES Final Result * Cardiology Document Scan (04/13/2024 1:51 PM CDT) Anatomical Region Laterality Modality Other Kevin Chirinos MD CV CARDIAC SERVICES PRO CEDURES Final Result * POCT lipid panel (04/11/2024 9:44 AM CDT) Cholesterol, POC 145 mg/dL HDL, POC 39 mg/dL Triglycerides, POC 45 mg/dL LDL Cholesterol POC 93 mg/dL Chol/HDL Ratio, POC - Non-HDL Cholesterol, POC 106 mg/dL Cholesterol Total, POC 145 mg/dL Capillary blood 04/11/2024 9 :44 AM CDT us Ines Acharya NP POINT OF CARE TEST ORDERA BLES Final Result * DEVICE CHECK - IN OFFICE (04/11/2024 8:55 AM CDT) Anatomical Region Laterality Modality Other Narrative 04/11/2024 11:20 AM CDT Medtronic Biventricular ICD Dx; NICM, CHF, NSVT. Gen change 03/02/2018. Chronic atrial lead 01/23/2009, chronic RV/LV leads 10/21/2012. Patient declines remote monitoring-Office Device Checks Q6 mo-per patient d/t cost. Supervising MD: ??Smiley Office interrogation of DDD ICD demonstrated appropriate device function. Left pectoral incision well approximated without redness, drainage, or edema noted. Battery function: ??2.88 V, 1 year remaining battery life to RUDOLPH. Charge time: ??4.4 seconds Appropriate lead measurements noted-see report for results. Presenting rhythm- /BV Underlying rhythm- SB AP- 22 % BIVP- 94.8 % 334 Atrial high rate episodes recorded. IEGMs demonstrate oversensing, possible AT. ??AT/AF burden 0.3% 4 Ventricular tachy arrhythmias recorded. IEGMs demonstrate 2 episodes of SVT, and 2 episodes of NSVT. ??Longest episode was 4 seconds in duration Medications; no anticoagulation or antiarrhythmic medications No Programming changes made to device settings. See scanned report. Office device f/u scheduled 08/30/24. Patient declines remote monitoring Phillip Menjivar, MARIA EUGENIA us Georgina Nice MD CV CARDIAC SERVICES PROCEDU RES Final Result * ECG 12 lead (04/11/2024) 04/11/2024 Ines Acharya NP ECG ORDERABLES Final Res ult from Last 3 Months Insurance AET MEDICARE Care Teams Bindery Machine Feeder Offbearer Relationship Specialty Start Date End Date Smooth Cristina MD PCP - General 09/18/16
--- OUTSIDE RECORDS SUMMARY | 2024-06-22 00:50 | XMS_ITS | Referral Summary ---
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); Complete heart block (CMS/HCC) (HCC); 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 04/27/2024 8:15 AM SMALL ARMS REPAIRER Ancillary Procedure [facility] Cardiology [address] [place] [address] [address] [place] [phone] Dyspnea on exertion; Chest tightness 04/27/2024 11:15 AM SMALL ARMS REPAIRER Ancillary Procedure [address] [place] [phone] Primary cardiomyopathy (HCC); Dyspnea on exertion 04/18/2024 Orders Only [place] [address] [place] [phone] Kevin Chirinos MD 04/11/2024 9:00 AM CDT Ancillary Procedure [facility] Cardiology [address] [facility] [address] [place] [address] NICM (nonischemic cardiomyopathy) (CMS/HCC) (HCC); Nonsustained ventricular tachycardia (HCC); 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; Chronic diastolic heart failure (HCC) 04/11/2024 9:30 AM CDT Office Visit [facility] Cardiology [address] [place] [address] [address] [place] [address] Ines Acharya NP Primary cardiomyopathy (HCC); Dyspnea on exertion; Chest tightness; Essential hypertension; Lipid screening 04/10/2024 Telephone [facility] Cardiology [address] [place] [address] [address] [place] [phone] Michael Bond MD Shortness of Breath from Last 3 Months Allergies No known active allergies Medications tamsulosin [...] capsule (0.5 mg total) by mouth daily 11/16/202 4 Active Jardiance 10 mg tablet Take [...] Hypertension 07/03/2013 07/18/2018 Overview (09/26/2016): HTN (hypertension) Social History Tobacco Use Types Packs/Day Years Used Date Smoking Tobacco: Never Smokeless Tobacco: Never Tobacco Cessation:Counseling Given: Not Answered Alcohol Use Standard Drinks/Week Comments No 0 (1 standard drink = 0.6 oz pur e alcohol) Sex and Gender Information Value Date Recorded Sex Assigned at Not on file Legal Sex Male 7:08 PM SMALL ARMS REPAIRER Gender Identity Not on file Sexual Orientation Not on file Last Filed Vital Signs Vital Sign Reading Time Taken Comments Blood Pressure 130/62 05/22/2024 9:59 AM SMALL ARMS REPAIRER Pulse 73 05/22/2024 9:59 AM SMALL ARMS REPAIRER Temperature 36.6 ??C (97.9 ??F) 11/28/2022 2:45 PM CD T Respiratory Rate 18 11/28/2022 2:45 PM CDT Oxygen Saturation 98% 05/22/2024 9:59 AM SMALL ARMS REPAIRER Inhaled Oxygen Concentration - - Weight 85.7 kg (189 lb) 05/22/2024 9:59 AM SMALL ARMS REPAIRER Height 172.7 cm (5' 8 ) 05/22/2024 9:59 AM SMALL ARMS REPAIRER Body Mass Index 28.74 05/22/2024 9:59 AM SMALL ARMS REPAIRER Plan of Treatment Not on file Medical Devices Implanted Type Area Pickling Drum Operator Device Identifier Shelf Expiration Date Model / Serial / Lot Icd-10/31/2012 Implanted:10/31 (Quantity not on file) Explanted:03/02 by Georgina iNce MD (Quantity not on file) ICD Chest Medtronic NICM, CHF, NSVT. PROTECTA TESTER REGULATOR-D / [id number] / Description:Chronic atrial l ead 01/23/2009. Chronic RV/LV leads 10/31/2012. Procedures Procedure Name Priority Date/Time Associated Diagnosis Comments TRANSTHORACIC ECHO (TTE) COMPLETE W DOPPLER/CF WO CONTRAST Routine 04/27/2024 12:57 PM SMALL ARMS REPAIRER Primary cardiomyopathy (HCC) Dyspnea on exertion NM MPI SPECT (REST AND/OR STRESS) MULTIPLE STUDIES Schedule Routine, Read Routine (OP Routine) 04/27/2024 9:55 AM SMALL ARMS REPAIRER Dyspnea on exertion Chest tightness CARDIOLOGY DOCUMENT [...] W DOPPLER/CF WO CONTRAST (04/27/2024 12:57 PM SMALL ARMS REPAIRER) Anatomical Region Laterality Modality Ultrasound 04/27/2024 11:5 9 AM SMALL ARMS REPAIRER Narrative 04/27/2024 4:30 PM SMALL ARMS REPAIRER [facility] Cardiology [address] [facility] [address], [place] [address] [address], [place] [address] P:[phone] P:[phone] Echocardiographic Report Patient Name: ALAN VALENTIN R : 1950 Study Date: 04/27/2024 11:59:09 AM Gender: M Tech: Location: [facility] Provider: INES ACHARYA ?Height(Cm): 173 BSA: [...] FINDINGS: Interpretation Site: Exam was interpreted at [facility]. Left Ventricle: Normal left ventricular size. [...] Signed By: Michael Bond MD 2024-04-27 16:29:36 SMALL ARMS REPAIRER Procedure Note Michael Bond MD - 04/27/2024 [facility] Cardiology [address] [facility] [address], [place] [address] [address] [facility] [address], [place] [address] P:[phone] P:[phone] Echocardiographic Report Patient Name: ALAN VALENTIN R : 1950 Study Date: 04/27/2024 11:59:09 AM Gender: M Tech: Location: [place] Ref Provider: INES ACHARYA Height(Cm): 173 BSA: [...] FINDINGS: Interpretation Site: Exam was interpreted at [facility]. Left Ventricle: Normal left ventricular size. [...] Signed By: Michael Bond MD 2024-04-27 16:29:36 SMALL ARMS REPAIRER Ines Acharya NP CV ECHO PROCEDURES Final Result * NM MPI SPECT (Rest and/or Stress) Multiple Studies (04/27/2024 9:55 AM SMALL ARMS REPAIRER) Anatomical Region Laterality Modality Body N/A Nuclear Medicine 04/27/2024 7:25 AM SMALL ARMS REPAIRER Narrative 04/27/2024 5:34 PM SMALL ARMS REPAIRER [facility] Cardiology [address], [place] [address] [address], [place] [address] P:[phone] P:[phone] MPI Imaging Report Patient Name: ALAN VALENTIN R : 1950 Study Date: 04/27/2024 7:25:29 AM Gender: M Tech: [facility] Location: [facility] Provider: INES ACHARYA ?Height(Cm): 172.7 BSA: ??Weight(Kg): 83.5 BMI: 28 ?Order Provider: INES ACHARYA - PHYSICIAN: Referring Physician: Dr. Cristina. HCG Physician: Gabriel Bond M.D. Interpreting Physician: Gabriel Bond M.D. Stress Supervision: Gabriel [...] Signed By: Michael Bond MD 2024-04-27 17:33:03 SMALL ARMS REPAIRER Electronically Signed By: Michael Bond MD 2024-04-27 17:33:03 SMALL ARMS REPAIRER Procedure Note Michael Bond MD - 04/27/2024 [facility] Cardiology [address] [facility] [address], [place] [address] [address] [facility] [id number], [place] [address] P:[phone] P:[phone] MPI Imaging Report Patient Name: ALAN VALENTIN R : 1950 Study Date: 04/27/2024 7:25:29 AM Gender: M Tech: [facility] Location: [facility] Provider: INES ACHARYA Height(Cm): 172.7 BSA: Weight(Kg): [...] Signed By: Michael Bond MD 2024-04-27 17:33:03 SMALL ARMS REPAIRER Electronically Signed By: Michael Bond MD 2024-04-27 17:33:03 SMALL ARMS REPAIRER us Ines Acharya DONOR SERVICES MANAGER IMG NM PROCEDURES Final R esult * Cardiology Document Scan (04/16/2024 2:10 PM CDT) Anatomical Region Laterality Modality Other us Michael Bond MD CV CARDIAC SERVICES PROCE DURES Final Result * Cardiology Document Scan (04/15/2024 1:58 PM CDT) Anatomical Region Laterality Modality Other Michael Bond MD CV CARDIAC SERVICES PROCE DURES Final Result * Cardiology Document Scan (04/14/2024 1:55 PM CDT) Anatomical Region Laterality Modality Other us Kevni Chirinos MD CV CARDIAC SERVICES PRO CEDURES [...] scheduled 08/30/24. Patient declines remote monitoring Phillip Menjivar RN Georgina Nice MD CV CARDIAC SERVICES PROCEDU RES Final Result * ECG 12 lead (04/11/2024) 04/11/2024 Ines Acharya DONOR SERVICES MANAGER ECG ORDERABLES Final Res ult from Last 3 Months Insurance [employer] MEDICARE Care Teams Banking Services Officer Relationship Specialty Start Date End Date Smooth Cristina MD PCP - General 09/18/16
--- OUTSIDE RECORDS SUMMARY | 2024-06-22 00:50 | XMS_ITS | Encounter Summary ---
Author Organization [facility] Address [address] [place] [address] Care Team Providers Care Air Carrier Inspector Name Role Phone Smooth Cristina MD Primary Care Provider [phone] Reason for Visit * Diagnostic Imaging (Routine) - Closed Specialty Diagnoses / Procedures Referred By Yonatan min Referred To Contact Diagnoses Dyspnea on exertion Chest tightness Procedures NM MPI SPECT (Rest and/or Stress) Multiple Studies IN TC99M SESTAMIBI IN REGADENOSON INJECTION IN THERAPEUTIC PROPHYLACTIC/DX INJECTION SUBQ/IM Tsering Acharya NP [address] [facility] [address] [place] [address] Phone: tel: fax: [facility] Referral ID Status Reason Start Date Expiration Date Visits Re quested Visits Authorized [id number] Closed 04/25/2024 10/22/2024 1 1 Encounter Details Date Type Department Care Team (Latest Contact Info) Description 04/27/2024 8:15 AM TERRITORY SALES CONSULTANT Ancillary Procedure [facility] Cardiology [address] [place] [id number] Dyspnea on exertion; Chest tightness Social History Tobacco Use Types Packs/Day Years Used Date Smoking Tobacco: Never Smokeless Tobacco: Never Alcohol Use Standard Drinks/Week Comments No 0 (1 standard drink = 0.6 oz pur e alcohol) Sex and Gender Information Value Date Recorded Sex Assigned at Not on file Legal Sex Male 7:08 PM TERRITORY SALES CONSULTANT Gender Identity Not on file Sexual Orientation Not on file documented as of this encounter Plan of Treatment Not on file documented as of this encounter Procedures Procedure Name Priority Date/Time Associated Diagnosis Comments NM MPI SPECT (REST AND/OR STRESS) MULTIPLE STUDIES Schedule Routine, Read Routine (OP Routine) 04/27/2024 9:55 AM TERRITORY SALES CONSULTANT Dyspnea on exertion Chest tightness documented in this encounter Results * NM MPI SPECT (Rest and/or Stress) Multiple Studies (04/27/2024 9:55 AM TERRITORY SALES CONSULTANT) Anatomical Region Laterality Modality Body N/A Nuclear Medicine 04/27/2024 7:25 AM TERRITORY SALES CONSULTANT Narrative 04/27/2024 5:34 PM TERRITORY SALES CONSULTANT [facility] Cardiology [address] [facility] [address] [address] [address] [facility] [address], [place] [address] P:[phone] P:[phone] MPI Imaging Report Patient Name: ALAN VALENTIN R : 1950 Study Date: 04/27/2024 7:25:29 AM Gender: M Tech: [facility] Location: [facility] Provider: TSERING ACHARYA ?Height(Cm): 172.7 BSA: ??Weight(Kg): 83.5 BMI: 28 ?Order Provider: TSERING ACHARYA - PHYSICIAN: Referring Physician: Dr. Cristina. [...] Signed By: Michael Bond MD 2024-04-27 17:33:03 TERRITORY SALES CONSULTANT Electronically Signed By: Michael Bond MD 2024-04-27 17:33:03 TERRITORY SALES CONSULTANT Procedure Note Michael Bond MD - 04/27/2024 [facility] Cardiology [address] [facility] [address] [address] [address] [facility] [address], [place] [address] P:[phone] P:[phone] MPI Imaging Report Patient Name: ALAN VALENTIN R : 1950 Study Date: 04/27/2024 7:25:29 AM Gender: M Tech: [facility] Location: [facility] Provider: TSERING ACHARYA Height(Cm): 172.7 BSA: Weight(Kg): 83.5 BMI: 28 Order Provider: TSERING ACHARYA - PHYSICIAN: Referring Physician: Dr. Cristina. [...] Signed By: Michael Bond MD 2024-04-27 17:33:03 TERRITORY SALES CONSULTANT Electronically Signed By: Michael Bond MD 2024-04-27 17:33:03 TERRITORY SALES CONSULTANT Tsering Acharya BODY SPECIALIST IMG NM PROCEDURES Final R esult documented in this encounter Visit Diagnoses Diagnosis Dyspnea on exertion Other dyspnea and respiratory abnormality Chest tightness Other chest pain documented in this encounter Administered Medications Inactive Administered Medications - up to 3 most recent administrations Medication Order MAR Action Action Date Dose Rate Site regadenoson (LEXISCAN) 0.4 mg/5 mL injection 0.4 mg 0.4 mg, intravenous, Once, On Collette 04/27/24 at 1030, For 1 dose, Administer IV push over 10 seconds., Indications: Myocardial Perfusion Imaging AdjunctIndications:Myocard ial Perfusion Imaging Adjunct Given 04/27/2024 9:55 AM TERRITORY SALES CONSULTANT 0.4 mg tc-99m sestamibi unit dose injection 24.8 millicurie 24.8 millicurie, intravenous, Once in imaging, radiopharmaceutical, Starting on Collette 04/27/24 at 0955, For 1 dose, Indications: Diagnostic RadiographyIndications:Mariama gnostic Radiography Given 04/27/2024 9:56 AM TERRITORY SALES CONSULTANT 24.8 millicuries tc-99m sestamibi unit dose injection 8.6 millicurie 8.6 millicurie, intravenous, Once in imaging, radiopharmaceutical, Starting on Collette 04/27/24 at 0818, For 1 dose, Indications: Diagnostic RadiographyIndications:Mariama gnostic Radiography Given 04/27/2024 8:19 AM TERRITORY SALES CONSULTANT 8.6 millicuries documented in this encounter Care Teams Air Carrier Inspector Relationship Specialty Start Date End Date Smooth Cristina MD PCP - General 09/18/16 documented as of this encounter
--- OUTSIDE RECORDS SUMMARY | 2024-06-22 00:50 | XMS_ITS | Encounter Summary ---
Author Organization [facility] Address [address] [facility] [address] [place] [address] Care Team Providers Care Production Specialist Name Role Phone Smooth Cristina MD Primary Care Provider Reason for Visit * Cardiology (Routine) - Closed Specialty Diagnoses / Procedures Referred By Yonatan paula Referred To Contact Diagnoses NICM (nonischemic cardiomyopathy) (CMS/HCC) (HCC) Nonsustained ventricular tachycardia (HCC) Biventricular ICD (implantable cardioverter-defibrillator) in place Chronic diastolic heart failure (HCC) Procedures DEVICE CHECK - IN OFFICE Georgina Nice MD Phone: tel: fax: [facility] Referral ID Status Reason Start Date Expiration Date Visits Re quested Visits Authorized [id number] Closed 08/19/2022 04/11/2024 10 10 Encounter Details Date Type Department Care Team (Latest Contact Info) Description 12/31/2022 12:30 PM CDT Ancillary Procedure [facility] Medical [facility] Cardiology [address] [facility] [address] [place] [address] NICM (nonischemic cardiomyopathy) (CMS/HCC) (HCC); [...] on file Legal Sex Male 7:08 PM MICROSTRATEGY REPORTS DEVELOPER Gender Identity Not on file Sexual Orientation Not on file documented as of this encounter Plan of Treatment Not on file documented as of this encounter Procedures Procedure Name Priority Date/Time Associated Diagnosis Comments DEVICE CHECK - IN OFFICE Routine 12/31/2022 11:57 AM CDT NICM (nonischemic cardiomyopathy) (CMS/HCC) (HCC) Nonsustained ventricular tachycardia (HCC) Biventricular ICD (implantable cardioverter-defibri llator) in place Chronic diastolic heart failure (HCC) documented in this encounter Results * DEVICE CHECK - IN OFFICE (12/31/2022 11:57 AM CDT) Anatomical Region Laterality Modality Other Narrative 02/22/2023 4:46 PM CDT [employer] Biventricular ICD Dx; NICM, CHF, NSVT. Gen change 03/02/2018, chronic leads; atrial lead 01/23/09 RV/LV leads 10/31/12. Patient declines remote monitoring-Office Device Checks Q6 mo. [employer] express transmission received. Presenting rhythm-- BIV Paced. AP-30%, BIV Paced-99.4%. Battery function--2.92V. 1.9 [...] scheduled 09/01/2023. Forwarded to Ryann Paula NP. Georgina Nice MD [facility] C[facility] PROCEDU RES Final Result documented in this encounter Visit Diagnoses Diagnosis NICM (nonischemic cardiomyopathy) (CMS/HCC) (HCC) Nonsustained ventricular tachycardia (HCC) Biventricular ICD (implantable cardioverter-defibrillator) in place Chronic diastolic heart failure (HCC) Chronic diastolic heart failure documented in this encounter Care Teams Production Specialist Relationship Specialty Start Date End Date Smooth Cristina MD PCP - General 09/18/16 documented as of this encounter
--- OUTSIDE RECORDS SUMMARY | 2024-06-22 00:50 | XMS_ITS | Encounter Summary ---
Author Organization [facility] Address [address] [place] [address] Care Team Providers Care Extractor Operator Helper Name Role Phone Smooth Cristina MD Primary Care Provider Reason for Visit * Cardiology (Routine) - Closed Specialty Diagnoses / Procedures Referred By Yonatan t Referred To Contact Diagnoses NICM (nonischemic cardiomyopathy) (CMS/HCC) (HCC) Nonsustained ventricular tachycardia (HCC) Biventricular ICD (implantable cardioverter-defibrillator) in place Chronic diastolic heart failure (HCC) Procedures DEVICE CHECK - IN OFFICE Georgina Nice MD Phone: tel: fax: [facility] Medical [facility] Referral ID Status Reason Start Date Expiration Date Visits Re quested Visits Authorized [id number] Closed 08/19/2022 04/11/2024 10 10 Encounter Details Date Type Department Care Team (Latest Contact Info) Description 04/11/2024 9:00 AM CDT Ancillary Procedure [facility] Cardiology [address] [place] [address] NICM (nonischemic cardiomyopathy) (CMS/HCC) (HCC); [...] on file Legal Sex Male 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 PM 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 Gender Identity Not on file Sexual Orientation Not on file documented as of this encounter Plan of Treatment Not on file documented as of this encounter Procedures Procedure Name Priority Date/Time Associated Diagnosis Comments DEVICE CHECK - IN OFFICE Routine 04/11/2024 8:55 AM CDT NICM (nonischemic cardiomyopathy) (CMS/HCC) (HCC) Nonsustained ventricular tachycardia (HCC) Biventricular ICD (implantable cardioverter-defibri llator) in place Chronic diastolic heart failure (HCC) documented in this encounter Results * DEVICE CHECK - IN OFFICE (04/11/2024 [...] Patient declines remote monitoring Phillip Menjivar RN us Georgina Nice MD CV CARDIAC SERVICES PROCEDU RES Final Result documented in this encounter Visit Diagnoses Diagnosis NICM (nonischemic cardiomyopathy) (CMS/HCC) (HCC) Nonsustained ventricular tachycardia (HCC) Biventricular ICD (implantable cardioverter-defibrillator) in place Chronic diastolic heart failure (HCC) Chronic diastolic heart failure documented in this encounter Care Teams Extractor Operator Helper Relationship Specialty Start Date End Date Smooth Cristina MD PCP - General 09/18/16 documented as of this encounter
--- OUTSIDE RECORDS SUMMARY | 2024-06-22 00:51 | XMS_ITS | Encounter Summary ---
Author Organization [facility] Address [address] [facility] [address] [place] [address] Care Team Providers Care Die Holder Name Role Phone Smooth Cristina MD Primary Care Provider Reason for Visit * Reason Comments Annual Exam Encounter Details Date Type Department Care Team (Latest Contact Info) Description 07/29/2022 2:30 PM REFRIGERATION PLANT CORK INSULATOR Office Visit [facility] Cardiology [address] [address] Georgina Nice MD [address] [place] [address] Primary cardiomyopathy (HCC) (Primary Dx); Chronic diastolic heart failure (HCC); Biventricular ICD (implantable cardioverter-defibrilla tor) in place; Essential hypertension; Nonsustained ventricular tachycardia; Supraventricular tachycardia (CMS/HCC) (HCC); Hyperlipidemia associated with type 2 diabetes mellitus (HCC); Abnormal CT scan; Second degree AV block; Noncompliance with treatment Social History Tobacco Use Types Packs/Day Years Used Date Smoking Tobacco: Never Smokeless Tobacco: Never Tobacco Cessation:Counseling Given: Not Answered Alcohol Use Standard Drinks/Week Comments No 0 (1 standard drink = 0.6 oz pur e alcohol) Sex and Gender Information Value Date Recorded Sex Assigned at Not on file Legal Sex Male 7:08 PM REFRIGERATION PLANT CORK INSULATOR Gender Identity Not on file Sexual Orientation Not on file documented as of this encounter Last Filed Vital Signs Vital Sign Reading Time Taken Comments Blood Pressure 112/60 07/29/2022 2:51 PM REFRIGERATION PLANT CORK INSULATOR Pulse 83 07/29/2022 2:51 PM REFRIGERATION PLANT CORK INSULATOR Temperature - - Respiratory Rate - - Oxygen Saturation 99% 07/29/2022 2:51 PM REFRIGERATION PLANT CORK INSULATOR Inhaled Oxygen Concentration - - Weight 82.1 kg (181 lb) 07/29/2022 2:51 PM REFRIGERATION PLANT CORK INSULATOR Height 172.7 cm (5' 8 ) 07/29/2022 2:51 PM REFRIGERATION PLANT CORK INSULATOR Body Mass Index 27.52 07/29/2022 2:51 PM REFRIGERATION PLANT CORK INSULATOR documented in this encounter Progress Notes * Georgina Nice MD - 07/29/2022 2:30 PM [facility] DATE OF VISIT: .07/29/2022 DATE: 1950 CHIEF COMPLAINT Chief Complaint Patient presents with Annual Exam FU cardiomyopathy and ICD HPI Alan Burgos is a 72 y.o. male [...] abandoned atrial lead by Dr. Cheek of [facility]. New LV and RV leads were [...] AV block. No recent labs avail at [facility] But had labs done by Dr. Cristina recently. Social: , lives alone. Liked to go to [place] for [employer] every summer as well as [place]. MEDICAL HISTORY Past Medical History: Diagnosis Date HX OTHER MEDICAL Back Pain HX OTHER MEDICAL DJD Social History Tobacco Use Smoking status: Never Smokeless tobacco: Never Substance and Sexual Activity Drug use: No Sexual activity: None Alcohol Use: Not on file History reviewed. No pertinent family history. MEDICATIONS Current Outpatient Medications: amLODIPine-benazepriL (LOTREL) 10-20 mg per capsule, TAKE ONE CAPSULE BY MOUTH DAILY, Disp: 90 capsule, Rfl: 1 ibuprofen (ibuprofen) 200 mg tab/cap, Take as directed (Patient taking differently: 200 mg as needed), Disp: 0, Rfl: 0 Lantus Solostar U-100 Insulin 100 unit/mL (3 mL) insulin pen, , Disp: , Rfl: metFORMIN (GLUCOPHAGE) 500 mg tablet, Take 500 mg by mouth 2 (two) times a day , Disp: , Rfl: omeprazole (PriLOSEC) 20 mg capsule, daily , Disp: , Rfl: tadalafil (CIALIS) 5 mg tablet, take 1 tablet by oral route every day, Disp: , Rfl: 0 tamsulosin (FLOMAX) 0.4 mg capsule,extended release 24hr, take 1 by Oral route every day, Disp: 0, Rfl: 0 insulin lispro (HumaLOG, ADMELOG) 100 unit/mL pen for injection, Inject 20-25 Units under the skin (Patient not taking: Reported on 07/29/2022), Disp: , Rfl: ALLERGIES No Known Allergies REVIEW OF SYSTEMS Review of Systems Constitutional: Positive for weight gain. Negative for malaise/fatigue. HENT: Negative for congestion. Eyes: Negative for visual disturbance. Cardiovascular: Negative for chest pain, dyspnea on exertion and syncope. Respiratory: Negative for shortness of breath. Hematologic/Lymphatic: Negative for bleeding problem. Musculoskeletal: Positive for arthritis, back pain, falls and myalgias. Gastrointestinal: Negative for abdominal pain, constipation and nausea. Genitourinary: Negative for hematuria. Neurological: Positive for loss of balance. Negative for dizziness. Psychiatric/Behavioral: Negative for depression. PHYSICAL EXAM Blood pressure 112/60, pulse 83, height 172.7 cm (5' 8 ), weight 82.1 kg (181 lb), SpO2 99 %. Body mass index is 27.52 kg/m??. Physical Exam Constitutional: Appearance: He is well-developed. Neck: Thyroid: No thyromegaly. Cardiovascular: Rate and [...] Skin is warm and dry. Findings: No erythema (ICD site fine). Neurological: Mental Status: He is alert and oriented to person, place, and time. Psychiatric: Behavior: Behavior normal. LABS AND OTHER DIAGNOSTIC TESTS No results found for: WBC, HGB, HCT, MCV, PLT Chemistry No results found for: SODIUM, POTASSIUM, CHLORIDE, CO2, BUNSER, CREATININE, GLUCOSE No results found for: CALCIUM, ALKPHOS, AST, ALT, BILITOT No results found for: CHOL No results found for: GLUCOSE, CALCIUM, SODIUM, POTASSIUM, CO2, CHLORIDE, BUNSER, CREATININE No results found for: HDL No results found for: LDL] No results found for: LDLCALC No results found for: TRIG No results found for: CHOLHDL No results found for: INR, PROTIME Labs: 01/29/15: Hemoglobin A1c 8.4, BUN 16, creatinine 1.0, potassium 4.5, liver enzymes normal, hematocrit 44 02/2018 creat 0.8, K+ 4.5, glu 209, Hct 41. 08/10/2019 POC lipids : Total cholesterol 197, HDL 47, TG 141, LDL 122, glucose 260 07/2020 total chol 167, HDL 34, TRG 108, LDL 111, glu 273. 08/12/2021 chol 167, HDL 34, TRG 108, LDL 111 Echos: 2012: EF 50%, and in 2008 showed mild global hypokinesis, diastolic dysfunction. 2014: EF 45%, mild LVE, mild global hypo ASSESSMENT Diagnoses and all orders for this visit: Primary cardiomyopathy (HCC) (Primary) Chronic diastolic heart failure (HCC) Biventricular ICD (implantable cardioverter-defibrillator) in place Essential hypertension Nonsustained ventricular tachycardia Supraventricular tachycardia (CMS/HCC) (HCC) Hyperlipidemia associated with type 2 diabetes mellitus (HCC) Abnormal CT scan Second degree AV block Noncompliance with treatment PLAN/RECOMMENDATIONS Dilated cardiomyopathy: Longstanding cardiomyopathy, EF improved up to 45% in 2014, mostly 2nd BiV pacing. Intolerant of carvedilol (disequilibrium) but stable on minimal tmedical therapy with benazepril. However, I have not been able to have the patient get another echo since 2014. --Pt again declines an Echo BiV ICD: Had 4th generator placed in 02/2018. Checked today, normal function, BiV pacing 98%,some nonsustained VT. Has been noncompliant with follow-up and declines remote monitoring. --Cont with device clinic --Pt again declines remote monitoring --Pt declines q6 month check ups. VT/: Has had some nonsustained VT, once had anti-tachy pacing for VT in 2014, had anti tachy pacingfor V-tach and 02/2020 which was unsuccessful but VT self- terminated. No defibrillations. SVT: Occ brief SVT noted in past , with some episodes it may be atrial fibrillation. Some possible brief a fib (this interrogation noted some a fib but looks like lead noise). However these episodes are few and far between, so will continue to observe. HTN: BP reasonable.. --Cont amlodpine/benazepril Hypercholesterolemia: Patient has had statins recommended by several physicians and has refused. States his cholesterol was good recently. --Declines statin tx or any tx for hypercholesterolemia Abnormal CT scan: Presence of coronary artery calcifications and thus a degree of coronary atherosclerosis noted incidentally on CT scan was reviewed with the patient. Counseling regarding primary prevention was performed. Want to prevent symptomatic CAD, heart attacks, etcetera. --declines further medications or risk reduction. Second-degree AV block: To my knowledge this is the 1st time we have seen second-degree AV block inthis patient. Pacing appropriately. Noncompliance: Occ pt does not follow up well or take meds as recommended. Pt declines statin tx Patient declines echocardiogram Patient declines remote monitoring of ICD device Cont w/ Device Clinic Cont current med tx. Request recent labs from Dr. Jonnie JARVIS in 1 year, sooner if needed. Georgina Nice MD, [facility] Office: [phone] or [phone] This note is dictated and transcribed by with assistance from [employer]. Therapist Respiratory variances may occur. Despite proofreading, typographical errors may occur. IGERATION PLANT CORK INSULATOR documented in this encounter Plan of Treatment Not on file documented as of this encounter Visit Diagnoses Diagnosis Primary cardiomyopathy (HCC)- Primary Other primary cardiomyopathies Chronic diastolic heart failure (HCC) Chronic diastolic heart failure Biventricular ICD (implantable cardioverter-defibrillator) in place Essential hypertension Unspecified essential hypertension Nonsustained ventricular tachycardia (HCC) Supraventricular tachycardia (HCC) Other specified cardiac dysrhythmias Hyperlipidemia associated with type 2 diabetes mellitus (HCC) Abnormal CT scan Other nonspecific (abnormal) findings on radiological and other examinations of body structure Second degree AV block Other second degree atrioventricular block Noncompliance with treatment Personal history of noncompliance with medical treatment, presenting hazards to health documented in this encounter Care Teams Die Holder Relationship Specialty Start Date End Date Smooth Cristina MD PCP - General 09/18/16 documented as of this encounter
--- OUTSIDE RECORDS SUMMARY | 2024-06-22 00:51 | XMS_ITS | Encounter Summary ---
Author Organization [facility] Address [address] [place] [address] Care Team Providers Care Career Development Coordinator Name Role Phone Somoth Cristina MD Primary Care Provider [phone] Reason for Visit * (Routine) - Closed Specialty Diagnoses / Procedures Referred By Yonatan min Referred To Contact Diagnoses Primary cardiomyopathy (HCC) Procedures DEVICE CHECK - IN OFFICE Georgina Nice MD Phone: tel: fax: [facility] Referral ID Status Reason Start Date Expiration Date Visits Re quested Visits Authorized [id number] Closed 03/20/2020 04/19/2021 1 1 Encounter Details Date Type Department Care Team (Latest Contact Info) Description 08/12/2020 12:30 PM RIGGER UP Ancillary Procedure [facility] Medical [facility] Cardiology [address] [facility] [address] [place] [address] Primary cardiomyopathy (CMS/HCC); Biventricular ICD (implantable cardioverter-defibrill ator) in place; Nonsustained ventricular tachycardia (CMS/HCC); Congestive heart failure, unspecified HF chronicity, unspecified heart failure type (CMS/HCC) Social History Tobacco Use Types Packs/Day Years Used Date Smoking Tobacco: Never Smokeless Tobacco: Never Alcohol Use Standard Drinks/Week Comments No 0 (1 standard drink = 0.6 oz pur e alcohol) Sex and Gender Information Value Date Recorded Sex Assigned at Not on file Legal Sex Male 7:08 PM RIGGER UP Gender Identity Not on file Sexual Orientation Not on file documented as of this encounter Plan of Treatment Pending Results Name Type Priority Associated Diagnoses Date /Time DEVICE CHECK - IN OFFICE Cardiac Services Routine Primary cardiomyopathy (CMS/HCC) 08/12/2020 11:47 AM RIGGER UP documented as of this encounter Visit Diagnoses Diagnosis Primary cardiomyopathy (HCC) Other primary cardiomyopathies Biventricular ICD (implantable cardioverter-defibrillator) in place Nonsustained ventricular tachycardia (HCC) Congestive heart failure, unspecified HF chronicity, unspecified heart failure type (HCC) documented in this encounter Care Teams Career Development Coordinator Relationship Specialty Start Date End Date Smooth Cristina MD PCP - General 09/18/16 documented as of this encounter
--- OUTSIDE RECORDS SUMMARY | 2024-06-22 00:51 | XMS_ITS | Encounter Summary ---
Author Organization [facility] Address [address] [address] Care Team Providers Care Bread And Pastry Baker Name Role Phone Smooth Cristina MD Primary Care Provider [phone] Reason for Referral * Cardiology (Routine) - Closed Specialty Diagnoses / Procedures Referred By Yonatan paula Referred To Contact Diagnoses NICM (nonischemic cardiomyopathy) (CMS/HCC) (HCC) Nonsustained ventricular tachycardia (HCC) Biventricular ICD (implantable cardioverter-defibrillator) in place Chronic diastolic heart failure (HCC) Procedures DEVICE CHECK - IN OFFICE Georgina Nice MD Phone: tel: fax: [facility] Referral ID Status Reason Start Date Expiration Date Visits Re quested Visits Authorized [id number] Closed 08/19/2022 04/11/2024 10 10 Encounter Details Date Type Department Care Team (Late st Contact Info) Description 10/14/2021 Orders Only [facility] Medical [facility] Cardiology [address] [phone] Georgina Nice MD [address] [address] NICM (nonischemic cardiomyopathy) (CMS/HCC) (HCC) (Primary Dx); Nonsustained ventricular tachycardia (CMS/HCC) (HCC); Biventricular ICD (implantable cardioverter-defibrill ator) in place; Chronic diastolic heart failure (HCC) Social History Tobacco Use Types Packs/Day Years Used Date Smoking Tobacco: Never Smokeless Tobacco: Never Alcohol Use Standard Drinks/Week Comments No 0 (1 standard drink = 0.6 oz pur e alcohol) Sex and Gender Information Value Date Recorded Sex Assigned at Not on file 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 Gender Identity Not on file Sexual Orientation Not on file documented as of this encounter Plan of Treatment Scheduled Orders Name Type Priority Associated Diagnoses Orde r Schedule DEVICE CHECK - IN OFFICE Cardiac Services Routine NICM (nonischemic cardiomyopathy) (CMS/HCC) (HCC) Nonsustained ventricular tachycardia (CMS/HCC) (HCC) 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 Chronic diastolic heart failure (CMS/HCC) (HCC) 10 Occurrences starting 10/14/2021 until 06/20/2028, 3 completed documented as of this encounter Results * DEVICE CHECK - [...] CARDIAC SERVICES PROCEDU RES Final Result * DEVICE CHECK - IN OFFICE (09/01/2023 [...] office once per year. Anna Thomas RN Georgina Nice MD CV CARDIAC SERVICES PROCEDU RES Final Result * DEVICE CHECK - IN OFFICE (12/31/2022 11:57 AM CDT) Anatomical Region Laterality Modality Other Narrative 02/22/2023 4:46 PM CDT Medtronic Biventricular ICD Dx; NICM, CHF, NSVT. Gen change 03/02/2018, chronic leads; atrial lead 01/23/09 RV/LV leads 10/31/12. Patient declines remote monitoring-Office Device Checks Q6 mo. Carelink express transmission received. Presenting rhythm-- BIV Paced. [...] scheduled 09/01/2023. Forwarded to Ryann Paula NP. us Georgina Nice MD CV CARDIAC SERVICES PROCEDU RES Final Result documented in this encounter Visit Diagnoses Diagnosis NICM (nonischemic cardiomyopathy) (CMS/HCC) (HCC)- Primary Nonsustained ventricular tachycardia (HCC) Biventricular ICD (implantable cardioverter-defibrillator) in place Chronic diastolic heart failure (HCC) Chronic diastolic heart failure NICM (nonischemic cardiomyopathy) (CMS/HCC) (HCC) Nonsustained ventricular tachycardia (HCC) Biventricular ICD (implantable cardioverter-defibrillator) in place Chronic diastolic heart failure (HCC) Chronic diastolic heart failure NICM (nonischemic cardiomyopathy) (CMS/HCC) (HCC) Nonsustained ventricular tachycardia (HCC) Biventricular ICD (implantable cardioverter-defibrillator) in place Chronic diastolic heart failure (HCC) Chronic diastolic heart failure NICM (nonischemic cardiomyopathy) (CMS/HCC) (HCC) Nonsustained ventricular tachycardia (HCC) Biventricular ICD (implantable cardioverter-defibrillator) in place Chronic diastolic heart failure (HCC) Chronic diastolic heart failure documented in this encounter Care Teams Bread And Pastry Baker Relationship Specialty Start Date End Date Smooth Cristina MD PCP - General 09/18/16 documented as of this encounter
--- OUTSIDE RECORDS SUMMARY | 2024-06-22 00:51 | XMS_ITS | Encounter Summary ---
Author Organization [facility] Address [address] [facility] [address] [place] [address] Care Team Providers Care Payable Manager Name Role Phone Smooth Cristina MD Primary Care Provider Encounter Details Date Type Department Care Team (Late st Contact Info) Description 06/05/2021 Telephone [facility] Medical [facility] Cardiology [address] [facility] [address] [place] [phone] Georgina Nice MD [address] [facility] [address] [address] Social History Tobacco Use Types Packs/Day Years Used Date Smoking Tobacco: Never Smokeless Tobacco: Never Alcohol Use Standard Drinks/Week Comments No 0 (1 standard drink = 0.6 oz pur e alcohol) Sex and Gender Information Value Date Recorded Sex Assigned at Not on file Legal Sex Male 7:08 PM STATISTICS MANAGER Gender Identity Not on file Sexual Orientation Not on file documented as of this encounter Miscellaneous Notes * Telephone Encounter - Anna Thomas RN - 07/14/2021 10:49 AM CST I contacted and spoke with patient about his remote monitor disconnection. He stated I got a new monitor,set it up, and the next day I received a bill. There's no way I could have gotten a bill thatquick. I called them and they said the service was performed and that's why I got the bill. I then sent it back to the company. I think that's all a scam and I'm not going to do that anymore. I informed him he needs to come into the office for device checks. He said I have an appointment coming up. I explained that appointment on 08/05/[address] Nice but he wasn't scheduled for a device check. I scheduled device check the same day to coordinate with Dr Nice's appointment. Mailed appt reminders. Emailed [employer] for a leasing representative to perform the check. I updated problem list. Umm please update your notes that he is device checks only Q3 months and update PA to reflect this change. ISTICS MANAGER * Telephone Encounter - Umm Sanchez MA - 06/26/2021 10:17 AM STATISTICS MANAGER As of today the website is still showing that the pt's monitor is still DC'd. I have tried calling the pt and have LMOR informing him. Letter sent out today. Forwarded to Anna for fyi ISTICS MANAGER * Telephone Encounter - Umm Sanchez MA - 06/05/2021 2:44 PM CST Pt was scheduled for a device remote download 05-28-21, website showing that monitor is disconnected. Monitor has been disconnected since Feb 28, 2021. Letter was sent out to him in March by Anna.As of 05-28-21 still disconnected. I have lmor for pt 05-28-21, 05-29-21 and 06-05-21. Since I am not able to get in touch with the pt I called his son. He is going to look into it. I explained to him how to send in a manual download to relay to his Dad. ISTICS MANAGER documented in this encounter Plan of Treatment Not on file documented as of this encounter Visit Diagnoses Not on filedocumented in this encounter Care Teams Payable Manager Relationship Specialty Start Date End Date Smooth Cristina MD PCP - General 09/18/16 documented as of this encounter
--- OUTSIDE RECORDS SUMMARY | 2024-06-22 00:51 | XMS_ITS | Encounter Summary ---
Author Organization [facility] Medical [facility] Address [address] [address] Care Team Providers Care Sales Recruiter Name Role Phone Smooth Cristina MD Primary Care Provider Reason for Visit * (Routine) - Closed Specialty Diagnoses / Procedures Referred By Yonatan min Referred To Contact Diagnoses Primary cardiomyopathy (HCC) Procedures DEVICE CHECK - REMOTE Georgina Nice MD Phone: tel: fax: [facility] Referral ID Status Reason Start Date Expiration Date Visits Re quested Visits Authorized [id number] Closed 03/04/2020 04/03/2021 1 1 Encounter Details Date Type Department Care Team (Latest Contact Info) Description 11/13/2020 3:30 PM CDT Ancillary Procedure [facility] Medical [facility] Cardiology [facility] [address] Primary cardiomyopathy (CMS/HCC); Biventricular ICD (implantable cardioverter-defibrill ator) in place; Chronic diastolic heart failure (CMS/HCC) (HCC); Nonsustained ventricular tachycardia (CMS/HCC) (HCC) Social History Tobacco Use Types Packs/Day Years Used Date Smoking Tobacco: Never Smokeless Tobacco: Never Alcohol Use Standard Drinks/Week Comments No 0 (1 standard drink = 0.6 oz pur e alcohol) Sex and Gender Information Value Date Recorded Sex Assigned at Not on file Legal Sex Male 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 ??They had a routine ??remote transmission on 11/13/2020 Device implant indications: ??Cardiomyopathy ?? Interrogation of the patient's device demonstrates the following: Presenting EGM: ??A sensed Bi V paced @ 6 0 bpm Lead Measurements Right Atrium Right Ventricle Left Ventricle Sensitivity (mV) 1.5 mV 16.9 mV Not done mV Impedence (Ohms) 361 ohms 399 ohms 988 ohms Pace Threshold 0.625 V @ 0.4 ms 0.5 V @ 0.4 ms 0.875 V @ 1.0 ms Pacing % 10.5 % 98.6 % 98.6 % HV Lead Impedance N/A 46/59 ohms N/A Battery Status: ??3.8 years to RUDOLPH charge time 3.8 seconds Episodes last 90 days/Comments: AF [place] 0.2 %, there were 74 episodes classified as AT/AF with the longest episode lasting 26 minutes. ??EGMs do demonstrate AT/AF with ventricular rates ranging from the 70s to 100 beats per minute. There were no treated ventricular arrhythmias noted on today's remote interrogation. NORMAL DEVICE FUNCTION PROGRAMMED Anti-coagulant(s): ??None Anti-arrhythmic(s): ??None Plan: 1) normal Medtronic BiV ICD evaluation 2) Medtronic remote transmission scheduled in 3 months. Vikram Ackerman R.N. Georgina Nice MD CV CARDIAC SERVICES PROCEDU RES Final Result documented in this encounter Visit Diagnoses Diagnosis Primary cardiomyopathy (HCC) Other primary cardiomyopathies Biventricular ICD (implantable cardioverter-defibrillator) in place Chronic diastolic heart failure (CMS/HCC) (HCC) Chronic diastolic heart failure Nonsustained ventricular tachycardia (CMS/HCC) (HCC) documented in this encounter Care Teams Sales Recruiter Relationship Specialty Start Date End Date Smooth Cristina MD PCP - General 09/18/16 documented as of this encounter
--- OUTSIDE RECORDS SUMMARY | 2024-06-22 00:51 | XMS_ITS | Encounter Summary ---
Author Organization [facility] Address [address] [facility] [address] [place] [address] Care Team Providers Care Manager Drive Name Role Phone Smooth Cristina MD Primary Care Provider Reason for Visit * Reason Comments Cardiomyopathy Hypertension Rapid Heart Rate Annual f/u Encounter Details Date Type Department Care Team (Latest Contact Info) Description 08/05/2021 11:00 AM VEGETABLE TESTER Office Visit [facility] Cardiology [address] [place] [address] Georgina Nice MD [address] [place] [address] Primary cardiomyopathy (CMS/HCC) (HCC) (Primary Dx); Chronic diastolic heart failure (CMS/HCC) (HCC); Biventricular ICD (implantable cardioverter-defibrilla tor) in place; Hypertension associated with diabetes (HCC); Nonsustained ventricular tachycardia (CMS/HCC) (HCC); Pure hypercholesterolemia; Controlled type 2 diabetes mellitus without complication, with long-term current use of insulin (CMS/HCC) (HCC) Social History Tobacco Use Types Packs/Day Years Used Date Smoking Tobacco: Never Smokeless Tobacco: Never Alcohol Use Standard Drinks/Week Comments No 0 (1 standard drink = 0.6 oz pur e alcohol) Sex and Gender Information Value Date Recorded Sex Assigned at Not on file Legal Sex Male 7:08 PM VEGETABLE TESTER Gender Identity Not on file Sexual Orientation Not on file documented as of this encounter Last Filed Vital Signs Vital Sign Reading Time Taken Comments Blood Pressure 132/68 08/05/2021 11:18 AM VEGETABLE TESTER Pulse 83 08/05/2021 11:18 AM VEGETABLE TESTER Temperature - - Respiratory Rate - - Oxygen Saturation 99% 08/05/2021 11:18 AM VEGETABLE TESTER Inhaled Oxygen Concentration - - Weight 93.4 kg (206 lb) 08/05/2021 11:18 AM VEGETABLE TESTER Height 172.7 cm (5' 8 ) 08/05/2021 11:18 AM VEGETABLE TESTER Body Mass Index 31.32 08/05/2021 11:18 AM VEGETABLE TESTER documented in this encounter Progress Notes * Georgina Nice MD - 08/05/2021 11:00 AM CST [facility] DATE OF VISIT: .08/05/2021 DATE: 1950 CHIEF COMPLAINT Chief Complaint Patient presents with ??? Cardiomyopathy ??? Hypertension ??? Rapid Heart Rate Annual f/u FU cardiomyopathy and ICD HPI Alan Burgos is a 71 y.o. male with NIDCM since 1987, with EF improved from 20% now up to 45% by echo 2014., BiV ICD in 2001, new pulse generator 2008 and again in 2012 (with lead revision), and in 02/2018. Also HTN, HLD, DM, anxiety, and chronic pain. The patient had a right ventricular lead fracture and left ventricular insulation fracture. He underwent attempted but unsuccessful extraction of these 2 leads and an abandoned atrial lead in October [address] Cheek of [facility]. New LV and RV leads were placed as well as a new pulse generator. The patient reports this was difficult procedure, with a lot of pain and swelling afterwards. 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 Had his 4th generator change in February 2018. . 08/05/2016 OV: I've been hiding. Doesn't follow up often. Says HR is high 80 BPM and it is affecting sleep. Wonders if it is related to steroid shots in knees q 3 months. ICD check today shows pt Lara-pacing only 4%. No thyroid dz. 4- 5 Diet Pepsi/day. BP good, 130's. BS up to 290 after injections,usu 160. Says cholesterol is good. 02/2018: Fourth Generator change. Says a few days later had N&V and both hands went numb, 5th fingers still numb. Read on internet that it can be caused by antibiotic pouch. 07/18/2018 OV: Doing pretty well. Some aches and pains. Blood pressure good, DM not so good, up to 280 at times. Lost some weight overall, though gained some over the winter. Cholesterol is good. Rec a FU Echo. BP reasonable. 08/10/2019 OV: Patient canceled his echo scheduled last visit, and was a no-show with us in June.Didn't show for ICD check this morning. Occ palpitations. A little SOB because I'm fat and out of shape! Pt fell off ladder September 2018 and had quad tendon rupture, surgery and then nonambulatory for 9 weeks. No heart trouble w/ all this. Now back hurts. Gained 17#. Now on insulin. Says his cholesterol was fine, [address] Cristina's office. Going to [place] in one month. 08/12/2020 Office Visit: Doing OK from heart [...] was a ???no-show?? for some ICD checks. 02/2020 ICD check: 1 VT/VF episode recorded, ATP x1 therapy delivered- unsuccessful termination, rhythm resumed for 14 beats then self terminated. See phone notes. Patient declined lab work and echo @this time d/t COVID concerns 08/12/2020 ICD check: Normal function, 5.3 year longevity, some nonsustained V- tach lasting 1-2 seconds, rare atrial fibrillation longest being for 42 minutes 08/05/2021 Office Visit w/ Dr. Nice: Doing [...] Cristina for a while. Declined blood tests. BiV ICD check today: nml fxn 2.5 year longevity. Social: , lives alone. Liked to go to [employer] [place] [employer] every summer as well as [place]. MEDICAL HISTORY Past Medical History: Diagnosis Date ??? HX OTHER MEDICAL Back Pain ??? HX OTHER MEDICAL DJD Social History Tobacco Use ??? Smoking status: Never Smoker ??? Smokeless tobacco: Never Used Substance Use Topics ??? Alcohol use: No ??? Drug use: No History reviewed. No pertinent family history. MEDICATIONS Current Outpatient Medications: ??? amLODIPine-benazepriL (LOTREL) 10-20 mg per capsule, Take 1 capsule by mouth daily, Disp: 90 capsule, Rfl: 1 ??? ibuprofen (ibuprofen) 200 mg tab/cap, Take as directed (Patient taking differently: 200 mg as needed), Disp: 0, Rfl: 0 ??? insulin lispro (HumaLOG, ADMELOG) 100 unit/mL pen for injection, Inject 20- 25 Units under the skin, Disp: , Rfl: ??? Lantus Solostar U-100 Insulin 100 unit/mL (3 mL) insulin pen, , Disp: , Rfl: ??? metFORMIN (GLUCOPHAGE) 500 mg tablet, Take 500 mg by mouth 2 (two) times a day , Disp: , Rfl: ??? omeprazole (PriLOSEC) 20 mg capsule, daily , Disp: , Rfl: ??? tadalafil (CIALIS) 5 mg tablet, take 1 tablet by oral route every day, Disp: , Rfl: 0 ??? tamsulosin (FLOMAX) 0.4 mg capsule,extended release 24hr, take 1 by Oral route every day, Disp:0, Rfl: 0 ALLERGIES No Known Allergies REVIEW OF SYSTEMS Review of Systems Constitutional: Positive for weight gain. Negative for malaise/fatigue. HENT: Negative for congestion. Eyes: Negative for visual disturbance. Cardiovascular: Negative for chest pain, dyspnea on exertion and syncope. Respiratory: Negative for shortness of breath. Hematologic/Lymphatic: Negative for bleeding problem. Musculoskeletal: Positive for arthritis, back pain and myalgias. Gastrointestinal: Positive for nausea. Negative for abdominal pain and constipation. Genitourinary: Negative for hematuria. Neurological: Negative for dizziness. Psychiatric/Behavioral: Negative for depression. PHYSICAL EXAM Blood pressure 132/68, pulse 83, height 172.7 cm (5' 8 ), weight 93.4 kg (206 lb), SpO2 99 %. Body mass index is 31.32 kg/m??. Physical Exam Constitutional: Appearance: He is [...] 34, TRG 108, LDL 111, glu 273. Echos: 2012: EF 50%, and in 2008 showed mild global hypokinesis, diastolic dysfunction. 2014: EF 45%, mild LVE, mild global hypo ASSESSMENT Diagnoses and all orders for this visit: Primary cardiomyopathy (CMS/HCC) (HCC) (Primary) Chronic diastolic heart failure (CMS/HCC) (HCC) Biventricular ICD (implantable cardioverter-defibrillator) in place Hypertension associated with diabetes (HCC) Nonsustained ventricular tachycardia (CMS/HCC) (HCC) Pure hypercholesterolemia Controlled type 2 diabetes mellitus without complication, with long-term current use of insulin (CMS/HCC) (HCC) Dilated cardiomyopathy: Longstanding cardiomyopathy, EF improved up to 45% in 2014, mostly 2nd BiV pacing. Intolerant of carvedilol (disequilibrium) but doing well on current medical therapy with benazepril. However, I have not been able to have the patient get another echo since 2014. BiV ICD: Had 4th generator placed in 02/2018. Checked today, normal function, BiV pacing 98%,some nonsustained VT. Has been noncompliant with follow-up and declines remote monitoring.. VT/SVT: Has had some nonsustained VT, once had [...] will continue to observe. HTN: BP reasonable.. Hypercholesterolemia: Patient has had statins recommended by several physicians and has refused. States his cholesterol was good recently. Noncompliance: Occ pt does not follow up well or take meds as recommended. PLAN/RECOMMENDATIONS Patient declines POC lipids. Patient declines blood testing for potassium, renal function etcetera. Patient declines echocardiogram Patient declines remote monitoring of ICD device Cont w/ Device Clinic Cont current med tx. FU in 1 year, sooner if needed. Georgina Nice MD, [facility] Office: [phone] or [phone] This note is dictated and transcribed by with assistance from [employer] Direct Software.?? Associate Professor Of Economics variances may occur. Despite proofreading, typographical errors may occur. TABLE TESTER documented in this encounter Plan of Treatment Not on file documented as of this encounter Visit Diagnoses Diagnosis Primary cardiomyopathy (HCC)- Primary Other primary cardiomyopathies Chronic diastolic heart failure (HCC) Chronic diastolic heart failure Biventricular ICD (implantable cardioverter-defibrillator) in place Hypertension associated with diabetes (HCC) Unspecified essential hypertension Nonsustained ventricular tachycardia (HCC) Pure hypercholesterolemia Controlled type 2 diabetes mellitus without complication, with long-term current use of insulin (CMS/HCC) (HCC) documented in this encounter Care Teams Manager Drive Relationship Specialty Start Date End Date Smooth Cristina MD PCP - General 09/18/16 documented as of this encounter
--- OUTSIDE RECORDS SUMMARY | 2024-06-22 00:51 | XMS_ITS | Encounter Summary ---
Author Organization [facility] Medical [facility] Address [address] [facility] [address] [place] [address] Care Team Providers Care Systems Support Specialist Name Role Phone Smooth Cristina MD Primary Care Provider Encounter Details Date Type Department Care Team (Late st Contact Info) Description 05/01/2022 Telephone [facility] Medical [facility] Cardiology [address] [facility] [address] [place] [phone] Georgina Nice MD [address] [facility] [address] [address] Social History Tobacco Use Types Packs/Day Years Used Date Smoking Tobacco: Never Smokeless Tobacco: Never Alcohol Use Standard Drinks/Week Comments No 0 (1 standard drink = 0.6 oz pur e alcohol) Sex and Gender Information Value Date Recorded Sex Assigned at Not on file Legal Sex Male 7:08 PM WAXING MACHINE OPERATOR HELPER Gender Identity Not on file Sexual Orientation Not on file documented as of this encounter Miscellaneous Notes * Telephone Encounter - Umm Sanchez MA - 05/01/2022 11:18 AM WAXING MACHINE OPERATOR HELPER Pt is over due for in office device check. Pt only does in office checks and no remotes. I have made several attempts to contact pt. Called LMOR informing him that we need to get him scheduled for an in office device check NG MACHINE OPERATOR HELPER documented in this encounter Plan of Treatment Not on file documented as of this encounter Visit Diagnoses Not on filedocumented in this encounter Care Teams Systems Support Specialist Relationship Specialty Start Date End Date Smooth Cristina MD PCP - General 09/18/16 documented as of this encounter
--- OUTSIDE RECORDS SUMMARY | 2024-06-22 00:51 | XMS_ITS | Encounter Summary ---
Author Organization [facility] Address [address] [facility] [address] [address] Care Team Providers Care High School Science Teacher Name Role Phone Smooth Cristina MD Primary Care Provider Encounter Details Date Type Department Care Team (Late st Contact Info) Description 10/14/2021 Telephone [facility] Cardiology [address] [address] Georgina Nice MD [address] [address] Social History Tobacco Use Types Packs/Day Years Used Date Smoking Tobacco: Never Smokeless Tobacco: Never Alcohol Use Standard Drinks/Week Comments No 0 (1 standard drink = 0.6 oz pur e alcohol) Sex and Gender Information Value Date Recorded Sex Assigned at Not on file Legal Sex Male 7:08 PM 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 Gen change 03/02/2018, chronic leads; atrial lead 01/23/09 RV/LV leads 10/31/12. Patient declines remote monitoring. I contacted patient and informed him that he needs a f/u appointment for his ICD check. He is no longer participating in remote monitoring and I informed him he should have his device checked more often. He stated well ok. Every 6 mo only because of the cost. I scheduled an office device check on 02/11/2022. Mailed appt reminder. documented in this encounter Plan of Treatment Not on file documented as of this encounter Visit Diagnoses Not on filedocumented in this encounter Care Teams High School Science Teacher Relationship Specialty Start Date End Date Smooth Cristina MD PCP - General 09/18/16 documented as of this encounter
--- OUTSIDE RECORDS SUMMARY | 2024-06-22 00:51 | XMS_ITS | Encounter Summary ---
Author Organization [facility] Address [address] [address] Care Team Providers Care Director Clinical Data Name Role Phone Smooth Cristina MD Primary Care Provider Reason for Referral * Cardiology (Routine) - Closed Specialty Diagnoses / Procedures Referred By Contac t Referred To Contact Diagnoses NICM (nonischemic cardiomyopathy) (CMS/HCC) (HCC) Nonsustained ventricular tachycardia (HCC) Procedures DEVICE CHECK - IN OFFICE Georgina Nice MD Phone: tel: fax: [facility] Referral ID Status Reason Start Date Expiration Date Visits Re quested Visits Authorized [id number] Closed 11/13/2020 12/13/2021 1 1 * Cardiology (Routine) - Closed Specialty Diagnoses / Procedures Referred By Contac t Referred To Contact Diagnoses NICM (nonischemic cardiomyopathy) (CMS/HCC) (HCC) Nonsustained ventricular tachycardia (HCC) Procedures DEVICE CHECK - REMOTE Georgina Nice MD Phone: tel: fax: [facility] Referral ID Status Reason Start Date Expiration Date Visits Re quested Visits Authorized [id number] Closed 11/13/2020 12/13/2021 1 1 Encounter Details Date Type Department Care Team (Late st Contact Info) Description 11/13/2020 Orders Only [facility] Cardiology [address] [facility] [address] [place], [place] [address] [address] Georgina Nice MD [address] [address] NICM (nonischemic cardiomyopathy) (CMS/HCC) (Primary Dx); Nonsustained ventricular tachycardia (CMS/HCC) Social History Tobacco Use Types Packs/Day Years Used Date Smoking Tobacco: Never Smokeless Tobacco: Never Alcohol Use Standard Drinks/Week Comments No 0 (1 standard drink = 0.6 oz pur e alcohol) Sex and Gender Information Value Date Recorded Sex Assigned at Not on file Legal Sex Male 7:08 PM AIR LIAISON AND SPECIAL STAFF Gender Identity Not on file Sexual Orientation Not on file documented as of this encounter Plan of Treatment Not on file documented as of this encounter Results * DEVICE CHECK - IN OFFICE (08/05/2021 10:27 AM AIR LIAISON AND SPECIAL STAFF) Anatomical Region Laterality Modality Other Narrative 08/22/2021 5:47 PM AIR LIAISON AND SPECIAL STAFF Medtronic Biventricular ICD Dx; NICM, CHF, NSVT. Gen change 03/02/2018, chronic leads; atrial lead 01/23/09 RV/LV leads 10/31/12. Patient declines remote monitoring-Office Device Checks Q3 mo. Office device evaluation performed by [employer] personnel representative. Battery function-Ok, 2.5 years remaining battery life to RUDOLPH. AP-10%, BIV Paced-98.3%. 218-atrial high rate episodes. 3-NSVT episodes. See scanned report. Patient declines remote monitoring. Office device f/u and ROV with Dr Nice scheduled 07/29/2022. Georgina Nice MD [facility] PROCEDU RES Final Result * DEVICE CHECK - REMOTE (02/26/2021 9:16 AM CDT) Anatomical Region Laterality Modality Other Narrative 04/07/2021 7:31 PM CDT Medtronic Biventricular ICD Dx; NICM, CHF, NSVT. Gen change 03/02/2018, chronic leads; atrial lead 01/23/09 RV/LV leads 10/31/12. [facility] remote monitoring. ?? Routine ICD remote. Normal device function. Battery function-2.92V, 4.5??years remaining battery life to RUDOLPH. Charge time-3.9 sec. Appropriate lead measurements. Presenting rhythm- BIVP. AP-10%, BIVP-98.4%. ?? 137??AT/AF episodes noted, 8??min longest duration, iegm's suggestive of ATach. 3 VT-NS detections noted, self terminated. ? Medications; Lotrel. See scanned report. [facility] remote f/u??05/28/2021. ROV with Dr Nice 08/05/2021. Georgina Nice MD CV CARDIAC SERVICES PROCEDU RES Final Result documented in this encounter Visit Diagnoses Diagnosis NICM (nonischemic cardiomyopathy) (CMS/HCC) (HCC)- Primary Nonsustained ventricular tachycardia (HCC) NICM (nonischemic cardiomyopathy) (CMS/HCC) (HCC) Nonsustained ventricular tachycardia (HCC) Biventricular ICD (implantable cardioverter-defibrillator) in place Chronic diastolic heart failure (HCC) Chronic diastolic heart failure NICM (nonischemic cardiomyopathy) (CMS/HCC) (HCC) Nonsustained ventricular tachycardia (HCC) Biventricular ICD (implantable cardioverter-defibrillator) in place Chronic diastolic heart failure (HCC) Chronic diastolic heart failure documented in this encounter Care Teams Director Clinical Data Relationship Specialty Start Date End Date Smooth Cristina MD PCP - General 09/18/16 documented as of this encounter
--- OUTSIDE RECORDS SUMMARY | 2024-06-22 00:51 | XMS_ITS | Encounter Summary ---
Author Organization [facility] Address [address] [facility] [address] [place] [address] Care Team Providers Care Delphi Developer Name Role Phone Smooth Cristina MD Primary Care Provider Reason for Visit * Cardiology (Routine) - Closed Specialty Diagnoses / Procedures Referred By Yonatan t Referred To Contact Diagnoses NICM (nonischemic cardiomyopathy) (CMS/HCC) (HCC) Nonsustained ventricular tachycardia (HCC) Procedures DEVICE CHECK - IN OFFICE Georgina Nice MD Phone: tel: fax: [facility] Referral ID Status Reason Start Date Expiration Date Visits Re quested Visits Authorized [id number] Closed 11/13/2020 12/13/2021 1 1 Encounter Details Date Type Department Care Team (Latest Contact Info) Description 08/05/2021 10:30 AM SR. MANAGER MARKETING Ancillary Procedure [facility] Cardiology [address] [facility] [address] [place] [address] NICM (nonischemic cardiomyopathy) (CMS/HCC) (HCC); Nonsustained ventricular tachycardia (CMS/HCC) (HCC); Biventricular ICD (implantable cardioverter-defibr illator) in place; Chronic diastolic heart failure (CMS/HCC) (HCC) Social History Tobacco Use Types Packs/Day Years Used Date Smoking Tobacco: Never Smokeless Tobacco: Never Alcohol Use Standard Drinks/Week Comments No 0 (1 standard drink = 0.6 oz pur e alcohol) Sex and Gender Information Value Date Recorded Sex Assigned at Not on file Legal Sex Male 7:08 PM SR. MANAGER MARKETING Gender Identity Not on file Sexual Orientation Not on file documented as of this encounter Plan of Treatment Not on file documented as of this encounter Procedures Procedure Name Priority Date/Time Associated Diagnosis Comments DEVICE CHECK - IN OFFICE Routine 08/05/2021 10:27 AM SR. MANAGER MARKETING NICM (nonischemic cardiomyopathy) (CMS/HCC) (HCC) Nonsustained ventricular tachycardia (CMS/HCC) (HCC) documented in this encounter Results * DEVICE CHECK - IN OFFICE (08/05/2021 10:27 AM SR. MANAGER MARKETING) Anatomical Region Laterality Modality Other Narrative 08/22/2021 5:47 PM SR. MANAGER MARKETING Medtronic Biventricular ICD Dx; NICM, CHF, NSVT. Gen change 03/02/2018, chronic leads; atrial lead 01/23/09 RV/LV leads 10/31/12. Patient declines remote monitoring-Office Device Checks Q3 mo. Office device evaluation performed by [employer] small business representative. Battery function-Ok, 2.5 years remaining battery life to RUDOLPH. AP-10%, BIV Paced-98.3%. 218-atrial high rate episodes. 3-NSVT episodes. See scanned report. Patient declines remote monitoring. Office device f/u and ROV with Dr Nice scheduled 07/29/2022. us Georgina Nice MD CV CARDIAC SERVICES PROCEDU RES Final Result documented in this encounter Visit Diagnoses Diagnosis NICM (nonischemic cardiomyopathy) (CMS/HCC) (HCC) Nonsustained ventricular tachycardia (HCC) Biventricular ICD (implantable cardioverter-defibrillator) in place Chronic diastolic heart failure (HCC) Chronic diastolic heart failure documented in this encounter Care Teams Delphi Developer Relationship Specialty Start Date End Date Smooth Cristina MD PCP - General 09/18/16 documented as of this encounter
--- OUTSIDE RECORDS SUMMARY | 2024-06-22 00:51 | XMS_ITS | Encounter Summary ---
Author Organization [facility] Address [address] [facility] [address] [place] [address] Care Team Providers Care Senior User Experience Architect Name Role Phone Smooth Cristina MD Primary Care Provider [phone] Reason for Visit * Cardiology (Routine) - Closed Specialty Diagnoses / Procedures Referred By Yonatan min Referred To Contact Diagnoses SSS (sick sinus syndrome) (CMS/HCC) (HCC) Procedures DEVICE CHECK - IN OFFICE Georgina Nice MD Phone: tel: fax: [facility] Referral ID Status Reason Start Date Expiration Date Visits Re quested Visits Authorized [id number] Closed 08/05/2021 09/04/2022 1 1 Encounter Details Date Type Department Care Team (Latest Contact Info) Description 07/29/2022 2:00 PM HEATING PLANT SUPERINTENDENT Ancillary Procedure 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; Chronic diastolic heart failure (HCC); Nonsustained ventricular tachycardia; Second degree AV block; Primary cardiomyopathy (HCC) Social History Tobacco Use Types Packs/Day Years Used Date Smoking Tobacco: Never Smokeless Tobacco: Never Alcohol Use Standard Drinks/Week Comments No 0 (1 standard drink = 0.6 oz pur e alcohol) Sex and Gender Information Value Date Recorded Sex Assigned at Not on file Legal Sex Male 7:08 PM HEATING PLANT SUPERINTENDENT Gender Identity Not on file Sexual Orientation Not on file documented as of this encounter Plan of Treatment Not on file documented as of this encounter Procedures Procedure Name Priority Date/Time Associated Diagnosis Comments DEVICE CHECK - IN OFFICE Routine 07/29/2022 2:21 PM HEATING PLANT SUPERINTENDENT SSS (sick sinus syndrome) (CMS/HCC) (HCC) documented in this encounter Results * DEVICE CHECK - IN OFFICE (07/29/2022 2:21 PM HEATING PLANT SUPERINTENDENT) Anatomical Region Laterality Modality Other Narrative 08/03/2022 2:00 PM HEATING PLANT SUPERINTENDENT Med[employer]onic Biventricular ICD Dx; NICM, CHF, NSVT. Gen change 03/02/2018, chronic leads; atrial lead 01/23/09 RV/LV leads 10/31/12. Patient declines remote monitoring-Office Device Checks Q3 mo. Office interrogation of BIV ICD demonstrated appropriate device function. Left pectoral incision well healed without signs of infection noted. ?? Battery function-2.93V, 2.1 years remaining battery life to RUDOLPH. Charge time 4.1 seconds. HV/SVC impedance 49/70 ohms. Appropriate lead measurements noted-see report for results. Presenting rhythm-Asensed BIVPaced. Underlying rhythm-Second Degree AVB. AP-22.4%, BIVP-97.4%. 314 Atrial episodes recorded, iegm's Atach and over sensing noted. 2 Ventricular tachy arrhythmias recorded, iegm's NSVT, no therapies delivered. Medications; no AC or antiarrhythmics noted. LV amplitude decreased to 1.0V. See scanned report. Patient declines remote monitoring. I informed him he needs office device checks Q3 months for his implanted ICD however he declines and stated he will f/u in the office once per year. [07/30/2022 3:53:54 PM - ELIZABETH SALDANA] Georgina Nice MD CV CARDIAC SERVICES PROCEDU RES Final Result documented in this encounter Visit Diagnoses Diagnosis SSS (sick sinus syndrome) (CMS/HCC) (HCC) Sinoatrial node dysfunction Biventricular ICD (implantable cardioverter-defibrillator) in place Chronic diastolic heart failure (HCC) Chronic diastolic heart failure Nonsustained ventricular tachycardia (HCC) Second degree AV block Other second degree atrioventricular block Primary cardiomyopathy (HCC) Other primary cardiomyopathies documented in this encounter Care Teams Senior User Experience Architect Relationship Specialty Start Date End Date Smooth Cristina MD PCP - General 09/18/16 documented as of this encounter
--- OUTSIDE RECORDS SUMMARY | 2024-06-22 00:51 | XMS_ITS | Encounter Summary ---
Author Organization [facility] Address [address] [facility] [address] [place] [address] Care Team Providers Care Director Of Valuation Name Role Phone Smooth Cristina MD Primary Care Provider Reason for Visit * Reason Comments Shortness of Breath Pt had wheezing this week after working outside. He felt short of breath and had to sit to catch his breath. He can hear girgling especially laying down. Sx for 4 days. Cough only at night. Encounter Details Date Type Department Care Team (Late st Contact Info) Description 11/28/2022 2:45 PM CDT Office Visit [facility] [address] [place] [id number] Janine Santiago, BUFFY [address] [facility] [place] [address] Bacterial URI (Primary Dx); Dyspnea on exertion Social History Tobacco Use Types Packs/Day Years Used Date Smoking Tobacco: Never Smokeless Tobacco: Never Alcohol Use Standard Drinks/Week Comments No 0 (1 standard drink = 0.6 oz pur e alcohol) Sex and Gender Information Value Date Recorded Sex Assigned at Not on file Legal Sex 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 Gender Identity Not on file Sexual Orientation Not on file documented as of this encounter Last Filed Vital Signs Vital Sign Reading Time Taken Comments Blood Pressure 140/70 11/28/2022 2:45 PM CDT Pulse 82 11/28/2022 2:45 PM CDT Temperature 36.6 ??C (97.9 ??F) 11/28/2022 2:45 PM CD T Respiratory Rate 18 11/28/2022 2:45 PM CDT Oxygen Saturation 96% 11/28/2022 2:45 PM CDT Inhaled Oxygen Concentration - - Weight 82.1 kg (181 lb) 11/28/2022 2:45 PM CDT Height 172.7 cm (5' 8 ) 11/28/2022 2:45 PM CDT Body Mass Index 27.52 11/28/2022 2:45 PM CDT documented in this encounter Patient Instructions * Patient Instructions* Janine Santiago NP - 11/28/2022 2:45 PM CDT Recommendations and Information The main treatment for respiratory infections of any kind is to rest, eat healthy, and drink plentyof fluids. Cold symptoms will likely last anywhere from 7-10 days with symptoms feeling much worse on days 3-5. Antibiotic medications do not cure a cold nor do antibiotic medications help to shortenthe symptoms of viral illness. The following may help you feel better: Over the counter antihistamine such as loratadine (Claritin) or cetirizine (Zyrtec) to reduce secretions. The D formula includes pseudoephedrine and can be helpful as a decongestant but should not be used if you have a history of high blood pressure. Tessalon if prescribed for cough. Albuterol inhaler if prescribed for shortness of breath, cough, or wheezing. Use you albuterol inhaler or nebulizer every 4 hours for the next 48 hours, then every 4-6 hours as needed. Don't smoke and avoid second hand smoke. Suck on cough drops or hard candies to soothe a dry or sore throat. Cough drops won't stop your cough, but they may make your throat feel better. Over the counter loratadine (Claritin) or cetirizine (Zyrtec) to reduce secretions. Mucinex to thin secretions Breathe moist air from a humidifier, a hot shower, or a sink filled with hot water. The heat and moisture can help keep mucus in your airways moist so you can cough it out easily. Use nonprescription medicine, such as acetaminophen, ibuprofen, or aspirin, to relieve fever and body aches. Don't give aspirin to anyone younger than age 20. Rest more than usual. Drink plenty of fluids so that you do not become dehydrated and to keep mucous thin. Use an mlyq-frv-xrkahqh cough medicine such as Delsym or Robitussin. (Cough medicines may not be safe for young children or for people who have certain health problems.) Cough suppressants may help you to stop coughing. Expectorants, such as Mucinex, can help you bring up mucus when you cough. Follow up with primary care physician in 1 week, or sooner if symptoms worsen. If you experience worsening shortness of breath or fever >101, go to the Emergency Room. documented in this encounter Ordered Prescriptions Prescription Sig Dispense Quantity Refills Last Filled Start Date End Date albuterol HFA (PROVENTIL HFA,VENTOLIN HFA,PROAIR HFA) 90 mcg/actuation inhalerIndications :Bacterial URI Inhale 2 puffs every 6 (six) hours as needed for wheezing 1 each 11/28/2022 amoxicillin-clavul anate (Augmentin) 875-125 mg per tabletIndications: Bacterial URI Take 1 tablet by mouth 2 (two) times a day for 10 days 20 tablet 11/28/2022 3 methylPREDNISolone (Medrol, Naun,) 4 mg DosepackIndication s:Bacterial URI follow package directions 1 packet 11/28/2022 4 documented in this encounter Progress Notes * Janine Santiago NP - 11/28/2022 2:45 PM CDT Images from the original note were not included. Subjective/Objective Patient ID: Alan Burgos is a 72 y.o. male. Chief Complaint Shortness of Breath (Pt had wheezing this week after working outside. He felt short of breath and had to sit to catch his breath. He can hear girgling especially laying down. Sx for 4 days. Cough only at night.) Patient presents to convenient care for wheezing x4 days. He states that he has been working outside in the heat a lot recently. He notes that has had intermittent shortness of breath when ambulating. He states that when lying down at night, he can hear himself wheeze and feels short of breath. He does have a history of HF. He has not taken any OTC medications for his symptoms. He denies any fevers or chest pain. Shortness of Breath Associated symptoms include wheezing. Pertinent negatives include no ear pain, fever, headaches, rash, rhinorrhea, sore throat or vomiting. Review of Systems Constitutional: Negative for activity change, appetite change, fatigue and fever. HENT: Negative for congestion, ear discharge, ear pain, postnasal drip, rhinorrhea, sinus pressure and sore throat. Eyes: Negative for discharge. Respiratory: Positive for shortness of breath and wheezing. Negative for cough. Gastrointestinal: Negative for diarrhea, nausea and vomiting. Musculoskeletal: Negative for myalgias. Skin: Negative for rash. Neurological: Negative for headaches. Hematological: Negative for adenopathy. Physical Exam Vitals reviewed. Constitutional: General: He is not in acute distress. Appearance: Normal appearance. He is well-developed. He is not ill-appearing. HENT: Head: Normocephalic. Right Ear: Tympanic membrane, ear canal and external ear normal. Left Ear: Tympanic membrane, ear canal and external ear normal. Nose: No congestion or rhinorrhea. Right Sinus: No maxillary sinus tenderness or frontal sinus tenderness. Left Sinus: No maxillary sinus tenderness or frontal sinus tenderness. Mouth/Throat: Lips: [place]. Mouth: Mucous membranes are moist. Pharynx: Oropharynx is clear. Eyes: General: Right eye: No discharge. Left eye: No discharge. Conjunctiva/sclera: Conjunctivae normal. Cardiovascular: Rate and Rhythm: Normal rate and regular rhythm. Pulmonary: Effort: Pulmonary effort is normal. No respiratory distress. Breath sounds: Normal breath sounds and air entry. No decreased breath sounds, wheezing, rhonchi orrales. Abdominal: Tenderness: There is no abdominal tenderness. Musculoskeletal: General: Normal range of motion. Cervical back: Neck supple. Lymphadenopathy: Head: Right side of head: No tonsillar adenopathy. Left side of head: No tonsillar adenopathy. Cervical: No cervical adenopathy. Skin: General: Skin is warm and dry. Findings: No rash. Neurological: Mental Status: He is alert and oriented to person, place, and time. Mental status is at baseline. Psychiatric: Attention and Perception: Attention normal. Mood and Affect: Mood normal. Behavior: Behavior normal. Behavior is cooperative. Thought Content: Thought content normal. Judgment: Judgment normal. Vitals: 11/28/22 1445 BP: 140/70 Pulse: 82 Resp: 18 Temp: 36.6 ??C (97.9 ??F) TempSrc: Tympanic SpO2: 96% Weight: 82.1 kg (181 lb) Height: 172.7 cm (5' 8 ) Assessment/Plan Lungs clear on exam. SpO2 96% on room air Medrol Dosepak as prescribed Augmentin as prescribed Albuterol inhaler as needed for shortness of breaths Encouraged patient to follow-up with his PCP for further evaluation if his symptoms persist Discussed that he should go immediately to the ER if shortness of breath worsens, he develops any chest pain, or any trouble breathing Diagnoses and all orders for this visit: Bacterial URI (Primary) - methylPREDNISolone (Medrol, Naun,) 4 mg Dosepack; follow package directions - amoxicillin-clavulanate (Augmentin) 875-125 mg per tablet; Take 1 tablet by mouth 2 (two) times aday for 10 days - albuterol HFA (PROVENTIL HFA,VENTOLIN HFA,PROAIR HFA) 90 mcg/actuation inhaler; Inhale 2 puffs every 6 (six) hours as needed for wheezing Dyspnea on exertion No results found for this or any previous visit (from the past 4 hour(s)). Patient Education: Disposition Treatment plan including expectations, follow up, and return precautions discussed with patient/parent, verbalizes understanding. Medication dosage, use, and potential adverse reactions discussed with patient/parent. Advised to follow up with PCP if symptoms do not resolve as expected or sooner if condition worsens. Signs/symptoms warranting ER evaluation reviewed. Patient and/or guardian was given an opportunity to ask questions, questions answered. Janine Santiago NP documented in this encounter Plan of Treatment Not on file documented as of this encounter Visit Diagnoses Diagnosis Bacterial URI- Primary Dyspnea on exertion Other dyspnea and respiratory abnormality documented in this encounter Care Teams Director Of Valuation Relationship Specialty Start Date End Date Smooth Cristina MD PCP - General 09/18/16 documented as of this encounter
--- OUTSIDE RECORDS SUMMARY | 2024-06-22 00:51 | XMS_ITS | Encounter Summary ---
Author Organization [facility] Medical [facility] Address [address] [address] Care Team Providers Care Crusher Wet Ground Mica Name Role Phone Smooth Cristina MD Primary Care Provider Reason for Visit * Cardiology (Routine) - Closed Specialty Diagnoses / Procedures Referred By Alexac t Referred To Contact Diagnoses NICM (nonischemic cardiomyopathy) (CMS/HCC) (HCC) Nonsustained ventricular tachycardia (HCC) Procedures DEVICE CHECK - REMOTE Georgina Nice MD Phone: tel: fax: [facility] Referral ID Status Reason Start Date Expiration Date Visits Re quested Visits Authorized [id number] Closed 11/13/2020 12/13/2021 1 1 Encounter Details Date Type Department Care Team (Latest Contact Info) Description 02/25/2021 11:15 AM CDT Ancillary Procedure [facility] Cardiology [facility] [address] NICM (nonischemic cardiomyopathy) (CMS/HCC) (HCC); Nonsustained ventricular [...] on file Legal Sex 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 ROV with Dr Nice 08/05/2021. us Georgina Nice MD CV CARDIAC SERVICES PROCEDU RES Final Result documented in this encounter Visit Diagnoses Diagnosis NICM (nonischemic cardiomyopathy) (CMS/HCC) (HCC) Nonsustained ventricular tachycardia (HCC) Biventricular ICD (implantable cardioverter-defibrillator) in place Chronic diastolic heart failure (HCC) Chronic diastolic heart failure documented in this encounter Care Teams Crusher Wet Ground Mica Relationship Specialty Start Date End Date Smooth Cristina MD PCP - General 09/18/16 documented as of this encounter
--- OUTSIDE RECORDS SUMMARY | 2024-06-22 00:51 | XMS_ITS | Encounter Summary ---
Author Organization [facility] Medical Group Address [address] [facility] [address] [place] [address] Care Team Providers Care Avionics Systems Technician Name Role Phone Smooth Cristina MD Primary Care Provider Encounter Details Date Type Department Care Team (Late st Contact Info) Description 02/17/2022 Telephone [facility] Medical [facility] Cardiology [address] [facility] [address] [place] [phone] Georgina Nice MD [address] [facility] [address] [address] Social History Tobacco Use Types Packs/Day Years Used Date Smoking Tobacco: Never Smokeless Tobacco: Never Alcohol Use Standard Drinks/Week Comments No 0 (1 standard drink = 0.6 oz pur e alcohol) Sex and Gender Information Value Date Recorded Sex Assigned at Not on file Legal Sex Male 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 Website is showing that pt's device is disconnected. I called pt LMOR informing him of this and if he would check it and send in a manual download. * Telephone Encounter - Umm Sanchez MA - 02/17/2022 9:52 AM CDT Pt no showed in office device check on 02-11-22, LMOR requesting pt return call on 02-12-22 LMOR requesting pt to return call on 02-17-22 to reschedule in office device check documented in this encounter Plan of Treatment Not on file documented as of this encounter Visit Diagnoses Not on filedocumented in this encounter Care Teams Avionics Systems Technician Relationship Specialty Start Date End Date Smooth Cristina MD PCP - General 09/18/16 documented as of this encounter
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
--- OUTSIDE RECORDS SUMMARY | 2024-06-22 00:51 | XMS_ITS | Encounter Summary ---
Author Organization [facility] Medical Group Address [address] [facility] [address] [place] [address] Care Team Providers Care Cardiac Cath Lab Manager Name Role Phone Smooth Cristina MD Primary Care Provider Encounter Details Date Type Department Care Team (Late st Contact Info) Description 08/28/2021 Telephone [facility] Medical Group Cardiology [address] [facility] [address] [place] [address] Georgina Nice MD [address] [facility] [address] [place] [address] Social History Tobacco Use Types Packs/Day Years Used Date Smoking Tobacco: Never Smokeless Tobacco: Never Alcohol Use Standard Drinks/Week Comments No 0 (1 standard drink = 0.6 oz pur e alcohol) Sex and Gender Information Value Date Recorded Sex Assigned at Not on file Legal Sex Male 7:08 PM CLIENT ENGAGEMENT MANAGER Gender Identity Not on file Sexual Orientation Not on file documented as of this encounter Miscellaneous Notes * Telephone Encounter - Cathryn Johns RN - 08/29/2021 1:20 PM CLIENT ENGAGEMENT MANAGER Noted, thank you ELU! NT ENGAGEMENT MANAGER * Telephone Encounter - Georgina Nice MD - 08/29/2021 10:04 AM CLIENT ENGAGEMENT MANAGER I called the patient, and he described being winded with walking and feeling bad yesterday. Howeverhe has developed sinus drainage, a runny nose and a mildly productive cough. He tested negative x2 for COVID. No fevers, still little short of breath. Sounds like a viral URI, rec usual tx. Encouraged the patient to call or go to the emergency room if he had more shortness of breath. NT ENGAGEMENT MANAGER * Telephone Encounter - Cathryn Johns RN - 08/28/2021 4:49 PM CLIENT ENGAGEMENT MANAGER Called pt and reviewed message from Anna DEL CID, pt was happy to hear his device was functioning. Advised pt to report to ED if his SOB worsens-pt said he is going to call his PCP in the morning and wait and see what ELU recommends. NT ENGAGEMENT MANAGER * Telephone Encounter - Anna Thomas RN - 08/28/2021 4:23 PM CST Medtronic Biventricular ICD Dx; NICM, CHF, NSVT. Gen change 03/02/2018, chronic leads; atrial lead 01/23/09 RV/LV leads 10/31/12. Patient declines remote monitoring-Office Device Checks Q3 mo. I reviewed the 08/05/2021 device check report done by [employer] Rep. Normal device function. Underlying rhythm-CHB. 218 AT/AF episodes, lots of over sensing/farfield-false mode switches. Atrial sensitivity changed from 0.30 mV to 0.45 mV for better sensing and decrease oversensing. 3 NSVT episodes noted, no therapies delivered. Device has NOT been turned off. He would either need to go to ER or schedule another office f/u device + AIR DEFENSE ARTILLERY OFFICER. NT ENGAGEMENT MANAGER * Telephone Encounter - Cathryn Johns RN - 08/28/2021 3:50 PM CLIENT ENGAGEMENT MANAGER Spoke with pt-he reports he has been SOB for 1.5 weeks now when he ambulates and when he lays down.Pt said his O2 level has been 98-99%, he has no swelling, no CP, no palpitations, no dizziness, no cough, negative home covid test. Pt asked if his ICD was maybe shut off when he was here in [place]? Pt said when he had a device check one time they turned it off and he passed out. He said he d oesn't have a home monitor because he thought they were trying to scam him out of money and charged him incorrectly so he has no way to send in a remote download. Advised pt to contact his PCP withhis symptoms as well and I would forward on the our device nurse to take a look at his last report to see if there were any problems and also to LILI for her input. Will forward to Anna DEL CID, Umm MCKEON and LILI. Please advise, thank you! NT ENGAGEMENT MANAGER * Telephone Encounter - Susana Cheng - 08/28/2021 1:27 PM CST Pt called to report that he is SOB on exertion when walking 100 ft for about two weeks now. Also states he thinks his device has been office since his device check on 07/29. Contact: NT ENGAGEMENT MANAGER documented in this encounter Plan of Treatment Not on file documented as of this encounter Visit Diagnoses Not on filedocumented in this encounter Care Teams Cardiac Cath Lab Manager Relationship Specialty Start Date End Date Smooth Cristina MD PCP - General 09/18/16 documented as of this encounter
--- OUTSIDE RECORDS SUMMARY | 2024-06-22 00:52 | XMS_ITS | Encounter Summary ---
Author Organization [facility] Medical Group Address [address] [address] Care Team Providers Care High Man Name Role Phone Smooth Cristina MD Primary Care Provider Reason for Visit * Reason Comments Follow-up yearly follow up on CM, NSVT, HTN, SVT Encounter Details Date Type Department Care Team (Latest Contact Info) Description 08/10/2019 2:15 PM TAR POT MAN Office Visit [facility] Medical Group Cardiology [address] [address] Georgina Nice MD [address] [facility] [address] [place] [address] Primary cardiomyopathy (CMS/HCC) (Primary Dx); Biventricular ICD (implantable cardioverter-defibrilla tor) in place; Chronic diastolic heart failure (CMS/HCC); Essential hypertension; Nonsustained ventricular tachycardia (CMS/HCC); Supraventricular tachycardia (CMS/HCC); Pure hypercholesterolemia; Controlled type 2 diabetes mellitus without complication, with long-term current use of insulin (CMS/HCC); Noncompliance with treatment Social History Tobacco Use Types Packs/Day Years Used Date Smoking Tobacco: Never Smokeless Tobacco: Never Alcohol Use Standard Drinks/Week Comments No 0 (1 standard drink = 0.6 oz pur e alcohol) Sex and Gender Information Value Date Recorded Sex Assigned at Not on file Legal Sex Male 7:08 PM TAR POT MAN Gender Identity Not on file Sexual Orientation Not on file documented as of this encounter Last Filed Vital Signs Vital Sign Reading Time Taken Comments Blood Pressure 138/74 08/10/2019 2:18 PM TAR POT MAN Pulse 95 08/10/2019 2:18 PM TAR POT MAN Temperature - - Respiratory Rate - - Oxygen Saturation 94% 08/10/2019 2:18 PM TAR POT MAN Inhaled Oxygen Concentration - - Weight 94.8 kg (209 lb) 08/10/2019 2:18 PM TAR POT MAN Height 174 cm (5' 8.5 ) 08/10/2019 2:18 PM TAR POT MAN Body Mass Index 31.32 08/10/2019 2:18 PM TAR POT MAN documented in this encounter Patient Instructions * Patient Instructions* Georgina Nice MD - 08/10/2019 2:15 PM TAR POT MAN Cholesterol today was 197 with an LDL cholesterol 122. Still recommend statin treatment to reduce your risk of heart attack and stroke. Have fun in fishing in [place]! POT MAN POT MAN documented in this encounter Progress Notes * Georgina Nice MD - 08/10/2019 2:15 PM CST [facility] DATE OF VISIT: 08/10/2019 DATE: 1950 CHIEF COMPLAINT Chief Complaint Patient presents with ??? Follow-up yearly follow up on CM, NSVT, HTN, SVT FU cardiomyopathy and ICD HPI Alan Burgos is a 69 y.o. male with NIDCM since 1987, with [...] in October [address] Cheek of [facility]. New LV and RV leads were placed as well as a new pulse generator. The patient reports this was difficult procedure, with a lot of pain and swelling afterwards. 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 February 2015 OV: HTN, and nonsustained SVT; recommended medical therapy. Patient has not had his ICD checked since then until today and missed his last appointment. Echo as below. 08/05/2016 OV: I've been hiding. Doesn't follow [...] some over the winter. Cholesterol is good. No chest pain, WHITLOCK, dizziness, palpitations, or edema. Rec a FU Echo. BP reasonable. 08/10/2019 [...] [address] Cristina's office. Going to [place] in one month. 08/10/2019 POC lipids : Total cholesterol 197, HDL 47, TG 141, LDL 122, glucose 260 ICD check 01/2019: Routine ICD remote. Normal device function. Appropriate battery, charge time, and lead measurements. No AT/AF episodes noted. 3-Ventricular episodes noted, iegm's NSVT, self terminated. Social: . Likes to go to [place] for fishing every summer as well as [place]. MEDICAL HISTORY Past Medical History: Diagnosis Date ??? HX OTHER MEDICAL Back Pain ??? HX OTHER MEDICAL DJD Social History Tobacco Use ??? Smoking status: Never Smoker ??? Smokeless tobacco: Never Used Substance Use Topics ??? Alcohol use: No ??? Drug use: No History reviewed. No pertinent family history. MEDICATIONS Current Outpatient Medications: ??? amlodipine-benazepril (LOTREL) 10-20 mg per capsule, TAKE 1 CAPSULE DAILY, Disp: 90 capsule, Rfl: 1 ??? ibuprofen (ibuprofen) 200 mg tab/cap, Take as directed, Disp: 0, Rfl: 0 ??? insulin lispro (HumaLOG KwikPen Insulin) 100 unit/mL insulin pen, Inject 20- 25 Units under the skin, Disp: , Rfl: ??? metFORMIN (GLUCOPHAGE) 500 mg tablet, Take 1,000 mg by mouth daily with breakfast, Disp: , Rfl: ??? tadalafil (CIALIS) 5 mg tablet, take 1 tablet by oral route every day, Disp: , Rfl: 0 ??? tamsulosin (FLOMAX) 0.4 mg capsule,extended release 24hr, take 1 by Oral route every day, Disp:0, Rfl: 0 ??? Tresiba FlexTouch U-100 100 unit/mL (3 mL) insulin pen, , Disp: , Rfl: ALLERGIES No Known Allergies REVIEW OF SYSTEMS Review of Systems Constitution: Positive for weight gain. Negative for malaise/fatigue. [...] Negative for depression. PHYSICAL EXAM Blood pressure 138/74, pulse 95, height 174 cm (5' 8.5 ), weight 94.8 kg (209 lb), SpO2 94 %. Body mass index is 31.32 kg/m??. Physical Exam Constitutional: He is oriented to person, place, and time. He appears well- developed and well-nourished. Neck: No thyromegaly present. Cardiovascular: Normal rate, regular rhythm and normal heart sounds. No murmur heard. Pulses: Carotid pulses are 2+ on the right side and 2+ on the left side. Pulmonary/Chest: Effort normal and breath sounds normal. No respiratory distress. Abdominal: Soft. He exhibits no distension. Musculoskeletal: General: No edema. Neurological: He is alert and oriented to person, place, and time. Skin: Skin is warm and dry. There is erythema (ICD site fine). Psychiatric: He has a normal mood and affect. His behavior is normal. LABS AND OTHER DIAGNOSTIC TESTS No [...] 47, TG 141, LDL 122, glucose 260 Echos: 2012: EF 50%, and in 2008 showed mild global hypokinesis, diastolic dysfunction. 2014: EF 45%, mild LVE, mild global hypo ASSESSMENT Diagnoses and all orders for this visit: Primary cardiomyopathy (CMS/HCC) (Primary) - Transthoracic Echo Complete W Doppler/CF; Future Biventricular ICD (implantable cardioverter-defibrillator) in place - Transthoracic Echo Complete W Doppler/CF; Future Chronic diastolic heart failure (CMS/HCC) Essential hypertension Nonsustained ventricular tachycardia (CMS/HCC) Supraventricular tachycardia (CMS/HCC) Pure hypercholesterolemia Controlled type 2 diabetes mellitus without complication, with long-term current use of insulin (CMS/HCC) Noncompliance with treatment Dilated cardiomyopathy: Longstanding cardiomyopathy, EF improved up to 45% in 2014, mostly 2nd BiV pacing. Intolerant of carvedilol (disequilibrium) but doing well on current medical therapy. BiV ICD: Had 4th generator placed in 02/2018. Checked January 2019, normal function, BiV pacing 99%,some nonsustained VT. Has been noncompliant with follow-up. VT/SVT: Has had some nonsustained VT, once had anti-tachy pacing for VT in 2014, no defibrillations. Occ brief SVT noted in past up to 3 minutes, none recently. HTN: BP reasonable, not perfect. Hypercholesterolemia: Patient has had statins recommended by several physicians and has refused. States his cholesterol was good recently. I explained that even if it is good, there is significant benefit for a diabetic to take statins to reduce his risk of stroke and heart attack. Patient continues to refuse statin therapy. ???I am not going to do it.?? Noncompliance: Occ pt does not follow up well or take meds as recommended. PLAN/RECOMMENDATIONS Check Echo -- Patient agreed to schedule an echo when the weather is warmer. Cont current tx w/ Lotrel. Cont w/ Device Clinic and device follow-up; will schedule future office visit and remote. Pt prefers warmer weather. Requesting labs from Dr. Cristina's office FU in 1 year, sooner if needed. Georgina Nice MD, [facility] Office: [phone] or [phone] This note is dictated and transcribed by with assistance from [employer].?? Chief Environmental Commitment Officer variances may occur. Despite proofreading, typographical errors may occur. POT MAN documented in this encounter Miscellaneous Notes * Addendum Note - Nelida Mcintyre MA - 08/10/2019 2:15 PM CSTAddended by: NELIDA MCINTYRE on: 08/10/2019 03:15 PM Modules accepted: Orders POT MAN documented in this encounter Plan of Treatment Not on file documented as of this encounter Procedures Procedure Name Priority Date/Time Associated Diagnosis Comments POCT LIPID PANEL Routine 08/10/2019 3:14 PM TAR POT MAN Pure hypercholesterolemia documented in this encounter Results * POCT lipid panel (08/10/2019 3:14 PM TAR POT MAN) Cholesterol, POC 197 mg/dL HDL, POC 47 mg/dL Triglycerides, POC 141 mg/dL LDL Cholesterol POC 122 mg/dL Chol/HDL Ratio, POC 4.2 Non-HDL Cholesterol, POC 150 mg/dL Cholesterol Total, POC 197 mg/dL Blood specimen (specimen) 08/10/2019 3:14 PM TAR POT MAN Georgina Nice MD POINT OF CARE TEST ORDERABL ES Final Result documented in this encounter Visit Diagnoses Diagnosis Primary cardiomyopathy (HCC)- Primary Other primary cardiomyopathies Biventricular ICD (implantable cardioverter-defibrillator) in place Chronic diastolic heart failure (HCC) Chronic diastolic heart failure Essential hypertension Unspecified essential hypertension Nonsustained ventricular tachycardia (HCC) Supraventricular tachycardia (HCC) Other specified cardiac dysrhythmias Pure hypercholesterolemia Controlled type 2 diabetes mellitus without complication, with long-term current use of insulin (CMS/HCC) (HCC) Noncompliance with treatment Personal history of noncompliance with medical treatment, presenting hazards to health documented in this encounter Discontinued Medications Medication Sig Discontinue Reason Start Date End Da te glimepiride (AMARYL) 4 mg tablet take 1 tablet by oral route 2 times every day Therapy completed 08/09/2007 08/10/2019 metFORMIN (GLUCOPHAGE) 500 mg tablet take 3 by Oral route once Dose adjustment 11/02/2011 08/10/2019 omeprazole 20 mg tablet,delayed release (DR/EC) take 1 by Oral route 2 times every day Therapy completed 07/03/2013 08/10/2019 documented as of this encounter Historical Medications * This list may reflect changes made after this encounter. insulin lispro (HumaLOG, ADMELOG) 100 unit/mL pen for injection Inject 20-25 Units under the skin 09/14/2018 Tresiba FlexTouch U-100 100 unit/mL (3 mL) insulin pen 07/16/2019 08/12/2020 metFORMIN (GLUCOPHAGE) 500 mg tablet Take 1 tablet (500 mg total) by mouth 2 (two) times a day 05/22/2024 added in this encounter Care Teams High Man Relationship Specialty Start Date End Date Smooth Cristina MD PCP - General 09/18/16 documented as of this encounter
--- OUTSIDE RECORDS SUMMARY | 2024-06-22 00:52 | XMS_ITS | Encounter Summary ---
Author Organization [facility] Medical Group Address [address] [facility] [address] [place] [address] Care Team Providers Care Fisheries Inspector Name Role Phone Smooth Cristina MD Primary Care Provider Encounter Details Date Type Department Care Team (Late st Contact Info) Description 01/04/2018 Telephone [facility] [address] [facility] [address] [place] [phone] Georgina Nice MD [address] [address] Social History Tobacco Use Types Packs/Day Years Used Date Smoking Tobacco: Never Alcohol Use Standard Drinks/Week Comments No 0 (1 standard drink = 0.6 oz pur e alcohol) Sex and Gender Information Value Date Recorded Sex Assigned at Not on file Legal Sex Male 7:08 PM 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
--- OUTSIDE RECORDS SUMMARY | 2024-06-22 00:52 | XMS_ITS | Encounter Summary ---
Author Organization [facility] Medical Group Address [address] [facility] [address] [place] [address] Care Team Providers Care Wave Soldering Machine Operator Name Role Phone Smooth Cristina MD Primary Care Provider Encounter Details Date Type Department Care Team (Late st Contact Info) Description 03/16/2018 Telephone [facility] [address] [facility] [address] [facility] [address] [place] [address] Georgina Nice MD [address] [facility] [address] [place] [address] Social History Tobacco Use Types Packs/Day Years Used Date Smoking Tobacco: Never Alcohol Use Standard Drinks/Week Comments No 0 (1 standard drink = 0.6 oz pur e alcohol) Sex and Gender Information Value Date Recorded Sex Assigned at Not on file Legal Sex Male 7:08 PM JUNIOR PARALEGAL Gender Identity Not on file Sexual Orientation Not on file documented as of this encounter Miscellaneous Notes * Telephone Encounter - Anna Thomas RN - 03/22/2018 2:12 PM CDT LM for pt returning his phone call * Telephone Encounter - HernandezKathy - 03/16/2018 8:40 AM CDT Pt called wanting to talk to Anna about his home monitor. [phone] documented in this encounter Plan of Treatment Not on file documented as of this encounter Visit Diagnoses Not on filedocumented in this encounter Care Teams Wave Soldering Machine Operator Relationship Specialty Start Date End Date Smooth Cristina MD PCP - General 09/18/16 documented as of this encounter
--- OUTSIDE RECORDS SUMMARY | 2024-06-22 00:52 | XMS_ITS | Encounter Summary ---
Author Organization [facility] Address [address] [place] [address] Care Team Providers Care Almond Grinder Name Role Phone Smooth Cristina MD Primary Care Provider Encounter Details Date Type Department Care Team (Late st Contact Info) Description 03/20/2020 Telephone [facility] [address] [facility] [address] [place] [address] Anna Thomas RN Social History Tobacco Use Types Packs/Day Years Used Date Smoking Tobacco: Never Smokeless Tobacco: Never Alcohol Use Standard Drinks/Week Comments No 0 (1 standard drink = 0.6 oz pur e alcohol) Sex and Gender Information Value Date Recorded Sex Assigned at Not on file Legal Sex Male 7:08 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 * Telephone Encounter - Isidra Flores RN - 03/21/2020 1:31 PM CDT I spoke with the patient and reviewed note per Dr. Nice. Patient was unaware of any episode occurring Mar 04. He said he was completely asymptomatic and did not even not anything happened. He refuses to come for echo at this time and also refuses to go for blood work due to COVID concerns. He does not want to risk exposure coming into office or lab. I did review with him the importance of both labs and echo along with how we are handling COVID in our office including wearing masks, sanitizing and limiting number of patients in waiting room. Patient still states he does not wish to havetests done at this time. He will call us back if he changes his mind, but wants to see the pandemicimprove first. Will route to [facility] to make aware. * Telephone Encounter - Georgina Nice MD - 03/21/2020 12:50 PM CDT Pt had a run of VT, failed anti-tachy pacing, but self-terminated prior to further therapies. Has had NSVT off and on, once requ'd anti-tachy tx 2014. Anything unusual happening to him, particularly on Mar 04 at around 19:42? Pt last seen in Jul 2019; agreed to get an Echo when the weather warmed up. So now it is March,please see if it is warm enough to get the Echo he agreed to. Also please check CMP, magnesium levels. * Telephone Encounter - Vikram Ackerman RN - 03/20/2020 8:22 AM CDT Images from the original note were not included. Your patient Enricourgteodoro date of 1950 had a treated VT event which showed up on are [facility]. Just an FYI documented in this encounter Plan of Treatment Not on file documented as of this encounter Visit Diagnoses Not on filedocumented in this encounter Care Teams Almond Grinder Relationship Specialty Start Date End Date Smooth Cristina MD PCP - General 09/18/16 documented as of this encounter
--- OUTSIDE RECORDS SUMMARY | 2024-06-22 00:52 | XMS_ITS | Encounter Summary ---
Author Organization [facility] Address [address] [place] [address] Care Team Providers Care Crystalizer Name Role Phone Smooth Cristina MD Primary Care Provider [phone] Reason for Visit * Cardiology (Routine) - Closed Specialty Diagnoses / Procedures Referred By Contac t Referred To Contact Diagnoses NICM (nonischemic cardiomyopathy) (CMS/HCC) (HCC) Procedures DEVICE CHECK - IN OFFICE Georgina Nice MD Phone: tel: fax: Referral ID Status Reason Start Date Expiration Date Visits Re quested Visits Authorized [id number] Closed 05/26/2017 11/22/2017 1 1 Encounter Details Date Type Department Care Team (Latest Contact Info) Description 01/05/2018 8:00 AM CDT Ancillary Procedure [facility] Cardiology [address] [place] [address] NICM (nonischemic cardiomyopathy) (CMS/HCC); Cardiac defibrillator in place; Chronic diastolic heart failure (CMS/HCC) Social History Tobacco Use Types Packs/Day Years Used Date Smoking Tobacco: Never Alcohol Use Standard Drinks/Week Comments No 0 (1 standard drink = 0.6 oz pur e alcohol) Sex and Gender Information Value Date Recorded Sex Assigned at Not on file Legal Sex Male 7:08 PM DISTRICT ADMINISTRATIVE ASSISTANT Gender Identity Not on file Sexual Orientation Not on file documented as of this encounter Progress Notes * Anna Thomas, RN - 01/05/2018 8:00 AM CDT Medtronic Biventricular ICD Dx; NICM, CHF, NSVT. DOI 10/31/2012. Chronic atrial lead 01/23/2009. Declines home monitoring. Office device checks Q3 months. Office BIV ICD f/u today demonstrates appropriate device function. Battery function-2.63V, teetering of cusp of RUDOLPH-has Not tripped RUDOLPH yet. Alert beeping tones demonstrated-pt knows to call if he hears the alert tone. Charge time 14.0 sec. Presenting rhythm- BIV Paced. Underlying rhythm-SR. No arrhythmias noted. OptiVol Fluid Index-negative. No changes to device settings. See scanned device report. RTC on for device f/u 03/16/2018. documented in this encounter Plan of Treatment Not on file documented as of this encounter Procedures Procedure Name Priority Date/Time Associated Diagnosis Comments DEVICE CHECK - IN OFFICE Routine 01/05/2018 7:54 AM CDT NICM (nonischemic cardiomyopathy) ([facility]) documented in this encounter Results * DEVICE CHECK - IN OFFICE (01/05/2018 7:54 AM CDT) Anatomical Region Laterality Modality Other Narrative 01/12/2018 3:14 PM CDT Medtronic Biventricular ICD Dx; NICM, CHF, NSVT. DOI 10/31/2012. Chronic atrial lead 01/23/2009. Declines home monitoring. Office device checks Q3 months. ?? Office BIV ICD f/u today demonstrates appropriate device function. Battery function-2.63V, teetering of cusp of RUDOLPH-has Not tripped RUDOLPH yet. Alert beeping tones demonstrated-pt knows to call if he hears the alert tone. Charge time 14.0 sec. Presenting rhythm- BIV Paced. Underlying rhythm-SR. No arrhythmias noted. OptiVol Fluid Index-negative. No changes to device settings. See scanned device report. RTC on ??for device f/u 03/16/2018. ? Georgina Nice MD CV CARDIAC SERVICES PROCEDU RES Final Result documented in this encounter Visit Diagnoses Diagnosis NICM (nonischemic cardiomyopathy) (CMS/HCC) (HCC) Cardiac defibrillator in place Automatic implantable cardiac defibrillator in situ Chronic diastolic heart failure (HCC) Chronic diastolic heart failure documented in this encounter Care Teams Crystalizer Relationship Specialty Start Date End Date Smooth Cristina MD PCP - General 09/18/16 documented as of this encounter
--- OUTSIDE RECORDS SUMMARY | 2024-06-22 00:52 | XMS_ITS | Encounter Summary ---
Author Organization [facility] Address [address] [place] [address] Care Team Providers Care Thoracic Surgeon Name Role Phone Smooth Cristina MD Primary Care Provider Encounter Details Date Type Department Care Team (Late st Contact Info) Description 03/03/2018 Telephone [facility] [address] [place] [phone] Georgina Nice MD [address] [facility] [address] [address] [address] Social History Tobacco Use Types Packs/Day Years Used Date Smoking Tobacco: Never Alcohol Use Standard Drinks/Week Comments No 0 (1 standard drink = 0.6 oz pur e alcohol) Sex and Gender Information Value Date Recorded Sex Assigned at Not on file Legal Sex Male 7:08 PM DATA INTEGRATION DEVELOPER Gender Identity Not on file Sexual Orientation Not on file documented as of this encounter Miscellaneous Notes * Telephone Encounter - Anna Thomas RN - 03/03/2018 10:22 AM CDT LM for pt re; ICD gen change yesterday. Request phone call back to discuss remote monitor-need monitor serial number. documented in this encounter Plan of Treatment Not on file documented as of this encounter Visit Diagnoses Not on filedocumented in this encounter Care Teams Thoracic Surgeon Relationship Specialty Start Date End Date Smooth Cristina MD PCP - General 09/18/16 documented as of this encounter
--- OUTSIDE RECORDS SUMMARY | 2024-06-22 00:52 | XMS_ITS | Encounter Summary ---
Author Organization [facility] Address [address] [place] [address] Care Team Providers Care Aviation Support Equipment Repairer Name Role Phone Smooth Cristina MD Primary Care Provider Encounter Details Date Type Department Care Team (Late st Contact Info) Description 11/29/2019 Orders Only [facility] Medical [facility] Cardiology [address] [address] Georgina Nice MD [address] [address] Biventricular ICD (implantable cardioverter-defibrilla tor) in place (Primary Dx); Chronic diastolic heart failure (CMS/HCC); NICM (nonischemic cardiomyopathy) (CMS/HCC) Social History Tobacco Use Types Packs/Day Years Used Date Smoking Tobacco: Never Smokeless Tobacco: Never Alcohol Use Standard Drinks/Week Comments No 0 (1 standard drink = 0.6 oz pur e alcohol) Sex and Gender Information Value Date Recorded Sex Assigned at Not on file Legal Sex Male 7:08 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
--- OUTSIDE RECORDS SUMMARY | 2024-06-22 00:52 | XMS_ITS | Encounter Summary ---
Author Organization [facility] Medical [facility] Address [address] [address] Care Team Providers Care Steam Blocker Name Role Phone Smooth Cristina MD Primary Care Provider Reason for Visit * (Routine) - Canceled Specialty Diagnoses / Procedures Referred By Contac t Referred To Contact Diagnoses NICM (nonischemic cardiomyopathy) (CMS/HCC) (HCC) Procedures DEVICE CHECK - REMOTE Georgina Nice MD Phone: tel: fax: Referral ID Status Reason Start Date Expiration Date V isits Requested Visits Authorized [id number] Canceled 03/09/2018 09/18/2019 1 1 Encounter Details Date Type Department Care Team (Latest Contact Info) Description 06/08/2018 9:15 AM ADULT EDUCATION PROFESSIONAL Ancillary Procedure [facility] Medical [facility] Cardiology [facility] [facility] [address] [place] [phone] NICM (nonischemic cardiomyopathy) (CMS/HCC); Cardiac defibrillator in place; Nonsustained ventricular tachycardia (CMS/HCC) Social History Tobacco Use Types Packs/Day Years Used Date Smoking Tobacco: Never Alcohol Use Standard Drinks/Week Comments No 0 (1 standard drink = 0.6 oz pur e alcohol) Sex and Gender Information Value Date Recorded Sex Assigned at Not on file Legal Sex Male 7:08 PM ADULT EDUCATION PROFESSIONAL Gender Identity Not on file Sexual Orientation Not on file documented as of this encounter Plan of Treatment Pending Results Name Type Priority Associated Diagnoses Date /Time DEVICE CHECK - REMOTE Cardiac Services Routine NICM (nonischemic cardiomyopathy) (CMS/HCC) 06/09/2018 9:35 AM ADULT EDUCATION PROFESSIONAL documented as of this encounter Visit Diagnoses Diagnosis NICM (nonischemic cardiomyopathy) (CMS/HCC) (HCC) Cardiac defibrillator in place Automatic implantable cardiac defibrillator in situ Nonsustained ventricular tachycardia (HCC) documented in this encounter Care Teams Steam Blocker Relationship Specialty Start Date End Date Smooth Cristina MD PCP - General 09/18/16 documented as of this encounter
--- OUTSIDE RECORDS SUMMARY | 2024-06-22 00:52 | XMS_ITS | Encounter Summary ---
Author Organization [facility] Address [address] [place] [address] Care Team Providers Care Poultry Field Service Technician Name Role Phone Smooth Cristina MD Primary Care Provider Reason for Visit * Cardiology (Routine) - Closed Specialty Diagnoses / Procedures Referred By Contac t Referred To Contact Diagnoses NICM (nonischemic cardiomyopathy) (CMS/HCC) (HCC) Procedures DEVICE CHECK - IN OFFICE Georgina Nice MD Phone: tel: fax: Referral ID Status Reason Start Date Expiration Date Visits Re quested Visits Authorized [id number] Closed 05/26/2017 11/22/2017 1 1 Encounter Details Date Type Department Care Team (Latest Contact Info) Description 10/13/2017 8:00 AM CDT Ancillary Procedure [facility] Medical [facility] Cardiology [address] [facility] [facility] [address] [place] [address] NICM (nonischemic cardiomyopathy) (CMS/HCC); Chronic diastolic heart failure (CMS/HCC); Nonsustained ventricular tachycardia (CMS/HCC); Biventricular automatic implantable cardioverter defibrillator in situ Social History Tobacco Use Types Packs/Day Years Used Date Smoking Tobacco: Never Alcohol Use Standard Drinks/Week Comments No 0 (1 standard drink = 0.6 oz pur e alcohol) Sex and Gender Information Value Date Recorded Sex Assigned at Not on file Legal Sex Male 7:08 PM DBA Gender Identity Not on file Sexual Orientation Not on file documented as of this encounter Progress Notes * Anna Thomas RN - 10/13/2017 8:00 AM CDT Medtronic Biventricular ICD Dx; NICM, CHF, NSVT. DOI 10/31/2012. Chronic atrial lead 01/23/2009. Declines home monitoring. Office device checks Q3 months. Office BIV ICD f/u today demonstrates appropriate device function. Battery function-2.63V, teetering of cusp of RUDOLPH-has Not tripped RUDOLPH yet. Alert beeping tones demonstrated-pt knows to call if he hears the alert tone. Charge time 12.4 sec. Presenting rhythm- BIV Paced. Underlying rhythm-SR. No atrial arrhythmias noted. SVT/ST episodes recorded. 1-VT-NS episodes noted, iegm suggestive of SVT, no therapies delivered. OptiVol Fluid Index-negative. No changes to device settings. See scanned device report. RTC on 01/05/2018 for device f/u. documented in this encounter Plan of Treatment Not on file documented as of this encounter Procedures Procedure Name Priority Date/Time Associated Diagnosis Comments DEVICE CHECK - IN OFFICE Routine 10/13/2017 7:41 AM CDT NICM (nonischemic cardiomyopathy) (CMS/HCC) documented in this encounter Results * DEVICE CHECK - IN OFFICE (10/13/2017 7:41 AM CDT) Anatomical Region Laterality Modality Other Narrative 10/21/2017 8:36 AM CDT Medtronic Biventricular ICD Dx; NICM, CHF, NSVT. DOI 10/31/2012. Chronic atrial lead 01/23/2009. Declines home monitoring. Office device checks Q3 months. Office BIV ICD f/u today demonstrates appropriate device function. Battery function-2.63V, teetering of cusp of RUDOLPH-has Not tripped RUDOLPH yet. Alert beeping tones demonstrated-pt knows to call if he hears the alert tone. Charge time 12.4 sec. Presenting rhythm- BIV Paced. Underlying rhythm-SR. No atrial arrhythmias noted. SVT/ST episodes recorded. 1-VT-NS episodes noted, iegm suggestive of SVT, no therapies delivered. OptiVol Fluid Index-negative. No changes to device settings. See scanned device report. RTC on 01/05/2018 for device f/u. us Georgina Nice MD CV CARDIAC SERVICES PROCEDU RES Final Result documented in this encounter Visit Diagnoses Diagnosis NICM (nonischemic cardiomyopathy) (CMS/HCC) (HCC) Chronic diastolic heart failure (HCC) Chronic diastolic heart failure Nonsustained ventricular tachycardia (HCC) Biventricular automatic implantable cardioverter defibrillator in situ documented in this encounter Care Teams Poultry Field Service Technician Relationship Specialty Start Date End Date Smooth Cristina MD PCP - General 09/18/16 documented as of this encounter
--- OUTSIDE RECORDS SUMMARY | 2024-06-22 00:52 | XMS_ITS | Encounter Summary ---
Author Organization [facility] Address [address] [place] [address] Care Team Providers Care Sock Folder Name Role Phone Smooth Cristina MD Primary Care Provider Reason for Visit * Reason Comments Follow-up primary cardiomyopat hy Encounter Details Date Type Department Care Team (Latest Contact Info) Description 08/12/2020 1:00 PM FERTILIZER APPLICATOR Office Visit [facility] Cardiology [address] [facility] [address] [place] [address] Georgina Nice MD [address] [facility] [address] [place] [address] Primary cardiomyopathy (CMS/HCC) (Primary Dx); [...] on file Legal Sex Male 7:08 PM FERTILIZER APPLICATOR Gender Identity Not on file Sexual Orientation Not on file documented as of this encounter Last Filed Vital Signs Vital Sign Reading Time Taken Comments Blood Pressure 114/62 08/12/2020 1:01 PM FERTILIZER APPLICATOR Pulse 86 08/12/2020 1:01 PM FERTILIZER APPLICATOR Temperature - - Respiratory Rate - - Oxygen Saturation 95% 08/12/2020 1:01 PM FERTILIZER APPLICATOR Inhaled Oxygen Concentration - - Weight 93 kg (205 lb) 08/12/2020 1:01 PM FERTILIZER APPLICATOR Height 172.7 cm (5' 8 ) 08/12/2020 1:01 PM FERTILIZER APPLICATOR Body Mass Index 31.17 08/12/2020 1:01 PM FERTILIZER APPLICATOR documented in this encounter Patient Instructions * Patient Instructions* Georgina Nice MD - 08/12/2020 1:00 PM FERTILIZER APPLICATOR 08/10/2019 POC lipids : Total cholesterol 197, HDL 47, TG 141, LDL 122, glucose 260 07/2020 total chol 167, HDL 34, TRG 108, LDL 111, glu 273. ILIZER APPLICATOR ILIZER APPLICATOR documented in this encounter Progress Notes * Georgina Nice MD - 08/12/2020 1:00 PM CST [facility] DATE OF VISIT: 08/12/2020 DATE: 1950 CHIEF COMPLAINT Chief Complaint Patient presents with ??? Follow-up primary cardiomyopathy FU cardiomyopathy and ICD HPI Alan Burgos is a 70 y.o. male with NIDCM since 1987, with [...] in October [address] Cheek of [facility]. New LV and RV leads were [...] [address] Cristina's office. Going to [place] in one month. 08/12/2020 Office Visit: Doing OK from heart point of view. Heart rate tends to run high when she takes his insulin, sometimes 100 BPM at night in bed, says when he stops his insulin HR gets better. Cholesterol is better; says he's stuck inside [facility] COVID and can't eat a bunch of [...] atrial fibrillation longest being for 42 minutes Social: . Likes to go to [employer] every summer as well as [place]. MEDICAL HISTORY Past Medical History: Diagnosis Date [...] directed (Patient taking differently: 200 mg as needed ), Disp: 0, Rfl: 0 ??? insulin lispro [...] Negative for depression. PHYSICAL EXAM Blood pressure 114/62, pulse 86, height 172.7 cm (5' 8 ), weight 93 kg (205 lb), SpO2 95 %. Body mass index is 31.17 kg/m??. Physical Exam Constitutional: He is oriented [...] time. Skin: Skin is warm and dry. No erythema (ICD site fine). Psychiatric: He has [...] for this visit: Primary cardiomyopathy (CMS/HCC) (Primary) Biventricular ICD (implantable cardioverter-defibrillator) in place Chronic diastolic heart failure (CMS/HCC) Essential hypertension [...] the patient get another echo since 2014. . BiV ICD: Had 4th generator placed in 02/2018. Checked today, normal function, BiV pacing 99%,some nonsustained VT. Has been noncompliant with follow-up. VT/SVT: Has had some nonsustained VT, once had anti-tachy pacing for VT in 2014, had anti tachy pacing for V-tach and 02/2020 which was unsuccessful but VT self- terminated. No defibrillations. SVT: Occ brief SVT noted in past , with some episodes it may be atrial fibrillation. On this visit a he apparently had episode of AFib lasting for 42 minutes. On my personal review it does look like this was atrial fibrillation. However these episodes are few and far between, so will continue to observe. HTN: BP reasonable.. Hypercholesterolemia: Patient has had statins recommended by several physicians and has refused. States his cholesterol was good recently. I reviewed the high risk of cardiovascular disease that diabetics have, and benefits of statins, outside of the cholesterol lowering effects, with reduction of risk of stroke and heart attack. Patient continues to refuse statin therapy. Noncompliance: Occ pt does not follow up well or take meds as recommended. PLAN/RECOMMENDATIONS Check Echo -- Patient agreed to schedule after next year's visit. Cont current tx w/ Lotrel. Cont w/ Device Clinic and device follow-up; will schedule future office visit and remote. Pt prefers warmer weather. Requesting labs from Dr. Cristina's office FU in 1 year, sooner if needed. Georgina Nice MD, [facility] Office: [phone] or [phone] This note is dictated and transcribed by with assistance from [employer].?? Ultrasound Tester variances may occur. Despite proofreading, typographical errors may occur. ILIZER APPLICATOR documented in this encounter Miscellaneous Notes * Addendum Note - Jn Cee MA - 08/12/2020 1:00 PM CSTAddended by: JN CEE on: 08/12/2020 04:57 PM Modules accepted: Orders ILIZER APPLICATOR documented in this encounter Plan of Treatment Not on file documented as of this encounter Procedures Procedure Name Priority Date/Time Associated Diagnosis Comments POCT LIPID PANEL Routine 08/12/2020 5:1 6 PM FERTILIZER APPLICATOR Pure hypercholesterolemia documented in this encounter Results * POCT lipid panel (08/12/2020 5:16 PM FERTILIZER APPLICATOR) Cholesterol, POC 167 <200 mg/dL HDL, POC 34 >40 mg/dL Triglycerides, POC 108 <150 mg/dL LDL Cholesterol POC 111 <100 mg/dL Chol/HDL Ratio, POC 4.9 Non-HDL Cholesterol, POC 132 mg/dL Cholesterol Total, POC 167 mg/dL Capillary blood 08/12/2020 5 :16 PM FERTILIZER APPLICATOR Georgina Nice MD POINT OF CARE TEST [...] Discontinue Reason Start Date End Da te Tresiba FlexTouch U-100 100 unit/mL (3 mL) insulin pen Alternate therapy 07/16/2019 08/12/2020 documented as of this encounter Historical Medications * This list may reflect changes made after this encounter. Medication Sig Dispense Quantity Refills Last Filled Start D ate End Date omeprazole (PriLOSEC) 20 mg capsule daily 08/12/2020 Lantus Solostar U-100 Insulin 100 unit/mL (3 mL) insulin pen 06/17/2020 added in this encounter Care Teams Sock Folder Relationship Specialty Start Date End Date Smooth Cristina MD PCP - General 09/18/16 documented as of this encounter
--- OUTSIDE RECORDS SUMMARY | 2024-06-22 00:52 | XMS_ITS | Encounter Summary ---
Author Organization [facility] Medical [facility] Address [address] [address] Care Team Providers Care Senior Capital Markets Specialist Name Role Phone Smooth Cristina MD Primary Care Provider Reason for Visit * (Routine) - Closed Specialty Diagnoses / Procedures Referred By Yonatan min Referred To Contact Diagnoses Primary cardiomyopathy (HCC) Procedures DEVICE CHECK - REMOTE Georgina Nice MD Phone: tel: fax: [facility] Medical Group Referral ID Status Reason Start Date Expiration Date Visits Re quested Visits Authorized [id number] Closed 03/04/2020 04/03/2021 1 1 Encounter Details Date Type Department Care Team (Latest Contact Info) Description 03/20/2020 7:30 AM CDT Ancillary Procedure [facility] Medical [facility] Cardiology [address] [place] [phone] Primary cardiomyopathy (CMS/HCC); Biventricular ICD (implantable cardioverter-defibrill ator) in place; Chronic diastolic heart failure (CMS/HCC); Nonsustained ventricular tachycardia (CMS/HCC) Social History Tobacco Use Types Packs/Day Years Used Date Smoking Tobacco: Never Smokeless Tobacco: Never Alcohol Use Standard Drinks/Week Comments No 0 (1 standard drink = 0.6 oz pur e alcohol) Sex and Gender Information Value Date Recorded Sex Assigned at Not on file Legal Sex Male 7:08 PM MISSILE AND MISSILE CHECKOUT TECHNICIAN Gender Identity Not on file Sexual Orientation Not on file documented as of this encounter Progress Notes * Anna Thomas RN - 03/20/2020 7:30 AM CDT Medtronic Biventricular ICD Dx; NICM, CHF, NSVT. Gen change 03/02/2018, chronic leads; atrial lead 01/23/09 RV/LV leads 10/31/12. Carelink remote monitoring. Routine ICD remote. Normal device function. Battery function-2.98V, 4.7 years estimated remaining longevity. Charge time-3.8 sec. Appropriate lead measurements. Presenting rhythm- AP-6%, BIVP-98.8%. 106 AT/AF episodes noted, 8 min longest duration. 3-VT-NS episodes recorded, iegm's NSVT, self terminated. 1 VT/VF episode recorded, ATP x1 therapy delivered-unsuccessful termination, rhythm resumed for 14 beats then self terminated. See phone notes. Patient declined lab work and echo @ this time d/t COVID concerns. Medications; Lotrel. See scanned report. Carelink remote f/u 06/19/2020. ROV with Dr Nice 08/12/2020. documented in this encounter Plan of Treatment Not on file documented as of this encounter Procedures Procedure Name Priority Date/Time Associated Diagnosis Comments DEVICE CHECK - REMOTE Routine 03/20/2020 3:29 PM CDT Primary cardiomyopathy (CMS/HCC) documented in this encounter Results * DEVICE CHECK - REMOTE (03/20/2020 3:29 PM CDT) Anatomical Region Laterality Modality Other Narrative 03/24/2020 1:42 PM CDT Medtronic Biventricular ICD Dx; NICM, CHF, NSVT. Gen change 03/02/2018, chronic leads; atrial lead 01/23/09 RV/LV leads 10/31/12. Carelink remote monitoring. ?? Routine ICD remote. Normal device function. Battery function-2.98V, 4.7 years estimated remaining longevity. Charge time-3.8 sec. Appropriate lead measurements. Presenting rhythm- AP-6%, BIVP-98.8%. 106 AT/AF episodes noted, 8 min longest duration. 3-VT-NS episodes recorded, iegm's NSVT, self terminated. ?? 1 VT/VF episode recorded, ATP x1 therapy delivered-unsuccessful termination, rhythm resumed for 14 beats then self terminated. See phone notes. Patient declined lab work and echo @ this time d/t COVID concerns. ?? Medications; Lotrel. See scanned report. Carelink remote f/u 06/19/2020. ROV with Dr Nice 08/12/2020. ? us Georgina Nice MD CV CARDIAC SERVICES PROCEDU RES Final Result documented in this encounter Visit Diagnoses Diagnosis Primary cardiomyopathy (HCC) Other primary cardiomyopathies Biventricular ICD (implantable cardioverter-defibrillator) in place Chronic diastolic heart failure (HCC) Chronic diastolic heart failure Nonsustained ventricular tachycardia (HCC) documented in this encounter Care Teams Senior Capital Markets Specialist Relationship Specialty Start Date End Date Smooth Cristina MD PCP - General 09/18/16 documented as of this encounter
--- OUTSIDE RECORDS SUMMARY | 2024-06-22 00:52 | XMS_ITS | Encounter Summary ---
Author Organization [facility] Medical [facility] Address [address] [address] Care Team Providers Care Painter Barrel Name Role Phone Smooth Cristina MD Primary Care Provider Reason for Visit * (Routine) - Closed Specialty Diagnoses / Procedures Referred By Contac t Referred To Contact Diagnoses NICM (nonischemic cardiomyopathy) (CMS/HCC) (HCC) Biventricular ICD (implantable cardioverter-defibrillator) in place Chronic diastolic heart failure (HCC) Procedures DEVICE CHECK - REMOTE Georgina Nice MD Phone: tel: fax: [facility] Medical Group Referral ID Status Reason Start Date Expiration Date Visits Re quested Visits Authorized [id number] Closed 01/26/2019 08/06/2020 1 1 Encounter Details Date Type Department Care Team (Latest Contact Info) Description 03/15/2019 9:30 AM CDT Ancillary Procedure [facility] Medical [facility] Cardiology [address] [facility] [address] [place] [phone] NICM (nonischemic cardiomyopathy) (CMS/HCC); Biventricular ICD (implantable cardioverter-defibr illator) in place; Chronic diastolic heart failure (CMS/HCC) Social History Tobacco Use Types Packs/Day Years Used Date Smoking Tobacco: Never Alcohol Use Standard Drinks/Week Comments No 0 (1 standard drink = 0.6 oz pur e alcohol) Sex and Gender Information Value Date Recorded Sex Assigned at Not on file Legal Sex Male 7:08 PM APPEALS MANAGER Gender Identity Not on file Sexual Orientation Not on file documented as of this encounter Plan of Treatment Not on file documented as of this encounter Procedures Procedure Name Priority Date/Time Associated Diagnosis Comments DEVICE CHECK - REMOTE Routine 03/15/2019 8:29 AM CDT NICM (nonischemic cardiomyopathy) (CMS/HCC) Biventricular ICD (implantable cardioverter-defibr illator) in place Chronic diastolic heart failure (CMS/HCC) documented in this encounter Results * DEVICE CHECK - REMOTE (03/15/2019 8:29 AM CDT) Anatomical Region Laterality Modality Other Narrative 04/15/2019 5:42 PM CDT Medtronic Biventricular ICD Dx; NICM, CHF, NSVT. Gen change 03/02/2018, chronic leads; atrial lead 01/23/09 RV/LV leads 10/31/12. Carelink remote monitoring. Routine ICD remote. Normal device function. Appropriate battery, charge time, and lead measurements. No AT/AF episodes noted. 3-Ventricular episodes noted, iegm's NSVT, self terminated. See scanned report. ROV with Dr Nice and device f/u 07/10/2019. us Georgina iNce MD CV CARDIAC SERVICES PROCEDU RES Final Result documented in this encounter Visit Diagnoses Diagnosis NICM (nonischemic cardiomyopathy) (CMS/HCC) (HCC) Biventricular ICD (implantable cardioverter-defibrillator) in place Chronic diastolic heart failure (HCC) Chronic diastolic heart failure documented in this encounter Care Teams Painter Barrel Relationship Specialty Start Date End Date Smooth Cristina MD PCP - General 09/18/16 documented as of this encounter
--- OUTSIDE RECORDS SUMMARY | 2024-06-22 00:52 | XMS_ITS | Encounter Summary ---
Author Organization [facility] Medical [facility] Address [address] [address] Care Team Providers Care Mechatronics Technologist Name Role Phone Smooth Cristina MD Primary Care Provider [phone] Reason for Visit * (Routine) - Canceled Specialty Diagnoses / Procedures Referred By Contac t Referred To Contact Diagnoses NICM (nonischemic cardiomyopathy) (CMS/HCC) ([facility]) Procedures DEVICE CHECK - REMOTE Georgina Nice MD Phone: tel: fax: Referral ID Status Reason Start Date Expiration Date V isits Requested Visits Authorized [id number] Canceled 03/09/2018 09/18/2019 1 1 Encounter Details Date Type Department Care Team (Latest Contact Info) Description 09/14/2018 8:00 AM CDT Ancillary Procedure [facility] Medical [facility] Cardiology [address] [place] [address] [place] [phone] NICM (nonischemic cardiomyopathy) (CMS/HCC); Biventricular ICD (implantable cardioverter-defibr illator) in place; Chronic diastolic heart failure (CMS/HCC) Social History Tobacco Use Types Packs/Day Years Used Date Smoking Tobacco: Never Alcohol Use Standard Drinks/Week Comments No 0 (1 standard drink = 0.6 oz pur e alcohol) Sex and Gender Information Value Date Recorded Sex Assigned at Not on file Legal Sex Male 7:08 PM EXCEPTIONAL CHILDREN TEACHER Gender Identity Not on file Sexual Orientation Not on file documented as of this encounter Plan of Treatment Pending Results Name Type Priority Associated Diagnoses Date /Time DEVICE CHECK - REMOTE Cardiac Services Routine NICM (nonischemic cardiomyopathy) (CMS/HCC) 09/20/2018 3:28 PM CDT documented as of this encounter Visit Diagnoses Diagnosis NICM (nonischemic cardiomyopathy) (CMS/HCC) (HCC) Biventricular ICD (implantable cardioverter-defibrillator) in place Chronic diastolic heart failure (HCC) Chronic diastolic heart failure documented in this encounter Care Teams Mechatronics Technologist Relationship Specialty Start Date End Date Smooth Cristina MD PCP - General 09/18/16 documented as of this encounter
--- OUTSIDE RECORDS SUMMARY | 2024-06-22 00:52 | XMS_ITS | Encounter Summary ---
Author Organization [facility] Medical Group Address [address] [facility] [address] [place] [address] Care Team Providers Care Signalling And Communications Engineer Name Role Phone Smooth Cristina MD Primary Care Provider Reason for Visit * Cardiology (Routine) - Closed Specialty Diagnoses / Procedures Referred By Contac t Referred To Contact Diagnoses NICM (nonischemic cardiomyopathy) (CMS/HCC) (HCC) Procedures DEVICE CHECK - IN OFFICE Georgina Nice MD Phone: tel: fax: Referral ID Status Reason Start Date Expiration Date Visits Re quested Visits Authorized [id number] Closed 05/26/2017 11/22/2017 1 1 Encounter Details Date Type Department Care Team (Latest Contact Info) Description 02/23/2018 8:00 AM CDT Ancillary Procedure [facility] Medical Group Cardiology [address] [facility] [address] [place] [phone] NICM (nonischemic cardiomyopathy) (CMS/HCC); Cardiac defibrillator in place; Chronic diastolic heart failure (CMS/HCC) Social History Tobacco Use Types Packs/Day Years Used Date Smoking Tobacco: Never Alcohol Use Standard Drinks/Week Comments No 0 (1 standard drink = 0.6 oz pur e alcohol) Sex and Gender Information Value Date Recorded Sex Assigned at Not on file 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 DOI 10/31/2012. Chronic atrial lead 01/23/2009. Declines home monitoring. Office device checks Q3 months. Of Note: Original device implanted 2001, Gen change 01/23/2009 with new atrial lead implanted-failed atrial lead extraction. Gen change 10/31/2012 with new RV + LV leads-failed extraction of old Atrial, RV, & LV leads. Pt inquired about an MRI compatible device however d/t the abandoned leads and incompatible RV leadhe would be a candidate for an MRI conditional device. Office BIV ICD f/u today demonstrates appropriate device function. Battery function-2.62V, RUDOLPH reached on 02/19/2018. Charge time 14.0 sec. Presenting rhythm- BIV Paced. Underlying rhythm-SR. No arrhythmias noted. All lead impedances, Pacing & sensing thresholds appropriate function. Low Battery Alert turned off. See scanned device report. Of Note: pt would like gen change done by March as he is leaving for a fishing trip on 04/24/18 & will return @ [email or web address]. If unable to do before his trip then will do after his return. documented in this encounter Plan of Treatment Not on file documented as of this encounter Procedures Procedure Name Priority Date/Time Associated Diagnosis Comments DEVICE CHECK - IN OFFICE Routine 02/23/2018 7:51 AM CDT NICM (nonischemic cardiomyopathy) (CMS/HCC) documented in this encounter Results * DEVICE CHECK - IN OFFICE (02/23/2018 7:51 AM CDT) Anatomical Region Laterality Modality Other Narrative 03/09/2018 6:54 PM CDT Medtronic Biventricular ICD Dx; NICM, CHF, NSVT. DOI 10/31/2012. Chronic atrial lead 01/23/2009. Declines home monitoring. Office device checks Q3 months. ?? Of Note: Original device implanted 2001, Gen change 01/23/2009 with new atrial lead implanted-failed atrial lead extraction. Gen change 10/31/2012 with new RV + LV leads-failed extraction of old Atrial, RV, & LV leads. ?? Pt inquired about an MRI compatible device however d/t the abandoned leads and incompatible RV lead he would be a candidate for an MRI conditional device. ?? Office BIV ICD f/u today demonstrates appropriate device function. Battery function-2.62V, RUDOLPH reached on 02/19/2018. Charge time 14.0 sec. Presenting rhythm- BIV Paced. Underlying rhythm-SR. No arrhythmias noted. All lead impedances, Pacing & sensing thresholds appropriate function. Low Battery Alert turned off. See scanned device report. ?? Of Note: pt would like gen change done by week of March as he is leaving for a fishing trip on 04/24/18 & [facility]. If unable to do before his trip then will do after his return. ? us Georgina Nice MD CV CARDIAC SERVICES PROCEDU RES Final Result documented in this encounter Visit Diagnoses Diagnosis NICM (nonischemic cardiomyopathy) (CMS/HCC) (HCC) Cardiac defibrillator in place Automatic implantable cardiac defibrillator in situ Chronic diastolic heart failure (HCC) Chronic diastolic heart failure documented in this encounter Care Teams Signalling And Communications Engineer Relationship Specialty Start Date End Date Smooth Cristina MD PCP - General 09/18/16 documented as of this encounter
--- OUTSIDE RECORDS SUMMARY | 2024-06-22 00:52 | XMS_ITS | Encounter Summary ---
Author Organization [facility] Medical [facility] Address [address] [address] Care Team Providers Care Core Shaper Sides Name Role Phone Smooth Cristina MD Primary Care Provider [phone] Reason for Visit * (Routine) - Closed Specialty Diagnoses / Procedures Referred By Yonatan min Referred To Contact Diagnoses Primary cardiomyopathy (HCC) Procedures DEVICE CHECK - REMOTE Georgina Nice MD Phone: tel: fax: [facility] Medical Group Referral ID Status Reason Start Date Expiration Date Visits Re quested Visits Authorized [id number] Closed 03/04/2020 04/03/2021 1 1 Encounter Details Date Type Department Care Team (Latest Contact Info) Description 06/19/2020 7:30 AM CLINICAL EDUCATION ASSISTANT Ancillary Procedure [facility] Medical [facility] Cardiology [facility] [phone] Primary cardiomyopathy (CMS/HCC); Biventricular ICD (implantable cardioverter-defibrill ator) in place; Congestive heart failure, unspecified HF chronicity, unspecified heart failure type (CMS/HCC); Nonsustained ventricular tachycardia (CMS/HCC) Social History Tobacco Use Types Packs/Day Years Used Date Smoking Tobacco: Never Smokeless Tobacco: Never Alcohol Use Standard Drinks/Week Comments No 0 (1 standard drink = 0.6 oz pur e alcohol) Sex and Gender Information Value Date Recorded Sex Assigned at Not on file Legal Sex Male 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 Gen change 03/02/2018, chronic leads; atrial lead 01/23/09 RV/LV leads 10/31/12. Carelink remote monitoring. Routine ICD remote. Normal device function. Battery function-2.97V, 4.5 years estimated remaining longevity. Charge time-3.8 sec. Appropriate lead measurements. Presenting rhythm- BIVP. AP-6%, BIVP-99.1%. 55 AT/AF episodes noted, 20 min longest duration, iegm's suggestive of ATach. 1-VT-NS episode recorded, iegm's NSVT, self terminated. Medications; Lotrel. See scanned report. Carelink remote f/u 09/18/2020. ROV with Dr Nice 08/12/2020. ICAL EDUCATION ASSISTANT documented in this encounter Plan of Treatment Not on file documented as of this encounter Procedures Procedure Name Priority Date/Time Associated Diagnosis Comments DEVICE CHECK - REMOTE Routine 06/20/2020 4:23 PM CLINICAL EDUCATION ASSISTANT Primary cardiomyopathy (CMS/HCC) documented in this encounter Results * DEVICE CHECK - REMOTE (06/20/2020 4:23 PM CLINICAL EDUCATION ASSISTANT) Anatomical Region Laterality Modality Other Narrative 08/08/2020 4:41 PM CLINICAL EDUCATION ASSISTANT Medtronic Biventricular ICD Dx; NICM, CHF, NSVT. Gen change 03/02/2018, chronic leads; atrial lead 01/23/09 RV/LV leads 10/31/12. Carelink remote monitoring. ?? Routine ICD remote. Normal device function. Battery function-2.97V, 4.5 years estimated remaining longevity. Charge time-3.8 sec. Appropriate lead measurements. Presenting rhythm- BIVP. AP-6%, BIVP-99.1%. ?? 55 AT/AF episodes noted, 20 min longest duration, iegm's suggestive of ATach. 1-VT-NS episode recorded, iegm's NSVT, self terminated. ?? Medications; Lotrel. See scanned report. Carelink remote f/u 09/18/2020. ROV with Dr Nice 08/12/2020. ? us Georgina Nice MD CV CARDIAC SERVICES PROCEDU RES Final Result documented in this encounter Visit Diagnoses Diagnosis Primary cardiomyopathy (HCC) Other primary cardiomyopathies Biventricular ICD (implantable cardioverter-defibrillator) in place Congestive heart failure, unspecified HF chronicity, unspecified heart failure type (HCC) Nonsustained ventricular tachycardia (HCC) documented in this encounter Care Teams Core Shaper Sides Relationship Specialty Start Date End Date Smooth Cristina MD PCP - General 09/18/16 documented as of this encounter
--- OUTSIDE RECORDS SUMMARY | 2024-06-22 00:52 | XMS_ITS | Encounter Summary ---
Author Organization [facility] Medical Group Address [address] [facility] [address] [place] [address] Care Team Providers Care General Laborer Name Role Phone Smooth Cristina MD Primary Care Provider Reason for Visit * Reason Onset Date Comments BIV ICD gen change 02/23/2018 Encounter Details Date Type Department Care Team (Late st Contact Info) Description 02/23/2018 Telephone [facility] [address] [phone] Georgina Nice MD [address] [facility] [address] [place] [address] BIV ICD gen change Social History Tobacco Use Types Packs/Day Years Used Date Smoking Tobacco: Never Alcohol Use Standard Drinks/Week Comments No 0 (1 standard drink = 0.6 oz pur e alcohol) Sex and Gender Information Value Date Recorded Sex Assigned at Not on file 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 * Telephone Encounter - Georgina Nice MD - 02/23/2018 12:58 PM CDT Patient will need a generator change soon. This will be his 4th Gen change and perhaps the 5th timethe pocket has been opened so he is at high risk of infection. casting house laborer will need to order a Medtronic Tyrex antibiotic pouch. documented in this encounter Plan of Treatment Not on file documented as of this encounter Visit Diagnoses Not on filedocumented in this encounter Care Teams General Laborer Relationship Specialty Start Date End Date Smooth Cristina MD PCP - General 09/18/16 documented as of this encounter
--- OUTSIDE RECORDS SUMMARY | 2024-06-22 00:52 | XMS_ITS | Encounter Summary ---
Author Organization [facility] Medical Group Address [address] [facility] [address] [place] [address] Care Team Providers Care Office Manager Executive Assistant Name Role Phone Smooth Cristina MD Primary Care Provider Encounter Details Date Type Department Care Team (Late st Contact Info) Description 02/23/2018 Telephone [facility] [address] [facility] [address] [place] [phone] Georgina Nice MD [address] [address] [address] Social History Tobacco Use Types Packs/Day Years Used Date Smoking Tobacco: Never Alcohol Use Standard Drinks/Week Comments No 0 (1 standard drink = 0.6 oz pur e alcohol) Sex and Gender Information Value Date Recorded Sex Assigned at Not on file Legal Sex Male 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 Pt said the last time, they strapped his arms to thetable in [place], they tore his bicep and dislocated his shoulder. His arms cannot be flat. Told patient I will make label press operator aware. * Telephone Encounter - Anna Thomas RN - 02/23/2018 3:47 PM CDT Medtronic Biventricular ICD Dx; NICM, [...] pt would like gen change done by of March as he is leaving for a fishing trip on 04/24/18 & [facility]. If unable to do before his trip then will do after his return. ? documented in this encounter Plan of Treatment Not on file documented as of this encounter Visit Diagnoses Not on filedocumented in this encounter Care Teams Office Manager Executive Assistant Relationship Specialty Start Date End Date Smooth Cristina MD PCP - General 09/18/16 documented as of this encounter
--- OUTSIDE RECORDS SUMMARY | 2024-06-22 00:52 | XMS_ITS | Encounter Summary ---
Author Organization [facility] Address [address] [place] [address] Care Team Providers Care Book Store Associate Name Role Phone Smooth Cristina MD Primary Care Provider Reason for Visit * Reason Comments Follow-up No problems Encounter Details Date Type Department Care Team (Latest Contact Info) Description 07/18/2018 11:30 AM TILE ROOFER Office Visit [facility] [address] [phone] Georgina Nice MD [address] [facility] [address] [place] [address] Primary cardiomyopathy (CMS/HCC) (Primary Dx); Biventricular ICD (implantable cardioverter-defibrilla tor) in place; Nonsustained ventricular tachycardia (CMS/HCC); Essential hypertension; Supraventricular tachycardia (CMS/HCC); Ventricular tachycardia (CMS/HCC); Controlled type 2 diabetes mellitus without complication, without long-term current use of insulin (CMS/HCC); Noncompliance with treatment Social History Tobacco Use Types Packs/Day Years Used Date Smoking Tobacco: Never Tobacco Cessation:Counseling Given: Yes Alcohol Use Standard Drinks/Week Comments No 0 (1 standard drink = 0.6 oz pur e alcohol) Sex and Gender Information Value Date Recorded Sex Assigned at Not on file Legal Sex Male 7:08 PM TILE ROOFER Gender Identity Not on file Sexual Orientation Not on file documented as of this encounter Last Filed Vital Signs Vital Sign Reading Time Taken Comments Blood Pressure 134/72 07/18/2018 12:23 PM TILE ROOFER Pulse 78 07/18/2018 12:23 PM TILE ROOFER Temperature - - Respiratory Rate - - Oxygen Saturation 94% 07/18/2018 12:23 PM TILE ROOFER Inhaled Oxygen Concentration - - Weight 87.3 kg (192 lb 8 oz) 07/18/2018 12:23 PM TILE ROOFER Height 174 cm (5' 8.5 ) 07/18/2018 12:23 PM TILE ROOFER Body Mass Index 28.84 07/18/2018 12:23 PM TILE ROOFER documented in this encounter Progress Notes * Georgina Nice MD - 07/18/2018 11:30 AM CST [facility] DATE OF VISIT: 07/25/2018 DATE: 1950 CHIEF COMPLAINT Chief Complaint Patient presents with ??? Follow-up No problems FU cardiomyopathy and ICD HPI Alan Burgos is a 68 y.o. male with NIDCM since 1987, with [...] in October [address] Cheek of [facility]. New LV and RV leads were [...] chest pain, WHITLOCK, dizziness, palpitations, or edema. Labs: 01/29/15: Hemoglobin A1c 8.4, BUN 16, creatinine 1.0, potassium 4.5, liver enzymes normal, hematocrit 44 02/2018 creat 0.8, K+ 4.5, glu 209, Hct 41. Echos: 2012: EF 50%, and in 2008 showed mild global hypokinesis, diastolic dysfunction. 2014: EF 45%, mild LVE, mild global hypo Social: . Likes to go to [place] for fishing every summer as well as [place]. MEDICAL HISTORY Past Medical History: Diagnosis Date ??? HX OTHER MEDICAL Back Pain ??? HX OTHER MEDICAL DJD Social History Substance Use Topics ??? Smoking status: Never Smoker ??? Smokeless tobacco: Not on file ??? Alcohol use No History reviewed. No pertinent family history. MEDICATIONS Current Outpatient Prescriptions: ??? amlodipine-benazepril (LOTREL) 10-20 mg per capsule, Take 1 capsule by mouth daily., Disp: 90 capsule, Rfl: 0 ??? glimepiride (AMARYL) 4 mg tablet, take 1 tablet by oral route 2 times every day, Disp: 0, Rfl: 0 ??? ibuprofen (ibuprofen) 200 mg tab/cap, Take as directed, Disp: 0, Rfl: 0 ??? metFORMIN (GLUCOPHAGE) 500 mg tablet, take 3 by Oral route once, Disp: 0, Rfl: 0 ??? omeprazole 20 mg tablet,delayed release (DR/EC), take 1 by Oral route 2 times every day (Patient taking differently: Take 20 mg by mouth daily. ), Disp: 0, Rfl: 0 ??? tadalafil (CIALIS) 5 mg tablet, take 1 tablet by oral route every day, Disp: , Rfl: 0 ??? tamsulosin (FLOMAX) 0.4 mg capsule,extended release 24hr, take 1 by Oral route every day, Disp:0, Rfl: 0 ALLERGIES No Known Allergies REVIEW OF SYSTEMS Review of Systems Constitution: Negative for malaise/fatigue. HENT: Negative for congestion. Eyes: Negative for visual disturbance. Cardiovascular: Negative for chest pain, dyspnea on exertion and syncope. Respiratory: Negative for shortness of breath. Hematologic/Lymphatic: Negative for bleeding problem. Musculoskeletal: Positive for arthritis. Gastrointestinal: Positive for constipation. Negative for abdominal pain. Genitourinary: Negative for hematuria. Neurological: Negative for dizziness. Psychiatric/Behavioral: Negative for depression. PHYSICAL EXAM Blood pressure 134/72, pulse 78, height 174 cm (5' 8.5 ), weight 87.3 kg (192 lb 8 oz), SpO2 94 %. Body mass index is 28.84 kg/m??. Physical Exam Constitutional: He is oriented to person, place, and time. He appears well- developed and well-nourished. Neck: No thyromegaly present. Cardiovascular: Normal rate, regular rhythm and normal heart sounds. No murmur heard. Pulses: Carotid pulses are 2+ on the right side, and 2+ on the left side. Pulmonary/Chest: Effort normal and breath sounds normal. No respiratory distress. Abdominal: Soft. He exhibits no distension. Musculoskeletal: He exhibits no edema. Neurological: He is alert and oriented to person, place, and time. Skin: Skin is warm and dry. No erythema (pacer site fine). Psychiatric: He has a normal [...] CHOLHDL No results found for: INR, PROTIME ASSESSMENT Diagnoses and all orders for this visit: Primary cardiomyopathy (CMS/HCC) (Primary) - Transthoracic Echo Complete W Doppler/CF; Future Biventricular ICD (implantable cardioverter-defibrillator) in place Nonsustained ventricular tachycardia (CMS/HCC) Essential hypertension Supraventricular tachycardia (CMS/HCC) Ventricular tachycardia (CMS/HCC) Controlled type 2 diabetes mellitus without complication, without long-term current use of insulin (CMS/HCC) Noncompliance with treatment Dilated cardiomyopathy: Longstanding cardiomyopathy, EF improved up to 45% in 2014, mostly 2nd BiV pacing. Intolerant of carvedilol (disequilibrium) but doing well on current medical therapy. BiV ICD: Had 4th generator placed in 02/2018. Checked 05/2018, normal function, BiV pacing 99%, no recent arrhythmias. VT/SVT: Has had some nonsustained VT, once had anti-tachy pacing for VT in 2014, no defibrillations. Occ brief SVT noted in past up to 3 minutes, none recently. HTN: BP reasonable, not perfect. Noncompliance: Occ pt does not follow up well or take meds as recommended. PLAN/RECOMMENDATIONS Check Echo Cont current tx w/ Lotrel. Cont w/ Device Clinic. FU in 1 year, sooner if needed. Georgina Nice MD, [facility] Office: [phone] or [phone] This note is dictated and transcribed by with assistance from [employer].?? Manager Cardiac Cath variances may occur. Despite proofreading, typographical errors may occur. ROOFER documented in this encounter Plan of Treatment Not on file documented as of this encounter Visit Diagnoses Diagnosis Primary cardiomyopathy (HCC)- Primary Other primary cardiomyopathies Biventricular ICD (implantable cardioverter-defibrillator) in place Nonsustained ventricular tachycardia (HCC) Essential hypertension Unspecified essential hypertension Supraventricular tachycardia (HCC) Other specified cardiac dysrhythmias Ventricular tachycardia (HCC) Paroxysmal ventricular tachycardia Controlled type 2 diabetes mellitus without complication, without long-term current use of insulin (CMS/HCC) (HCC) Noncompliance with treatment Personal history of noncompliance with medical treatment, presenting hazards to health documented in this encounter Discontinued Medications Medication Sig Discontinue Reason Start Date End Da te insulin detemir (LEVEMIR) 100 unit/mL injection inject by subcutaneous route as per insulin sliding scale protocol 07/16/2014 07/18/2018 documented as of this encounter Care Teams Book Store Associate Relationship Specialty Start Date End Date Smooth Cristina MD PCP - General 09/18/16 documented as of this encounter
--- OUTSIDE RECORDS SUMMARY | 2024-06-22 00:52 | XMS_ITS | Encounter Summary ---
Author Organization [facility] Address [address] [address] Care Team Providers Care Retail Mortgage Banker Name Role Phone Smooth Cristina MD Primary Care Provider Reason for Referral * (Routine) - Closed Specialty Diagnoses / Procedures Referred By Contac t Referred To Contact Diagnoses Primary cardiomyopathy (HCC) Procedures DEVICE CHECK - REMOTE Georgina Nice MD Phone: tel: fax: [facility] Referral ID Status Reason Start Date Expiration Date Visits Re quested Visits Authorized [id number] Closed 03/04/2020 04/03/2021 1 1 * (Routine) - Closed Specialty Diagnoses / Procedures Referred By Contac t Referred To Contact Diagnoses Primary cardiomyopathy (HCC) Procedures DEVICE CHECK - REMOTE Georgina Nice MD Phone: tel: fax: [facility] Referral ID Status Reason Start Date Expiration Date Visits Re quested Visits Authorized [id number] Closed 03/04/2020 04/03/2021 1 1 * (Routine) - Closed Specialty Diagnoses / Procedures Referred By Contac t Referred To Contact Diagnoses Primary cardiomyopathy (HCC) Procedures DEVICE CHECK - REMOTE Georgina Nice MD Phone: tel: fax: [facility] Referral ID Status Reason Start Date Expiration Date Visits Re quested Visits Authorized [id number] Closed 03/04/2020 04/03/2021 1 1 Encounter Details Date Type Department Care Team (Late st Contact Info) Description 03/04/2020 Orders Only [facility] Cardiology [address] [facility] [address] [place], [place] [address] [address] Georgina Nice MD [address] [address] Primary cardiomyopathy (CMS/HCC) (Primary Dx) Social History Tobacco Use Types Packs/Day Years Used Date Smoking Tobacco: Never Smokeless Tobacco: Never Alcohol Use Standard Drinks/Week Comments No 0 (1 standard drink = 0.6 oz pur e alcohol) Sex and Gender Information Value Date Recorded Sex Assigned at Not on file Legal Sex Male 7:08 PM REVENUE ENFORCEMENT AGENT Gender Identity Not on file Sexual Orientation [...] 3.8 seconds Episodes last 90 days/Comments: AF Ulen 0.2 %, there were 74 episodes classified [...] Final Result * DEVICE CHECK - REMOTE (06/20/2020 4:23 PM REVENUE ENFORCEMENT AGENT) Anatomical Region Laterality Modality Other Narrative 08/08/2020 4:41 PM REVENUE ENFORCEMENT AGENT Medtronic Biventricular ICD Dx; NICM, CHF, NSVT. [...] 09/18/2020. ROV with Dr Nice 08/12/2020. ? Georgina Nice MD [facility] PROCEDU RES Final Result * DEVICE CHECK - REMOTE (03/20/2020 3:29 [...] Primary cardiomyopathy (HCC)- Primary Other primary cardiomyopathies Primary cardiomyopathy (HCC) Other primary cardiomyopathies Biventricular ICD (implantable cardioverter-defibrillator) in place Chronic diastolic heart failure (HCC) Chronic diastolic heart failure Nonsustained ventricular tachycardia (HCC) Primary cardiomyopathy (HCC) Other primary cardiomyopathies Biventricular ICD (implantable cardioverter-defibrillator) in place Congestive heart failure, unspecified HF chronicity, unspecified heart failure type (HCC) Nonsustained ventricular tachycardia (HCC) Primary cardiomyopathy (HCC) Other primary cardiomyopathies Biventricular ICD (implantable cardioverter-defibrillator) in place Chronic diastolic heart failure (CMS/HCC) (HCC) Chronic diastolic heart failure Nonsustained ventricular tachycardia (CMS/HCC) (HCC) documented in this encounter Care Teams Retail Mortgage Banker Relationship Specialty Start Date End Date Smooth Cristina MD PCP - General 09/18/16 documented as of this encounter
--- OUTSIDE RECORDS SUMMARY | 2024-06-22 00:52 | XMS_ITS | Encounter Summary ---
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
--- OUTSIDE RECORDS SUMMARY | 2024-06-22 00:52 | XMS_ITS | Encounter Summary ---
Author Organization [facility] Address [address] [facility] [address] [place] [address] Care Team Providers Care Maintenance Worker Swimming Pool Name Role Phone Smooth Cristina MD Primary Care Provider Encounter Details Date Type Department Care Team (Late st Contact Info) Description 04/11/2019 Telephone [facility] [address] [facility] [address] [place] [phone] Georgina Nice MD [address] [address] Social History Tobacco Use Types Packs/Day Years Used Date Smoking Tobacco: Never Alcohol Use Standard Drinks/Week Comments No 0 (1 standard drink = 0.6 oz pur e alcohol) Sex and Gender Information Value Date Recorded Sex Assigned at Not on file Legal Sex Male 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 Pt has appt with Dr Nice on 07/10/2019 @ 0800. Scheduled pt for device check @ 0730 that same morning. Request phone call back to confirm he is ok with this time. documented in this encounter Plan of Treatment Not on file documented as of this encounter Visit Diagnoses Not on filedocumented in this encounter Care Teams Maintenance Worker Swimming Pool Relationship Specialty Start Date End Date Smooth Cristina MD PCP - General 09/18/16 documented as of this encounter
--- OUTSIDE RECORDS SUMMARY | 2024-06-22 00:52 | XMS_ITS | Encounter Summary ---
Author Organization [facility] Address [address] [address] Care Team Providers Care Drywall Foreman Name Role Phone Smooth Cristina MD Primary Care Provider [phone] Reason for Referral * (Routine) - Closed Specialty Diagnoses / Procedures Referred By Yonatan min Referred To Contact Diagnoses Primary cardiomyopathy (HCC) Procedures DEVICE CHECK - IN OFFICE Georgina Nice MD Phone: tel: fax: [facility] Referral ID Status Reason Start Date Expiration Date Visits Re quested Visits Authorized [id number] Closed 03/20/2020 04/19/2021 1 1 Encounter Details Date Type Department Care Team (Late st Contact Info) Description 03/20/2020 Orders Only [facility] Cardiology [address] [address] Georgina Nice MD [address] [address] Primary cardiomyopathy (CMS/HCC) (Primary Dx) Social History Tobacco Use Types Packs/Day Years Used Date Smoking Tobacco: Never Smokeless Tobacco: Never Alcohol Use Standard Drinks/Week Comments No 0 (1 standard drink = 0.6 oz pur e alcohol) Sex and Gender Information Value Date Recorded Sex Assigned at Not on file Legal Sex Male 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 ACCOUNTING 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 Gender Identity Not on file Sexual Orientation Not on file documented as of this encounter Plan of Treatment Pending Results Name Type Priority Associated Diagnoses Date /Time DEVICE CHECK - IN OFFICE Cardiac Services Routine Primary cardiomyopathy (CMS/HCC) 08/12/2020 11:47 AM GENERAL ACCOUNTING CLERK Scheduled Orders Name Type Priority Associated Diagnoses Orde r Schedule DEVICE CHECK - IN OFFICE Cardiac Services Routine Primary cardiomyopathy (CMS/HCC) Expected: 06/26/2020, Expires: 01/17/2021 documented as of this encounter Visit Diagnoses Diagnosis Primary cardiomyopathy (HCC)- Primary Other primary cardiomyopathies documented in this encounter Care Teams Drywall Foreman Relationship Specialty Start Date End Date Smooth Cristina MD PCP - General 09/18/16 documented as of this encounter
--- OUTSIDE RECORDS SUMMARY | 2024-06-22 00:52 | XMS_ITS | Encounter Summary ---
Author Organization [facility] Address [address] [address] Care Team Providers Care Operators School Manager Name Role Phone Smooth Cristina MD Primary Care Provider Reason for Visit * (Routine) - Closed Specialty Diagnoses / Procedures Referred By Contac t Referred To Contact Diagnoses NICM (nonischemic cardiomyopathy) (CMS/HCC) ([facility]) Procedures DEVICE CHECK - REMOTE Georgina Nice MD Phone: tel: fax: [facility] Referral ID Status Reason Start Date Expiration Date Visits Re quested Visits Authorized [id number] Closed 12/07/2018 06/17/2020 1 1 Encounter Details Date Type Department Care Team (Latest Contact Info) Description 12/14/2018 8:15 AM CDT Ancillary Procedure [facility] Medical [facility] Cardiology [facility] [facility] [address] [place] [phone] NICM (nonischemic cardiomyopathy) (CMS/HCC) Social History Tobacco Use Types Packs/Day Years Used Date Smoking Tobacco: Never Alcohol Use Standard Drinks/Week Comments No 0 (1 standard drink = 0.6 oz pur e alcohol) Sex and Gender Information Value Date Recorded Sex Assigned at Not on file 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 Gen change 03/02/2018, chronic leads; atrial lead 01/23/09 RV/LV leads 10/31/12. [facility] remote monitoring. Routine ICD remote. Normal device function. Appropriate battery, charge time, and lead measurements. No AT/AF episodes noted. 2-NSVT episodes noted, iegm's show 1-ST & 1-NSVT, no therapies delivered. See scanned report. [facility] remote f/u 03/15/2019. us Georgina Nice MD [facility] CARDIAC SERVICES PROCEDU RES Final Result documented in this encounter Visit Diagnoses Diagnosis NICM (nonischemic cardiomyopathy) (CMS/HCC) (HCC) documented in this encounter Care Teams Operators School Manager Relationship Specialty Start Date End Date Smooth Cristnia MD PCP - General 09/18/16 documented as of this encounter
--- OUTSIDE RECORDS SUMMARY | 2024-06-22 00:52 | XMS_ITS | Encounter Summary ---
Author Organization [facility] Address [address] [facility] [address] [place] [address] Care Team Providers Care Environmental Test Technician Name Role Phone Smooth Cristina MD Primary Care Provider Reason for Visit * Cardiology (Routine) - Closed Specialty Diagnoses / Procedures Referred By Contac t Referred To Contact Diagnoses NICM (nonischemic cardiomyopathy) (CMS/HCC) ([facility]) Procedures DEVICE CHECK - IN OFFICE Georgina Nice MD Phone: tel: fax: Referral ID Status Reason Start Date Expiration Date Visits Re quested Visits Authorized [id number] Closed 05/26/2017 11/22/2017 1 1 Encounter Details Date Type Department Care Team (Latest Contact Info) Description 03/09/2018 1:00 [address]T [address] 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 Gen change 03/02/2018, chronic leads; atrial lead 01/23/09 RV/LV leads 10/31/12. [facility] remote monitoring. Pt seen in device clinic for the 1 week post op incision evaluation. Aquacel dressing removed. Leftpectoral incision well approximated without redness or drainage noted. Mild-moderate pocket edema noted. Reiterated wound care instructions. Interrogation of new device to retrieve all programmed parameters and the clinical status data. Presenting rhythm BIV Paced. BIV Pacing 99.9%. No AT/AF or VF detections noted. 1 VT-NS episode noted. Pt c/o extra cardiac stim. LV amplitude adjusted. Pt instructed to call if reoccurs. [facility] remote f/u 06/08/2018. documented in this encounter Plan of Treatment Pending Results Name Type Priority Associated Diagnoses Date /Time DEVICE CHECK - IN OFFICE Cardiac Services Routine NICM (nonischemic cardiomyopathy) (CMS/HCC) 03/09/2018 1:32 PM CDT documented as of this encounter Visit Diagnoses Diagnosis NICM (nonischemic cardiomyopathy) (CMS/HCC) ([facility]) Cardiac defibrillator in place Automatic implantable cardiac defibrillator in situ documented in this encounter Care Teams Environmental Test Technician Relationship Specialty Start Date End Date Smooth Cristina MD PCP - General 09/18/16 documented as of this encounter
--- OUTSIDE RECORDS SUMMARY | 2024-06-22 00:52 | XMS_ITS | Encounter Summary ---
Author Organization [facility] Address [address] [address] Care Team Providers Care Audio Video Repairer Name Role Phone Smooth Cristina MD Primary Care Provider [phone] Reason for Referral * (Routine) - Closed Specialty Diagnoses / Procedures Referred By Contac t Referred To Contact Diagnoses NICM (nonischemic cardiomyopathy) (CMS/HCC) (HCC) Biventricular ICD (implantable cardioverter-defibrillator) in place Chronic diastolic heart failure (HCC) Procedures DEVICE CHECK - REMOTE Georgina Nice MD Phone: tel: fax: [facility] Referral ID Status Reason Start Date Expiration Date Visits Re quested Visits Authorized [id number] Closed 01/26/2019 08/06/2020 1 1 Encounter Details Date Type Department Care Team (Late st Contact Info) Description 01/26/2019 Orders Only [facility] [address] [phone] Georgina Nice MD [address] [address] NICM (nonischemic cardiomyopathy) (CMS/HCC) (Primary Dx); Biventricular ICD (implantable cardioverter-defibrill ator) in place; Chronic diastolic heart failure (CMS/HCC) Social History Tobacco Use Types Packs/Day Years Used Date Smoking Tobacco: Never Alcohol Use Standard Drinks/Week Comments No 0 (1 standard drink = 0.6 oz pur e alcohol) Sex and Gender Information Value Date Recorded Sex Assigned at Not on file Legal Sex Male 7: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 us Georgina Nice MD CV CARDIAC SERVICES PROCEDU RES Final Result documented in this encounter Visit Diagnoses Diagnosis NICM (nonischemic cardiomyopathy) (CMS/HCC) (HCC)- Primary Biventricular ICD (implantable cardioverter-defibrillator) in place Chronic diastolic heart failure (HCC) Chronic diastolic heart failure NICM (nonischemic cardiomyopathy) (CMS/HCC) (HCC) Biventricular ICD (implantable cardioverter-defibrillator) in place Chronic diastolic heart failure (HCC) Chronic diastolic heart failure documented in this encounter Care Teams Audio Video Repairer Relationship Specialty Start Date End Date Smooth Cristina MD PCP - General 09/18/16 documented as of this encounter
--- OUTSIDE RECORDS SUMMARY | 2024-06-22 00:52 | XMS_ITS | Encounter Summary ---
Author Organization [facility] Address [address] [facility] [address] [place] [address] Care Team Providers Care Technology Coordinator Name Role Phone Smooth Cristina MD Primary Care Provider Encounter Details Date Type Department Care Team (Late st Contact Info) Description 02/22/2018 Telephone [facility] [address] [facility] [address] [place] [phone] Georgina Nice MD [address] [facility] [address] [address] Social History Tobacco Use Types Packs/Day Years Used Date Smoking Tobacco: Never Alcohol Use Standard Drinks/Week Comments No 0 (1 standard drink = 0.6 oz pur e alcohol) Sex and Gender Information Value Date Recorded Sex Assigned at Not on file Legal Sex Male 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 * Telephone Encounter - Awilda Nolan - 02/22/2018 8:15 AM CDT Pt pacer is beeping, pt says its his battery, pt will like a call back [phone] documented in this encounter Plan of Treatment Not on file documented as of this encounter Visit Diagnoses Not on filedocumented in this encounter Care Teams Technology Coordinator Relationship Specialty Start Date End Date Smooth Cristina MD PCP - General 09/18/16 documented as of this encounter
--- OUTSIDE RECORDS SUMMARY | 2024-06-22 00:52 | XMS_ITS | Encounter Summary ---
Author Organization [facility] Address [address] [facility] [address] [place] [address] Care Team Providers Care Ore Charger Name Role Phone Smooth Cristina MD Primary Care Provider Encounter Details Date Type Department Care Team (Late st Contact Info) Description 02/23/2018 Telephone [facility] [address] [facility] [address] [place] [phone] Georgina Nice MD [address] [facility] [address] [address] Social History Tobacco Use Types Packs/Day Years Used Date Smoking Tobacco: Never Alcohol Use Standard Drinks/Week Comments No 0 (1 standard drink = 0.6 oz pur e alcohol) Sex and Gender Information Value Date Recorded Sex Assigned at Not on file Legal Sex Male 7:08 PM PRINCIPAL CONSULTING ENGINEER Gender Identity Not on file Sexual Orientation Not on file documented as of this encounter Miscellaneous Notes * Telephone Encounter - Anna Thomas RN - 02/23/2018 4:12 PM CDT Message sent to me in error * Telephone Encounter - BreannejameelSnehal - 02/23/2018 4:01 PM CDT Pt returned call from device nurse. documented in this encounter Plan of Treatment Not on file documented as of this encounter Visit Diagnoses Not on filedocumented in this encounter Care Teams Ore Charger Relationship Specialty Start Date End Date Smooth Cristina MD PCP - General 09/18/16 documented as of this encounter
--- OUTSIDE RECORDS SUMMARY | 2024-06-22 00:52 | XMS_ITS | Encounter Summary ---
Author Organization [facility] Address [address] [facility] [address] [place] [address] Care Team Providers Care Safety And Occupational Health Manager Name Role Phone Smooth Cristina MD Primary Care Provider [phone] Encounter Details Date Type Department Care Team (Late st Contact Info) Description 03/07/2018 Telephone [facility] [address] [facility] [address] [place] [phone] Georgina Nice MD [address] [facility] [address] [address] Social History Tobacco Use Types Packs/Day Years Used Date Smoking Tobacco: Never Alcohol Use Standard Drinks/Week Comments No 0 (1 standard drink = 0.6 oz pur e alcohol) Sex and Gender Information Value Date Recorded Sex Assigned at Not on file Legal Sex Male 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 * Telephone Encounter - Evelina Bishop RN - 03/07/2018 1:11 PM CDT Called [employer] technical services and what could be found was that this is absorbed into the local tissue and nothing could be found regarding vomiting and diarrhea related to pouch. Spoke with patient. Information given. Patient will monitor symptoms and try to sip on water and/or white soda. Nosigns of infection around dressing and no fever at this point. If vomiting/diarrhea lasts more than 24 hours patient will contact pcp. Will contact our office if he begins to show any signs of infection. Patient denies having any medication allergies. * Telephone Encounter - Evelina Bishop RN - 03/07/2018 12:52 PM CDT Spoke with patient. States that he underwent ICD gen change last week, 03/02/18, with a Tyrx [employer] antibiotic pouch. This morning at 2am he awoke feeling very sick. Has been experiencing vomiting and diarrhea and feels that it is related to this pouch. Denies fever. Aquacel dressing still remains to incision site. Instructed patient to try to keep hydrated and I will look into the Tyrx pouchesand return his call. Patient states that he cannot get off the couch at this time. * Telephone Encounter - Awilda Nolan - 03/07/2018 12:15 PM CDT Pt will call back [phone], pt did not go into details documented in this encounter Plan of Treatment Not on file documented as of this encounter Visit Diagnoses Not on filedocumented in this encounter Care Teams Safety And Occupational Health Manager Relationship Specialty Start Date End Date Smooth Cristina MD PCP - General 09/18/16 documented as of this encounter
--- OUTSIDE RECORDS SUMMARY | 2024-06-22 00:52 | XMS_ITS | Encounter Summary ---
Author Organization [facility] Address [address] [facility] [address] [place] [address] Care Team Providers Care Floorwalker Name Role Phone Smooth Cristina MD Primary Care Provider Encounter Details Date Type Department Care Team (Late st Contact Info) Description 10/13/2017 Documentation [facility] [address] [facility] [address] [facility] [address] [place] [address] Georgina Nice MD [address] [facility] [address] [place] [address] Social History Tobacco Use Types Packs/Day Years Used Date Smoking Tobacco: Never Alcohol Use Standard Drinks/Week Comments No 0 (1 standard drink = 0.6 oz pur e alcohol) Sex and Gender Information Value Date Recorded Sex Assigned at Not on file 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 Wanted a refill of amlodipine, let him know he needs to make anappointment with ELU as well since she has not seen him in office since 07/2016. He insisted he was here in April and saw her and said our computer is wrong because he was seen . Refilled patient's medication and had him schedule an appointment for April to see ELU. documented in this encounter Plan of Treatment Not on file documented as of this encounter Visit Diagnoses Not on filedocumented in this encounter Care Teams Floorwalker Relationship Specialty Start Date End Date Smooth Cristina MD PCP - General 09/18/16 documented as of this encounter
--- OUTSIDE RECORDS SUMMARY | 2024-06-22 00:52 | XMS_ITS | Encounter Summary ---
Author Organization [facility] Address [address] [facility] [address] [place] [address] Care Team Providers Care Discovery Guide Name Role Phone Smooth Cristina MD Primary Care Provider [phone] Encounter Details Date Type Department Care Team (Late st Contact Info) Description 03/08/2019 Orders Only [facility] [address] [facility] 102 [place] [address] Georgina Nice MD [address] [facility] 102 [place], [place] [id number] NICM (nonischemic cardiomyopathy) (CMS/HCC) (Primary Dx) Social History Tobacco Use Types Packs/Day Years Used Date Smoking Tobacco: Never Alcohol Use Standard Drinks/Week Comments No 0 (1 standard drink = 0.6 oz pur e alcohol) Sex and Gender Information Value Date Recorded Sex Assigned at Not on file 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
--- OUTSIDE RECORDS SUMMARY | 2024-06-22 00:52 | XMS_ITS | Encounter Summary ---
Author Organization [facility] Address [address] [facility] [address] [place] [address] Care Team Providers Care Tubular Splitting Machine Tender Name Role Phone Smooth Cristina MD Primary Care Provider Encounter Details Date Type Department Care Team (Late st Contact Info) Description 03/01/2018 Telephone [facility] [address] [facility] 162 [facility] 102 [place] [address] Georgina Nice MD [address] [facility] 102 [place] [address] Social History Tobacco Use Types Packs/Day Years Used Date Smoking Tobacco: Never Alcohol Use Standard Drinks/Week Comments No 0 (1 standard drink = 0.6 oz pur e alcohol) Sex and Gender Information Value Date Recorded Sex Assigned at Not on file Legal Sex Male 7:08 PM TURNER AND FORMER AUTOMATIC Gender Identity Not on file Sexual Orientation Not on file documented as of this encounter Miscellaneous Notes * Telephone Encounter - Evelina Bishop RN - 03/01/2018 2:26 PM CDT Spoke with patient. Aware that analyst microbiology lab will be calling later this afternoon. * Telephone Encounter - Kathy Hernandez - 03/01/2018 2:00 PM CDT Pt wants a call back about procedure tomorrow. Says he hasn't heard from the hospital yet. cb [phone] documented in this encounter Plan of Treatment Not on file documented as of this encounter Visit Diagnoses Not on filedocumented in this encounter Care Teams Tubular Splitting Machine Tender Relationship Specialty Start Date End Date Smooth Cristina MD PCP - General 09/18/16 documented as of this encounter
--- OUTSIDE RECORDS SUMMARY | 2024-06-22 00:52 | XMS_ITS | Encounter Summary ---
Author Organization [facility] Address [address] [facility] [address] [place] [address] Care Team Providers Care Catalyst Operator Chief Name Role Phone Smooth Cristina MD Primary Care Provider Reason for Visit * Reason Onset Date Comments ICD download 08/08/2020 Encounter Details Date Type Department Care Team (Late st Contact Info) Description 08/08/2020 Documentation [facility] Cardiology [address] [facility] [address] [place] [phone] Georgina Nice MD [address] [address] ICD download Social History Tobacco Use Types Packs/Day Years Used Date Smoking Tobacco: Never Smokeless Tobacco: Never Alcohol Use Standard Drinks/Week Comments No 0 (1 standard drink = 0.6 oz pur e alcohol) Sex and Gender Information Value Date Recorded Sex Assigned at Not on file 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 FER documented in this encounter Plan of Treatment Not on file documented as of this encounter Visit Diagnoses Not on filedocumented in this encounter Care Teams Catalyst Operator Chief Relationship Specialty Start Date End Date Smooth Cristina MD PCP - General 09/18/16 documented as of this encounter
--- OUTSIDE RECORDS SUMMARY | 2024-06-22 00:52 | XMS_ITS | Encounter Summary ---
Author Organization [facility] Address [address] [facility] [address] [place] [address] Care Team Providers Care Dry Room Attendant Name Role Phone Smooth Cristina MD Primary Care Provider [phone] Reason for Referral * (Routine) - Closed Specialty Diagnoses / Procedures Referred By Contac t Referred To Contact Diagnoses NICM (nonischemic cardiomyopathy) (CMS/HCC) (HCC) Procedures DEVICE CHECK - REMOTE Georgina Nice MD Phone: tel: fax: [facility] Referral ID Status Reason Start Date Expiration Date Visits Re quested Visits Authorized [id number] Closed 12/07/2018 06/17/2020 1 1 Encounter Details Date Type Department Care Team (Late st Contact Info) Description 12/07/2018 Orders Only [facility] [address] [phone] Georgina Nice MD [address] [place] [address] [place] [address] NICM (nonischemic cardiomyopathy) (CMS/HCC) (Primary Dx) Social History Tobacco Use Types Packs/Day Years Used Date Smoking Tobacco: Never Alcohol Use Standard Drinks/Week Comments No 0 (1 standard drink = 0.6 oz pur e alcohol) Sex and Gender Information Value Date Recorded Sex Assigned at Not on file Legal Sex Male 7:08 PM ACUTE CARE NURSE Gender Identity Not on file Sexual Orientation [...] Diagnosis NICM (nonischemic cardiomyopathy) (CMS/HCC) (HCC)- Primary NICM (nonischemic cardiomyopathy) (CMS/HCC) (HCC) documented in this encounter Care Teams Dry Room Attendant Relationship Specialty Start Date End Date Smooth Cristina MD PCP - General 09/18/16 documented as of this encounter
--- OUTSIDE RECORDS SUMMARY | 2024-06-22 00:53 | XMS_ITS | Encounter Summary ---
Author Organization [facility] Address [address] [place] [address] Care Team Providers Care Cereal Supervisor Name Role Phone Smooth Cristina MD Primary Care Provider Encounter Details Date Type Department Care Team (Latest Contact Info) Description 10/17/2012 2:36 PM CDT - 10/17/2012 11:59 PM CDT Hospital Encounter [facility] Nanda Chavez MD [address] [place] [id number] Other complications due to other cardiac device, implant, and graft Social History Tobacco Use Types Packs/Day Years Used Date Smoking Tobacco: Never Assessed Sex and Gender Information Value Date Recorded Sex Assigned at Not on file 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 Gender Identity Not on file Sexual Orientation Not on file documented as of this encounter Medications at Time of Discharge amlodipine-benaz epril (LOTREL) 10-20 mg per capsule TAKE 1 CAPSULE BY ORAL ROUTE EVERY DAY 90 3 10/27/2010 10/13/2017 glimepiride (AMARYL) 4 mg tablet take 1 tablet by oral route 2 times every day 0 0 08/09/2007 08/10/2019 ibuprofen (ibuprofen) 200 mg tab/cap Take as directed 0 0 08/09/2007 05/22/2024 metFORMIN (GLUCOPHAGE) 500 mg tablet take 3 by Oral route once 0 0 11/02/2011 08/10/2019 documented as of this encounter Plan of Treatment Not on file documented as of this encounter Procedures Procedure Name Priority Date/Time Associated Diagnosis Comments CHEST RADIOGRAPHY, FRONTAL (AP), LATERAL Routine 10/17/2012 3:00 PM CDT documented in this encounter Results * CHEST RADIOGRAPHY, FRONTAL (AP), LATERAL (10/17/2012 3:00 PM CDT) Anatomical Region Laterality Modality N/A Radiographic Dinorah ging 10/17/2012 3:00 PM CDT Narrative 10/17/2012 4:31 PM CDT DATE OF EXAM: ??Oct 17 2012 ??3:00PM Acc#: ??[id number] ??[id number] - XR Chest 2 Views ?? DIAGNOSIS: ??MECH COMP AICD CLINICAL HISTORY: ?? PACEMAKER COMP ?? RESULT: \ TWO-VIEW CHEST HISTORY Pacemaker complications. Examination of the chest in the PA and lateral projections shows a multi-lead AICD-type pacemaker on the left. ??The heart is not enlarged. The other mediastinal silhouettes are normal. The lungs are clear without infiltrate. There is no effusion, pneumothorax or congestion. IMPRESSION: ?\ 1. ??MULTI-LEAD AICD-TYPE PACEMAKER ON THE LEFT. ??ONE LEAD EXTENDS INTO WHAT IS PROBABLY THE CORONARY VEIN, ANOTHER ONE INTO THE BASE OF THE RIGHT VENTRICLE AND TWO LEADS ARE IN THE AREA OF THE RIGHT ATRIUM. 2. ??NO ACUTE INFILTRATES OR CARDIOMEGALY. ?? CONSERVATION PLANNER: ??DM2 TRANSCRIBE DATE/TIME: ??Oct 17 2012 ??3:20P RADIOLOGIST: ??THEODORE BOND M.D. ??READ ON: ??Oct 17 2012 ??3:11P ORDERING DR: NANDA CABRERA M.D. THIS DOCUMENT HAS BEEN ELECTRONICALLY SIGNED BY: ??THEODORE BOND M.D. ??ON: ??Oct 17 2012 ??4:30P Procedure Note Provider, MD Franki - 10/09/2016 DATE OF EXAM: Oct 17 2012 3:00PM Acc#: [id number] - XR Chest 2 Views DIAGNOSIS: MECH COMP AICD CLINICAL HISTORY: PACEMAKER COMP RESULT: \ TWO-VIEW CHEST HISTORY Pacemaker complications. Examination of the chest in the PA and lateral projections shows a multi-lead AICD-type pacemaker on the left. The heart is not enlarged. The other mediastinal silhouettes are normal. The lungs are clear without infiltrate. There is no effusion, pneumothorax or congestion. IMPRESSION: \ 1. MULTI-LEAD AICD-TYPE PACEMAKER ON THE LEFT. ONE LEAD EXTENDS INTO WHAT IS PROBABLY THE CORONARY VEIN, ANOTHER ONE INTO THE BASE OF THE RIGHT VENTRICLE AND TWO LEADS ARE IN THE AREA OF THE RIGHT ATRIUM. 2. NO ACUTE INFILTRATES OR CARDIOMEGALY. CONSERVATION PLANNER: MARY GRACE TRANSCRIBE DATE/TIME: Oct 17 2012 3:20P RADIOLOGIST: THEODORE BOND M.D. READ ON: Oct 17 2012 3:11P ORDERING DR: NANDA CABRERA M.D. THIS DOCUMENT HAS BEEN ELECTRONICALLY SIGNED BY: THEODORE BOND M.D. ON: Oct 17 2012 4:30P us Historical Provider MD PEARL XR PROCEDURES Final R esult documented in this encounter Visit Diagnoses Diagnosis Other complications due to other cardiac device, implant, and graft documented in this encounter Care Teams Cereal Supervisor Relationship Specialty Start Date End Date Smooth Cristina MD PCP - General 12/21/06 09/17/16 documented as of this encounter
--- OUTSIDE RECORDS SUMMARY | 2024-06-22 00:53 | XMS_ITS | Encounter Summary ---
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; Surgical operation with implant of artificial internal device causing abnormal patient reaction, or later complication; Unspecified place of occurrence Social History Tobacco Use Types Packs/Day Years Used Date Smoking Tobacco: Never Assessed Sex and Gender Information Value Date Recorded Sex Assigned at Not on file 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 Gender Identity Not on file Sexual Orientation Not on file documented as of this encounter Medications at Time of Discharge glimepiride (AMARYL) 4 mg tablet take 1 tablet by oral route 2 times every day 0 0 08/09/2007 08/10/2019 ibuprofen (ibuprofen) 200 mg tab/cap Take as directed 0 0 08/09/2007 05/22/2024 documented as of this encounter Plan of Treatment Not on file documented as of this encounter Visit Diagnoses Diagnosis Complications due to automatic implantable cardioverter-defibrillator Surgical operation with implant of artificial internal device causing abnormal patient reaction, or later complication Unspecified place of occurrence documented in this encounter Care Teams Sewing Machine Adjuster Relationship Specialty Start Date End Date Smooth Cristina MD PCP - General 12/21/06 09/17/16 documented as of this encounter
--- OUTSIDE RECORDS SUMMARY | 2024-06-22 00:53 | XMS_ITS | Encounter Summary ---
Author Organization [facility] Address [address] [place] [address] Care Team Providers Care Guidance Secretary Name Role Phone Smooth Cristina MD Primary Care Provider Encounter Details Date Type Department Care Team (Latest Contact Info) Description 01/23/2009 11:16 AM CDT - 01/23/2009 11:59 PM CDT Hospital Encounter [facility] Other complications due to other cardiac device, implant, and graft; Type 2 or unspecified type diabetes mellitus; Essential hypertension Social History Tobacco Use Types Packs/Day Years Used Date Smoking Tobacco: Never Assessed Sex and Gender Information Value Date Recorded Sex Assigned at Not on file 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
--- OUTSIDE RECORDS SUMMARY | 2024-06-22 00:53 | XMS_ITS | Encounter Summary ---
Author Organization [facility] Address [address] [address] Care Team Providers Care Printer Maintainer Name Role Phone Smooth Cristina MD Primary Care Provider [phone] Smooth Cristina MD Primary Care Provider Encounter Details Date Type Department Care Team (Late st Contact Info) Description 08/05/2016 Orders Only [facility] ProviderFranki MD [address] [place] [id number] Social History Tobacco Use Types Packs/Day Years Used Date Smoking Tobacco: Never Alcohol Use Standard Drinks/Week Comments No 0 (1 standard drink = 0.6 oz pur e alcohol) Sex and Gender Information Value Date Recorded Sex Assigned at Not on file 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 Historical Provider [facility] LISANDRO MONTEIRO Final Result documented in this encounter Visit Diagnoses Not on filedocumented in this encounter Care Teams Printer Maintainer Relationship Specialty Start Date End Date Smooth Cristina MD PCP - General 09/18/16 Smooth Cristina MD PCP - General 12/21/06 09/17/16 documented as of this encounter
--- OUTSIDE RECORDS SUMMARY | 2024-06-22 00:53 | XMS_ITS | Encounter Summary ---
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; Chronic systolic heart failure (CMS/HCC) (HCC); Surgical operation with implant of artificial internal device causing abnormal patient reaction, or later complication; Unspecified place of occurrence; Congestive heart failure (CMS/HCC) (HCC) Social History Tobacco Use Types Packs/Day Years Used Date Smoking Tobacco: Never Assessed Sex and Gender Information Value Date Recorded Sex Assigned at Not on file 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 Gender Identity Not on file Sexual Orientation [...] Diagnosis Complications due to automatic implantable cardioverter-defibrillator Chronic systolic heart failure ([facility]) (HCC) Chronic systolic heart failure Surgical operation with implant of artificial internal device causing abnormal patient reaction, or later complication Unspecified place of occurrence Congestive heart failure (CMS/[facility]) (HCC) Congestive heart failure, unspecified documented in this encounter Care Teams Occupational Work Experience Teacher Relationship Specialty Start Date End Date Smooth Cristina MD PCP - General 12/21/06 09/17/16 documented as of this encounter
--- OUTSIDE RECORDS SUMMARY | 2024-06-22 00:53 | XMS_ITS | Encounter Summary ---
Author Organization [facility] Address [address] [place] [address] Care Team Providers Care Active Directory Administrator Name Role Phone Smooth Cristina MD Primary Care Provider Reason for Visit * Cardiology (Routine) - Closed Specialty Diagnoses / Procedures Referred By Yonatan min Referred To Contact Diagnoses Cardiomyopathy, unspecified type (HCC) Procedures DEVICE CHECK - IN OFFICE Georgina Nice MD Phone: tel: fax: Referral ID Status Reason Start Date Expiration Date Visits Re quested Visits Authorized [id number] Closed 02/01/2017 07/31/2017 1 1 Encounter Details Date Type Department Care Team (Latest Contact Info) Description 02/03/2017 9:30 AM CDT Ancillary Procedure [facility] Medical [facility] Cardiology [address] [place] [address] Cardiomyopathy, unspecified type; Cardiac defibrillator in place Social History Tobacco Use Types Packs/Day Years Used Date Smoking Tobacco: Never Alcohol Use Standard Drinks/Week Comments No 0 (1 standard drink = 0.6 oz pur e alcohol) Sex and Gender Information Value Date Recorded Sex Assigned at Not on file 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 DOI 10/31/2012. Chronic atrial lead 01/23/2009. Declines home monitoring. Office device checks Q3 months. Office device check today demonstrates appropriate device function. Underlying rhythm-Sr. No atrial arrhythmias noted. 25-ST episodes recorded. 6-NSVT episodes noted, iegm's NSVT & St, no therapies delivered. No programming changes made today. See scanned device report. RTC on 05/26/17 for device f/u. ? us Georgina Nice MD [facility] RES Final Result documented in this encounter Visit Diagnoses Diagnosis Cardiomyopathy, unspecified type (HCC) Cardiac defibrillator in place Automatic implantable cardiac defibrillator in situ documented in this encounter Care Teams Active Directory Administrator Relationship Specialty Start Date End Date Smooth Cristina MD PCP - General 09/18/16 documented as of this encounter
--- OUTSIDE RECORDS SUMMARY | 2024-06-22 00:53 | XMS_ITS | Encounter Summary ---
Author Organization [facility] Address [address] [place] [address] Care Team Providers Care Template Clerk Name Role Phone Smooth Cristina MD Primary Care Provider Reason for Visit * Cardiology (Routine) - Closed Specialty Diagnoses / Procedures Referred By Contac t Referred To Contact Diagnoses NICM (nonischemic cardiomyopathy) (CMS/HCC) (HCC) Procedures DEVICE CHECK - IN OFFICE Georgina Nice MD Phone: tel: fax: Referral ID Status Reason Start Date Expiration Date Visits Re quested Visits Authorized [id number] Closed 02/03/2017 08/02/2017 1 1 Encounter Details Date Type Department Care Team (Latest Contact Info) Description 05/26/2017 9:00 AM CERTIFIED MASTER SAFECRACKER Ancillary Procedure [facility] Medical [facility] Cardiology [address] [place] [address] NICM (nonischemic cardiomyopathy) (CMS/HCC); Cardiac defibrillator in place; Chronic diastolic heart failure (CMS/HCC) Social History Tobacco Use Types Packs/Day Years Used Date Smoking Tobacco: Never Alcohol Use Standard Drinks/Week Comments No 0 (1 standard drink = 0.6 oz pur e alcohol) Sex and Gender Information Value Date Recorded Sex Assigned at Not on file Legal Sex Male 7: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 CERTIFIED MASTER SAFECRACKER Gender Identity Not on file Sexual Orientation Not on file documented as of this encounter Plan of Treatment Pending Results Name Type Priority Associated Diagnoses Date /Time DEVICE CHECK - IN OFFICE Cardiac Services Routine NICM (nonischemic cardiomyopathy) (CMS/HCC) 05/26/2017 8:51 AM CERTIFIED MASTER SAFECRACKER documented as of this encounter Visit Diagnoses Diagnosis NICM (nonischemic cardiomyopathy) (CMS/HCC) ([facility]) Cardiac defibrillator in place Automatic implantable cardiac defibrillator in situ Chronic diastolic heart failure (HCC) Chronic diastolic heart failure documented in this encounter Care Teams Template Clerk Relationship Specialty Start Date End Date Smooth Cristina MD PCP - General 09/18/16 documented as of this encounter
== END 2024-06-15 09:34 | disposition home or self-care (01) ==
PROVIDERS: PCP Family Medicine; Visit Provider Urology
PROC: (CPT 52352; principal; 2024-06-15 07:30)
DX: N40.1 Benign prostatic hyperplasia with lower urinary tract symptoms (principal); N13.30 Unspecified hydronephrosis; R33.8 Other retention of urine; N32.89 Other specified disorders of bladder; I10 Essential (primary) hypertension; I42.8 Other cardiomyopathies; E78.00 Pure hypercholesterolemia, unspecified; Z79.84 Long term (current) use of oral hypoglycemic drugs; Z79.4 Long term (current) use of insulin; Z79.51 Long term (current) use of inhaled steroids; Z98.890 Other specified postprocedural states; Z95.0 Presence of cardiac pacemaker; Z80.9 Family history of malignant neoplasm, unspecified
CPT/HCPCS: 52204; 55700; 74420; 82948; 88108; 88305; 88342; C1758; C1769; G0416; J0690; J1100; J2405; J2704; J3010; J7120; Q9966